=== PATIENT | female | born 1995 | race Caucasian/White ===

== ENCOUNTER 2017-12-12 12:33 | Emergency (ER) | payer OTHER ==
--- NOTE | 2017-12-12 14:55 | ER ---
Nurse's Notes [facility] Name: Tammie Rhodes Age: 22 yrs Sex: Female : 1995 Arrival Date: 12/12/2017 Time: 12:36 Bed Treatment Private MD: Diagnosis: Encounter for test Presentation: 12/12 12:57 Presenting complaint: Patient states: "I have been getting bad motion sickness and my lk1 boobs are tender. I took two tests at home and they were negative. When I was before I always had negative tests. I am taking [place] and Klonopin and my doctor wanted me to come take a test here because I may need my meds changed.". Transition of care: patient was not received from another setting of care. Onset of symptoms was November 30, 2017. Care prior to arrival: None. 12:57 Method Of Arrival: Ambulatory lk1 12:57 Acuity: EBONI 4 lk1 Triage Assessment: 13:00 General: Appears in no apparent distress. Behavior is calm, cooperative, appropriate lk1 for age. Pain: Complains of pain in head Pain currently is 4 out of 10 on a pain scale. 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 - Social history:: Smoking status: Patient/guardian denies using tobacco. Screenin:52 Abuse screen: Denies threats or abuse. Denies injuries from another. Nutritional aj1 screening: No deficits noted. Tuberculosis screening: No symptoms or risk factors identified. 15:00 Fall Risk None identified. aj1 Assessment: 13:52 General: Appears in no apparent distress. comfortable, Behavior is calm, cooperative, aj1 appropriate for age. Pain: Complains of pain in right breast and left breast Quality of pain is described as tenderness. Neuro: Level of Consciousness is awake, alert, obeys commands, Oriented to person, place, time, situation, Moves all extremities. Full function Gait is steady, Speech is normal, Facial symmetry appears normal, Reports "motion sickness". Cardiovascular: Patient's skin is warm and dry. Respiratory: Airway is patent Respiratory effort is even, unlabored, Respiratory pattern is regular, symmetrical. GI: No signs and/or symptoms were reported involving the gastrointestinal system. : No signs and/or symptoms were reported regarding the genitourinary system. EENT: No signs and/or symptoms were reported regarding the EENT system. Derm: No signs and/or symptoms reported regarding the dermatologic system. Skin is pink, warm \\T\\ dry. normal. Musculoskeletal: No signs and/or symptoms reported regarding the musculoskeletal system. Circulation, motion, and sensation intact. 14:59 Reassessment: Patient appears in no apparent distress at this time. No changes from aj1 previously documented assessment. Patient and/or family updated on plan of care and expected duration. Pain level reassessed. Patient is alert, oriented x 3, equal unlabored respirations, skin warm/dry/pink. Vital Signs: 13:01 BP 114 / 79; Pulse 71; Resp 14; Temp 98.2(TE); Pulse Ox 99% on R/A; Weight 86.18 kg lk1 (R); Height 5 ft. 4 in. (162.56 cm) (R); Pain 4/10; 13:01 Body Mass Index 32.61 (86.18 kg, 162.56 cm) lk1 ED Course: 12:36 Patient arrived in ED. mr 13:00 Triage completed. lk1 13:02 Arm band placed on right wrist. lk1 13:06 Alo Ivey PA is PHCP. cp 13:07 Jd Arias MD is Attending Physician. cp 13:49 Jayleen Gates, RN is Primary Nurse. aj1 13:52 Patient has correct armband on for positive identification. aj1 13:52 No provider procedures requiring assistance completed. aj1 15:00 Patient did not have IV access during this emergency room visit. aj1 Administered Medications: No medications were administered Outcome: 14:55 Discharge ordered by . cp 15:00 Discharged to home ambulatory. aj1 15:00 Condition: good 15:00 Discharge instructions given to patient, Instructed on discharge instructions, follow up and referral plans. Demonstrated understanding of instructions, follow-up care. 15:00 Patient left the ED. aj1 Signatures: Jayleen Gates, RN RN [email or web address] Scarlet Hay mr Alo Ivey PA PA cp Kluge, Leah, RN RN lk1
--- NOTE | 2017-12-12 14:55 | EDPHYS ---
Physician Documentation [facility] Name: Tammie Rhodes Age: 22 yrs Sex: Female : 1995 Arrival Date: 12/12/2017 Time: 12:36 Bed Treatment Private MD: ED Physician Jd Arias HPI: 12/12 13:15 This 22 yrs old Female presents to ER via Ambulatory with complaints of cp test. 13:15 Onset: The symptoms/episode began/occurred 12 day(s) ago. cp 13:15 Associated signs and symptoms: Pertinent positives: tender breasts, Pertinent cp negatives: abdominal pain, vomiting, missed menstrual cycle. 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 - Social history:: Smoking status: Patient/guardian denies using tobacco. ROS: 13:20 Constitutional: Negative for body aches, chills, fever, poor PO intake. cp 13:20 Eyes: Negative for injury, pain, redness, and discharge. cp 13:20 ENT: Negative for drainage from ear(s), ear pain, sore throat, difficulty swallowing, difficulty handling secretions. 13:20 Cardiovascular: Negative for chest pain, edema, palpitations. 13:20 Respiratory: Negative for cough, shortness of breath, wheezing. 13:20 Abdomen/GI: Negative for abdominal pain, nausea and vomiting, constipation. 13:20 : Negative for urinary symptoms, vaginal bleeding, missed period. 13:20 Neuro: Negative for dizziness, headache, weakness. 13:20 All other systems are negative. Exam: 13:25 Constitutional: The patient appears in no acute distress, alert, awake, comfortable, cp non-toxic, well developed, well nourished. 13:25 Head/Face: Normocephalic, atraumatic. cp 13:25 Eyes: Periorbital structures: appear normal, Conjunctiva: normal, no exudate, no injection, Lids and lashes: appear normal, bilaterally. 13:25 ENT: External ear(s): are unremarkable, Nose: is normal, Mouth: Lips: moist, Oral mucosa: moist, Posterior pharynx: is normal, airway is patent, no erythema, no exudate. 13:25 Chest/axilla: Inspection: normal. 13:25 Cardiovascular: Rate: normal, Rhythm: regular. 13:25 Respiratory: the patient does not display signs of respiratory distress, Respirations: normal, no use of accessory muscles, no retractions, no splinting, no tachypnea, Breath sounds: are clear throughout, no decreased breath sounds, no stridor, no wheezing. 13:25 Abdomen/GI: Exam negative for discomfort, distension, guarding, Inspection: abdomen appears normal. 13:25 Skin: cellulitis, is not appreciated, no rash present. 13:25 Neuro: Orientation: to person, place \T\ time. Mentation: is normal. Vital Signs: 13:01 BP 114 / 79; Pulse 71; Resp 14; Temp 98.2(TE); Pulse Ox 99% on R/A; Weight 86.18 kg lk1 (R); Height 5 ft. 4 in. (162.56 cm) (R); Pain 4/10; 13:01 Body Mass Index 32.61 (86.18 kg, 162.56 cm) lk1 MDM: 13:10 Patient medically screened. cp 14:54 Data reviewed: vital signs, nurses notes, lab test result(s), and as a result, I will cp discharge patient. Counseling: I had a detailed discussion with the patient and/or guardian regarding: the historical points, exam findings, and any diagnostic results supporting the discharge/admit diagnosis, lab results, the need for outpatient follow up, a family practitioner, to return to the emergency department if symptoms worsen or persist or if there are any questions or concerns that arise at home. 12/12 13:15 Order name: Test, Serum; Complete Time: 14:51 cp 12/12 14:41 Order name: Urine Dipstick--Ancillary (enter results) bd 12/12 13:15 Order name: Urine Dipstick-Ancillary (obtain specimen); Complete Time: 14:52 cp 12/12 13:15 Order name: Urine Test (obtain specimen); Complete Time: 14:52 cp 12/12 14:41 Order name: Urine --Ancillary (enter results) bd Administered Medications: No medications were administered Disposition: 16:18 Co-signature as Attending Physician, Jd Arias MD. rn Disposition: 12/12/17 14:55 Discharged to Home. Impression: Encounter for test. - Condition is Stable. - Medication Reconciliation Form, Thank You Letter, Antibiotic Education, Prescription Opioid Use form. - Follow up: Private Physician; When: 1 - 2 days; Reason: Recheck today's complaints. - Problem is new. - Symptoms are unchanged. Signatures: Dispatcher [employer] EDJayleen Cervantes RN RN aj1 Jd Arias MD MD rn Page, Corey, PA PA cp Kluge, Leah, RN RN lk1
[2017-12-12 15:06] VITALS: BP 114/79; TEMP 98.2; O2SAT 99
[2017-12-12 18:19] LABS: Urine Blood TRACE (NEG); Urine Glucose NEGATIVE (NEG); Urine Protein NEGATIVE (NEG); Urine pH 6.5 (5.0-7.0)
== END 2017-12-12 15:00 | disposition home or self-care (01) ==
LOC: ER 12:33
DX: Z88.8 Allergy status to other drugs, medicaments and biological substances; Z32.02 Encounter for pregnancy test, result negative; Z88.6 Allergy status to analgesic agent; F31.9 Bipolar disorder, unspecified
CPT/HCPCS: 36415; 81003; 81025; 84703; 99281

== ENCOUNTER 2018-01-22 18:58 | Emergency (ER) | payer OTHER ==
[2018-01-22] MEDS ORDERED: ACETAMINOPHEN 500 MG TAB ONE (19:17)
[2018-01-22] MEDS ORDERED: NA CHLORIDE 0.9% 1,000 ML ONE (20:54)
--- NOTE | 2018-01-22 21:17 | RAD REPORT ---
EXAM DESCRIPTION: RAD - Chest Single View - 01/22/2018 8:42 pm CLINICAL HISTORY: Cough and congestion COMPARISON: March 2007 T TECHNIQUE: AP portable chest image was obtained 7 hours . FINDINGS: Lungs are clear. Heart and vasculature are normal. No measurable pleural effusion and no p neumothorax. No gross bony abnormality seen. No acute aortic findings suspected. IMPRESSION: No acute cardiopulmonary process. No significant change from comparison.
[2018-01-22 21:42] LABS: Urine Blood 2+ (NEG); Urine Glucose NEGATIVE (NEG); Urine Protein 1+ (NEG); Urine Specific Gravity 1.015 (1.005-1.030)
[2018-01-22] MEDS ORDERED: ONDANSETRON 4 MG/2 ML VIAL ONE (22:01)
--- NOTE | 2018-01-22 22:26 | EDPHYS ---
Physician Documentation [facility] Name: Tammie Rhodes Age: 22 yrs Sex: Female : 1995 Arrival Date: 01/22/2018 Time: 19:00 Bed 26 Private MD: ED Physician Naren West HPI: 01/22 20:43 This 22 yrs old Female presents to ER via Ambulatory with complaints of Flu jr8 Symptoms. 20:43 Patient stated that she has had 3 days of n/v/d, cough, chest and back pain, fevers, jr8 chills. Son diagnosed with influenza last week. Cannot keep fluids down. Severity of symptoms: At their worst the symptoms were moderate in the emergency department the symptoms are unchanged. The patient has not experienced similar symptoms in the past. The patient has not recently seen a physician. 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 - Social history:: Smoking status: Patient/guardian denies using tobacco. ROS: 20:43 Eyes: Negative for injury, pain, redness, and discharge, ENT: Negative for injury, jr8 pain, and discharge, Neck: Negative for injury, pain, and swelling, Cardiovascular: Negative for chest pain, palpitations, and edema, Back: Negative for injury and pain, MS/Extremity: Negative for injury and deformity, Skin: Negative for injury, rash, and discoloration, Neuro: Negative for headache, weakness, numbness, tingling, and seizure. 20:43 Constitutional: Positive for body aches, chills, fever. 20:43 Respiratory: Positive for cough, shortness of breath. 20:43 Abdomen/GI: Positive for nausea, vomiting, and diarrhea, Negative for abdominal pain, abdominal distension, anorexia, dysphagia, hematemesis, black/tarry stool, rectal pain, rectal bleeding, bowel incontinence, flatulence. Exam: 20:43 Eyes: Pupils equal round and reactive to light, extra-ocular motions intact. Lids and jr8 lashes normal. Conjunctiva and sclera are non-icteric and not injected. Cornea within normal limits. Periorbital areas with no swelling, redness, or edema. ENT: Nares patent. No nasal discharge, no septal abnormalities noted. Tympanic membranes are normal and external auditory canals are clear. Oropharynx with no redness, swelling, or masses, exudates, or evidence of obstruction, uvula midline. Mucous membranes moist. Neck: Trachea midline, no thyromegaly or masses palpated, and no cervical lymphadenopathy. Supple, full range of motion without nuchal rigidity, or vertebral point tenderness. No Meningismus. Cardiovascular: Regular rate and rhythm with a normal S1 and S2. No gallops, murmurs, or rubs. Normal PMI, no JVD. No pulse deficits. Respiratory: Lungs have equal breath sounds bilaterally, clear to auscultation and percussion. No rales, rhonchi or wheezes noted. No increased work of breathing, no retractions or nasal flaring. Abdomen/GI: Soft, non-tender, with normal bowel sounds. No distension or tympany. No guarding or rebound. No evidence of tenderness throughout. Back: No spinal tenderness. No costovertebral tenderness. Full range of motion. Skin: Warm, dry with normal turgor. Normal color with no rashes, no lesions, and no evidence of cellulitis. MS/ Extremity: Pulses equal, no cyanosis. Neurovascular intact. Full, normal range of motion. Neuro: Awake and alert, GCS 15, oriented to person, place, time, and situation. Cranial nerves II-XII grossly intact. Motor strength 5/5 in all extremities. Sensory grossly intact. Cerebellar exam normal. Normal gait. Vital Signs: 19:15 BP 106 / 74; Pulse 121; Resp 19; Temp 102.0(TE); Pulse Ox 100% on R/A; Weight 83.91 kg; la1 Height 5 ft. 4 in. (162.56 cm); 19:45 Temp 99.3(O); tl3 21:00 BP 106 / 71; Pulse 91; Resp 18; Pulse Ox 99% on R/A; dh3 21:40 BP 112 / 70; Pulse 74; Resp 18; Pulse Ox 99% ; tl3 22:22 BP 108 / 66; Pulse 78; Resp 16; Pulse Ox 100% on R/A; tl3 19:15 Body Mass Index 31.75 (83.91 kg, 162.56 cm) la1 MDM: 20:13 Patient medically screened. jr8 22:25 Data reviewed: vital signs, nurses notes, lab test result(s), radiologic studies, plain jr8 films, and as a result, I will discharge patient. Data interpreted: Pulse oximetry: on room air is 100 %. Interpretation: normal. Counseling: I had a detailed discussion with the patient and/or guardian regarding: the historical points, exam findings, and any diagnostic results supporting the discharge/admit diagnosis, lab results, radiology results, the need for outpatient follow up, a family practitioner, to return to the emergency department if symptoms worsen or persist or if there are any questions or concerns that arise at home. Response to treatment: the patient's symptoms have markedly improved after treatment, patient is well hydrated. 01/22 19:27 Order name: Influenza Screen (A ; Complete Time: 20:13 EDSD 01/22 19:27 Order name: Group A Streptococcus Rapid Sc; Complete Time: 20:13 EDSD 01/22 20:04 Order name: Throat Culture EDSD 01/22 21:05 Order name: Urine Dipstick--Ancillary (enter results); Complete Time: 22:07 rg2 01/22 20:31 Order name: IV; Complete Time: 21:41 8 01/22 20:31 Order name: XRAY Chest (1 view); Complete Time: 21:21 jr8 01/22 21:05 Order name: Urine --Ancillary (enter results); Complete Time: 22:07 rg2 Administered Medications: 19:19 Drug: Tylenol 1000 mg Route: PO; la1 21:23 Follow up: Response: No adverse reaction; Temperature is decreased tl3 21:42 Follow up: Response: No adverse reaction; Temperature is decreased tl3 20:45 Drug: NS 0.9% 1000 ml Route: IV; Rate: 1000 ml; Site: right antecubital; tl3 21:58 Follow up: IV Status: Completed infusion; IV Intake: 1000ml tl3 22:03 Drug: Zofran 4 mg Route: IVP; Infused Over: 2 mins; Site: right antecubital; tl3 22:24 Follow up: Response: No adverse reaction; Nausea is decreased tl3 Disposition: 01/23 19:51 Co-signature as Attending Physician, Naren West MD. Disposition: 01/22/18 22:26 Discharged to Home. Impression: Viral infection, unspecified, Dehydration. - Condition is Stable. - Discharge Instructions: Dehydration, Adult, Viral Infections. - Prescriptions for promethazine 25 mg Oral Tablet - take 1 tablet by ORAL route every 6 hours As needed; 20 tablet. - Medication Reconciliation Form, Thank You Letter, Antibiotic Education, Prescription Opioid Use form. - Follow up: Private Physician; When: 2 - 3 days; Reason: Recheck today's complaints, Continuance of care, Re-evaluation by your physician. - Problem is new. - Symptoms have improved. Signatures: Dispatcher [employer] EDSD Mark Nunez PA PA jr8 David Washington, RN RN la1 Naren West MD MD Dot Barney, ONUR RN tl3 Corrections: (The following items were deleted from the chart) 01/22 20:04 19:28 Group A Streptococcus Rapid Sc+BA.LAB.BRZ ordered. EDSD EDSD 20:04 19:28 Influenza Screen (A \T\ B)+BA.LAB.BRZ ordered. EDSD EDSD 22:30 22:26 01/22/2018 22:26 Discharged to Home. Impression: Viral infection, unspecified; tl3 Dehydration. Condition is Stable. Forms are Medication Reconciliation Form, Thank You Letter, Antibiotic Education, Prescription Opioid Use. Follow up: Private Physician; When: 2 - 3 days; Reason: Recheck today's complaints, Continuance of care, Re-evaluation by your physician. Problem is new. Symptoms have improved. jr8
--- NOTE | 2018-01-22 22:26 | ER ---
Nurse's Notes [facility] Name: Tammie Rhodes Age: 22 yrs Sex: Female : 1995 Arrival Date: 01/22/2018 Time: 19:00 Bed 26 Private MD: Diagnosis: Viral infection, unspecified;Dehydration Presentation: 01/22 19:13 Presenting complaint: Patient states: My son had flu A on Monday and now I am having la1 fever, dizziness and chest pain when I breathe. Transition of care: patient was not received from another setting of care. Onset of symptoms was January 22, 2018. Initial Sepsis Screen: Does the patient meet any 2 criteria? Temp <36.0*C (96.8*F)) or > 38.3*C (100.4*F). HR > 90 bpm. Yes Does the patient have a suspected source of infection? No. Patient's initial sepsis screen is negative. Care prior to arrival: None. 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 - Social history:: Smoking status: Patient/guardian denies using tobacco. Screenin:22 Abuse screen: Denies threats or abuse. Nutritional screening: No deficits noted. tl3 Tuberculosis screening: No symptoms or risk factors identified. Fall Risk None identified. Assessment: 19:45 Reassessment: pt reports son has been dx with flu, pt started running fever today, tl3 t-max 102.0. General: Appears uncomfortable, well groomed, well developed, well nourished, Behavior is calm, cooperative, appropriate for age. Pain: Denies pain. Neuro: Level of Consciousness is awake, alert, obeys commands, Oriented to person, place, time, situation, Appropriate for age. Cardiovascular: No deficits noted. Heart tones S1 S2 present. Cardiovascular: Patient's skin is warm and dry. Respiratory: Airway is patent Trachea midline Respiratory effort is even, unlabored, Respiratory pattern is regular, symmetrical. GI: No signs and/or symptoms were reported involving the gastrointestinal system. : No signs and/or symptoms were reported regarding the genitourinary system. EENT: No signs and/or symptoms were reported regarding the EENT system. Derm: No signs and/or symptoms reported regarding the dermatologic system. Musculoskeletal: No signs and/or symptoms reported regarding the musculoskeletal system. 21:40 Reassessment: Patient appears in no apparent distress at this time. No changes from tl3 previously documented assessment. Patient and/or family updated on plan of care and expected duration. Pain level reassessed. Patient is alert, oriented x 3, equal unlabored respirations, skin warm/dry/pink. 22:22 Reassessment: Patient appears in no apparent distress at this time. No changes from tl3 previously documented assessment. Patient and/or family updated on plan of care and expected duration. Pain level reassessed. Patient is alert, oriented x 3, equal unlabored respirations, skin warm/dry/pink. nausea much better. Vital Signs: 19:15 BP 106 / 74; Pulse 121; Resp 19; Temp 102.0(TE); Pulse Ox 100% on R/A; Weight 83.91 kg; la1 Height 5 ft. 4 in. (162.56 cm); 19:45 Temp 99.3(O); tl3 21:00 BP 106 / 71; Pulse 91; Resp 18; Pulse Ox 99% on R/A; dh3 21:40 BP 112 / 70; Pulse 74; Resp 18; Pulse Ox 99% ; tl3 22:22 BP 108 / 66; Pulse 78; Resp 16; Pulse Ox 100% on R/A; tl3 19:15 Body Mass Index 31.75 (83.91 kg, 162.56 cm) la1 ED Course: 19:00 Patient arrived in ED. rg4 19:14 Triage completed. la1 19:14 Arm band placed on left wrist. la1 20:10 Mark Nunez PA is PHCP. jr8 20:10 Naren West MD is Attending Physician. jr8 20:40 X-ray completed. Portable x-ray completed in exam room. Patient tolerated procedure kc2 well. 20:40 XRAY Chest (1 view) In Process Unspecified. EDMS 20:45 No provider procedures requiring assistance completed. Inserted saline lock: 20 gauge tl3 in right antecubital area, using aseptic technique. 21:19 Dot Barney, RN is Primary Nurse. tl3 22:22 Patient has correct armband on for positive identification. Bed in low position. Call tl3 light in reach. Side rails up X 1. 22:28 IV discontinued, intact, bleeding controlled, No redness/swelling at site. Pressure tl3 dressing applied. Administered Medications: 19:19 Drug: Tylenol 1000 mg Route: PO; la1 21:23 Follow up: Response: No adverse reaction; Temperature is decreased tl3 21:42 Follow up: Response: No adverse reaction; Temperature is decreased tl3 20:45 Drug: NS 0.9% 1000 ml Route: IV; Rate: 1000 ml; Site: right antecubital; tl3 21:58 Follow up: IV Status: Completed infusion; IV Intake: 1000ml tl3 22:03 Drug: Zofran 4 mg Route: IVP; Infused Over: 2 mins; Site: right antecubital; tl3 22:24 Follow up: Response: No adverse reaction; Nausea is decreased tl3 Intake: 21:58 IV: 1000ml; Total: 1000ml. tl3 Outcome: 22:26 Discharge ordered by . tiffany 22:28 Discharged to home ambulatory. tl3 22:28 Condition: stable 22:28 Discharge instructions given to patient, Instructed on discharge instructions, follow up and referral plans. medication usage, Demonstrated understanding of instructions, follow-up care, medications, Prescriptions given X 1. 22:30 Patient left the ED. tl3 Signatures: Dispatcher [employer] EDMS Mark Nunez PA PA jr8 David Washington RN RN [email or web address] Aleksandra Jones Rubi [place] 3 Dot Barney, RN RN tl3
[2018-01-22 23:32] VITALS: TEMP 99.3
[2018-01-22 23:37] VITALS: BP 108/66; O2SAT 100
== END 2018-01-22 22:30 | disposition home or self-care (01) ==
LOC: ER 18:58
DX: E86.0 Dehydration (principal); B34.9 Viral infection, unspecified; Z88.6 Allergy status to analgesic agent; Z88.8 Allergy status to other drugs, medicaments and biological substances
CPT/HCPCS: 71045; 81003; 81025; 87070; 87081; 87804; 96361; 96374; 99284; J2405; J7030

== ENCOUNTER 2019-01-29 10:09 | Emergency (ER) | payer OTHER ==
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
--- OUTSIDE RECORDS SUMMARY | 2019-01-29 10:13 | XMS REPORT | Continuity of Care Document ---
:1994 Author Organization [facility] Care Team Providers Name Role Phone FERNANDO Griffin Sharrone Unavailable Unavailable Insurance Providers Payer name Policy type / Coverage Policy ID Covered republican ID Policy Muniz type [facility] STAR MEDICAID OSPCP PRIM HUMANA [facility] Encounters Encounter Performer Location Date Lab Report Luz Griffin PA-C [facility] Medical [place] OB-Vest Tailor Dec 29, 2014 Allergies, Adverse Reactions, Alerts Type Substance Reaction [...] Start Date Status SEROQUEL XR 150 MG [id number]-HGL 1 TABLET BY MOUTH DAILY February 06, [...] E&M - 9279-1 RESP RATE 10 /min Results Date Description Test Name Value Reference Interpretation Status Dec 29, beta HCG, serum, BETA-HCG POSITIVE null NEGATIVE High 2014 qualitative QL
--- OUTSIDE RECORDS SUMMARY | 2019-01-29 10:14 | XMS REPORT | Summary of Care ---
:1994 Author Organization [facility] Address [address] [place] [address]- Encounter HQ Encntr_alias(FIN) [id number] Date(s): 06/25/18 - 06/25/18 [facility] [address] [place], [place] [id number]- [phone] Attending Physician: VISIT, NURSE [facility] Vital Signs No data available for this section Problem List Condition Effective Dates Status Health Status Informant Acute appendicitis(Confirmed) 2005 Resolved ADHD (attention deficit Active hyperactivity disorder)(Confirmed) Low back strain1 02/06/13 Active Melanocytic nevus2 02/24/15 Active Migraine3 02/06/13 Active Obesity(Confirmed) Active Seizure disorder4 02/06/13 Active 1Data migrated from [employer] on 04/27/15.2Data migrated from [employer] on 03/25/15.3Data migrated from [employer] on 04/27/15.4Data migrated from [employer] on 04/27/15. Allergies, Adverse Reactions, Alerts Substance Reaction Severity Status diphenhydrAMINE1 Active aspirin Moderate Active traZODone2 Active 1Data migrated from [employer] on 01/15/15. Originally documented as BENADRYL.2Data migrated from [employer] on 01/15/15. Originally documented as TRAZADONE. Medications No data available for this section Results No data available for this section Immunizations Given and Recorded Vaccine Date Status Refusal Reason influenza virus vaccine, inactivated 06/29/18 Given hepatitis B adult vaccine 05/25/18 Given hepatitis B adult vaccine 11/29/17 Given hepatitis B adult vaccine 11/01/17 Given diphtheria/pertussis, acel/tetanus adult 10/19/17 Given Procedures Procedure Date Related Diagnosis Body Site Status section 2013 Completed section1 2012 Completed Appendectomy 2006 Completed Complex reconstruction operations on wrist Completed and hand(excluding arthroplasty) Tonsillectomy Completed 1x 2 Social History Social History Type Response Substance Abuse Use: None. Alcohol Never Smoking Status Never smoker; Ready to change: No; Concerns about tobacco use in household: No; Exposure to Tobacco Smoke None; Cigarette Smoking Last 365 Days No; Reg Smoking Cessation Counseling No entered on: 06/15/18 Assessment and Plan No data available for this section
--- OUTSIDE RECORDS SUMMARY | 2019-01-29 10:14 | XMS REPORT | Summary of Care ---
:1994 Author Organization [facility] Address [address] [place] [address]- Encounter HQ Encntr_alias(FIN) [id number] Date(s): 06/25/18 - 06/25/18 [facility] [address] [place], [place] [address]- [phone] Attending Physician: VISIT, NURSE [facility] Vital Signs No data available for [...]
--- OUTSIDE RECORDS SUMMARY | 2019-01-29 10:14 | XMS REPORT | Summary of Care ---
:1994 Author Organization [facility] Address [address] [place] [address]- Encounter HQ Swatir_victor m(FIN) [id number] Date(s): 06/29/18 - 06/29/18 [facility] [address] [place] [address] [phone] Discharge Disposition: Home or Self Care Attending Physician: Ishmael Goss PA-C Vital Signs Most recent to oldest [Reference Range]: 1 Temperature Oral [96.4-99.1 DegF] 97.6 DegF (06/29/18 3:03 PM) Blood Pressure [90-140/60-90 mmHg] 112/79 mmHg (06/29/18 3:03 PM) Peripheral Pulse Rate [60-100 bpm] 69 bpm (06/29/18 3:03 PM) Weight 91.591 kg (06/29/18 3:03 PM) Problem List Condition Effective Dates Status Health [...] section 2013 Completed section1 2012 Completed Appendectomy 2005 Completed Complex reconstruction operations on wrist Completed [...]
--- OUTSIDE RECORDS SUMMARY | 2019-01-29 10:14 | XMS REPORT | Summary of Care ---
:1994 Author Organization [facility] Address [address] [place] [address]- Encounter HQ Encntr_alimaryana(FIN) [id number] Date(s): 06/25/18 - 06/25/18 [facility] [address] [place] [address]- [phone] Attending Physician: VISIT, NURSE [facility] Vital Signs No data available for this [...]
--- OUTSIDE RECORDS SUMMARY | 2019-01-29 10:14 | XMS REPORT | Summary of Care ---
:1994 Author Organization [facility] Address [address] [place] [address]- Encounter HQ Swatir_victor m(FIN) [id number] Date(s): 05/25/18 - 05/25/18 [facility] [address] [place] [address]- [phone] Discharge Disposition: Home or Self Care Attending Physician: VISIT, NURSE [facility] Vital Signs Most recent to oldest [Reference Range]: 1 Temperature Oral [96.4-99.1 DegF] 98.5 DegF (05/25/18 3:27 PM) Blood Pressure [90-140/60-90 mmHg] 116/71 mmHg (05/25/18 3:27 PM) Peripheral Pulse Rate [60-100 bpm] 101 bpm *HI* (05/25/18 3:27 PM) Weight 90.909 kg (05/25/18 3:27 PM) Problem List Condition Effective Dates Status [...]
--- OUTSIDE RECORDS SUMMARY | 2019-01-29 10:14 | XMS REPORT | Summary of Care ---
:1994 Author Organization [facility] Address [address] [place] [address]- Encounter HQ Encntr_alimaryana(FIN) [id number] Date(s): 06/29/18 - 06/29/18 [facility] [address] [place] [address] [phone] Attending Physician: Ishmael Goss PA-C Vital Signs No data available for this [...] adult vaccine 11/01/17 Given diphtheria/pertussis, acel/tetanus adult 2/1/18 Given Procedures Procedure Date Related Diagnosis Body [...]
--- OUTSIDE RECORDS SUMMARY | 2019-01-29 10:14 | XMS REPORT | Summary of Care ---
:1994 Author Organization [facility] Address [address] [place] [address]- Encounter HQ Encntr_alimaryana(FIN) [id number] Date(s): 06/25/18 - 06/25/18 [facility] [address] [place] [address]- [phone] Attending Physician: VISIT, NURSE [facility] Vital Signs No data available for this [...]
--- OUTSIDE RECORDS SUMMARY | 2019-01-29 10:14 | XMS REPORT | Summary of Care ---
:1994 Author Organization [facility] Address [address] [place] [address]- Encounter HQ Encntr_alimaryana(FIN) [id number] Date(s): 11/01/17 - 11/01/17 [facility] [address] [place] [address] [phone] Discharge Disposition: Home or Self Care Attending Physician: Ishmael Goss PA-C Vital Signs Most recent to oldest [Reference Range]: 1 Height 162.56 cm (11/01/17 9:48 AM) Temperature Oral [96.4-99.1 DegF] 98.3 DegF (11/01/17 9:48 AM) Blood Pressure [90-140/60-90 mmHg] 110/71 mmHg (11/01/17 9:48 AM) Peripheral Pulse Rate [60-100 bpm] 75 bpm (11/01/17 9:48 AM) Weight 85.909 kg (11/01/17 9:48 AM) Body Mass Index 32.51 m2 (11/01/17 9:48 AM) Problem List Condition Effective Dates Status Health Status Informant Acute appendicitis(Confirmed) 2006 Resolved Low back strain1 02/06/13 Active Melanocytic nevus2 [...] 01/15/15. Originally documented as BENADRYL.2Data migrated from [employer] on 01/15/15. Originally documented as TRAZADONE. Medications No Known Medications Results No data available for this section Immunizations Given and Recorded Vaccine Date Status Refusal Reason hepatitis B adult vaccine 11/29/17 Given hepatitis [...] Reg Smoking Cessation Counseling No entered on: 01/24/18 Assessment and Plan No data available for this section
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
--- OUTSIDE RECORDS SUMMARY | 2019-01-29 10:15 | XMS REPORT | Summary of Care ---
:1994 Author Organization [facility] Address [address] [place] [address]- Encounter HQ Loganntr_victor m(FIN) [id number] Date(s): 01/24/18 - 01/24/18 [facility] [address] [place] [address] [phone] Discharge Disposition: Home or Self Care Attending Physician: Ishmael Goss PA-C Vital Signs Most recent to oldest [Reference Range]: 1 Height 162.56 cm (01/24/18 2:15 PM) Temperature Oral [96.4-99.1 DegF] 98.4 DegF (01/24/18 2:15 PM) Blood Pressure [90-140/60-90 mmHg] 100/66 mmHg (01/24/18 2:15 PM) Peripheral Pulse Rate [60-100 bpm] 106 bpm *HI* (01/24/18 2:15 PM) Weight 86.818 kg (01/24/18 2:15 PM) Body Mass Index 32.85 m2 (01/24/18 2:15 PM) Problem List Condition Effective Dates Status [...] 01/15/15. Originally documented as BENADRYL.2Data migrated from [employer] on 01/15/15. Originally documented as TRAZADONE. Medications cefTRIAXone 1 gm, Route: IM, Drug form: PDR/INJ, ONCE, Dosing Weight 86.818, kg, Start date : 01/24/18 14:24:00 CDT, Stop date: 01/24/18 14:24:00 CDT Start Date: 01/24/18 Stop Date: 01/24/18 Status: Completedcephalexin 500 mg oral capsule 500 mg=1 cap, PO, TID, X 10 day, # 30 cap, 0 Refill(s), Pharmacy: [id number] Start Date: 01/24/18 Stop Date: 02/03/18 Status: Ordered Results No data available for this section [...]
--- OUTSIDE RECORDS SUMMARY | 2019-01-29 10:15 | XMS REPORT | Summary of Care ---
:1994 Author Organization [facility] Address [address] [place] [address]- Encounter HQ Loganntr_victor m(FIN) [id number] Date(s): 11/29/17 - 11/29/17 [facility] [address] [place] [address] [phone] Discharge Disposition: Home or Self Care Attending Physician: VISIT, NURSE [facility] Vital Signs Most recent to oldest [Reference Range]: 1 Temperature Oral [96.4-99.1 DegF] 98.2 DegF (11/29/17 10:16 AM) Blood Pressure [90-140/60-90 mmHg] 118/73 mmHg (11/29/17 10:16 AM) Peripheral Pulse Rate [60-100 bpm] 78 bpm (11/29/17 10:16 AM) Weight 86.818 kg (11/29/17 10:16 AM) Problem List Condition Effective Dates Status [...] Reg Smoking Cessation Counseling No entered on: 02/28/18 Assessment and Plan No data available for this section
--- OUTSIDE RECORDS SUMMARY | 2019-01-29 10:15 | XMS REPORT | Summary of Care ---
:1994 Author Organization [facility] Address [address] [place] [address]- Encounter HQ Swatir_victor m(FIN) [id number] Date(s): 10/18/17 - 10/18/17 [facility] [address] [place] [address] [phone] Discharge Disposition: Home or Self Care Attending Physician: Ishmael Goss PA-C Vital Signs Most recent to oldest [Reference Range]: 1 Height 162.56 cm (10/18/17 1:18 PM) Temperature Oral [96.4-99.1 DegF] 97.8 DegF (10/18/17 1:18 PM) Blood Pressure [90-140/60-90 mmHg] 104/71 mmHg (10/18/17 1:18 PM) Peripheral Pulse Rate [60-100 bpm] 69 bpm (10/18/17 1:18 PM) Weight 85.909 kg (10/18/17 1:18 PM) Body Mass Index 32.51 m2 (10/18/17 1:18 PM) Problem List Condition Effective Dates Status [...] 01/15/15. Originally documented as BENADRYL.2Data migrated from [employer] on 01/15/15. Originally documented as TRAZADONE. Medications [...] Reg Smoking Cessation Counseling No entered on: 11/01/17 Assessment and Plan No data available for this section
--- OUTSIDE RECORDS SUMMARY | 2019-01-29 10:15 | XMS REPORT | Summary of Care ---
:1994 Author Organization [facility] Address [address] [place] [address]- Encounter HQ Ghassan_victor m(FIN) [id number] Date(s): 02/28/18 - 02/28/18 [facility] [address] [place] [address] [phone] Discharge Disposition: Home or Self Care Attending Physician: Marylu Hayden DO Vital Signs Most recent to oldest [Reference Range]: 1 Height 162.56 cm (02/28/18 2:41 PM) Temperature Oral [96.4-99.1 DegF] 98.1 DegF (02/28/18 2:41 PM) Blood Pressure [90-140/60-90 mmHg] 126/76 mmHg (02/28/18 2:41 PM) Peripheral Pulse Rate [60-100 bpm] 80 bpm (02/28/18 2:41 PM) Weight 87.727 kg (02/28/18 2:41 PM) Body Mass Index 33.2 m2 (02/28/18 2:41 PM) Problem List Condition Effective Dates Status Health Status Informant Acute appendicitis(Confirmed) 2006 Resolved ADHD (attention deficit Active hyperactivity disorder)(Confirmed) [...] Moderate Active traZODone2 Active 1Data migrated from [employer] on 01/15/15. Originally documented as BENADRYL.2Data migrated from [employer] on 01/15/15. Originally documented as TRAZADONE. Medications Mirena 52 mg intrauteral device 52 mg=1 ea, Intrauteral, ONCE, # 1 ea, 0 Refill(s) Start Date: 02/28/18 Status: OrderedVyvanse 20 mg oral capsule 20 mg=1 cap, PO, QAM, # 30 tab, 0 Refill(s) Start Date: 02/28/18 Status: Ordered Results No data available for [...]
--- OUTSIDE RECORDS SUMMARY | 2019-01-29 10:15 | XMS REPORT | Summary of Care ---
:1994 Author Organization [facility] Address [address] [place] [address]- Encounter HQ Loganntr_victor m(FIN) [id number] Date(s): 06/15/18 - 06/15/18 [facility] [address] [place] [place] [address]- [phone] Discharge Disposition: Home or Self Care Attending Physician: Ishmael Goss PA-C Vital Signs Most recent to oldest [Reference Range]: 1 Height 162.56 cm (06/15/18 3:08 PM) Temperature Oral [96.4-99.1 DegF] 98.3 DegF (06/15/18 3:08 PM) Blood Pressure [90-140/60-90 mmHg] 109/75 mmHg (06/15/18 3:08 PM) Peripheral Pulse Rate [60-100 bpm] 64 bpm (06/15/18 3:08 PM) Weight 91.818 kg (06/15/18 3:08 PM) Body Mass Index 34.75 m2 (06/15/18 3:08 PM) Problem List Condition Effective Dates Status [...] Moderate Active traZODone2 Active 1Data migrated from [email or web address] on 01/15/15. Originally documented as BENADRYL.2Data migrated from [employer] on 01/15/15. Originally documented as TRAZADONE. Medications Medrol Dosepak 4 mg oral tablet See Instructions, PO, Take by mouth as directed on label., # 1 Pack, 1 Refill(s) , Pharmacy: [facility] Start Date: 06/15/18 Stop Date: 06/27/18 Status: Ordered Results No data available for [...]
--- OUTSIDE RECORDS SUMMARY | 2019-01-29 10:15 | XMS REPORT | Summary of Care ---
:1994 Author Organization [facility] Address [address] [place] [address]- Encounter HQ Encntr_alias(FIN) [id number] Date(s): 01/29/18 - 01/29/18 [facility] [address] [place] [address] [phone] Attending Physician: VISIT, NURSE [facility] Vital Signs No data available for this section Problem List Condition Effective Dates Status Health Status Informant Acute appendicitis(Confirmed) 2005 Resolved Low back strain1 02/06/13 Active Melanocytic [...]
--- OUTSIDE RECORDS SUMMARY | 2019-01-29 10:15 | XMS REPORT | Summary of Care ---
:1994 Author Organization [facility] Address [address] [place] [address]- Encounter HQ Loganntr_victor m(FIN) [id number] Date(s): 01/24/18 - 01/24/18 [facility] [address] [place] [address] [phone] Discharge Disposition: Home or Self Care Attending [...] 01/15/15. Originally documented as BENADRYL.2Data migrated from [employer] on 01/15/15. Originally documented as TRAZADONE. Medications cefTRIAXone 1 gm, Route: IM, Drug form: PDR/INJ, ONCE, Dosing Weight 86.818, kg, Start date : 01/24/18 14:24:00 CDT, Stop date: 01/24/18 14:24:00 CDT Start Date: 01/24/18 Stop Date: 01/24/18 Status: Completedcephalexin 500 mg oral capsule 500 mg=1 cap, PO, TID, X 10 day, # 30 cap, 0 Refill(s), Pharmacy: [id number] Start Date: 01/24/18 Stop Date: [...]
--- OUTSIDE RECORDS SUMMARY | 2019-01-29 10:16 | XMS REPORT ---
:1994 Author Organization [employer] Care Team Providers Name Role Phone Julian Richards Provider Role Unavailable Allergies No Known Allergies Problems Problem Type Condition Code Onset Dates Condition Status Problem Bipolar 1 disorder, depressed F31.9 Active Problem Migraine with status migrainosus, G43.901 Active not intractable, unspecified migraine type Problem Seasonal allergies J30.2 Active Problem Allergic rhinitis, unspecified J30.9 Active seasonality, unspecified trigger Medications No Known Medications Results No Known Results Summary Purpose [employer] Submission
--- OUTSIDE RECORDS SUMMARY | 2019-01-29 10:16 | XMS REPORT ---
:1994 Author Organization [facility] Address [address] [place] [address] Dr. Prakash [address] [place] [address] Care Team Providers Name Role Phone Unavailable Unavailable Unavailable Problems This patient has no known problems. Allergies, Adverse Reactions, Alerts This patient has no known allergies or adverse reactions. Medications This patient has no known medications.
--- OUTSIDE RECORDS SUMMARY | 2019-01-29 10:16 | XMS REPORT | Summary of Care ---
:1994 Author Organization [facility] Address [address] [place] [address]- Encounter HQ Encntr_victor m(FIN) [id number] Date(s): 11/01/18 - 11/01/18 [facility] [address] [place] [address] [phone] Discharge Disposition: Home or Self Care Attending [...]
--- OUTSIDE RECORDS SUMMARY | 2019-01-29 10:16 | XMS REPORT ---
:1994 Author Organization [employer] Care Team Providers Name Role Phone SusieJulian Provider Role Unavailable Allergies No Known Allergies Problems Problem Type Condition Code Onset Dates Condition Status Problem Bipolar 1 disorder, depressed F31.9 Active Problem Migraine with status migrainosus, G43.901 Active not intractable, unspecified migraine type Problem Seasonal allergies J30.2 Active Assessment Tuberculosis screening Z11.1 Active Problem Allergic rhinitis, unspecified J30.9 Active seasonality, unspecified trigger Medications Medication Code Code Instructions Start End Status Dosage System Date Date Topiramate [facility] 37352934442 25 MG Oral Once Active 1 tablet a day Fluticasone [facility] 77687424132 50 MCG/ACT December Active 1 spray in Propionate Nasally Once a 2018 each day nostril RyVent [facility] 32820544950 6 MG Orally December Active 1 tablet Three times a 2018 13, on an day 2018 empty stomach as needed Sumatriptan [facility] 96365841521 4 MG/0.5ML Active (Prior Succinate Subcutaneous Auth: Rx Ref#:[id number]) Results No Known Results Summary Purpose [employer] Submission
--- OUTSIDE RECORDS SUMMARY | 2019-01-29 10:16 | XMS REPORT | CCD ---
:1995 Author Organization [facility] Care Team Providers Name Role Phone Rohith Salmeron Consulting Provider Allergies, Adverse Reactions, Alerts Substance Reaction Status aspirin Rash Active Throat pain Benadryl Rash Active Tylenol Rash Active Problem List Condition Effective Dates Status Anemia Active MASS1 Active 2 11/25/2014 Active 1back [id number] states - 14 weeks and 3 days. Pt states is high risk - due to 06-03-14. states has chronic anemia does not take iron becuase she states it makes her sick. Pt has never had blood transfusion Medications Medication Instructions Start Date End Date Status ceFAZolin 1 gm, IV Piggyback, Once, 04/01/2015 04/01/2015 Canceled infuse over 30 minutes, first dose 04/01/15 11:00:00 CDT, stop date 04/01/15 11:00:00 CDT Lidocaine 2% 0.2 mL IV 0.2 mL, Injection, 04/01/2015 04/01/2015 Discontinued Start [[facility]] Subcutaneous, Once PRN for other (see comment), first dose 04/01/15 10:19:00 CDT LR 1,000 mL 1,000 mL, IV, 30 mL/hr, 04/01/2015 04/01/2015 Discontinued start date 04/01/15 10:19:00 CDT Misc Medication 600 mL, Soln-IV, IV, 04/01/2015 04/01/2015 Completed Once, first dose 04/01/15 13:19:00 CDT, stop date 04/01/15 13:19:00 CDT fentaNYL 100 mcg=2 mL, Injection, 04/01/2015 04/01/2015 Completed IV, Once, first dose 04/01/15 12:34:00 CDT, stop date 04/01/15 12:34:00 CDT ceFAZolin + Sodium 1 gm, Powder-Inj, IV, 04/01/2015 04/01/2015 Completed Chloride 0.9% 100 mL Once, first dose 04/01/15 12:40:00 CDT, stop date 04/01/15 12:40:00 CDT lidocaine 3 mL, Injection, IV, 04/01/2015 04/01/2015 Completed Once, first dose 04/01/15 12:34:00 CDT, stop date 04/01/15 12:34:00 CDT propofol 300 mg=30 mL, Emulsion, 04/01/2015 04/01/2015 Completed IV, Once, first dose 04/01/15 12:57:00 CDT, stop date 04/01/15 12:57:00 CDT ondansetron 8 mg=1 tabs, Tab-Dis, 04/01/2015 04/01/2015 Discontinued Oral, Once PRN for nausea/vomiting, first dose 04/01/15 13:24:00 CDT ondansetron 4 mg=2 mL, Injection, IV 04/01/2015 04/01/2015 Discontinued Push, q15min PRN for nausea/vomiting, order duration: 2 doses, first dose 04/01/15 13:24:00 CDT, stop date Limited # of times Dilaudid 0.2 mg=0.1 mL, Injection, 04/01/2015 04/01/2015 Discontinued IV Push, q10min PRN for pain severe (7-10), first dose 04/01/15 13:24:00 CDT promethazine 12.5 mg=0.5 mL, 04/01/2015 04/01/2015 Discontinued Injection, IM, Once PRN for severe nausea, first dose 04/01/15 13:24:00 CDT LR 1,000 mL 1,000 mL, IV, 75 mL/hr, 04/01/2015 04/01/2015 Discontinued start date 04/01/15 13:24:00 CDT Saline Lock Flush 10 mL, Soln, IV Push, As 04/01/2015 04/01/2015 Discontinued Indicated PRN for flush, first dose 04/01/15 13:24:00 CDT vitamins vitamins, 0 03/09/2015 Ordered Refill(s), supplement Vital Signs Most recent to oldest 1 2 3 [Reference Range]: Temperature Oral [35.8-37.3 36.5 DegC DegC] (04/01/2015 10:27:00) Temperature Tympanic 36.7 DegC [36.6-38.1 DegC] (04/01/2015 13:10:00) Temperature Tympanic 98.06 Fahrenheit (04/01/2015 13:10:00) Peripheral Pulse Rate 70 bpm 58 bpm 70 bpm [55-105 bpm] (04/01/2015 13:55:00) (04/01/2015 13:10:00) (04/01/2015 10:27: 00) Heart Rate Monitored 58 bpm 59 bpm [60-100 bpm] *LOW* *LOW* (04/01/2015 13:30:00) (04/01/2015 13:20:00) Respiratory Rate [12-20] 14 16 16 (04/01/2015 13:55:00) (04/01/2015 13:30:00) (04/01/2015 13:20:00) SpO2 [90-100 %] 98 % 100 % 100 % (04/01/2015 13:55:00) (04/01/2015 13:30:00) (04/01/2015 13:20:00) Blood Pressure <content ID='[id number]'>103</content>/<content ID=' [id number]'>56</content> mmHg <content ID='[id number]'>92</content>/< content ID='[id number]'>50</content> mmHg <content ID='[id number]'>95</ content>/<content ID='[id number]'>45</content> mmHg [110-120/65-85 mmHg] *LOW* *LOW* *LOW* (04/01/2015 13:30:00) (04/01/2015 13:20:00) (04/01/2015 13:10:00) Mean Arterial Pressure, 71.7 mmHg 64 mmHg 61.7 mmHg Cuff (04/01/2015 13:30:00) (04/01/2015 13:20:00) (04/01/2015 13:10:00) Most recent to oldest [Reference 1 2 3 Range]: Height 162.56 cm 162.56 cm (04/01/2015 10:27:00) (03/09/2015 10:41:00) Height/Length Dosing 162.56 cm 162.56 cm (04/01/2015 10:27:00) (03/09/2015 10:41:00) Height Inches 64 in 64 in (04/01/2015 10:27:00) (03/09/2015 10:41:00) Weight 71.21 kg 71.21 kg (04/01/2015 10:27:00) (03/09/2015 10:41:00) Weight Dosing 71.21 kg 71.21 kg (04/01/2015 10:27:00) (03/09/2015 10:41:00) Weight Pounds 157 lb 157 lb (04/01/2015 10:27:00) (03/09/2015 10:41:00) Body Mass Index 27 kg/m2 26.95 kg/m2 (04/01/2015 10:27:00) (03/09/2015 10:41:00) Procedures Procedures Date Related Diagnosis Appendectomy section 06/03/2014 00:00:00 EXCISION LIPOMA BACK 5CM OR MORE 22558 (Other)1 04/01/2015 12:50:00 eye surgery left wrist surgery 2003 Tonsillectomy 1auto-populated from documented surgical case
--- OUTSIDE RECORDS SUMMARY | 2019-01-29 10:16 | XMS REPORT | Summary of Care ---
:1995 Author Organization [facility] [place] Address [address] [place] [address]- Encounter HQ Encntr_alias(FIN) [id number] Date(s): 04/12/18 - 04/12/18 [facility] [place] [address] [place] [phone] Attending Physician: Herve Nieto MD Vital Signs No data available for this [...]
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
[2019-01-29] MEDS ORDERED: FLUORESCEIN SODIUM 1 MG/WRAP ONE (11:16)
[2019-01-29] MEDS ORDERED: TETRACAINE HCL 0.5% 4ML OPTH ONE (11:16)
[2019-01-29] MEDS ORDERED: TOBRAMYCIN SULF 0.3% OPTH OINT ONE (11:25)
--- NOTE | 2019-01-29 11:32 | ER ---
Nurse's Notes [facility] Name: Tammie Rhodes Age: 23 yrs Sex: Female : 1995 Arrival Date: 01/29/2019 Time: 10:12 Bed 6 Private MD: Diagnosis: Ocular pain, right eye;Ocular pain, left eye;Conjunctivitis Presentation: 01/29 10:17 Presenting complaint: Patient states: "I got eyelash extensions yesterday and I'm aj1 having a reaction. I don't know if they got glue in my eye or if I'm allergic" Reports redness, irritation, and burning to both eyes. Reports blurred vision. Transition of care: patient was not received from another setting of care. Onset of symptoms was January 28, 2019. Risk Assessment: Do you want to hurt yourself or someone else? Patient reports no desire to harm self or others. Initial Sepsis Screen: Does the patient meet any 2 criteria? No. Patient's initial sepsis screen is negative. Does the patient have a suspected source of infection? No. Patient's initial sepsis screen is negative. Care prior to arrival: None. 10:17 Method Of Arrival: Ambulatory aj1 10:17 Acuity: EBONI 3 aj1 Triage Assessment: 10:20 General: Appears in no apparent distress. uncomfortable, Behavior is calm, cooperative, aj1 appropriate for age. Pain: Complains of pain in right eye and left eye Pain currently is 8 out of 10 on a pain scale. EENT: Reports blurred vision. Neuro: Level of Consciousness is awake, alert, obeys commands. Cardiovascular: Patient's skin is warm and dry. Respiratory: Airway is patent Respiratory effort is even, unlabored, Respiratory pattern is regular, symmetrical. [employer]: 10:20 LMP N/A - control method aj1 Historical: - Allergies: 10:19 Aspirin; aj1 10:19 Benadryl; aj1 - Home Meds: 10:19 Topamax Oral [Active]; Sumatriptan Sub-Q [Active]; aj1 - PMHx: 10:19 Anemia; Anxiety; Asthma; Bipolar disorder; Migraines; aj1 - Immunization history:: Flu vaccine is up to date. - Social history:: Smoking status: Patient/guardian denies using tobacco. - Ebola Screening: : Patient denies travel to an Ebola-affected area in the 21 days before illness onset. - Family history:: not pertinent. Screenin:04 Abuse screen: Denies threats or abuse. Denies injuries from another. Nutritional ss screening: No deficits noted. Tuberculosis screening: Never had TB. Fall Risk None identified. Assessment: 11:00 General: Appears in no apparent distress. uncomfortable, Behavior is calm, cooperative, ph appropriate for age, Denies fever. Pain: Complains of pain in right eye and left eye. Neuro: Level of Consciousness is awake, alert, obeys commands, Oriented to person, place, time, situation. Cardiovascular: Capillary refill < 3 seconds in bilateral fingers Patient's skin is warm and dry. Respiratory: Airway is patent Respiratory effort is even, unlabored. EENT: Eyes are tearing on right eye and left eye Sclera/Cornea are reddened in lennie lower region of scelera Reports blurred vision in right eye and left eye. Derm: Skin is intact, is healthy with good turgor. 12:04 Reassessment: Patient and/or family updated on plan of care and expected duration. Pain ss level reassessed. Patient is alert, oriented x 3, equal unlabored respirations, skin warm/dry/pink. Neuro: Level of Consciousness is awake, alert, obeys commands. Respiratory: Respiratory effort is even, unlabored. Vital Signs: 10:20 BP 112 / 84; Pulse 82; Resp 18; Temp 98.2(TE); Pulse Ox 100% on R/A; Weight 92.99 kg aj1 (R); Height 5 ft. 4 in. (162.56 cm) (R); Pain 8/10; 12:00 BP 117 / 78; Pulse 71; Resp 19; Temp 97.9; Pulse Ox 100% on R/A; Pain 5/10; ph 10:20 Body Mass Index 35.19 (92.99 kg, 162.56 cm) aj Visual Acuity: 10:24 Left Eye Visual acuity 20/30, ; Right Eye Visual acuity 20/100, ; Without Lenses; aj1 ED Course: 10:12 Patient arrived in ED. mr 10:18 Triage completed. aj1 10:20 Arm band placed on Patient placed in an exam room. aj1 10:26 Alo Martinez MD is Attending Physician. princess 10:32 No [place], RN is Primary Nurse. ph 11:31 David Brian MD is Referral Physician. princess 12:03 No provider procedures requiring assistance completed. Patient did not have IV access ss during this emergency room visit. 12:04 Patient has correct armband on for positive identification. Bed in low position. Call ss light in reach. Administered Medications: 11:20 Drug: Tetracaine Drops 0.5 % 1 drops Route: Ophthalmic; Site: both eyes; ph 12:00 Follow up: Response: No adverse reaction; Pain is decreased ph 11:30 Drug: Tobramycin Ointment (0.3 %) 1 inches Route: Ophthalmic; Site: both eyes; ph 12:45 Follow up: Response: No adverse reaction; Pain is decreased ph Outcome: 11:31 Discharge ordered by MD. princess 12:03 Discharged to home ambulatory. ss 12:03 Condition: good 12:03 Discharge instructions given to patient, family, Instructed on discharge instructions, follow up and referral plans. medication usage, Demonstrated understanding of instructions, follow-up care, medications, Prescriptions given X 2. 12:10 Patient left the ED. 12:48 Patient left the ED. ph Signatures: Jayleen Gates, ONUR RN aj1 Alo Martinez MD MD cha Rivera, Mary mr Smirch, Shelby, RN RN No [place], ONUR RN ph
--- NOTE | 2019-01-29 11:32 | EDPHYS ---
Physician Documentation [facility] Name: Tammie Rhodes Age: 23 yrs Sex: Female : 1995 Arrival Date: 01/29/2019 Time: 10:12 Bed 6 Private MD: ED Physician Alo Martinez HPI: 01/29 11:26 This 23 yrs old Female presents to ER via Ambulatory with complaints of princess Redness of Eye. 11:26 The patient is experiencing burning, pain, redness, The patient sustained an abrasion. princess Onset: The symptoms/episode began/occurred yesterday. Duration: the symptoms are continuous. Aggravated by blinking, closing eye, pressure. Associated signs and symptoms: Pertinent positives: None. Pertinent negatives: None. Patient does not utilize any form of vision correction. Severity of symptoms: At their worst the symptoms were moderate in the emergency department the symptoms are unchanged. The patient has not experienced similar symptoms in the past. JACKER: 10:20 LMP N/A - control method aj1 Historical: - Allergies: 10:19 Aspirin; aj1 10:19 Benadryl; aj1 - Home Meds: 10:19 Topamax Oral [Active]; Sumatriptan Sub-Q [Active]; aj1 - PMHx: 10:19 Anemia; Anxiety; Asthma; Bipolar disorder; Migraines; aj1 - Immunization history:: Flu vaccine is up to date. - Social history:: Smoking status: Patient/guardian denies using tobacco. - Ebola Screening: : Patient denies travel to an Ebola-affected area in the 21 days before illness onset. - Family history:: not pertinent. ROS: 11:26 Constitutional: Negative for fever, chills, and weight loss, ENT: Negative for injury, princess pain, and discharge, Neck: Negative for injury, pain, and swelling, Cardiovascular: Negative for chest pain, palpitations, and edema, Respiratory: Negative for shortness of breath, cough, wheezing, and pleuritic chest pain, Abdomen/GI: Negative for abdominal pain, nausea, vomiting, diarrhea, and constipation, Back: Negative for injury and pain, : Negative for injury, bleeding, discharge, and swelling, MS/Extremity: Negative for injury and deformity, Skin: Negative for injury, rash, and discoloration, Neuro: Negative for headache, weakness, numbness, tingling, and seizure, Psych: Negative for depression, anxiety, suicide ideation, homicidal ideation, and hallucinations, Allergy/Immunology: Negative for hives, rash, and allergies, Endocrine: Negative for neck swelling, polydipsia, polyuria, polyphagia, and marked weight changes, Hematologic/Lymphatic: Negative for swollen nodes, abnormal bleeding, and unusual bruising. 11:26 Eyes: Positive for foreign body sensation, pain, redness. Exam: 11:26 Constitutional: This is a well developed, well nourished patient who is awake, alert, princess and in no acute distress. Head/Face: Normocephalic, atraumatic. ENT: Nares patent. No nasal discharge, no septal abnormalities noted. Tympanic membranes are normal and external auditory canals are clear. Oropharynx with no redness, swelling, or masses, exudates, or evidence of obstruction, uvula midline. Mucous membranes moist. Neck: Trachea midline, no thyromegaly or masses palpated, and no cervical lymphadenopathy. Supple, full range of motion without nuchal rigidity, or vertebral point tenderness. No Meningismus. Chest/axilla: Normal chest wall appearance and motion. Nontender with no deformity. No lesions are appreciated. Cardiovascular: Regular rate and rhythm with a normal S1 and S2. No gallops, murmurs, or rubs. Normal PMI, no JVD. No pulse deficits. Respiratory: Lungs have equal breath sounds bilaterally, clear to auscultation and percussion. No rales, rhonchi or wheezes noted. No increased work of breathing, no retractions or nasal flaring. Abdomen/GI: Soft, non-tender, with normal bowel sounds. No distension or tympany. No guarding or rebound. No evidence of tenderness throughout. Back: No spinal tenderness. No costovertebral tenderness. Full range of motion. Female : Normal external genitalia. Skin: Warm, dry with normal turgor. Normal color with no rashes, no lesions, and no evidence of cellulitis. MS/ Extremity: Pulses equal, no cyanosis. Neurovascular intact. Full, normal range of motion. Neuro: Awake and alert, GCS 15, oriented to person, place, time, and situation. Cranial nerves II-XII grossly intact. Motor strength 5/5 in all extremities. Sensory grossly intact. Cerebellar exam normal. Normal gait. Psych: Awake, alert, with orientation to person, place and time. Behavior, mood, and affect are within normal limits. 11:26 Eyes: Periorbital structures: appear normal, no acute changes, Pupils: no acute changes, equal, round, and reactive to light and accomodation, Extraocular movements: intact throughout, Conjunctiva: injected, Corneas: are normal, no acute changes, Sclera: abrasion, bilaterally, Anterior chamber: normal, Lids and lashes: appear normal, edema, bilaterally, Nystagmus: is not appreciated. Vital Signs: 10:20 BP 112 / 84; Pulse 82; Resp 18; Temp 98.2(TE); Pulse Ox 100% on R/A; Weight 92.99 kg [facility] (R); Height 5 ft. 4 in. (162.56 cm) (R); Pain 8/10; 12:00 BP 117 / 78; Pulse 71; Resp 19; Temp 97.9; Pulse Ox 100% on R/A; Pain 5/10; ph 10:20 Body Mass Index 35.19 (92.99 kg, 162.56 cm) [facility] Visual Acuity: 10:24 Left Eye Visual acuity 20/30, ; Right Eye Visual acuity 20/100, ; Without Lenses; [facility] MDM: 10:26 Patient medically screened. [facility] 11:30 Data reviewed: vital signs, nurses notes. [facility] 01/29 10:24 Order name: Visual Acuity; Complete Time: 10:24 [facility] 01/29 12:44 Order name: Eye Tray; Complete Time: 12:45 ph 01/29 12:44 Order name: Fluoresene Opth strip; Complete Time: 12:45 ph Administered Medications: 11:20 Drug: Tetracaine Drops 0.5 % 1 drops Route: Ophthalmic; Site: both eyes; ph 12:00 Follow up: Response: No adverse reaction; Pain is decreased ph 11:30 Drug: Tobramycin Ointment (0.3 %) 1 inches Route: Ophthalmic; Site: both eyes; ph 12:45 Follow up: Response: No adverse reaction; Pain is decreased ph Disposition: 01/29/19 11:31 Discharged to Home. Impression: Ocular pain, right eye, Ocular pain, left eye, Conjunctivitis. - Condition is Stable. - Discharge Instructions: Chemical Conjunctivitis, [id number], Chemical Conjunctivitis, Adult. - Prescriptions for Tobrex 0.3 % Ophthalmic ointment - apply 1 inch ribbon by OPHTHALMIC route 3 times per day; 3.5 gram. Tylenol- Codeine #3 300-30 mg Oral Tablet - take 2 tablet by ORAL route every 6 hours As needed; 30 tablet. - Medication Reconciliation Form, Thank You Letter, Antibiotic Education, Prescription Opioid Use form. - Follow up: Private Physician; When: 2 - 3 days; Reason: Recheck today's complaints, Continuance of care, Re-evaluation by your physician. Follow up: David Brian MD; When: 1 - 2 days; Reason: Recheck today's complaints, Re-evaluation by your physician. - Problem is new. - Symptoms have improved. Signatures: Jayleen Gates RN RN aj1 Alo Martinez MD MD cha Smirch, Shelby, RN RN ss No [place] RN RN ph Corrections: (The following items were deleted from the chart) 11:31 11:31 01/29/2019 11:31 Discharged to Home. Impression: Ocular pain, right eye; Ocular princess pain, left eye; Conjunctivitis. Condition is Stable. Forms are Medication Reconciliation Form, Thank You Letter, Antibiotic Education, Prescription Opioid Use. Follow up: Private Physician; When: 2 - 3 days; Reason: Recheck today's complaints, Continuance of care, Re-evaluation by your physician. Problem is new. Symptoms have improved. [facility] 12:10 11:31 01/29/2019 11:31 Discharged to Home. Impression: Ocular pain, right eye; Ocular ss pain, left eye; Conjunctivitis. Condition is Stable. Forms are Medication Reconciliation Form, Thank You Letter, Antibiotic Education, Prescription Opioid Use. Follow up: Private Physician; When: 2 - 3 days; Reason: Recheck today's complaints, Continuance of care, Re-evaluation by your physician. Follow up: David Brian; When: 1 - 2 days; Reason: Recheck today's complaints, Re-evaluation by your physician. Problem is new. Symptoms have improved. [facility] 12:48 12:10 01/29/2019 11:31 Discharged to Home. Impression: Ocular pain, right eye; Ocular ph pain, left eye; Conjunctivitis. Condition is Stable. Discharge Instructions: Chemical Conjunctivitis, [id number], Chemical Conjunctivitis, Adult. Prescriptions for Tobrex 0.3 % Ophthalmic ointment - apply 1 inch ribbon by OPHTHALMIC route 3 times per day; 3.5 gram, Tylenol-Codeine #3 300-30 mg Oral Tablet - take 2 tablet by ORAL route every 6 hours As needed; 30 tablet. and Forms are Medication Reconciliation Form, Thank You Letter, Antibiotic Education, Prescription Opioid Use. Follow up: Private Physician; When: 2 - 3 days; Reason: Recheck today's complaints, Continuance of care, Re-evaluation by your physician. Follow up: David Brian; When: 1 - 2 days; Reason: Recheck today's complaints, Re-evaluation by your physician. Problem is new. Symptoms have improved. ss
[2019-01-29 18:30] VITALS: O2SAT 100
[2019-01-29 19:09] VITALS: BP 117/78; TEMP 97.9
== END 2019-01-29 12:48 | disposition home or self-care (01) ==
LOC: ER 10:09
DX: H10.9 Unspecified conjunctivitis (principal); D64.9 Anemia, unspecified; J45.909 Unspecified asthma, uncomplicated; F41.9 Anxiety disorder, unspecified; F31.9 Bipolar disorder, unspecified; Z88.6 Allergy status to analgesic agent; Z88.8 Allergy status to other drugs, medicaments and biological substances
CPT/HCPCS: 99283

== ENCOUNTER 2020-07-31 16:54 | Emergency (ER) | payer OTHER, SELFPAY ==
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
--- NOTE | 2020-07-31 18:42 | EDPHYS ---
Physician Documentation [facility] Name: Tammie Rhodes Age: 24 yrs Sex: Female : 1995 Arrival Date: 07/31/2020 Time: 16:56 Bed 19 Private MD: ED Physician Alo Martinez HPI: 07/31 18:32 This 24 yrs old Female presents to ER via Ambulatory with complaints of princess Headache, Nausea/Vomiting. 18:32 The patient complains of pain to the top of head, forehead, left frontal area, left princess side of the back of head, left occipital area, left base of the skull, right frontal area, right side of the back of head, right occipital area and right base of the skull. The patient describes the headache as constant. Onset: The symptoms/episode began/occurred 2 day(s) ago. Associated signs and symptoms: The patient has no apparent associated signs or symptoms. Severity of symptoms: At its worst the pain was mild, in the emergency department the pain is unchanged. Headache History: Denies prior headaches. The symptoms are alleviated by quiet, remaining still, the symptoms are aggravated by lights, movement, noise. The patient has experienced similar episodes in the past, several times. 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 - Social history:: Smoking status: Patient denies any tobacco usage or history of. - Family history:: not pertinent. ROS: 18:32 Constitutional: Negative for fever, chills, and weight loss, Eyes: Negative for injury, princess pain, redness, and discharge, ENT: Negative for injury, pain, and discharge, Neck: Negative for injury, pain, and swelling, Cardiovascular: Negative for chest pain, palpitations, and edema, Respiratory: Negative for shortness of breath, cough, wheezing, and pleuritic chest pain, Abdomen/GI: Negative for abdominal pain, nausea, vomiting, diarrhea, and constipation, Back: Negative for injury and pain, : Negative for injury, bleeding, discharge, and swelling, MS/Extremity: Negative for injury and deformity, Skin: Negative for injury, rash, and discoloration, Psych: Negative for depression, anxiety, suicide ideation, homicidal ideation, and hallucinations, Allergy/Immunology: Negative for hives, rash, and allergies, Endocrine: Negative for neck swelling, polydipsia, polyuria, polyphagia, and marked weight changes, Hematologic/Lymphatic: Negative for swollen nodes, abnormal bleeding, and unusual bruising. 18:32 Neuro: Positive for headache. Exam: 18:32 Constitutional: This is a well developed, well nourished patient who is awake, alert, princess and in no acute distress. Head/Face: Normocephalic, atraumatic. Eyes: Pupils equal round and reactive to light, extra-ocular motions intact. Lids and lashes normal. Conjunctiva and sclera are non-icteric and not injected. Cornea within normal limits. Periorbital areas with no swelling, redness, or edema. ENT: Nares patent. No nasal discharge, no septal abnormalities noted. Tympanic membranes are normal and external auditory canals are clear. Oropharynx with no redness, swelling, or masses, exudates, or evidence of obstruction, uvula midline. Mucous membranes moist. Neck: Trachea midline, no thyromegaly or masses palpated, and no cervical lymphadenopathy. Supple, full range of motion without nuchal rigidity, or vertebral point tenderness. No Meningismus. Chest/axilla: Normal chest wall appearance and motion. Nontender with no deformity. No lesions are appreciated. Cardiovascular: Regular rate and rhythm with a normal S1 and S2. No gallops, murmurs, or rubs. Normal PMI, no JVD. No pulse deficits. Respiratory: Lungs have equal breath sounds bilaterally, clear to auscultation and percussion. No rales, rhonchi or wheezes noted. No increased work of breathing, no retractions or nasal flaring. Abdomen/GI: Soft, non-tender, with normal bowel sounds. No distension or tympany. No guarding or rebound. No evidence of tenderness throughout. Back: No spinal tenderness. No costovertebral tenderness. Full range of motion. Skin: Warm, dry with normal turgor. Normal color with no rashes, no lesions, and no evidence of cellulitis. MS/ Extremity: Pulses equal, no cyanosis. Neurovascular intact. Full, normal range of motion. Neuro: Awake and alert, GCS 15, oriented to person, place, time, and situation. Cranial nerves II-XII grossly intact. Motor strength 5/5 in all extremities. Sensory grossly intact. Cerebellar exam normal. Normal gait. Psych: Awake, alert, with orientation to person, place and time. Behavior, mood, and affect are within normal limits. 18:32 Neck: ROM/movement: is normal, no acute changes, Meningeal signs: are not present, Kernig's sign is negative, Brudzinski's sign is negative. Vital Signs: 17:04 BP 110 / 81; Pulse 81; Resp 17 S; Temp 97.0(TE); Pulse Ox 100% on R/A; Weight 88.45 kg jd3 (R); Height 5 ft. 4 in. (162.56 cm) (R); Pain 7/10; 19:32 BP 117 / 72; Pulse 86; Resp 15; Temp 97.5; Pulse Ox 100% on R/A; rv 17:04 Body Mass Index 33.47 (88.45 kg, 162.56 cm) jd3 [place] Coma Score: 18:35 Eye Response: spontaneous(4). Verbal Response: oriented(5). Motor Response: obeys princess commands(6). Total: 15. MDM: 18:15 Patient medically screened. princess 18:35 Differential diagnosis: cluster headache, migraine, temporal arteritis, tension princess headache, trigeminal neuralgia. Data reviewed: vital signs, nurses notes. 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 Test interpretation: by ED physician or midlevel provider:. Counseling: I had a detailed discussion with the patient and/or guardian regarding: the historical points, exam findings, and any diagnostic results supporting the discharge/admit diagnosis, lab results, radiology results, the need for outpatient follow up, for definitive care, a neurologist. 07/31 18:31 Order name: COVID-19 princess Administered Medications: 19:17 Not Given (not available): Imitrex 25 mg PO once rv 19:29 Not Given (Patient Refused): Zofran (Ondansetron) 4 mg PO once rv Disposition: 07/31/20 18:42 Discharged to Home. Impression: Headache, Nausea and vomiting. - Condition is Stable. - Discharge Instructions: General Headache Without Cause, Migraine Headache, General Headache Without Cause, [id number]. - Prescriptions for Imitrex 50 mg Oral Tablet - take 1 tablet by ORAL route one time - x 1 dose with fluids as early as possible after the onset of a migraine attack; if headache returns, the dose may be repeated after 2 hours, not to exceed a total daily dose of 4 tablets;. Zofran 4 mg Oral Tablet - take 1 tablet by ORAL route every 12 hours As needed; 20 tablet. - Medication Reconciliation Form, Thank You Letter, Antibiotic Education, Prescription Opioid Use, School release form form. - Follow up: Private Physician; When: 2 - 3 days; Reason: Recheck today's complaints, Continuance of care, Re-evaluation by your physician. Follow up: Hank Lock MD; When: 2 - 3 days; Reason: Recheck today's complaints, Continuance of care, Re-evaluation by your physician. - Problem is new. - Symptoms have improved. Signatures: Dispatcher [employer] EDMS Alo Martinez MD MD cha Davies, Jonathon, RN RN Uvaldo Guevara RN RN rv Corrections: (The following items were deleted from the chart) 19:32 18:42 07/31/2020 18:42 Discharged to Home. Impression: Headache; Nausea and vomiting. rv Condition is Stable. Forms are Medication Reconciliation Form, Thank You Letter, Antibiotic Education, Prescription Opioid Use. Follow up: Private Physician; When: 2 - 3 days; Reason: Recheck today's complaints, Continuance of care, Re-evaluation by your physician. Follow up: Hank Lock; When: 2 - 3 days; Reason: Recheck today's complaints, Continuance of care, Re-evaluation by your physician. Problem is new. Symptoms have improved. princess
--- NOTE | 2020-07-31 18:42 | ER ---
Nurse's Notes [facility] Name: Tammie Rhodes Age: 24 yrs Sex: Female : 1995 Arrival Date: 07/31/2020 Time: 16:56 Bed 19 Private MD: Diagnosis: Headache;Nausea and vomiting Presentation: 07/31 17:00 Chief complaint: Patient states: "I have been having a headache all week and Tylenol jd3 has stopped working. I do have a history of migraines, but I have ran out of medications. 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 Coronavirus screen: cough unrelated to allergies, fever, headache, nausea, Client presents with at least one sign or symptom that may indicate coronavirus-19. Standard/surgical mask placed on the client. Provider contacted for isolation considerations. Ebola Screen: Patient negative for fever greater than or equal to 101.5 degrees Fahrenheit, and additional compatible Ebola Virus Disease symptoms. Initial Sepsis Screen: Does the patient meet any 2 criteria? No. Patient's initial sepsis screen is negative. Does the patient have a suspected source of infection? No. Patient's initial sepsis screen is negative. Risk Assessment: Do you want to hurt yourself or someone else? Patient reports no desire to harm self or others. Onset of symptoms was July 26, 2020. 17:00 Method Of Arrival: Ambulatory jd3 17:00 Acuity: EBONI 3 jd3 Triage Assessment: 19:15 Pain: Pain currently is 6 out of 10 on a pain scale. Pain began gradually, Also rv complains of nausea. 19:30 Headache History: The patient has had previous headaches and this one is similar to rv previous episodes. General: Appears comfortable. General: Behavior is calm, cooperative. 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 - Social history:: Smoking status: Patient denies any tobacco usage or history of. - Family history:: not pertinent. Screenin:05 Abuse screen: Denies threats or abuse. Denies injuries from another. Nutritional jl7 screening: No deficits noted. Tuberculosis screening: No symptoms or risk factors identified. Fall Risk None identified. Assessment: 19:15 General: Appears comfortable, Behavior is calm, cooperative. rv 19:15 Pain: Complains of pain in head. Neuro: Level of Consciousness is awake, alert, obeys rv commands, Oriented to person, place, time, situation, Reports headache. Cardiovascular: Patient's skin is warm and dry. Respiratory: Airway is patent Respiratory effort is even, unlabored, Breath sounds are clear bilaterally. Derm: Skin is intact. Vital Signs: 17:04 BP 110 / 81; Pulse 81; Resp 17 S; Temp 97.0(TE); Pulse Ox 100% on R/A; Weight 88.45 kg jd3 (R); Height 5 ft. 4 in. (162.56 cm) (R); Pain 7/10; 19:32 BP 117 / 72; Pulse 86; Resp 15; Temp 97.5; Pulse Ox 100% on R/A; rv 17:04 Body Mass Index 33.47 (88.45 kg, 162.56 cm) jd3 [place] Coma Score: 18:35 Eye Response: spontaneous(4). Verbal Response: oriented(5). Motor Response: obeys [facility] commands(6). Total: 15. ED Course: 16:56 Patient arrived in ED. as 17:03 Triage completed. jd3 17:06 Arm band placed on. jd3 18:09 Mary Jane Sotomayor, ONUR is Primary Nurse. jl7 18:14 Alo Martinez MD is Attending Physician. princess 18:37 Hank Lock MD is Referral Physician. princess 19:05 Patient has correct armband on for positive identification. Bed in low position. Call jl7 light in reach. Side rails up X 1. 19:05 No provider procedures requiring assistance completed. Patient did not have IV access jl7 during this emergency room visit. Administered Medications: 19:17 Not Given (not available): Imitrex 25 mg PO once rv 19:29 Not Given (Patient Refused): Zofran (Ondansetron) 4 mg PO once rv Outcome: 18:42 Discharge ordered by . princess 19:31 Discharged to home ambulatory. rv 19:31 Condition: good 19:31 Discharge instructions given to patient, Instructed on discharge instructions, follow up and referral plans. medication usage, Demonstrated understanding of instructions, follow-up care, medications, Prescriptions given X 2. 19:32 Patient left the ED. rv Addendum: 08/03/2020 08:04 Addendum: COVID-19 Result: Negative result given to RN to notify pt. Attempted to s s contact pt regarding negative COVID-19 swab results. Unable to leave voice mail due to the number provided was either not a working number, the voice mail has not been set up, or the voice mailbox is full.. 08:29 Addendum: COVID-19 Result: Negative result given to RN to notify pt. Notified pt of s s negative COVID 19 swab results. Pt advised that even with a negative test result they should remain in isolation until symptom free for 3 days without medication. Pt also advised to return to the ED for worsening symptoms. Signatures: Alo Martinez MD MD cha Martinez, Amelia as Smirch, Shelby, RN RN ss Mary Jane Sotomayor RN RN jl7 Roman Fernandez RN RN jd3 Uvaldo Ramachandran, ONUR RN rv Corrections: (The following items were deleted from the chart) 07/31 17:07 17:04 Pulse 81bpm; Resp 17bpm; Spontaneous; Pulse Ox 100% RA; Temp 97.0F Temporal; jd3 88.45 kg Reported; Height 5 ft. 4 in. Reported; BMI: 33.4; Pain 7/10; jd3
[2020-07-31 22:58] VITALS: O2SAT 100
[2020-07-31 23:00] VITALS: BP 117/72; TEMP 97.5
== END 2020-07-31 19:32 | disposition home or self-care (01) ==
LOC: ER 16:54
DX: R51.9 Headache, unspecified (principal); R11.2 Nausea with vomiting, unspecified; Z88.8 Allergy status to other drugs, medicaments and biological substances; Z20.828 Contact with and (suspected) exposure to other viral communicable diseases
CPT/HCPCS: 99282; U0002

== ENCOUNTER 2020-11-13 07:25 | Emergency (ER) | payer SELFPAY ==
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
[2020-11-13] MEDS ORDERED: HYDROCODONE/APAP 7.5/325 MG TAB ONE (08:44)
--- NOTE | 2020-11-13 09:18 | ER ---
Nurse's Notes [facility] Name: Tammie Rhodes Age: 25 yrs Sex: Female : 1995 Arrival Date: 11/13/2020 Time: 07:28 Bed 23 Private MD: Diagnosis: Crushing injury of right little finger;Abrasion of right little finger Presentation: 11/13 07:36 Chief complaint: Patient states: slammed R fifth finger in car door this morning. ss Coronavirus screen: Client denies travel out of the [place] in the last 14 days. Ebola Screen: Patient denies exposure to infectious person. Patient denies travel to an Ebola-affected area in the 21 days before illness onset. Initial Sepsis Screen: Does the patient meet any 2 criteria? No. Patient's initial sepsis screen is negative. Does the patient have a suspected source of infection? No. Patient's initial sepsis screen is negative. Risk Assessment: Do you want to hurt yourself or someone else? Patient reports no desire to harm self or others. Onset of symptoms was November 13, 2020. 07:36 Method Of Arrival: Ambulatory 07:36 Acuity: EBONI 4 ss Triage Assessment: 09:00 Injury Description: Crush injury sustained to dorsal aspect of proximal phalanx of ec1 right little finger. Historical: - Allergies: 07:37 Aspirin; ss 07:37 Benadryl; ss - PMHx: 07:37 Anemia; Anxiety; Asthma; Bipolar disorder; Migraines; ss - PSHx: 07:37 Appendectomy; Tonsillectomy; left wrsit; ; ss - Immunization history:: Adult Immunizations up to date. - Social history:: Smoking status: Patient denies any tobacco usage or history of. Screenin:36 Abuse screen: Denies threats or abuse. Denies injuries from another. Nutritional ss screening: No deficits noted. Tuberculosis screening: Never had TB. Fall Risk None identified. Assessment: 07:36 General: Appears in no apparent distress. Denies fever, feeling ill. Pain: Complains of ss pain in dorsal aspect of middle phalanx of right little finger and dorsal aspect of proximal phalanx of right little finger Pain currently is 6 out of 10 on a pain scale. Quality of pain is described as tender, throbbing, Pain began 1 hour ago. Is continuous. Neuro: Level of Consciousness is awake, alert, obeys commands, Oriented to person, place, time, situation. Cardiovascular: Capillary refill < 3 seconds is brisk in bilateral fingers Patient's skin is warm and dry. Respiratory: Airway is patent Respiratory effort is even, unlabored, Respiratory pattern is regular, symmetrical. EENT: Oral mucosa is moist. Derm: Skin is pink, warm \T\ dry. normal. Musculoskeletal: Range of motion: intact in all extremities, Swelling present in dorsal aspect of middle phalanx of right little finger and dorsal aspect of proximal phalanx of right little finger. 08:54 Reassessment: Patient appears in no apparent distress at this time. Patient and/or ec1 family updated on plan of care and expected duration. Pain level reassessed. Vital Signs: 07:36 BP 109 / 79; Pulse 69; Resp 14; Temp 98.4(TE); Pulse Ox 99% on R/A; Weight 86.18 kg; ss Height 5 ft. 4 in. (162.56 cm); Pain 6/10; 08:54 BP 98 / 72; Pulse 58; Resp 16 S; Pulse Ox 100% ; Pain 4/10; ec1 07:36 Body Mass Index 32.61 (86.18 kg, 162.56 cm) ss ED Course: 07:28 Patient arrived in ED. ds1 07:36 Patient has correct armband on for positive identification. ss 07:37 Triage completed. ss 07:37 Arm band placed on right wrist. ss 07:53 Joel Melgar MD is Attending Physician. kdr 08:19 Zulma Negro, ONUR is Primary Nurse. ss 09:06 Primary Nurse role handed off by Zulma Negro, ONUR ec1 09:06 Karen Sharif, ONUR is Primary Nurse. ec1 09:11 Hand Right 3 View XRAY In Process Unspecified. EDMS 09:17 Johnathan Almeida MD is Referral Physician. kdr 09:36 No provider procedures requiring assistance completed. Patient did not have IV access ec1 during this emergency room visit. Administered Medications: 08:28 Drug: Sweet Briar (7.5 mg-325 mg) 1 tabs Route: PO; ss 09:35 Follow up: Response: Pain is decreased ec1 Outcome: 09:18 Discharge ordered by . kdr 09:36 Discharged to home ambulatory, with friend. ec1 09:36 Condition: good 09:36 Discharge instructions given to patient, Instructed on discharge instructions, follow up and referral plans. Demonstrated understanding of instructions, follow-up care, medications, Prescriptions given X 1. 09:37 Patient left the ED. ec1 Signatures: Dispatcher [employer] Joel Carrasco MD MD [facility] Ju Garg ds1 Zulma Negro RN RN Karen Sharif RN RN ec1
--- NOTE | 2020-11-13 09:18 | EDPHYS ---
Physician Documentation [facility] Name: Tammie Rhodes Age: 25 yrs Sex: Female : 1995 Arrival Date: 11/13/2020 Time: 07:28 Bed 23 Private MD: ED Physician Joel Melgar HPI: 11/13 17:04 This 25 yrs old Female presents to ER via Ambulatory with complaints of kdr Finger Injury. 17:05 The patient or guardian reports a contusion, decreased range of motion, deformity, kdr injury, a laceration, pain, swelling, tenderness. 17:06 The complaints affect the dorsal aspect of middle phalanx of left little finger, DIP of kdr right little finger and PIP of right little finger. Context: The problem was sustained at home, on a street or driveway, resulted from a crush injury, by a car door. Onset: The symptoms/episode began/occurred suddenly, just prior to arrival. Modifying factors: The symptoms are alleviated by holding still, the symptoms are aggravated by movement. Associated signs and symptoms: The patient has no apparent associated signs or symptoms. Severity of symptoms: At their worst the symptoms were mild, in the emergency department the symptoms are unchanged. The patient has not experienced similar symptoms in the past. The patient has not recently seen a physician. Historical: - Allergies: 07:37 Aspirin; ss 07:37 Benadryl; ss - PMHx: 07:37 Anemia; Anxiety; Asthma; Bipolar disorder; Migraines; ss - PSHx: 07:37 Appendectomy; Tonsillectomy; left wrsit; ; ss - Immunization history:: Adult Immunizations up to date. - Social history:: Smoking status: Patient denies any tobacco usage or history of. ROS: 17:06 Constitutional: Negative for fever, chills, and weight loss, Eyes: Negative for injury, kdr pain, redness, and discharge, ENT: Negative for injury, pain, and discharge, Neck: Negative for injury, pain, and swelling, Cardiovascular: Negative for chest pain, palpitations, and edema, Respiratory: Negative for shortness of breath, cough, wheezing, and pleuritic chest pain, Abdomen/GI: Negative for abdominal pain, nausea, vomiting, diarrhea, and constipation, Back: Negative for injury and pain, : Negative for injury, bleeding, discharge, and swelling, Skin: Negative for injury, rash, and discoloration, Neuro: Negative for headache, weakness, numbness, tingling, and seizure activity. 17:06 MS/extremity: Positive for injury or acute deformity, abrasion, decreased range of motion, erythema, laceration, pain, swelling, tenderness, of the dorsal aspect of middle phalanx of right little finger, dorsal aspect of proximal phalanx of right little finger, palmar aspect of middle phalanx of right little finger and Palmar aspect of proximal phalanx of right little finger. Exam: 17:06 Constitutional: This is a well developed, well nourished patient who is awake, alert, kdr and in no acute distress. 17:06 Musculoskeletal/extremity: Extremities: grossly normal except: noted in the dorsal aspect of middle phalanx of right little finger, dorsal aspect of proximal phalanx of right little finger, palmar aspect of middle phalanx of right little finger and Palmar aspect of proximal phalanx of right little finger: contusion, decreased ROM, deformity, laceration, pain, swelling, tenderness. Vital Signs: 07:36 BP 109 / 79; Pulse 69; Resp 14; Temp 98.4(TE); Pulse Ox 99% on R/A; Weight 86.18 kg; ss Height 5 ft. 4 in. (162.56 cm); Pain 6/10; 08:54 BP 98 / 72; Pulse 58; Resp 16 S; Pulse Ox 100% ; Pain 4/10; ec1 07:36 Body Mass Index 32.61 (86.18 kg, 162.56 cm) Procedures: 17:06 Splinting: Splint applied to dorsal aspect of middle phalanx of right little finger and kdr dorsal aspect of proximal phalanx of right little finger using finger splint, applied by nurse. Patient tolerated well. MDM: 09:18 Patient medically screened. kdr 17:06 Data reviewed: vital signs, nurses notes, radiologic studies. Counseling: I had a kdr detailed discussion with the patient and/or guardian regarding: the historical points, exam findings, and any diagnostic results supporting the discharge/admit diagnosis, radiology results, the need for outpatient follow up. 11/13 07:56 Order name: Hand Right 3 View XRAY; Complete Time: 17:05 kdr 11/13 07:56 Order name: Splint - Finger; Complete Time: 09:36 kdr 11/13 07:56 Order name: Misc. Order: Clean and dress wound on finger; Complete Time: :36 kdr Administered Medications: 08:28 Drug: Kimberly (7.5 mg-325 mg) 1 tabs Route: PO; ss 09:35 Follow up: Response: Pain is decreased ec1 Disposition: 11/13/20 09:18 Discharged to Home. Impression: Crushing injury of right little finger, Abrasion of right little finger. - Condition is Stable. - Discharge Instructions: Finger Sprain, [id number], Crush Injury of the Hand, [id number]-[id number]. - Prescriptions for Tramadol 50 mg Oral Tablet - take 1 tablet by ORAL route every 8 hours as needed; 12 tablet. - Medication Reconciliation Form, Thank You Letter, Prescription Opioid Use, Work release form form. - Follow up: Private Physician; When: 2 - 3 days; Reason: If symptoms return, Further diagnostic work-up, Recheck today's complaints, Continuance of care, Re-evaluation by your physician. Follow up: Johnathan Almeida MD; When: 2 - 3 days; Reason: If symptoms return, Further diagnostic work-up, Recheck today's complaints, Continuance of care, Re-evaluation by your physician. - Problem is new. - Symptoms have improved. Signatures: Dispatcher [employer] EDMS Joel Melgar MD MD [facility] Zulma Negro RN RN Karen Sharif RN RN ec1 Corrections: (The following items were deleted from the chart) 09:37 09:18 11/13/2020 09:18 Discharged to Home. Impression: Crushing injury of right little ec1 finger; Abrasion of right little finger. Condition is Stable. Forms are Medication Reconciliation Form, Thank You Letter, Antibiotic Education, Prescription Opioid Use. Follow up: Private Physician; When: 2 - 3 days; Reason: If symptoms return, Further diagnostic work-up, Recheck today's complaints, Continuance of care, Re-evaluation by your physician. Follow up: Johnathan Almeida; When: 2 - 3 days; Reason: If symptoms return, Further diagnostic work-up, Recheck today's complaints, Continuance of care, Re-evaluation by your physician. Problem is new. Symptoms have improved. kdr
--- NOTE | 2020-11-13 09:27 | RAD REPORT ---
EXAM DESCRIPTION: RAD - Hand Right 3 View - 11/13/2020 9:11 am CLINICAL HISTORY: PAIN, blunt force trauma fifth digit COMPARISON: No comparisons FINDINGS: No fracture confirmed on this study. There is no dislocation or periosteal reaction noted. No foreign body or significant soft tissue abnormality. IMPRESSION: No fracture confirmed. No foreign body in the soft tissues.
[2020-11-13 10:09] VITALS: TEMP 98.4
[2020-11-13 10:11] VITALS: BP 98/72; O2SAT 100
== END 2020-11-13 09:37 | disposition home or self-care (01) ==
LOC: ER 07:25
DX: S60.416A Abrasion of right little finger, initial encounter (principal); W23.0XXA Caught, crushed, jammed, or pinched between moving objects, initial encounter; Y93.9 Activity, unspecified; Y92.008 Other place in unspecified non-institutional (private) residence as the place of occurrence of the external cause; Z88.6 Allergy status to analgesic agent; Z88.8 Allergy status to other drugs, medicaments and biological substances
CPT/HCPCS: 99283

== ENCOUNTER 2021-01-09 15:38 | Emergency (ER) | payer OTHER, SELFPAY ==
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
--- NOTE | 2021-01-09 18:05 | ER ---
Nurse's Notes [facility] Name: Tammie Rhodes Age: 25 yrs Sex: Female : 1995 Arrival Date: 01/09/2021 Time: 15:40 Bed 26 Private MD: Diagnosis: Presentation: 01/09 16:03 Chief complaint: Patient states: LLQ abd/pelvic pain for <24 hours. + nausea. No ll1 dysuria or fever. States she is currently trying to get , no positive tests yet. Coronavirus screen: Client denies travel out of the [place] in the last 14 days. At this time, the client does not indicate any symptoms associated with coronavirus-19. Ebola Screen: Patient denies travel to an Ebola-affected area in the 21 days before illness onset. Initial Sepsis Screen: Does the patient meet any 2 criteria? No. Patient's initial sepsis screen is negative. Does the patient have a suspected source of infection? Yes: Acute abdominal pain. Risk Assessment: Do you want to hurt yourself or someone else? Patient reports no desire to harm self or others. Onset of symptoms was January 08, 2021. 16:03 Method Of Arrival: Ambulatory ll1 16:03 Acuity: EBONI 3 ll1 Historical: - Allergies: 16:06 Benadryl; ll1 16:06 Aspirin; ll1 - PMHx: 16:06 Anemia; Anxiety; Asthma; Bipolar disorder; Migraines; ll1 - PSHx: 16:06 Appendectomy; Tonsillectomy; left wrsit; ; ll1 - Immunization history:: Flu vaccine is not up to date. - Social history:: Smoking status: Reported history of juuling and/or vaping. Patient denies any tobacco usage or history of. Vital Signs: 16:03 BP 104 / 61; Pulse 66; Resp 17; Temp 97.3; Pulse Ox 99% ; Weight 81.65 kg; Height 5 ft. ll1 4 in. (162.56 cm); Pain 8/10; 16:03 Body Mass Index 30.90 (81.65 kg, 162.56 cm) ll1 ED Course: 15:40 Patient arrived in ED. ds1 16:04 Triage completed. ll1 16:06 Arm band placed on. ll1 18:03 Aol Ivey PA is PHCP. cp 18:03 Alo Martinez MD is Attending Physician. cp 18:04 Patient's name was called from ER lobby. No response. Unable to locate patient. Will bb disposition as left without being seen by a provider. Administered Medications: No medications were administered Outcome: 18:05 Patient left the ED. bb 18:11 Patient left the ED. bb Signatures: Ju Garg ds1 Nancy Taveras RN RN bb Alo Ivey PA PA cp Lewis, Lynsay RN RN ll1
[2021-01-09 18:25] VITALS: BP 104/61; TEMP 97.3; O2SAT 99
== END 2021-01-09 18:11 | disposition left against medical advice (07) ==
LOC: ER 15:38
DX: Z53.21 Procedure and treatment not carried out due to patient leaving prior to being seen by health care provider (principal)
CPT/HCPCS: 99281

== ENCOUNTER 2021-02-21 11:41 | Emergency (ER) | payer SELFPAY ==
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
[2021-02-21] MEDS ORDERED: HYDROCODONE/APAP 5/325 MG TAB ONE (12:54)
--- NOTE | 2021-02-21 14:22 | EDPHYS ---
Physician Documentation [facility] Name: Tammie Rhodes Age: 25 yrs Sex: Female : 1995 Arrival Date: 02/21/2021 Time: 11:44 Bed 24 Private MD: Alo Chu HPI: 02/21 12:35 This 25 yrs old Female presents to ER via Ambulatory with complaints of Post pm1 Surgical Pain, Vaginal Discharge. 12:35 The patient presents with pelvic pain, vaginal discharge. Onset: The symptoms/episode pm1 began/occurred today. Modifying factors: The symptoms are alleviated by nothing, the symptoms are aggravated by sexual intercourse. Associated signs and symptoms: Pertinent negatives: dysuria, fever, vomiting. Severity of symptoms: in the emergency department the symptoms are unchanged. The patient is sexually active, reportedly has a single partner, does not use protection during intercourse. The patient's method of control includes nothing. The patient has been recently seen by a physician: an finish saw operator specialist, patient had coloscopy 2 days ago and had started to have vaginal discharge and pelvic pain after intercourse. 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 - Social history:: Smoking status: Reported history of juuling and/or vaping. ROS: 12:35 Positive for pelvic pain, vaginal discharge, Negative for urinary symptoms. pm1 12:35 Constitutional: Negative for fever, chills, and weight loss, Cardiovascular: Negative for chest pain, palpitations, and edema, Respiratory: Negative for shortness of breath, cough, wheezing, and pleuritic chest pain, Abdomen/GI: Negative for abdominal pain, nausea, vomiting, diarrhea, and constipation, Back: Negative for injury and pain, MS/Extremity: Negative for injury and deformity, Skin: Negative for injury, rash, and discoloration. 12:35 All other systems are negative. Exam: 12:35 Constitutional: This is a well developed, well nourished patient who is awake, alert, pm1 and in no acute distress. Head/Face: Normocephalic, atraumatic. 12:35 Back: No spinal tenderness. No costovertebral tenderness. Full range of motion. Skin: Warm, dry with normal turgor. Normal color with no rashes, no lesions, and no evidence of cellulitis. MS/ Extremity: Pulses equal, no cyanosis. Neurovascular intact. Full, normal range of motion. 12:35 Cardiovascular: Rate: normal, Rhythm: regular, Pulses: no pulse deficits are appreciated. 12:35 Respiratory: the patient does not display signs of respiratory distress, Respirations: normal, Breath sounds: are clear throughout. 12:35 Abdomen/GI: Inspection: abdomen appears normal, Palpation: abdomen is soft and non-tender, in all quadrants. 12:35 : Pelvic Exam: External exam: is normal, Speculum exam: scant bleeding, no cervicitis, no tissue in cervix is seen, no tissue in vagina is seen, Kirill MOHR. 12:35 Neuro: Orientation: is normal, Mentation: is normal, Motor: is normal, moves all fours. Vital Signs: 12:12 BP 104 / 73; Pulse 64; Resp 18 S; Temp 97.4(TE); Pulse Ox 98% on R/A; Weight 83.46 kg aa5 (R); Height 5 ft. 4 in. (162.56 cm) (R); Pain 6/10; 14:22 BP 109 / 74; Pulse 68; Resp 16; Pulse Ox 100% on R/A; zb 12:12 Body Mass Index 31.58 (83.46 kg, 162.56 cm) aa5 MDM: 12:17 Patient medically screened. [facility] 14:15 Data reviewed: vital signs. Data interpreted: Pulse oximetry: on room air is 98 %. pm1 Interpretation: normal. Counseling: I had a detailed discussion with the patient and/or guardian regarding: the historical points, exam findings, and any diagnostic results supporting the discharge/admit diagnosis, the need for outpatient follow up, for definitive care, an OB/Gyne specialist, to return to the emergency department if symptoms worsen or persist or if there are any questions or concerns that arise at home. 14:25 ED course: PMPaware reviewed; No history of prescriptions. pm1 02/21 12:27 Order name: Pelvic Exam Setup; Complete Time: 12:35 pm1 Administered Medications: 12:35 Drug: [place] (HYDROcodone-acetaminophen) 5 mg-325 mg 1 tabs {Note: RASS 0.} Route: PO; zb 14:22 Follow up: Response: No adverse reaction; Pain is decreased; RASS: Alert and Calm (0) zb Disposition: 02/21/21 14:21 Discharged to Home. Impression: Other specified abnormal uterine and vaginal bleeding. - Condition is Stable. - Discharge Instructions: Colposcopy, Pelvic Rest, Abnormal Uterine Bleeding, [id number], Colposcopy, Care After. - Prescriptions for Tylenol- Codeine #3 300-30 mg Oral Tablet - take 2 tablets by ORAL route every 6 hours As needed; 12 tablet. - Medication Reconciliation Form, Thank You Letter, Antibiotic Education, Prescription Opioid Use form. - Follow up: Emergency Department; When: As needed; Reason: Worsening of condition. Follow up: Private Physician; When: 2 - 3 days; Reason: Recheck today's complaints, Continuance of care, Re-evaluation by your physician. - Problem is new. - Symptoms have improved. Addendum: 02/23/2021 07:56 Co-signature as Attending Physician, Alo Martinez MD I agree with the assessment and c rose plan of care. Signatures: Alo Martinez MD MD cha Calderon, Audri, RN RN aa5 Malik Martinez, [employer] CAPTAIN pm1 Alyce Borjas RN RN zb Corrections: (The following items were deleted from the chart) 02/21 14:32 14:21 02/21/2021 14:21 Discharged to Home. Impression: Other specified abnormal uterine zb and vaginal bleeding. Condition is Stable. Forms are Medication Reconciliation Form, Thank You Letter, Antibiotic Education, Prescription Opioid Use. Follow up: Emergency Department; When: As needed; Reason: Worsening of condition. Follow up: Private Physician; When: 2 - 3 days; Reason: Recheck today's complaints, Continuance of care, Re-evaluation by your physician. Problem is new. Symptoms have improved. pm1
--- NOTE | 2021-02-21 14:22 | ER ---
Nurse's Notes [facility] Name: Tammie Rhodes Age: 25 yrs Sex: Female : 1995 Arrival Date: 02/21/2021 Time: 11:44 Bed 24 Private MD: Diagnosis: Other specified abnormal uterine and vaginal bleeding Presentation: 02/21 12:12 Chief complaint: Patient states: cervical biopsy completed on Monday at [facility] in [place]. Pt c/o foul smelling brown discharge and c/o pelvic pain. Coronavirus screen: At this time, the client does not indicate any symptoms associated with coronavirus-19. Ebola Screen: Patient negative for fever greater than or equal to 101.5 degrees Fahrenheit, and additional compatible Ebola Virus Disease symptoms. Initial Sepsis Screen: Does the patient meet any 2 criteria? No. Patient's initial sepsis screen is negative. Does the patient have a suspected source of infection? No. Patient's initial sepsis screen is negative. Risk Assessment: Do you want to hurt yourself or someone else? Patient reports no desire to harm self or others. Onset of symptoms was February 21, 2021. 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 - Social history:: Smoking status: Reported history of juuling and/or vaping. Screenin:38 Abuse screen: Denies threats or abuse. Denies injuries from another. Nutritional zb screening: No deficits noted. Tuberculosis screening: No symptoms or risk factors identified. Fall Risk None identified. Assessment: 12:35 General: Appears in no apparent distress. comfortable, Behavior is calm, cooperative, zb appropriate for age. Pain: Complains of pain in suprapubic area Pain currently is 6 out of 10 on a pain scale. Quality of pain is described as crampy, Pain began 2-3 days ago. Neuro: Level of Consciousness is awake, alert, obeys commands, Oriented to person, place, time, situation. Cardiovascular: Patient's skin is warm and dry. Respiratory: Airway is patent Respiratory effort is even, unlabored, Respiratory pattern is regular, symmetrical. GI: Abdomen is round. Derm: Skin is intact, is healthy with good turgor, Skin is dry, Skin is normal. Musculoskeletal: Circulation, motion, and sensation intact. Range of motion: intact in all extremities. 12:35 : suprapubic TTP Reports discharge, from vagina that is bloody, malodorous, pain in zb suprapubic area Patient is sexually active. 13:30 Reassessment: Patient appears in no apparent distress at this time. Patient and/or zb family updated on plan of care and expected duration. Pain level reassessed. Patient is alert, oriented x 3, equal unlabored respirations, skin warm/dry/pink. minimal bleeding. 14:21 Reassessment: Patient appears in no apparent distress at this time. Patient and/or zb family updated on plan of care and expected duration. Pain level reassessed. Patient is alert, oriented x 3, equal unlabored respirations, skin warm/dry/pink. ecp at bedside discussing care with patient and SO. Vital Signs: 12:12 BP 104 / 73; Pulse 64; Resp 18 S; Temp 97.4(TE); Pulse Ox 98% on R/A; Weight 83.46 kg aa5 (R); Height 5 ft. 4 in. (162.56 cm) (R); Pain 6/10; 14:22 BP 109 / 74; Pulse 68; Resp 16; Pulse Ox 100% on R/A; zb 12:12 Body Mass Index 31.58 (83.46 kg, 162.56 cm) aa5 ED Course: 11:44 Patient arrived in ED. rg4 12:11 Arm band placed on. aa5 12:13 Triage completed. aa5 12:15 Malik Martinez NP is PHCP. pm1 12:15 Alo Martinez MD is Attending Physician. pm1 12:17 Alyce Borjas RN is Primary Nurse. zb 12:38 Patient has correct armband on for positive identification. Placed in gown. Bed in low zb position. Call light in reach. Adult w/ patient. Pulse ox on. NIBP on. Door closed. Noise minimized. 12:38 Assist provider with pelvic exam: Set up pelvic tray. Performed by Malik melendez Patient tolerated well. 14:21 Patient did not have IV access during this emergency room visit. zb Administered Medications: 12:35 Drug: [place] (HYDROcodone-acetaminophen) 5 mg-325 mg 1 tabs {Note: RASS 0.} Route: PO; zb 14:22 Follow up: Response: No adverse reaction; Pain is decreased; RASS: Alert and Calm (0) zb Outcome: 14:21 Discharge ordered by MD. pm1 14:21 Discharged to home ambulatory. zb 14: Condition: stable 14:21 Discharge instructions given to patient, Instructed on discharge instructions, follow up and referral plans. medication usage, Demonstrated understanding of instructions, follow-up care, medications, Prescriptions given X 1. 14:32 Patient left the ED. al Signatures: Laurita Carmona RN RN aa5 Malik Martinez NP [employer] pm1 [employer] rg4 Alyce Borjas RN RN al Corrections: (The following items were deleted from the chart) 12:55 12:38 Assist provider with pelvic exam: Set up pelvic tray. Performed by Malik melendez
[2021-02-21 14:37] VITALS: TEMP 97.4
[2021-02-21 14:38] VITALS: BP 109/74; O2SAT 100
== END 2021-02-21 14:32 | disposition home or self-care (01) ==
LOC: ER 11:41
DX: N93.9 Abnormal uterine and vaginal bleeding, unspecified (principal); Z98.890 Other specified postprocedural states; Z88.6 Allergy status to analgesic agent; Z88.8 Allergy status to other drugs, medicaments and biological substances
CPT/HCPCS: 99284

== ENCOUNTER 2021-03-09 11:10 | Emergency (ER) | payer SELFPAY ==
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
[2021-03-09 11:28] LABS: Urine Blood Negative (Negative); Urine Glucose Negative (Negative); Urine Protein Negative (Negative); Urine pH 6.5 (5.0-7.0)
--- NOTE | 2021-03-09 14:28 | ER ---
Nurse's Notes [facility] Name: Tammie Rhodes Age: 25 yrs Sex: Female : 1995 Arrival Date: 03/09/2021 Time: 11:13 Bed 20 Private MD: Diagnosis: Acute upper respiratory infection, unspecified Presentation: 03/09 11:19 Chief complaint: Patient states: Cough/congestion, SOB, sore throat for 2 days. No ll1 known fever. Coronavirus screen: Client denies travel out of the [place] in the last 14 days. congestion, cough unrelated to allergies, difficulty breathing, fatigue, headache, nausea, sore throat, Client presents with at least one sign or symptom that may indicate coronavirus-19. Standard/surgical mask placed on the client. Ebola Screen: Patient denies travel to an Ebola-affected area in the 21 days before illness onset. Initial Sepsis Screen: Does the patient meet any 2 criteria? No. Patient's initial sepsis screen is negative. Does the patient have a suspected source of infection? Yes: Productive cough/pneumonia. Risk Assessment: Do you want to hurt yourself or someone else? Patient reports no desire to harm self or others. Onset of symptoms was March 08, 2021. 11:19 Method Of Arrival: Ambulatory ll1 11:19 Acuity: EBONI 3 ll1 Triage Assessment: 11:32 Respiratory: the patient has mild shortness of breath. 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 - Social history:: Smoking status: Patient denies any tobacco usage or history of. Screenin:30 Abuse screen: Denies threats or abuse. Denies injuries from another. Nutritional kg screening: No deficits noted. Tuberculosis screening: No symptoms or risk factors identified. Fall Risk None identified. No fall in past 12 months (0 pts). No secondary diagnosis (0 pts). No IV (0 pts). Ambulatory Aid- None/Bed Rest/Nurse Assist (0 pts). Gait- Normal/Bed Rest/Wheelchair (0 pts) Mental Status- Oriented to own ability (0 pts). Total Wilson Fall Scale indicates No Risk (0-24 pts). Assessment: 11:28 General: Appears in no apparent distress. Behavior is calm, cooperative, appropriate kg for age, quiet. Pain: Complains of pain in neck Pain radiates to face Pain currently is 6 out of 10 on a pain scale. at worst was 8 out of 10 on a pain scale. level that patient reports is acceptable is 6 out of 10 on a pain scale. Quality of pain is described as burning, aching, Pain began 2-3 days ago. Is continuous. Neuro: No deficits noted. Level of Consciousness is awake, alert, obeys commands, Oriented to person, place, time, situation, Appropriate for age. Cardiovascular: No deficits noted. Heart tones S1 S2 Capillary refill < 3 seconds Rhythm is regular. Respiratory: Reports cough that is productive, Airway is patent Trachea midline Respiratory effort is even, unlabored, relaxed, Respiratory pattern is Breath sounds are clear bilaterally. GI: No deficits noted. : No deficits noted. EENT: Reports difficulty swallowing pain in chin when swallowing Pain is 6 out of 10 on a pain scale. since yesterday. Derm: No signs and/or symptoms reported regarding the dermatologic system. Musculoskeletal: No deficits noted. Vital Signs: 11:19 Weight 85.28 kg; Height 5 ft. 4 in. (162.56 cm); Pain 6/10; ll1 11:23 BP 114 / 87; Pulse 68; Resp 20; Temp 97.1(TE); Pulse Ox 97% on R/A; Pain 6/10; kg 12:00 BP 112 / 84; Pulse 77; Resp 18; Pulse Ox 99% on R/A; kg 13:00 BP 108 / 68; Pulse 58; Resp 20; Pulse Ox 99% on R/A; kg 14:33 BP 117 / 72; Pulse 76; Resp 18; Pulse Ox 97% on R/A; kg 11:19 Body Mass Index 32.27 (85.28 kg, 162.56 cm) ll1 ED Course: 11:13 Patient arrived in ED. wm 11:17 Arm band placed on Patient placed in an exam room, on a stretcher. ll1 11:18 Mark Nunez PA is PHCP. jr8 11:18 Joel Melgar MD is Attending Physician. jr8 11:20 Triage completed. ll1 11:23 Renetta Haq, RN is Primary Nurse. kg 11:31 Patient has correct armband on for positive identification. kg 11:31 No provider procedures requiring assistance completed. kg 12:23 CORONAVIRUS Sent. kg 12:23 Test, Serum Sent. kg 12:23 COVID-19 : Document "Date of Symptom Onset" if Symptomatic. Sent. kg 12:23 Strep Sent. kg 12:23 Urine --Ancillary (enter results) Sent. kg 14:41 Patient did not have IV access during this emergency room visit. kg Administered Medications: No medications were administered Outcome: 14:28 Discharge ordered by . jr8 14:40 Discharged to home ambulatory. kg 14:40 Condition: good 14:40 Discharge instructions given to patient, Instructed on discharge instructions, follow up and referral plans. the need for admit, Demonstrated understanding of instructions, follow-up care, medications, Prescriptions given X 3. 14:41 Patient left the ED. kg Signatures: Mark Nunez PA PA jr8 Maine Becker, RN RN ll1 Renetta Haq, RN RN kg Mulu Vasquez
--- NOTE | 2021-03-09 14:28 | EDPHYS ---
Physician Documentation [facility] Name: Tammie Rhodes Age: 25 yrs Sex: Female : 1995 Arrival Date: 03/09/2021 Time: 11:13 Bed 20 Private MD: ED Physician Joel Melgar HPI: 03/09 15:09 This 25 yrs old Female presents to ER via Ambulatory with complaints of jr8 cough, congestion, sore throat, taste and smell difference . 15:09 Onset: The symptoms/episode began/occurred gradually. Duration: The symptoms are jr8 continuous. The patient's shortness of breath has no apparent modifying factors. Associated signs and symptoms: Pertinent positives: breast tenderness. Severity of symptoms: At their worst the symptoms were mild in the emergency department the symptoms are unchanged. The patient has not experienced similar symptoms in the past. The patient has not recently seen a physician. 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 - Social history:: Smoking status: Patient denies any tobacco usage or history of. ROS: 15:09 Eyes: Negative for injury, pain, redness, and discharge, Neck: Negative for injury, jr8 pain, and swelling, Cardiovascular: Negative for chest pain, palpitations, and edema, Back: Negative for injury and pain, MS/Extremity: Negative for injury and deformity, Skin: Negative for injury, rash, and discoloration, Neuro: Negative for headache, weakness, numbness, tingling, and seizure. 15:09 Constitutional: Positive for body aches, chills. 15:09 ENT: Positive for rhinorrhea, sinus congestion, sore throat. 15:09 Respiratory: Positive for cough, shortness of breath. 15:09 Abdomen/GI: Positive for nausea, Negative for abdominal pain, vomiting, diarrhea. Exam: 15:09 Constitutional: This is a well developed, well nourished patient who is awake, alert, jr8 and in no acute distress. Eyes: Pupils equal round and reactive to light, extra-ocular motions intact. Lids and lashes normal. Conjunctiva and sclera are non-icteric and not injected. Cornea within normal limits. Periorbital areas with no swelling, redness, or edema. ENT: Nares patent. No nasal discharge, no septal abnormalities noted. Tympanic membranes are normal and external auditory canals are clear. Oropharynx with no redness, swelling, or masses, exudates, or evidence of obstruction, uvula midline. Mucous membranes moist. Neck: Trachea midline, no thyromegaly or masses palpated, and no cervical lymphadenopathy. Supple, full range of motion without nuchal rigidity, or vertebral point tenderness. No Meningismus. Cardiovascular: Regular rate and rhythm with a normal S1 and S2. No gallops, murmurs, or rubs. Normal PMI, no JVD. No pulse deficits. Respiratory: Lungs have equal breath sounds bilaterally, clear to auscultation and percussion. No rales, rhonchi or wheezes noted. No increased work of breathing, no retractions or nasal flaring. Abdomen/GI: Soft, non-tender, with normal bowel sounds. No distension or tympany. No guarding or rebound. No evidence of tenderness throughout. Back: No spinal tenderness. No costovertebral tenderness. Full range of motion. Skin: Warm, dry with normal turgor. Normal color with no rashes, no lesions, and no evidence of cellulitis. MS/ Extremity: Pulses equal, no cyanosis. Neurovascular intact. Full, normal range of motion. Neuro: Awake and alert, GCS 15, oriented to person, place, time, and situation. Cranial nerves II-XII grossly intact. Motor strength 5/5 in all extremities. Sensory grossly intact. Cerebellar exam normal. Normal gait. Vital Signs: 11:19 Weight 85.28 kg; Height 5 ft. 4 in. (162.56 cm); Pain 6/10; ll1 11:23 BP 114 / 87; Pulse 68; Resp 20; Temp 97.1(TE); Pulse Ox 97% on R/A; Pain 6/10; kg 12:00 BP 112 / 84; Pulse 77; Resp 18; Pulse Ox 99% on R/A; kg 13:00 BP 108 / 68; Pulse 58; Resp 20; Pulse Ox 99% on R/A; kg 14:33 BP 117 / 72; Pulse 76; Resp 18; Pulse Ox 97% on R/A; kg 11:19 Body Mass Index 32.27 (85.28 kg, 162.56 cm) ll1 MDM: 11:18 Patient medically screened. [facility] 14:27 Data reviewed: vital signs, nurses notes, lab test result(s), and as a result, I will 8 discharge patient. Data interpreted: Pulse oximetry: on room air is 99 %. Interpretation: normal. Counseling: I had a detailed discussion with the patient and/or guardian regarding: the historical points, exam findings, and any diagnostic results supporting the discharge/admit diagnosis, lab results, the need for outpatient follow up, a family practitioner, to return to the emergency department if symptoms worsen or persist or if there are any questions or concerns that arise at home. 03/09 11:29 Order name: Urine Dipstick-Ancillary; Complete Time: 11:43 EDMI 03/09 11:39 Order name: Urine --Ancillary (enter results) [facility] 03/09 11:44 Order name: Strep [facility] 03/09 11:44 Order name: COVID-19 : Document "Date of Symptom Onset" if Symptomatic. [facility] 03/09 11:44 Order name: Test, Serum [facility] 03/09 12:02 Order name: Urine --Ancillary; Complete Time: 12:08 EDMI 03/09 12:10 Order name: CORONAVIRUS [facility] 03/09 12:36 Order name: Group A Streptococcus Rapid Sc; Complete Time: 13:04 [facility] 03/09 14:23 Order name: SARS-COV-2 RT PCR; Complete Time: 15:10 EDMS Administered Medications: No medications were administered Disposition: 15:25 Co-signature as Attending Physician, Joel Melgar MD I agree with the assessment and kdr plan of care. Disposition: 03/09/21 14:28 Discharged to Home. Impression: Acute upper respiratory infection, unspecified. - Condition is Stable. - Discharge Instructions: Upper Respiratory Infection, Adult. - Prescriptions for promethazine- DM 6.25-15 mg/5 mL Oral syrup - take 5 milliliter by ORAL route every 6 hours As needed as needed; 100 milliliter. Prednisone 20 mg Oral Tablet - take 1 tablet by ORAL route once daily for 5 days; 5 tablet. Tessalon Perles 100 mg Oral Capsule - take 1 capsule by ORAL route every 8 hours As needed; 15 capsule. - Medication Reconciliation Form, Thank You Letter, Antibiotic Education, Prescription Opioid Use form. - Follow up: Private Physician; When: 5 - 6 days; Reason: Recheck today's complaints, Continuance of care, Re-evaluation by your physician. - Problem is new. - Symptoms have improved. Signatures: Dispatcher [employer] EDMI Joel Melgar MD MD kdr Roszak, Josh, PA PA jr8 Maine Becker, RN RN ll1 Renetta Haq RN RN kg Corrections: (The following items were deleted from the chart) 14:41 14:28 03/09/2021 14:28 Discharged to Home. Impression: Acute upper respiratory kg infection, unspecified. Condition is Stable. Forms are Medication Reconciliation Form, Thank You Letter, Antibiotic Education, Prescription Opioid Use. Follow up: Private Physician; When: 5 - 6 days; Reason: Recheck today's complaints, Continuance of care, Re-evaluation by your physician. Problem is new. Symptoms have improved. jr8
[2021-03-09 15:10] VITALS: TEMP 97.1
[2021-03-09 15:15] VITALS: BP 117/72; O2SAT 97
== END 2021-03-09 14:41 | disposition home or self-care (01) ==
LOC: ER 11:10
DX: J06.9 Acute upper respiratory infection, unspecified (principal); Z20.822 Contact with and (suspected) exposure to COVID-19; Z88.6 Allergy status to analgesic agent; Z88.8 Allergy status to other drugs, medicaments and biological substances
CPT/HCPCS: 81003; 81025; 87070; 87081; 99283; U0003

== ENCOUNTER 2021-03-22 17:40 | Emergency (ER) | payer SELFPAY ==
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
--- NOTE | 2021-03-22 19:59 | RAD REPORT ---
EXAM DESCRIPTION: US - Transvaginal OB - 03/22/2021 7:07 pm CLINICAL HISTORY: r/o ectopic;Abd pain Pelvic pain COMPARISON: None FINDINGS: A single gestational sac is seen within the uterus. The shape of the sac is within normal limits for gestational age. No yolk sac or embryo yet detected. The maternal adnexa and right ovary are within normal limits. Normal Doppler blood flow was demonstra yadira to the right ovary. The left ovary was obscured by bowel gas. IMPRESSION: Small gestational sac is seen within endometrial canal. It is difficult to visualize but would be compatible with an early IUP. No embryonic components seen. Recommend serial HCG measuremen ts and close interval follow-up pelvic sonography in 7-10 days.
--- NOTE | 2021-03-22 21:33 | EDPHYS ---
Physician Documentation [facility] Name: Tammie Rohdes Age: 25 yrs Sex: Female : 1995 Arrival Date: 03/22/2021 Time: 17:42 Bed 12 Private MD: ED Physician Shivam Gary HPI: 03/22 21:29 This 25 yrs old Female presents to ER via Ambulatory with complaints of ma2 Abdominal Cramping resolved. 21:29 The estimated gestational age is 5 weeks. Associated signs and symptoms: Pertinent ma2 negatives: diarrhea, frequency, seizure, shortness of breath, vaginal bleeding. The patient has not experienced similar symptoms in the past. mild lower abdominal cramping 2 days ago, that millan resolved, no symptoms today . 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 - Social history:: Smoking status: Reported history of juuling and/or vaping. Patient/guardian denies using alcohol, street drugs, The patient lives with family. - Family history:: not pertinent. ROS: 21:29 Constitutional: Negative for fever, chills, and weight loss, Cardiovascular: Negative ma2 for chest pain, palpitations, and edema. 21:29 All other systems are negative. Exam: 21:29 Constitutional: This is a well developed, well nourished patient who is awake, alert, ma2 and in no acute distress. Chest/axilla: Normal chest wall appearance and motion. Nontender with no deformity. No lesions are appreciated. Cardiovascular: Regular rate and rhythm with a normal S1 and S2. No gallops, murmurs, or rubs. Normal PMI, no JVD. No pulse deficits. Respiratory: Lungs have equal breath sounds bilaterally, clear to auscultation and percussion. No rales, rhonchi or wheezes noted. No increased work of breathing, no retractions or nasal flaring. Abdomen/GI: Soft, non-tender, with normal bowel sounds. No distension or tympany. No guarding or rebound. No evidence of tenderness throughout. Back: No spinal tenderness. No costovertebral tenderness. Full range of motion. MS/ Extremity: Pulses equal, no cyanosis. Neurovascular intact. Full, normal range of motion. Neuro: Awake and alert, GCS 15, oriented to person, place, time, and situation. Cranial nerves II-XII grossly intact. Motor strength 5/5 in all extremities. Sensory grossly intact. Cerebellar exam normal. Normal gait. Vital Signs: 18:25 BP 104 / 69; Pulse 63; Resp 17; Temp 98.9; Pulse Ox 99% on R/A; Weight 85.73 kg; Height jl7 5 ft. 4 in. (162.56 cm); Pain 8/10; 18:25 Body Mass Index 32.44 (85.73 kg, 162.56 cm) jl7 MDM: 21:26 Patient medically screened. ma2 21:29 Differential diagnosis: STD, abd pain uti vs other condition, ectopic is still a ma2 possibility, patient has been in waiting area for 3 hrs she want to folow up with home sales service professional tomorrow i explained that this is early and ectopic is not ruled out and she will need us in 2-3 days and she will return to er for any recurrence of pain or any new symptoms. 03/22 18:31 Order name: US Transvaginal Ob; Complete Time: 21:26 kb Administered Medications: No medications were administered Disposition Summary: 03/22/21 21:33 Discharge Ordered Location: Home ma2 Condition: Stable ma2 Diagnosis - Abdominal pain, unspecified ma2 Followup: ma2 - With: Jass Steven MD - When: Tomorrow - Reason: Continuance of care Discharge Instructions: - Discharge Summary Sheet ma2 - Abdominal Pain During ma2 Forms: - Medication Reconciliation Form ma2 - Thank You Letter ma2 - Antibiotic Education ma2 - Prescription Opioid Use ma2 Signatures: Dispatcher [employer] Mary Jane Rivera RN RN jl7 Shivam Gary MD MD ma2
--- NOTE | 2021-03-22 21:33 | ER ---
Nurse's Notes [facility] Name: Tammie Rhodes Age: 25 yrs Sex: Female : 1995 Arrival Date: 03/22/2021 Time: 17:42 Bed 12 Private MD: Diagnosis: Abdominal pain, unspecified Presentation: 03/22 18:25 Chief complaint: Patient states: RLQ pain/cramping since 1300 today, anxiety feeling at 7 1700, 5 weeks , hx of ectopic . Coronavirus screen: Client denies travel out of the [place] in the last 14 days. At this time, the client does not indicate any symptoms associated with coronavirus-19. Ebola Screen: No symptoms or risks identified at this time. Initial Sepsis Screen: Does the patient meet any 2 criteria? No. Patient's initial sepsis screen is negative. Does the patient have a suspected source of infection? No. Patient's initial sepsis screen is negative. Risk Assessment: Do you want to hurt yourself or someone else? Patient reports no desire to harm self or others. Onset of symptoms was March 22, 2021 at 13:00. 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 - Social history:: Smoking status: Reported history of juuling and/or vaping. Patient/guardian denies using alcohol, street drugs, The patient lives with family. - Family history:: not pertinent. Screenin:27 Abuse screen: Denies threats or abuse. Denies injuries from another. Nutritional iw screening: No deficits noted. Tuberculosis screening: No symptoms or risk factors identified. 21:30 Fall Risk None identified. iw Assessment: 21:26 General: Appears in no apparent distress. Behavior is calm, cooperative. Neuro: No iw deficits noted. Level of Consciousness is awake, alert, obeys commands, Oriented to person, place, time, situation, Moves all extremities. Full function. Respiratory: Respiratory effort is even, unlabored, Respiratory pattern is regular. 21:30 Pain:. GI: Bowel sounds present X 4 quads. Abd is soft and non tender X 4 quads. iw Vital Signs: 18:25 BP 104 / 69; Pulse 63; Resp 17; Temp 98.9; Pulse Ox 99% on R/A; Weight 85.73 kg; Height jl7 5 ft. 4 in. (162.56 cm); Pain 8/10; 18:25 Body Mass Index 32.44 (85.73 kg, 162.56 cm) jl7 ED Course: 17:42 Patient arrived in ED. rg4 18:27 Triage completed. jl7 18:27 Arm band placed on right wrist. jl7 19:07 US Transvaginal Ob In Process Unspecified. EDMS 21:26 Shivam Gary MD is Attending Physician. ma2 21:26 Fariba Modi, RN is Primary Nurse. iw 21:30 Patient has correct armband on for positive identification. iw 21:32 Jass Steven MD is Referral Physician. ma2 21:38 No provider procedures requiring assistance completed. Patient did not have IV access iw during this emergency room visit. Administered Medications: No medications were administered Outcome: 21:33 Discharge ordered by . ma2 21:38 Discharged to home ambulatory, with family. iw 21:38 Condition: good 21:38 Discharge instructions given to patient, Instructed on discharge instructions, follow up and referral plans. Demonstrated understanding of instructions, follow-up care. 21:39 Patient left the ED. iw Signatures: Dispatcher [employer] EDMS Fariba Modi, RN Magnolia Hartmann rg4 Mary Jane Sotomayor RN RN jl7 Shivam Gary MD MD mi2
[2021-03-22 21:55] VITALS: BP 104/69; TEMP 98.9; O2SAT 99
== END 2021-03-22 21:39 | disposition home or self-care (01) ==
LOC: ER 17:40
DX: O26.891 Other specified pregnancy related conditions, first trimester (principal); Z3A.01 Less than 8 weeks gestation of pregnancy
CPT/HCPCS: 76817; 99283

== ENCOUNTER 2021-04-03 23:30 | Emergency (ER) | payer SELFPAY ==
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
[2021-04-04 01:49] LABS: Urine Blood Negative (Negative); Urine Glucose Negative (Negative); Urine Protein Negative (Negative); Urine Specific Gravity 1.015 (1.005-1.030)
[2021-04-04 02:31] LABS: Absolute Lymphocytes (CBC) 2.6 K/uL (0.7-4.9); Basophils % 0.3 % (0-1.3); Hematocrit 33.6 % (36.0-45.0); Lymphocytes % 35.9 % (15.3-44.8); MPV 8.4 fL (7.6-11.3)
[2021-04-04 02:43] LABS: Urine Bacteria 20-50 /HPF (<20); Urine RBC <5 /HPF (NONE SEEN)
[2021-04-04 03:17] LABS: BUN Blood Urea Nitrogen 13 mg/dL (7-18); Bicarbonate 25 mmol/L (21-32); Glucose Level 103 mg/dL (74-106); HCG, Quantitative 50345 mIU/mL (1-3); Potassium 3.9 mmol/L (3.5-5.1); Sodium Level 138 mmol/L (136-145)
[2021-04-04] MEDS ORDERED: ONDANSETRON 4 MG/2 ML VIAL ONE (03:24)
[2021-04-04] MEDS ORDERED: NA CHLORIDE 0.9% 1,000 ML ONE (03:24)
--- NOTE | 2021-04-04 03:56 | ER ---
Nurse's Notes [facility] Name: Tammie Rhodes Age: 25 yrs Sex: Female : 1995 Arrival Date: 04/03/2021 Time: 23:33 Bed 5 Private MD: Diagnosis: Threatened ;UTI/ Urinary tract infection, site not specified Presentation: 04/04 00:13 Chief complaint: Patient states: she is 7 weeks and has been having abdominal bb cramping for a week then tonight she started spotting lightly when she wipes. Coronavirus screen: At this time, the client does not indicate any symptoms associated with coronavirus-19. Ebola Screen: No symptoms or risks identified at this time. Initial Sepsis Screen: Does the patient meet any 2 criteria? No. Patient's initial sepsis screen is negative. Does the patient have a suspected source of infection? No. Patient's initial sepsis screen is negative. Risk Assessment: Do you want to hurt yourself or someone else? Patient reports no desire to harm self or others. Onset of symptoms was April 04, 2021. 00:13 Method Of Arrival: Ambulatory bb 00:13 Acuity: EBONI 3 bb Triage Assessment: 00:14 General: Appears in no apparent distress. uncomfortable, Behavior is calm, cooperative. bb Pain: Complains of pain in abdomen Pain currently is 6 out of 10 on a pain scale. Neuro: Level of Consciousness is awake, alert, obeys commands, Oriented to person, place, time, situation. Cardiovascular: Capillary refill < 3 seconds Patient's skin is warm and dry. Respiratory: Respiratory effort is even, unlabored. GI: Abdomen is non-distended. : Reports vaginal bleeding that is spotty. Derm: Skin is pink, warm \T\ dry. Musculoskeletal: Circulation, motion, and sensation intact. 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 - Social history:: Smoking status: Patient reports the use of cigarette tobacco products, denies chronic smoking, but will smoke occasionally. Screenin:38 Abuse screen: Denies threats or abuse. Nutritional screening: No deficits noted. em Tuberculosis screening: No symptoms or risk factors identified. Fall Risk None identified. Assessment: 01:40 Reassessment: No changes from previously documented assessment. see triage assessment. bb 03:07 Reassessment: wheeled to US via wheelchair. em 04:04 Reassessment: Patient appears in no apparent distress at this time. Patient and/or em family updated on plan of care and expected duration. Pain level reassessed. Patient is alert, oriented x 3, equal unlabored respirations, skin warm/dry/pink. Vital Signs: 00:13 BP 105 / 74; Pulse 78; Resp 16 S; Temp 98.4(O); Pulse Ox 100% on R/A; Weight 87.09 kg bb (R); Height 5 ft. 4 in. (162.56 cm) (R); Pain 6/10; 02:03 BP 96 / 60; Pulse 79; Resp 16; Pulse Ox 98% on R/A; em 04:03 BP 100 / 63; Pulse 62; Resp 14; Pulse Ox 98% on R/A; em 00:13 Body Mass Index 32.96 (87.09 kg, 162.56 cm) ED Course: 04/03 23:33 Patient arrived in ED. cf2 04/04 00:14 Triage completed. bb 00:14 Arm band placed on Patient placed in waiting room, Patient notified of wait time. bb Family accompanied patient. 01:37 Milton Vu, RN is Primary Nurse. em 01:38 Patient has correct armband on for positive identification. Placed in gown. Bed in low em position. Call light in reach. Adult w/ patient. 01:43 Darrin Rebolledo MD is Attending Physician. 7 01:48 Urine collected: clean catch specimen, clear. bb 01:57 Initial lab(s) drawn, by me, sent to lab. Inserted saline lock: 20 gauge in right em antecubital area, using aseptic technique. Blood collected. 03:50 US Transvaginal Ob In Process Unspecified. EDMS 03:55 Alberta Dyer MD is Referral Physician. [facility] 04:03 No provider procedures requiring assistance completed. IV discontinued, intact, em bleeding controlled, No redness/swelling at site. Pressure dressing applied. Administered Medications: 03:05 Drug: NS 0.9% 1000 ml Route: IV; Rate: 1000 ml; Site: right antecubital; em 04:04 Follow up: IV Status: Order to discontinue infusion; IV Intake: 100ml em 03:05 Drug: Zofran (Ondansetron) 4 mg Route: IVP; Site: right antecubital; em 04:04 Follow up: Response: No adverse reaction; Marked relief of symptoms em Point of Care Testing: Urine : 01:49 hCG Reading: Positive; bb Intake: 04:04 IV: 100ml; Total: 100ml. em Outcome: 03:55 Discharge ordered by . [facility] 04:03 Discharged to home ambulatory, with family. em 04:03 Condition: stable 04:03 Discharge instructions given to patient, family, Instructed on discharge instructions, follow up and referral plans. medication usage, Demonstrated understanding of instructions, follow-up care, medications, Prescriptions given X 2. 04:05 Patient left the ED. em Signatures: Dispatcher [employer] Milton Alston RN RN em Ballard, Brenda, RN RN bb Frazier, Celesta 2 Darrin Rebolledo MD MD 7
--- NOTE | 2021-04-04 03:57 | EDPHYS ---
Physician Documentation [facility] Name: Tammie Rhodes Age: 25 yrs Sex: Female : 1995 Arrival Date: 04/03/2021 Time: 23:33 Bed 5 Private MD: ED Physician Darrin Rebolledo HPI: 04/04 02:05 This 25 yrs old Female presents to ER via Ambulatory with complaints of mh7 Vaginal Bleeding, + Preg <12wks, Abdominal Cramping. 02:05 The patient presents to the emergency department with abdominal pain, of the suprapubic mh7 area, that started 3 day(s) ago, described as crampy, intermittent, waxing/waning, vaginal bleeding, described as spotting. The estimated gestational age is 7 weeks. course: care: none, Leakage of Fluid: none appreciated, Ultrasound: the patient has not had an ultrasound, Risk/complications: no obvious risks or complications are appreciated. Previous pregnancies: in previous pregnancies patient has had. Associated signs and symptoms: Pertinent positives: abdominal pain, nausea, vaginal bleeding, Pertinent negatives: chest pain, diarrhea, dysuria, fever, frequency, ruptured membranes, seizure, shortness of breath, vaginal discharge, vomiting. 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 - Social history:: Smoking status: Patient reports the use of cigarette tobacco products, denies chronic smoking, but will smoke occasionally. ROS: 02:05 Constitutional: Negative for fever, chills, and weight loss, Eyes: Negative for injury, mh7 pain, redness, and discharge, ENT: Negative for injury, pain, and discharge, Neck: Negative for injury, pain, and swelling, Cardiovascular: Negative for chest pain, palpitations, and edema, Respiratory: Negative for shortness of breath, cough, wheezing, and pleuritic chest pain, Back: Negative for injury and pain, MS/Extremity: Negative for injury and deformity, Skin: Negative for injury, rash, and discoloration, Neuro: Negative for headache, weakness, numbness, tingling, and seizure, Psych: Negative for depression, anxiety, suicide ideation, homicidal ideation, and hallucinations, Allergy/Immunology: Negative for hives, rash, and allergies, Endocrine: Negative for neck swelling, polydipsia, polyuria, polyphagia, and marked weight changes, Hematologic/Lymphatic: Negative for swollen nodes, abnormal bleeding, and unusual bruising. Exam: 02:05 Constitutional: This is a well developed, well nourished patient who is awake, alert, mh7 and in no acute distress. Head/Face: Normocephalic, atraumatic. Eyes: Pupils equal round and reactive to light, extra-ocular motions intact. Lids and lashes normal. Conjunctiva and sclera are non-icteric and not injected. Cornea within normal limits. Periorbital areas with no swelling, redness, or edema. Neck: Trachea midline, no thyromegaly or masses palpated, and no cervical lymphadenopathy. Supple, full range of motion without nuchal rigidity, or vertebral point tenderness. No Meningismus. Chest/axilla: Normal chest wall appearance and motion. Nontender with no deformity. No lesions are appreciated. Cardiovascular: Regular rate and rhythm with a normal S1 and S2. No gallops, murmurs, or rubs. Normal PMI, no JVD. No pulse deficits. Respiratory: Lungs have equal breath sounds bilaterally, clear to auscultation and percussion. No rales, rhonchi or wheezes noted. No increased work of breathing, no retractions or nasal flaring. Abdomen/GI: Soft, non-tender, with normal bowel sounds. No distension or tympany. No guarding or rebound. No evidence of tenderness throughout. Back: No spinal tenderness. No costovertebral tenderness. Full range of motion. Skin: Warm, dry with normal turgor. Normal color with no rashes, no lesions, and no evidence of cellulitis. MS/ Extremity: Pulses equal, no cyanosis. Neurovascular intact. Full, normal range of motion. Neuro: Awake and alert, GCS 15, oriented to person, place, time, and situation. Cranial nerves II-XII grossly intact. Motor strength 5/5 in all extremities. Sensory grossly intact. Cerebellar exam normal. Normal gait. Psych: Awake, alert, with orientation to person, place and time. Behavior, mood, and affect are within normal limits. Vital Signs: 00:13 BP 105 / 74; Pulse 78; Resp 16 S; Temp 98.4(O); Pulse Ox 100% on R/A; Weight 87.09 kg bb (R); Height 5 ft. 4 in. (162.56 cm) (R); Pain 6/10; 02:03 BP 96 / 60; Pulse 79; Resp 16; Pulse Ox 98% on R/A; em 04:03 BP 100 / 63; Pulse 62; Resp 14; Pulse Ox 98% on R/A; em 00:13 Body Mass Index 32.96 (87.09 kg, 162.56 cm) MDM: 03:52 Differential diagnosis: threatened Ab, inevitable Ab, complete Ab, ectopic . [facility] Data reviewed: vital signs, nurses notes, lab test result(s), Beta HCG: CBC, electrolytes, urinalysis, radiologic studies, ultrasound. Counseling: I had a detailed discussion with the patient and/or guardian regarding: the historical points, exam findings, and any diagnostic results supporting the discharge/admit diagnosis, lab results, radiology results, the need for outpatient follow up, an OB/Gyne specialist, to return to the emergency department if symptoms worsen or persist or if there are any questions or concerns that arise at home. Response to treatment: the patient's symptoms have resolved after treatment, the patient's blood pressure is in an acceptable range, mental status has returned to baseline, the patient no longer shows bradycardia, the patient is not short of breath, the patient is not tachycardic, the patient's pain is gone, the patient's temperature has normalized. 03:55 Patient medically screened. [facility] 04/04 01:49 Order name: Urine Dipstick-Ancillary [facility] 04/04 01:49 Order name: Abo/rh Typing; Complete Time: 03:48 [facility] 04/04 01:49 Order name: Basic Metabolic Panel; Complete Time: 03:31 [facility] 04/04 01:49 Order name: CBC with Diff; Complete Time: 02:44 [facility] 04/04 01:49 Order name: Quantitative Hcg; Complete Time: 03:31 [facility] 04/04 01:50 Order name: Urine Microscopic Only; Complete Time: 02:47 04/04 02:45 Order name: Urine Culture [facility] 04/04 02:52 Order name: US Transvaginal Ob [facility] 04/04 01:48 Order name: NPO; Complete Time: 01:48 04/04 01:48 Order name: Urine Dipstick-Ancillary (obtain specimen); Complete Time: 01:48 04/04 01:49 Order name: IV Saline Lock; Complete Time: 02:05 [facility] 04/04 01:49 Order name: Labs collected and sent; Complete Time: 02:05 [facility] 04/04 01:49 Order name: NPO; Complete Time: 02:05 [facility] 04/04 01:49 Order name: Urine Dipstick-Ancillary (obtain specimen); Complete Time: 02:05 [facility] 04/04 01:49 Order name: Urine Test (obtain specimen); Complete Time: 02:05 [facility] Administered Medications: 03:05 Drug: NS 0.9% 1000 ml Route: IV; Rate: 1000 ml; Site: right antecubital; em 04:04 Follow up: IV Status: Order to discontinue infusion; IV Intake: 100ml em 03:05 Drug: Zofran (Ondansetron) 4 mg Route: IVP; Site: right antecubital; em 04:04 Follow up: Response: No adverse reaction; Marked relief of symptoms em Point of Care Testing: Urine : 01:49 hCG Reading: Positive; bb Disposition Summary: 04/04/21 03:55 Discharge Ordered Location: Home [facility] Problem: new [facility] Symptoms: have improved [facility] Condition: Stable [facility] Diagnosis - Threatened 7 - UTI/ Urinary tract infection, site not specified [facility] Followup: [facility] - With: Private Physician - When: 1 - 2 days - Reason: Worsening of condition, Recheck today's complaints, Continuance of care, Re-evaluation by your physician Followup: [facility] - With: Alberta Dyer MD - When: 1 - 2 days - Reason: Worsening of condition, Recheck today's complaints Discharge Instructions: - Discharge Summary Sheet [facility] - Urinary Tract Infection, Adult, [id number] [facility] - Threatened Miscarriage, [id number] [facility] Forms: - Medication Reconciliation Form [facility] - Thank You Letter [facility] - Antibiotic Education [facility] - Prescription Opioid Use [facility] Prescriptions: - Macrobid 100 mg Oral Capsule - take 1 capsule by ORAL route every 12 hours for 7 days; 14 capsule; Refills: 0, [facility] Product Selection Permitted - ondansetron 4 mg Oral tablet,disintegrating - place 1 tablet by TRANSLINGUAL route every 8 hours As needed; 10 tablet; [facility] Refills: 0, Product Selection Permitted Signatures: Dispatcher [employer] Milton Alston RN Nancy Multani RN RN Darrin Tuttle MD MD [facility] Corrections: (The following items were deleted from the chart) 02:04 01:49 ABO/RH TYPING+BB.LAB.BRZ ordered. EDMS EDMS 02:05 01:48 IV Saline Lock ordered. bb em 02:05 01:48 Labs collected and sent ordered. bb em 02:05 01:49 BASIC METABOLIC PANEL+C.LAB.BRZ ordered. EDMS EDMS 02:05 01:49 CBC+H.LAB.BRZ ordered. EDMS EDMS
[2021-04-04 04:20] VITALS: TEMP 98.4
[2021-04-04 04:22] VITALS: O2SAT 98
[2021-04-04 04:25] VITALS: BP 100/63
--- NOTE | 2021-04-04 07:55 | RAD REPORT ---
EXAM DESCRIPTION: US - Transvaginal OB - 04/04/2021 3:50 am CLINICAL HISTORY: Vaginal bleeding;Abd cramping, Pelvic pain COMPARISON: Transvaginal OB dated 03/22/2021 FINDINGS: A single gestational sac is seen within the uterus. The shape of the sac is within normal limits for gestational age. Within the sac is a single pole with crown-rump length of 9 mm, cor relating to estimated gestational age of 7 weeks 0 days. Estimated date of delivery is 11/21/2021. Heart rate is 154 BPM. The placenta is not yet developed due to early gestational age. The maternal adnexa and right ovary are within normal limits. Normal Doppler blood flow was demonstra yadira to the right ovary. The left ovary was obscured by bowel gas. IMPRESSION: Single live early intrauterine gestation with estimated gestational age of 7 weeks 0 day s, ANA LAURA 11/21/2021.
== END 2021-04-04 04:05 | disposition home or self-care (01) ==
LOC: ER 23:30
DX: O20.0 Threatened abortion (principal); O23.41 Unspecified infection of urinary tract in pregnancy, first trimester; O99.331 Smoking (tobacco) complicating pregnancy, first trimester; F17.210 Nicotine dependence, cigarettes, uncomplicated; Z3A.01 Less than 8 weeks gestation of pregnancy; Z88.6 Allergy status to analgesic agent; Z88.8 Allergy status to other drugs, medicaments and biological substances
CPT/HCPCS: 36415; 76817; 80048; 81003; 81015; 84702; 85025; 86900; 86901; 87086; 87088; 96361; 96374; 99284; J2405; J7030

== ENCOUNTER 2022-06-06 08:10 | Emergency (ER) | payer OTHER ==
--- OUTSIDE RECORDS SUMMARY | 2022-06-06 08:17 | XMS REPORT | Continuity of Care Document ---
:[address] [facility] t Address [address] [place] [address] Care Team Providers Name Role Phone PCP, PATIENT DOES NOT HAVE A Primary Care Physician UnavailAURELIA Dial Attending Clinician Unavailable Tiffanie MOHR, Deepti Vasquez Attending Clinician Unavailable Fide Mayer PA-C Attending Clinician Maria Del Rosario Eric Attending Clinician MARIA DEL ROSARIO HARVEY Attending Clinician Unavailable Jayesh Anaya DO Attending Clinician Jess Devlin Attending Clinician Doctor Unassigned, [place] Attending Clinician Unavailable CARMEN GARRETT Attending Clinician Unavailable Marguerite Santamaria Attending Clinician Marguerite SOUSA Attending Clinician Unavailable Aurelia Schmidt Attending Clinician Ishmael Goss Attending Clinician VISIT, NURSE HARLEY Attending Clinician Unavailable Herve Nieto Attending Clinician Marylu Hayden Attending Clinician AURELIA SCHMIDT Admitting Clinician Unavailable Marguerite SOUSA Admitting Clinician Unavailable Payers Payer Name Policy Type Policy Number Effective Date Expiration Date [facility] [id number] 2018 00:00:00 Problems Condition Condition Condition Status Onset Resolution Last Treating Co mments Source Name Details Category Date Date Treatment Clinician Date Disease Active 2014-09 [facility] contractio contractio 10 it y of ns ns 00:00: [place] 00 Medical Branch Melanocyti Melanocyt Problem Active 2020-02-21 Memoria c nevus ic nevus 02-24 21:27:44 l (disorder) (disorder) 00:00: He rmann Active 00 02/24/2015 Problem 02/21/2020 Data migrated from [facility] on 03/25/15. Medical Group Patient Patient Problem 2015-04-03 Me beverleya currently currently 3- 04:00:17 l 00:00: Joseph russ (finding) (finding) 00 11/25/2014 Problem 04/03/2015 2pt states - 14 weeks and 3 days. Pt states is high risk - due to 06-03-14. states has chronic anemia does not take iron becuase she states it makes her sick. Pt has never had blood transfusio n [facility] Low back Low back Problem Active 2020-02-21 Memoria strain strain 02-06 21:27:44 l (disorder) (disorder) 00:00: He rmann Active 00 02/06/2013 Problem 02/21/2020 Data migrated from [facility] on 04/27/15. Medical Group Migraine Migraine Problem Active 2020-02-21 Memoria (disorder) (disorder) 02-06 21:27:44 l Active 00:00: Hoang 02/06/2013 00 Problem 02/21/2020 Data migrated from [facility] on 04/27/15. Medical Group Seizure Seizure Problem Active 2020-02-21 Me lowerya disorder disorder 02-06 21:27:44 l (disorder) (disorder) 00:00: He rmann Active 00 02/06/2013 Problem 02/21/2020 Data migrated from [facility] on 04/27/15. Medical Group Bipolar 1 Bipolar 1 Problem Active Com mon disorder, disorder, Spir it depressed depressed - [facility] Anemia Anemia Problem 2015-04-03 Jose Carlos maury (disorder) (disorder) 04:00:17 l Problem [place] 04/03/2015 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 Allergic Allergic Problem Active Commo n rhinitis, rhinitis, Spir it unspecifie unspecifie - [facility] d d [facility] seasonalit seasonalit Jessica kes y, y, Medical unspecifie unspecifie Ce nter d trigger d trigger Tuberculos Tuberculos Diagnosis Active Common is is Spirit screening screening - I [facility] Acute Acute Problem Resolve 2006-0 2020-02-21 2020-02-21 Memoria appendicit appendicit d - 21:27:44 21:27:44 l is is 00:00: Hoang (disorder) (disorder) 00 Resolved 09/18/2005 Problem 02/21/2020 Medical Group Allergies, Adverse Reactions, Alerts Allergy Allergy Status Severity Reaction(s) Onset Inactive Treating Comm ents Source Name Type Date Date Clinician ASPIRIN DRUG Active Low Rash 2014-09 [facility] INGREDI 1-10 ity of 00:00: [place] 00 Medical Branch BENADRYL DRUG Active Rash 2014-09 Univers ALLERGY 1-10 ity of DECONGES 00:00: [place] TANT 00 Medical Branch Aspirin Propensi Active Rash 2014-09 Univers ty to 1-10 ity of adverse 00:00: [place] reaction 00 Medical s Branch Benadryl Propensi Active Rash 2014-09 Univer s Allergy ty to 1-10 ity of Deconges adverse 00:00: [place] tant reaction 00 Medical s Branch diphenhy diphenhy Active Memori a drAMINE< drAMINE< l sup>1</s sup>1</s Joseph n up> up> aspirin aspirin Active Moderate Memori a l [place] traZODon traZODon Active Memori a e<sup>2< e<sup>2< l /sup> /sup> [place] Benadryl Benadryl Active 855988777 Mem oria l [place] Tylenol Tylenol Active [id number] Memor ia l [place] Benadryl Adverse Active rash Common Reaction [facility] Aspirin Adverse Active swelling Common Reaction [facility] Social History Social Habit Start Date Stop Date Quantity Comments Source Exposure to Not sure [facility] SARS-CoV-2 (event) Medica l Branch Social History 2017-04-11 2017-04-11 [facility] kerry 19:22:36 19:22:36 Sex Assigned At [birth year] [facility] 00:00:00 00:00:00 Medical Branch Smoking Status Start Date Stop Date Source Unknown if ever smoked [facility] Medications Ordered Filled Start Stop Current Ordering Indication Dosage Frequency Signature Comments Components Source Medication Medication Date Date Medication? Clinician (SIG) Name Name fluticasone Yes [id number] 2{spray Use 2 Univers propionate 1-02 } Sprays in ity of 50 00:00: each [place] mcg/actuati 00 nostril Medic al on nasal daily. Branch spray cetirizine Yes [id number] 10mg Take 1 U nivers 10 mg 1-02 tablet by ity of tablet 00:00: mouth [place] 00 daily. Medical Branch fluticasone Yes [id number] 2{spray Use 2 Univers propionate 1-02 } Sprays in ity of 50 00:00: each [place] mcg/actuati 00 nostril Medic al on nasal daily. Branch spray cetirizine Yes [id number] 10mg Take 1 U nivers 10 mg 1-02 tablet by ity of tablet 00:00: mouth [place] 00 daily. Medical Branch ketorolac 2021-0 2021- No 30mg 30 mg, Unive rs (TORADOL) 01-10 Slow IV ity of injection 00:30: 23:30 Push, [place] 30 mg 00 :00 ONCE, 1 Medical dose, Sat Branch 01/09/21 at 1930, MISTY
Fa culty member approving Restricted medication : JESS WALTER cefTRIAXone 2020- No 1000mg 1,000 mg, Univers (ROCEPHIN) 01-10 IV ity of 1,000 mg in 00:15: 23:53 Piggyback, [place] NaCl 0.9% 00 :00 ONCE, 1 Medical (NS) 50 mL dose, Sat [facility] ch MINI-BAG 01/09/21 at 1915, 50 mL
Reas on for Anti-Infec tive: Documented Infection< br>Documen yadira Infection Site: Urine
D uration of Therapy: 7 days NaCl 0.9% 2020- No 1000mL at 999 Uni vers (NS) bolus 01-0924 mL/hr, ity of infusion 22:15: 23:23 1,000 mL, Gregg as 1,000 mL 00 :00 IV Medical Infusion, Branch ONCE, 1 dose, 01/09/21 at 1715, MISTY ibuprofen Yes [id number] 600mg Take 1 U nivers 600 mg 4-24 tablet by ity of tablet 00:00: mouth [place] 00 every 6 Medical (six) Branch hours as needed for Pain (scale 4-6). ibuprofen Yes [id number] 600mg Take 1 U nivers 600 mg 4-24 tablet by ity of tablet 00:00: mouth [place] 00 every 6 Medical (six) Branch hours as needed for Pain (scale 4-6). ibuprofen Yes [id number] 600mg Take 1 U nivers 600 mg 4-24 tablet by ity of tablet 00:00: mouth [place] 00 every 6 Medical (six) Branch hours as needed for Pain (scale 4-6). ibuprofen Yes [id number] 600mg Take 1 U nivers 600 mg 4-24 tablet by ity of tablet 00:00: mouth [place] 00 every 6 Medical (six) Branch hours as needed for Pain (scale 4-6). cefdinir 2020- No [id number] 300mg Take 1 U nivers 300 mg 01-09- capsule by ity of capsule 00:00: 04:59 mouth 2 [place] 00 :00 (two) Medical times Branch daily for 7 days. benzonatate 2020- Yes [id number] 100mg Take 1 Univers 100 mg 2-04 capsule by ity of capsule 00:00: mouth 3 [place] 00 (three) Medical times Branch daily as needed for Cough. chlorphenir 2020-0 Yes [id number] 4mg Take 1 Univers amine 4 mg 2-04 tablet by ity of tablet 00:00: mouth [place] 00 every 6 Medical (six) Branch hours as needed for Allergies or Runny nose. multivitami 2020- Yes [id number] 1{capsu Take 1 Univers n capsule 2-04 le} capsule by ity of 00:00: mouth [place] 00 daily. Medical Branch calcium-mag Yes [id number] Take as Univers nesium-zinc 2-04 directed ity of 333-133-8.3 00:00: for daily [place] mg Tab 00 dose. Medical Branch benzonatate Yes [id number] 100mg Take 1 Univers 100 mg 2-04 capsule by ity of capsule 00:00: mouth 3 [place] 00 (three) Medical times Branch daily as needed for Cough. chlorphenir 0 Yes [id number] 4mg Take 1 Univers amine 4 mg 2-04 tablet by ity of tablet 00:00: mouth [place] 00 every 6 Medical (six) Branch hours as needed for Allergies or Runny nose. multivitami 2020- Yes [id number] 1{capsu Take 1 Univers n capsule 2-04 le} capsule by ity of 00:00: mouth [place] 00 daily. Medical Branch calcium-mag 2020- Yes [id number] Take as Univers nesium-zinc 2-04 directed ity of 333-133-8.3 00:00: for daily [place] mg Tab 00 dose. Medical Branch benzonatate Yes [id number] 100mg Take 1 Univers 100 mg 2-04 capsule by ity of capsule 00:00: mouth 3 [place] 00 (three) Medical times Branch daily as needed for Cough. chlorphenir 2020-0 Yes [id number] 4mg Take 1 Univers amine 4 mg 2-04 tablet by ity of tablet 00:00: mouth [place] 00 every 6 Medical (six) Branch hours as needed for Allergies or Runny nose. multivitami Yes [id number] 1{capsu Take 1 Univers n capsule 2-04 le} capsule by ity of 00:00: mouth [place] 00 daily. Medical Branch calcium-mag Yes [id number] Take as Univers nesium-zinc 2-04 directed ity of 333-133-8.3 00:00: for daily [place] mg Tab 00 dose. Medical Branch benzonatate Yes [id number] 100mg Take 1 Univers 100 mg 2-04 capsule by ity of capsule 00:00: mouth 3 [place] 00 (three) Medical times Branch daily as needed for Cough. chlorphenir Yes [id number] 4mg Take 1 Univers amine 4 mg 2-04 tablet by ity of tablet 00:00: mouth [place] 00 every 6 Medical (six) Branch hours as needed for Allergies or Runny nose. multivitami Yes [id number] 1{capsu Take 1 Univers n capsule 2-04 le} capsule by ity of 00:00: mouth [place] 00 daily. Medical Branch calcium-mag Yes [id number] Take as Univers nesium-zinc 2-04 directed ity of 333-133-8.3 00:00: for daily [place] mg Tab 00 dose. Medical Branch benzonatate Yes [id number] 100mg Take 1 Univers 100 mg 2-04 capsule by ity of capsule 00:00: mouth 3 [place] 00 (three) Medical times Branch daily as needed for Cough. chlorphenir Yes [id number] 4mg Take 1 Univers amine 4 mg 2-04 tablet by ity of tablet 00:00: mouth [place] 00 every 6 Medical (six) Branch hours as needed for Allergies or Runny nose. multivitami Yes [id number] 1{capsu Take 1 Univers n capsule 2-04 le} capsule by ity of 00:00: mouth [place] 00 daily. Medical Branch calcium-mag Yes [id number] Take as Univers nesium-zinc 2-04 directed ity of 333-133-8.3 00:00: for daily [place] mg Tab 00 dose. Medical Branch benzonatate Yes [id number] 100mg Take 1 Univers 100 mg 2-04 capsule by ity of capsule 00:00: mouth 3 [place] 00 (three) Medical times Branch daily as needed for Cough. chlorphenir Yes [id number] 4mg Take 1 Univers amine 4 mg 2-04 tablet by ity of tablet 00:00: mouth [place] 00 every 6 Medical (six) Branch hours as needed for Allergies or Runny nose. multivitami Yes [id number] 1{capsu Take 1 Univers n capsule 2-04 le} capsule by ity of 00:00: mouth [place] 00 daily. Medical Branch calcium-mag Yes [id number] Take as Univers nesium-zinc 2-04 directed ity of 333-133-8.3 00:00: for daily [place] mg Tab 00 dose. Medical Branch benzonatate Yes [id number] 100mg Take 1 Univers 100 mg 2-04 capsule by ity of capsule 00:00: mouth 3 [place] 00 (three) Medical times [place] daily as needed for Cough. chlorphenir Yes [id number] 4mg Take 1 Univers amine 4 mg 2-04 tablet by ity of tablet 00:00: mouth [place] 00 every 6 Medical (six) Branch hours as needed for Allergies or Runny nose. multivitami Yes [id number] 1{capsu Take 1 Univers n capsule 2-04 le} capsule by ity of 00:00: mouth [place] 00 daily. Medical Branch calcium-mag Yes [id number] Take as Univers nesium-zinc 2-04 directed ity of 333-133-8.3 00:00: for daily [place] mg Tab 00 dose. Medical Branch iohexol 0 2020- No 110mL 110 mL, Unive rs (OMNIPAQUE 03-04 Intravenou it y of 350 22:15: 22:00 s, ONCE, 1 [place] BULK-150 00 :00 dose, Wed Medica l mL) 03/04/20 at Branch injection 1715, 110 mL Routine morpHINE 2019- No 4mg 4 mg, Slow Un kassandra injection 4 03-04 IV Push, ity of mg 21:15: 20:41 ONCE, 1 [place] 00 :00 dose, Wed Medical 03/04/20 at Branch 1615, STAT ondansetron 2020- No 4mg 4 mg, Slow Univers (ZOFRAN 03-04 IV Push, ity of (PF)) 21:15: 20:41 ONCE, 1 [place] injection 4 00 :00 dose, Wed Med ical mg 03/04/20 at Branch 1615, MISTY { Yes See Memoria (Methylpred 5-20 Instructio l nisolone 4 15:28: ns, PO, Herm lynsey MG Oral 00 Take by Tablet mouth as [Medrol]) } directed Pack on label., [Medrol X 6 day, # Dosepak] 21 tab, 0 Refill(s), Pharmacy: [facility] #[id number] naproxen 2019-0 Yes 500 mg = 1 Mem oria 500 mg oral 5-20 tab, PO, l tablet 15:28: BID, with Joseph n 00 food, X 14 day, # 28 tab, 0 Refill(s), Pharmacy: [facility] #[id number] { Yes See Memoria (Methylpred 5-20 Instructio l nisolone 4 15:28: ns, PO, Herm lynsey MG Oral 00 Take by Tablet mouth as [Medrol]) } directed Pack on label., [Medrol X 6 day, # Dosepak] 21 tab, 0 Refill(s), Pharmacy: [facility] #[id number] naproxen 2019-0 Yes 500 mg = 1 Mem oria 500 mg oral 5-20 tab, PO, l tablet 15:28: BID, with Joseph n 00 food, X 14 day, # 28 tab, 0 Refill(s), Pharmacy: [facility] #[id number] Fluticasone Fluticasone Yes Julian 1 spray in Common Propionate Propionate 01-14 Susie each Sp erasto 00:00: nostril - [facility] RyVent RyVent 2019- No Julian 1 tablet Co mmon 01-14 Susie on an Spirit 00:00: 00:00 empty - [facility] 00 :00 stomach as [facility] SUMAtriptan 2018- Yes 6mg inject 6 Un kassandra 6 mg/0.5 mL 1-31 mg under ity of injection 17:04: the skin [place] 18 once now. Medical Branch CLONAZEPAM Yes Take by [facility] [place] [facility] ers ORAL 1-31 mouth. ity of 17:04: [place] [address] Medical Branch SUMAtriptan Yes 6mg inject 6 Un kassandra 6 mg/0.5 mL 1-31 mg under ity of injection 17:04: the skin [place] 18 once now. Medical Branch CLONAZEPAM Yes Take by [facility] [place] [facility] ers ORAL 1-31 mouth. ity of 17:04: [place] [address] Medical Branch SUMAtriptan Yes 6mg inject 6 Un kassandra 6 mg/0.5 mL 1-31 mg under ity of injection 17:04: the skin [place] 18 once now. Medical Branch CLONAZEPAM Yes Take by [facility] [place] [facility] ers ORAL 1-31 mouth. ity of 17:04: [place] [address] Medical Branch SUMAtriptan Yes 6mg inject 6 Un kassandra 6 mg/0.5 mL 1-31 mg under ity of injection 17:04: the skin [place] 18 once now. Medical Branch CLONAZEPAM Yes Take by [facility] [place] [facility] ers ORAL 1-31 mouth. ity of 17:04: [place] [address] Medical Branch SUMAtriptan Yes 6mg inject 6 Un kassandra 6 mg/0.5 mL 1-31 mg under ity of injection 17:04: the skin [place] 18 once now. Medical Branch CLONAZEPAM Yes Take by [facility] [place] [facility] ers ORAL 1-31 mouth. ity of 17:04: [place] [address] Medical Branch SUMAtriptan 2018- Yes 6mg inject 6 Un kassandra 6 mg/0.5 mL 1-31 mg under ity of injection 17:04: the skin [place] 18 once now. Medical Branch CLONAZEPAM Yes Take by [facility] [place] [facility] ers ORAL 1-31 mouth. ity of 17:04: [place] [address] Medical Branch SUMAtriptan 2018- Yes 6mg inject 6 Un kassandra 6 mg/0.5 mL 1-31 mg under ity of injection 17:04: the skin [place] 18 once now. Medical Branch CLONAZEPAM Yes Take by [facility] [place] [facility] ers ORAL 1-31 mouth. ity of 17:04: [place] [address] Medical Branch SUMAtriptan 2018- Yes 6mg inject 6 Un kassandra 6 mg/0.5 mL 1-31 mg under ity of injection 17:04: the skin [place] 18 once now. Medical Branch CLONAZEPAM Yes Take by [facility] [place] [facility] ers ORAL 1-31 mouth. ity of 17:04: [address] SUMAtriptan Yes 6mg inject 6 Un kassandra 6 mg/0.5 mL 1-31 mg under ity of injection 11:04: the skin [place] 18 once now. Medical Branch CLONAZEPAM Yes Take by [facility] [place] [facility] ers ORAL 1-31 mouth. ity of 11:04: [address] Branch SUMAtriptan Yes 6mg inject 6 Un kassandra 6 mg/0.5 mL 1-31 mg under ity of injection 11:04: the skin [place] 18 once now. Medical Branch CLONAZEPAM Yes Take by [facility] [place] [facility] ers ORAL 1-31 mouth. ity of 11:04: [address] { Yes See Memoria (Methylpred 9-28 Instructio l nisolone 4 20:18: ns, PO, Herm lynsey MG Oral 00 Take by Tablet mouth as [Medrol]) } directed Pack on label., [Medrol # 1 Pack, Dosepak] 1 Refill(s), Pharmacy: [facility] { Yes See Memoria (Methylpred 9-28 Instructio l nisolone 4 20:18: ns, PO, Herm lynsey MG Oral 00 Take by Tablet mouth as [Medrol]) } directed Pack on label., [Medrol # 1 Pack, Dosepak] 1 Refill(s), Pharmacy: [facility] 482 lisdexamfet Yes 20 mg = 1 M emoria amine 6-13 cap, PO, l dimesylate 19:46: QAM, # 30 He rmann 20 MG Oral 00 tab, 0 Capsule Refill(s) [Vyvanse] Levonorgest Yes 52 mg = 1 M emoria rel 6-13 ea, l [id number] 19:46: Intrautera Her watkins MG/HR Drug 00 l, ONCE, # Implant 1 ea, 0 [Mirena] Refill(s) lisdexamfet Yes 20 mg = 1 M emoria amine 6-13 cap, PO, l dimesylate 19:46: QAM, # 30 He rmann 20 MG Oral 00 tab, 0 Capsule Refill(s) [Vyvanse] Levonorgest 2018 Yes 52 mg = 1 M emoria rel 6-13 ea, l [id number] 19:46: Intrautera Her watkins MG/HR Drug 00 l, ONCE, # Implant 1 ea, 0 [Mirena] Refill(s) cephalexin Yes 500 mg = 1 M emoria 500 mg oral 5-09 cap, PO, l capsule 19:25: TID, X 10 Debbie nn 00 day, # 30 cap, 0 Refill(s), Pharmacy: [facility] 482 cephalexin Yes 500 mg = 1 M emoria 500 mg oral 5-09 cap, PO, l capsule 19:25: TID, X 10 Debbie nn 00 day, # 30 cap, 0 Refill(s), Pharmacy: [facility] 482 Ceftriaxone No 1 gm, Memor ia 01-24 Route: IM, l 19:24: Drug form: [place] 00 PDR/INJ, ONCE, Dosing Weight 86.818, kg, Start date: 01/24/18 14:24:00 CDT, Stop date: 01/24/18 14:24:00 CDT Ceftriaxone No 1 gm, Memor ia 01-24 Route: IM, l 19:24: Drug form: [place] 00 PDR/INJ, ONCE, Dosing Weight 86.818, kg, Start date: 01/24/18 14:24:00 CDT, Stop date: 01/24/18 14:24:00 CDT ondansetron No Joesph K 8 mg = 1 Memoria 7-15 Rasheed tabs, l 18:24: Tab-Dis, [place] 00 Oral, Once PRN for nausea/vom iting, first dose 04/01/15 13:24:00 CDT ondansetron No Joesph K 8 mg = 1 Memoria 7-15 Rasheed tabs, l 18:24: Tab-Dis, [place] 00 Oral, Once PRN for nausea/vom iting, first dose 04/01/15 13:24:00 CDT Dilaudid No Joesph K 0.2 mg = Mem oria 7-15 Rasheed 0.1 mL, l 18:24: Injection, [place] 00 IV Push, q10min PRN for pain severe (7-10), first dose 04/01/15 13:24:00 CDT promethazin No Joesph K 12.5 mg = Memoria e 7-15 Rasheed 0.5 mL, l 18:24: Injection, [place] 00 IM, Once PRN for severe nausea, first dose 04/01/15 13:24:00 CDT LR 1,000 mL No Joesph K 1,000 mL, Memoria 7-15 Rasheed IV, 75 l 18:24: mL/hr, [place] 00 start date 04/01/15 13:24:00 CDT Saline Lock No Joesph K 10 mL, Me moria Flush 7-15 Rasheed Soln, IV l 18:24: Push, As [place] 00 Indicated PRN for flush, first dose 04/01/15 13:24:00 CDT Dilaudid No Joesph K 0.2 mg = Mem oria 7-15 Rasheed 0.1 mL, l 18:24: Injection, Hoang 00 IV Push, q10min PRN for pain severe (7-10), first dose 04/01/15 13:24:00 CDT promethazin No Joesph K 12.5 mg = Memoria e 7-15 Rasheed 0.5 mL, l 18:24: Injection, [place] 00 IM, Once PRN for severe nausea, first dose 04/01/15 13:24:00 CDT LR 1,000 mL No Joesph K 1,000 mL, Memoria 7-15 Rasheed IV, 75 l 18:24: mL/hr, [place] 00 start date 04/01/15 13:24:00 CDT Saline Lock No Joesph K 10 mL, Me moria Flush 7-15 Rasheed Soln, IV l 18:24: Push, As [place] 00 Indicated PRN for flush, first dose 04/01/15 13:24:00 CDT Misc No Joey 600 mL, Memoria Medication 7-15 Yeh Soln-IV, l 18:19: IV, Once, Hoang 00 first dose 04/01/15 13:19:00 CDT, stop date 04/01/15 13:19:00 CDT Misc No Joey 600 mL, Memoria Medication -15 Yeh Soln-IV, l 18:19: IV, Once, Ho[place] 00 first dose 04/01/15 13:19:00 CDT, stop date 04/01/15 13:19:00 CDT propofol No Joey 300 mg = Me moria 7-15 Yeh 30 mL, l 17:57: Emulsion, [place] 00 IV, Once, first dose 04/01/15 12:57:00 CDT, stop date 04/01/15 12:57:00 CDT propofol No Joey 300 mg = Me moria 7-15 Yeh 30 mL, l 17:57: Emulsion, [place] 00 IV, Once, first dose 04/01/15 12:57:00 CDT, stop date 04/01/15 12:57:00 CDT ceFAZolin + No Joey 1 gm, Me moria Sodium -15 Yeh Powder-Inj l Chloride 17:40: , IV, Hoang 0.9% 100 mL 00 Once, first dose 04/01/15 12:40:00 CDT, stop date 04/01/15 12:40:00 CDT ceFAZolin + No Joey 1 gm, Me moria Sodium 7-15 Yeh Powder-Inj l Chloride 17:40: , IV, [place] 0.9% 100 mL 00 Once, first dose 04/01/15 12:40:00 CDT, stop date 04/01/15 12:40:00 CDT fentaNYL No Joey 100 mcg = M emoria -15 Yeh 2 mL, l 17:34: Injection, [place] 00 IV, Once, first dose 04/01/15 12:34:00 CDT, stop date 04/01/15 12:34:00 CDT lidocaine No Joey 3 mL, Jose Carlos maury -15 Yeh Injection, l 17:34: IV, Once, [place] 00 first dose 04/01/15 12:34:00 CDT, stop date 04/01/15 12:34:00 CDT fentaNYL No Joey 100 mcg = M emoria 7-15 Yeh 2 mL, l 17:34: Injection, [place] 00 IV, Once, first dose 04/01/15 12:34:00 CDT, stop date 04/01/15 12:34:00 CDT lidocaine No Joey 3 mL, Jose Carlos maury 7-15 Yeh Injection, l 17:34: IV, Once, first dose 04/01/15 12:34:00 CDT, stop date 04/01/15 12:34:00 CDT ceFAZolin No Rohith 1 gm, IV Me moria 7-15 Hillery Piggyback, l 16:00: Once, infuse over 30 minutes, first dose 04/01/15 11:00:00 CDT, stop date 04/01/15 11:00:00 CDT ceFAZolin No Rohith 1 gm, IV Me moria 7-15 Hill[place] Piggyback, l 16:00: Once, infuse over 30 minutes, first dose 04/01/15 11:00:00 CDT, stop date 04/01/15 11:00:00 CDT Lidocaine No Joesph K 0.2 mL, Mem oria 2% 0.2 mL -15 Rasheed Injection, l IV Start 15:19: Subcutaneo Her watkins [[facility]] 00 us, Once PRN for other (see comment), first dose 04/01/15 10:19:00 CDT LR 1,000 mL No Joesph K 1,000 mL, Memoria 7-15 Rasheed IV, 30 l 15:19: mL/hr, [place] 00 start date 04/01/15 10:19:00 CDT Lidocaine No Joesph K 0.2 mL, Mem oria 2% 0.2 mL 7-15 Rasheed Injection, l IV Start 15:19: Subcutaneo Her watkins [[place]] 00 us, Once PRN for other (see comment), first dose 04/01/15 10:19:00 CDT LR 1,000 mL No Joesph K 1,000 mL, Memoria 7-15 Rasheed IV, 30 l 15:19: mL/hr, [place] 00 start date 04/01/15 10:19:00 CDT Yes Memor ia vitamins 6-22 vitamins, l 15:44: 0 [place] 00 Refill(s), supplement Yes Memor ia vitamins 6-22 vitamins, l 15:44: 0 [place] 00 Refill(s), supplement Topiramate Topiramate Yes Julian 1 tablet Common Susie [facility] Sumatriptan Sumatriptan Yes Julian (Prior Common Succinate Succinate Susie Auth: Rx [facility] Ref#:[id number] - [facility] [id number]) [facility] Immunizations Ordered Immunization Filled Immunization Date Status Commen ts Source Name Name TB PPD TB PPD 2019-01-14 Completed [facility] - 00:00:00 [facility] influenza virus 2018-06-29 Completed [facility] vaccine, inactivated 19:59:00 Herm lynsey influenza virus 2018-06-29 Completed [facility] vaccine, inactivated 19:59:00 Herm lynsey hepatitis B adult 2018-05-25 Completed Memoria l vaccine 20:29:00 [place] hepatitis B adult 2018-05-25 Completed Memoria l vaccine 20:29:00 [place] hepatitis B adult 2017-11-29 Completed Memoria l vaccine 15:19:00 [place] hepatitis B adult 2017-11-29 Completed Memoria l vaccine 15:19:00 Hoang hepatitis B adult 2017-11-01 Completed [facility] vaccine 16:26:00 [place] hepatitis B adult 2017-11-01 Completed [facility] vaccine 16:26:00 [place]ang diphtheria/pertussis 2017-10-19 Completed Jose Carlos rial , acel/tetanus adult 21:30:00 Herm lynsey diphtheria/pertussis 2017-10-19 Completed Jose Carlos rial , acel/tetanus adult 21:30:00 Herm lynsey Vital Signs Vital Name Observation Time Observation Value Comments Source Systolic blood 2021-09-19 103 mm[Hg] University of pressure 18:36:00 [facility] Diastolic blood 2021-09-19 71 mm[Hg] University o f pressure 18:36:00 [facility] Heart rate 2021-09-19 116 /min University of 18:36:00 [facility] Body temperature 2021-09-19 37.22 Jennifer University 18:36:00 [facility] Respiratory rate 2021-09-19 20 /min University of 18:36:00 [facility] Body height 2021-09-19 162.6 cm University of 18:36:00 [facility] Body weight 2021-09-19 97.07 kg University of 18:36:00 [facility] BMI 2021-09-19 36.73 kg/m2 University of 18:36:00 [facility] Oxygen saturation 2021-09-19 99 /min University of in Arterial blood 18:36:00 [place] [facility] by Pulse oximetry Branch Systolic blood 2021-04-19 111 mm[Hg] University of pressure 16:33:00 [facility] Diastolic blood 2021-04-19 65 mm[Hg] University o f pressure 16:33:00 [facility] Heart rate 2021-04-19 61 /min University of 16:33:00 [facility] Respiratory rate 2021-04-19 18 /min University of 16:33:00 [facility] Oxygen saturation 2021-04-19 100 /min University of in Arterial blood 16:33:00 [facility] real by Pulse oximetry Branch Body temperature 2021-04-19 36.89 Jennifer University of 13:31:00 [facility] Body weight 2021-04-19 81.647 kg University of 13:31:00 [facility] BMI 2021-04-19 30.90 kg/m2 University of 13:31:00 [facility] Systolic blood 2021-01-10 107 mm[Hg] University of pressure 01:18:00 [facility] Diastolic blood 2021-01-10 65 mm[Hg] University o f pressure 01:18:00 [facility] Heart rate 2021-01-10 61 /min University of :18:00 [facility] Respiratory rate 2021-01-10 14 /min University of 01:18:00 [facility] Oxygen saturation 2021-01-10 100 /min University of in Arterial blood 01:18:00 [place] [facility] by Pulse oximetry [facility] Body temperature 2021-01-09 37.33 Jennifer University of 22:04:00 [facility] Body weight 2021-01-09 81.647 kg University of 22:04:00 [facility] BMI 2021-01-09 30.90 kg/m2 University of 22:04:00 [facility] Systolic blood 2021-01-10 107 mm[Hg] University of pressure 01:18:00 [facility] Diastolic blood 2021-01-10 65 mm[Hg] University o f pressure 01:18:00 [facility] Heart rate 2021-01-10 61 /min University of 01:18:00 [facility] Respiratory rate 2021-01-10 14 /min University of 01:18:00 [facility] Oxygen saturation 2021-01-10 100 /min University of in Arterial blood 01:18:00 [facility] by Pulse oximetry [place] Body temperature 2021-01-09 37.33 Jennifer University of 22:04: [facility] Body weight 2021-01-09 81.647 kg University of 22:04:00 [facility] BMI 2021-01-09 30.90 kg/m2 University of 22:04: [facility] BMI 2020-10-22 34.16 kg/m2 University of 14:16:00 [facility] Oxygen saturation 2020-10-22 97 /min University of in Arterial blood 14:16:00 [facility] by Pulse oximetry [place] Systolic blood 2020-10-22 147 mm[Hg] University of pressure 14:16:00 [facility] Diastolic blood 2020-10-22 92 mm[Hg] University o f pressure 14:16:00 [facility] Heart rate 2020-10-22 85 /min University of 14:16:00 [facility] Body temperature 2020-10-22 36.89 Jennifer University of 14:16:00 [facility] Respiratory rate 2020-10-22 18 /min University of 14:16:00 [facility] Body weight 2020-10-22 90.266 kg Simultaneous University of 14:16:00 filing. User may [place] [facility] not have seen Branch previous data. BMI 2020-10-22 34.16 kg/m2 University of 14:16:00 [facility] Oxygen saturation 2020-10-22 97 /min University of in Arterial blood 14:16:00 [facility] real by Pulse oximetry [facility] Systolic blood 2020-10-22 147 mm[Hg] University of pressure 14:16:00 [facility] Diastolic blood 2020-10-22 92 mm[Hg] University o f pressure 14:16:00 [facility] Heart rate 2020-10-22 85 /min University of 14:16:00 [facility] Body temperature 2020-10-22 36.89 Jennifer University of 14:16:00 [facility] Respiratory rate 2020-10-22 18 /min University of 14:16:00 [facility] Body weight 2020-10-22 90.266 kg Simultaneous University of 14:16:00 filing. User may [place] [facility] not have seen Branch previous data. Systolic blood 2020-03-04 114 mm[Hg] University of pressure 23:10:48 [facility] Diastolic blood 2020-03-04 75 mm[Hg] University o f pressure 23:10:48 [facility] Heart rate 2020-03-04 56 /min University of 23:10:48 [facility] Respiratory rate 2020-03-04 15 /min University of 23:10:48 [facility] Oxygen saturation 2020-03-04 97 /min University of in Arterial blood 23:10:48 [facility] by Pulse oximetry [facility] Body temperature 2020-03-04 36 Jennifer University of 19:45:00 [facility] Body height 2020-03-04 162.6 cm University of 19:45:00 [facility] Body weight 2020-03-04 90.266 kg University of 19:45:00 [facility] BMI 2020-03-04 34.16 kg/m2 University of 19:45:00 [facility] Systolic blood 2020-03-04 114 mm[Hg] University of pressure 23:10:48 [facility] Diastolic blood 2020-03-04 75 mm[Hg] University o f pressure 23:10:48 [facility] Heart rate 2020-03-04 56 /min University of 23:10:48 [facility] Respiratory rate 2020-03-04 15 /min University of 23:10:48 [facility] Oxygen saturation 2020-03-04 97 /min University of in Arterial blood 23:10:48 [facility] by Pulse oximetry [facility] Body temperature 2020-03-04 36 Jennifer University of 19:45:00 [facility] Body height 2020-03-04 162.6 cm University of 19:45:00 [facility] Body weight 2020-03-04 90.266 kg University of 19:45:00 [facility] BMI 2020-03-04 34.16 kg/m2 University of 19:45:00 [facility] Systolic (mm Hg) 2020-02-05 [facility] rmann 14:40:00 Diastolic (mm Hg) 2020-02-05 [facility] 14:40:00 Heart Rate 2020-02-05 [facility] 14:40:00 Weight 2018-06-29 [facility] 20:03:00 Systolic (mm Hg) 2018-06-29 [facility] 20:03:00 Diastolic (mm Hg) 2018-06-29 [facility] 20:03:00 Temperature Oral 2018-06-29 97.6 F [facility] (F) 20:03:00 Heart Rate 2018-06-29 [facility] 20:03:00 BMI Calculated 2018-06-15 [facility] lynsey 20:08:00 Height 2018-06-15 162.56 cm [facility] 20:08:00 Weight 2018-06-15 [facility] 20:08:00 Systolic (mm Hg) 2018-06-15 [facility] 20:08:00 Diastolic (mm Hg) 2018-06-15 [facility] 20:08:00 Temperature Oral 2018-06-15 98.3 F [facility] (F) 20:08:00 Heart Rate 2018-06-15 [facility] 20:08:00 Weight 2018-05-25 [facility] 20:27:00 Temperature Oral 2018-05-25 98.5 F [facility] (F) 20:27:00 Heart Rate 2018-05-25 [facility] 20:27:00 Systolic (mm Hg) 2018-05-25 [facility] 20:27:00 Diastolic (mm Hg) 2018-05-25 [facility] 20:27:00 BMI Calculated 2018-02-28 [facility] 19:41:00 Weight 2018-02-28 [facility] 19:41:00 Temperature Oral 2018-02-28 98.1 F [facility] (F) 19:41:00 Heart Rate 2018-02-28 [facility] 19:41:00 Height 2018-02-28 162.56 cm [facility] 19:41:00 Systolic (mm Hg) 2018-02-28 [facility] 19:41:00 Diastolic (mm Hg) 2018-02-28 [facility] 19:41:00 Weight 2018-01-24 [facility] 19:15:00 Temperature Oral 2018-01-24 98.4 F [facility] (F) 19:15:00 Heart Rate 2018-01-24 [facility] 19:15:00 Systolic (mm Hg) 2018-01-24 [facility] 19:15:00 Diastolic (mm Hg) 2018-01-24 [facility] 19:15:00 Height 2018-01-24 162.56 cm [facility] 19:15:00 BMI Calculated 2018-01-24 [facility] 19:15:00 Weight 2017-11-29 [facility] 15:16:00 Temperature Oral 2017-11-29 98.2 F [facility] (F) 15:16:00 Heart Rate 2017-11-29 [facility] 15:16:00 Systolic (mm Hg) 2017-11-29 [facility] 15:16:00 Diastolic (mm Hg) 2017-11-29 [facility] 15:16:00 Heart Rate 2017-11-01 [facility] 15:48:00 Temperature Oral 2017-11-01 98.3 F [facility] (F) 15:48:00 Systolic (mm Hg) 2017-11-01 [facility] 15:48:00 Diastolic (mm Hg) 2017-11-01 [facility] 15:48:00 Weight 2017-11-01 [facility] 15:48:00 BMI Calculated 2017-11-01 [facility] 15:48:00 Height 2017-11-01 162.56 cm [facility] 15:48:00 Height 2017-10-18 162.56 cm [facility] 19:18:00 Weight 2017-10-18 [facility] 19:18:00 BMI Calculated 2017-10-18 [facility] 19:18:00 Heart Rate 2017-10-18 [facility] 19:18:00 Temperature Oral 2017-10-18 97.8 F [facility] (F) 19:18:00 Systolic (mm Hg) 2017-10-18 [facility] 19:18:00 Diastolic (mm Hg) 2017-10-18 [facility] 19:18:00 Respitory Rate 2015-04-01 [facility]sey 18:55:00 Systolic (mm Hg) 2015-04-01 [facility] 18:30:00 Respitory Rate 2015-04-01 [facility]sey 18:30:00 Heart Rate 2015-04-01 [facility] 18:30:00 Heart Rate 2015-04-01 [facility] 18:20:00 Systolic (mm Hg) 2015-04-01 Brandt Barton rmann 18:20:00 Respitory Rate 2015-04-01 Brandt Gutierrez lynsey 18:20:00 Systolic (mm Hg) 2015-04-01 Brandt Barton rmann 18:10:00 Temperature Oral 2015-04-01 36.7 Jennifer Brandt Barton rmann (F) 18:10:00 Weight 2015-04-01 Brandt Ruiz n 15:27:00 Temperature Oral 2015-04-01 36.5 Jennifer Brandt Barton rmann (F) 15:27:00 Height 2015-04-01 162.56 cm Brandt Ruiz n 15:27:00 Weight 2015-03-09 Brandt Gutierrezan n 15:41:00 Height 2015-03-09 162.56 cm Brandt Ruiz n 15:41:00 Procedures Procedure Date / Time Performing Clinician Source Performed HB ABO GROUPING 2021-04-19 15:58:00 Singer [facility] URINALYSIS 2021-04-19 14:40:00 Anaya, [facility] COMP. METABOLIC PANEL 2021-04-19 14:33:00 Jayesh Anaya [facility] ([id number]) [facility] TOTAL BETA HCG ASSAY 2021-04-19 14:33:00 Jayesh Anaya [facility] US FIRST 2021-04-19 14:20:42 Jayesh Anaya [facility] TRIMESTER LESS THAN 14 [facility] WEEKS WITH TRANSVAGINAL CBC WITH DIFF 2021-04-19 13:47:00 Singer [facility] CONSENT/REFUSAL FOR 2021-04-19 13:24:26 Doctor Unassigned, [facility] DIAGNOSIS AND TREATMENT [place] [facility] Branch US OVARY TORSION 2021-01-10 00:44:27 Jess Walter [facility] URINALYSIS 2021-01-09 22:19:00 Jess Walter [facility] TEST, SERUM 2021-01-09 22:17:00 Jess Walter [facility] POCT TEST 2021-01-09 22:16:00 Jess Walter [facility] LIPASE 2021-01-09 22:15:00 Jess Walter [facility] COMP. METABOLIC PANEL 2021-01-09 22:15:00 [id number] TOTAL BETA HCG ASSAY 2021-01-09 22:15:00 Jess Walter [facility] CBC WITH DIFF 2021-01-09 22:15:00 Jess Walter [facility] CONSENT/REFUSAL FOR 2021-01-09 21:58:20 Doctor Unazulema, [facility]NOSIS [facility] RAP[facility] STREP SCREEN FOR 2020-10-22 14:47:00 Jayesh Anaya [facility] A [facility] NOTICE OF PRIVACY 2020-10-22 14:07:25 Doctor Unazulema, [facility] PRACTICES [facility] CONSENT/REFUSAL FOR 2020-10-22 14:07:14 Doctor Unazulema, [facility] DIAGNOSIS AND TREATMENT [place] [facility] CT ABDOMEN PELVIS W 2020-03-04 22:09:00 Marguerite Sousa [facility] CONTRAST [facility] US GALL BLADDER 2020-03-04 20:31:43 Marguerite Sousa [facility] POCT TEST 2020-03-04 20:13:00 Marguerite Sousa [facility] LIPASE 2020-03-04 20:12:00 Marguerite Sousa [facility] MAGNESIUM 2020-03-04 20:12:00 Marguerite Sousa [facility] COMP. METABOLIC PANEL 2020-03-04 20:12:00 Marguerite Sousa [facility] ([id number]) [facility] CBC WITH DIFFERENTIAL 2020-03-04 20:12:00 Marguerite Sousa [facility] URINALYSIS 2020-03-04 20:12:00 Marguerite Sousa [facility] COVID-19 (ID NOW RAPID 2020-03-04 20:12:00 [facility] CONSENT/REFUSAL FOR 2020-03-04 19:28:19 Doctor Unassigned, [facility] DIAGNOSIS AND TREATMENT [place] [facility] EXCISION LIPOMA BACK 5CM 2015-04-01 17:50:00 Rohith Salmeron Mem OR DWAYNE [id number] (Other)<sup>1</sup> section 2013-09-18 00:00:00 [facility] 2012-09-18 00:00:00 [facility] section<sup>1</sup> Appendectomy 2005-09-18 00:00:00 [facility] left wrist surgery 2002-09-18 00:00:00 [facility] Complex reconstruction [facility] operations on wrist and hand(excluding arthroplasty) Tonsillectomy [facility] eye surgery [facility] Encounters Start End Encounter Admission Attending Care Care Encounter Source Date/Time Date/Time Type Type Clinicians Facility Department ID 2021-07-19 Emergency [facility] [id number] Univers 12:20:44 ity [facility] 2021-07-18 Emergency [facility] [id number] Univers 15:04:34 ity [facility] 2021-07-17 Emergency [facility] [id number] Univers 21:44:31 [facility] 2020-02-10 Inpatient Chrystal [facility] RAD [id number] [facility] 07:00:00 [facility] 2021-10-12 2021-10-12 Outpatient [facility]H COH PIJFIFK ZHY COH 00:00:00 00:00:00 -[id number] 2021-09-20 2021-09-20 Letter VICKIE Moreno 1.2.840.114 [id number] Univers 00:00:00 00:00:00 (Out) Deepti RUFFIN [id number] it [facility] [id number] [place] as [id number] [address] 2021-09-19 2021-09-19 Outpatient R [facility] [id number] Univers 13:20:00 13:20:00 [id number] ity [facility] 2021-09-19 2021-09-19 Urgent Fide Mayer [facility] 1.2.840.11 [id number] Univers 13:20:00 13:20:00 [facility] [id number] ity of [facility] [id number] Gregg as BRITTANIE?BLEA [phone] Wi mireille [address] MEDICAL OFFICE BUILDING 2021-09-19 2021-09-19 [facility]patient [facility] [id number] Univers 13:20:00 13:01:06 MARIA DEL ROSARIO ity of [facility] 2021-04-19 2021-04-19 Emergency [facility] [id number] Univers 08:32:00 11:35:00 Jayesh Marisabel [id number] i ty of [id number] [id number] [address] 2021-01-09 2021-01-09 Emergency [facility] 1.2.840.114 [id number] 17:06:00 20:20:00 Jess Petit [id number] [place] [id number] [place] [id number] [facility] 2021-01-09 2021-01-09 Emergency [facility] 1.2.840.114 [id number] Univers 17:06:00 20:20:00 Jess Petit [id number] ity of [place] [id number] [facility] [place] [phone] [address] 2021-01-09 2021-01-09 Orders Doctor JOHNSTON 1.2.840.114 [id number] 00:00:00 00:00:00 Only Unassigned, AUGUSTIN [id number] [place] [facility] [id number] [id number] 2021-01-09 2021-01-09 Orders Doctor JOHNSTON 1.2.840.114 [id number] Univers 00:00:00 00:00:00 Only Unassigned, AUGUSTIN [id number] ity of [place] [facility] [id number] [place] [phone] [address] 2020-10-22 2020-10-22 Emergency Anaya, [facility] [id number] 08:26:00 10:18:00 Jayesh Petit [id number] [place] [id number] [place] [phone] 08 2020-10-22 2020-10-22 Emergency Anaya, [facility] [id number] [facility] 08:26:00 10:18:00 Jayesh Marisabel [id number] i ty of [id number] [id number] [place] 086304 [place] 2020-10-22 2020-10-22 Orders Doctor VICKIE 1.2.840.114 [id number] 00:00:00 00:00:00 Only Unassigned, AUGUSTIN [id number] [place] [facility] [id number] [id number] [id number] 2020-10-22 2020-10-22 VICKIE Thomas 1.2.840.114 [id number] 00:00:00 00:00:00 (Out) Deepti RUFFIN [id number] HOSPITAL 4.2.7.2.686 [id number] [id number] 2020-10-22 2020-10-22 VICKIE Thomas 1.2.840.114 [id number] Univers 00:00:00 00:00:00 (Out) Deepti RUFFIN [id number] it y of HOSPITAL [id number] [place] [phone] [facility] 019 Branch 2020-10-22 2020-10-22 Orders Doctor VICKIE 1.2.840.114 [id number] Univers 00:00:00 00:00:00 Only Unassigned, AUGUSTIN [id number] ity of [place] [facility] [id number] [place] [phone] [place] [address] Branch 2020-08-01 2020-08-01 Outpatient R TAMI [facility] [id number] Univers 10:00:00 10:00:00 OMAYEMI ity of [facility] 2020-03-04 2020-03-04 Emergency Marguerite Sousa [facility] 1.2.840.114 [id number] 14:38:35 18:18:00 Brigitte Marisabel [id number] [place] [id number] [place] [id number] 2020-03-04 2020-03-04 Emergency X Marguerite SOUSA [facility] ERT [id number] Univers 14:38:35 18:18:00 ity of [facility] 2020-03-04 2020-03-04 Emergency Marguerite Sousa [facility] 1.2.840.114 [id number] Univers 14:38:35 18:18:00 Brigitte Petit [id number] i ty of [place] [id number] [phone] [facility] 084 [place] 2020-03-04 2020-03-04 Orders Doctor VICKIE 1.2.840.114 [id number] 00:00:00 00:00:00 Only Unassigned, AUGUSTIN [id number] [place] [facility] [id number] [id number] [id number] 2020-03-04 2020-03-04 Orders Doctor VICKIE 1.2.840.114 [id number] Univers 00:00:00 00:00:00 Only Unassigned, AUGUSTIN [id number] ity of [place] [facility] [id number] [place] [id number] [facility] 009 Branch 2020-02-19 2020-02-19 Ambulatory nullFlavo [facility] Family 4 [id number] Memoria 15:30:00 15:30:00 Pre-Reg r Medicine 23 l [place] 2020-02-19 2020-02-19 Ambulatory nullFlavo [facility] Family 4 [id number] Memoria 15:30:00 15:30:00 Pre-Reg r Medicine 23 l [place] 2020-02-19 2020-02-19 Outpatient ZOYA KENNY [id number] Memoria 10:30:00 10:30:00 23 clarence [place] 2020-02-19 2020-02-19 Outpatient MADYSON Schmidt [facility] [id number] 10:30:00 10:30:00 Aurelia 23 Peter 2020-02-05 2020-02-06 Outpatient nullFlavo [facility] Family 4 [id number] Memoria 14:30:00 04:59:59 r Medicine 22 clarence [place] 2020-02-05 2020-02-06 Outpatient nullFlavo [facility] Family 4 [id number] Memoria 14:30:00 04:59:59 r Medicine 22 clarence [place] 2020-02-05 2020-02-05 Outpatient Schmidt, [facility] [id number] 09:30:00 23:59:59 Aurelia 22 Peter 2020-02-05 2020-02-05 Outpatient REDDALEXIS ZOYA [id number] Memoria 09:30:00 09:30:00 22 clarence Hoang 2019-01-16 2019-01-16 Outpatient [facility] [id number] Common 16:00:00 16:00:00 [facility] 2019-01-15 2019-01-15 Outpatient [facility] [id number] Common 13:36:00 13:36:00 [facility] 2019-01-14 2019-01-14 Outpatient [facility] [id number] Common 13:30:00 13:30:00 [facility] 2018-11-01 2018-11-02 Outpatient nullFlavo [facility] Family 4 [id number] Memoria 14:45:00 05:59:59 r Medicine 21 clarence [place] 2018-11-01 2018-11-02 Outpatient nullFlavo [facility] Family 4 [id number] Memoria 14:45:00 05:59:59 r Medicine 21 clarence [place] 2018-11-01 2018-11-01 Outpatient Goss, [facility] [id number] 08:45:00 23:59:59 Ishmael 21 2018-11-01 2018-11-01 Outpatient ZOYA ALEXIS [id number] Memoria 08:45:00 08:45:00 21 clarence Hoang 2018-06-29 2018-06-30 Outpatient nullFlavo [facility] Family 4 [id number] Memoria 19:00:00 04:59:59 r Medicine 20 clarence [place] 2018-06-29 2018-06-30 Outpatient nullFlavo [facility] Family 4 [id number] Memoria 19:00:00 04:59:59 r Medicine 20 clarence [place] 2018-06-29 2018-06-29 Outpatient Goss, [facility] MG [id number] 14:00:00 23:59:59 Ishmael 20 2018-06-29 2018-06-29 Ambulatory nullFlavo [facility] Family 4 [id number] Memoria 19:00:00 19:00:00 Pre-Reg r Medicine 18 clarence [place] 2018-06-29 2018-06-29 Ambulatory nullFlavo [facility] Family 4 [id number] Memoria 19:00:00 19:00:00 Pre-Reg r Medicine 18 clarence [place] 2018-06-29 2018-06-29 Outpatient MHIE MHIE [id number] Memoria 14:00:00 14:00:00 18 clarence [place] 2018-06-29 2018-06-29 Outpatient MHIE MHIE [id number] Memoria 14:00:00 14:00:00 20 clarence [place] 2018-06-29 2018-06-29 Outpatient Goss, [facility] MG [id number] 14:00:00 14:00:00 Ishmael 18 2018-06-25 2018-06-25 Ambulatory nullFlavo [facility] Family 4 [id number] Memoria 14:30:00 14:30:00 Pre-Reg r Medicine 17 clarence [place] 2018-06-25 2018-06-25 Ambulatory nullFlavo [facility] Family 4 [id number] Memoria 14:30:00 14:30:00 Pre-Reg r Medicine 17 clarence [place] 2018-06-25 2018-06-25 Outpatient MHIE MHIE [id number] Memoria 09:30:00 09:30:00 17 clarence [place] 2018-06-25 2018-06-25 Outpatient VISIT, MG MG [id number] 09:30:00 09:30:[address] 17 2018-06-25 2018-06-25 Outpatient VISIT, MG MG [id number] 09:30:00 09:30:[address] 17 2018-06-25 2018-06-25 Outpatient VISIT, MG MG [id number] 09:30:00 09:30:00 NURSE STWH 17 2018-06-25 2018-06-25 Outpatient VISIT, MG MG [id number] 09:30:00 09:30:00 NURSE STWH 17 2018-06-15 2018-06-16 Outpatient nullFlavo [facility] Family 4 [id number] Memoria 20:15:00 04:59:59 r Medicine 19 clarence Arnold Hoang 2018-06-15 2018-06-16 Outpatient nullFlavo [facility] Family 4 [id number] Memoria 20:15:00 04:59:59 r Medicine 19 clarence Arnold Hoang 2018-06-15 2018-06-15 [id number] 15:15:00 23:59:59 Ishmael 19 2018-06-15 2018-06-15 Outpatient MHIE IE [id number] Memoria 15:15:00 15:15:00 19 clarence Hoang 2018-05-25 2018-05-26 Outpatient nullFlavo [facility] Family 4 [id number] Memoria 20:00:00 04:59:59 r Medicine 16 clarence Arnold Hoang 2018-05-25 2018-05-26 Outpatient nullFlavo [facility] Family 4 [id number] Memoria 20:00:00 04:59:59 r Medicine 16 clarence Arnold Hoang 2018-05-25 2018-05-25 Outpatient VISIT, MG MG [id number] 15:00:00 23:59:[address] 16 2018-05-25 2018-05-25 Outpatient MHIE MHIE [id number] Memoria 15:00:00 15:00:00 16 clarence Hoang 2018-04-12 2018-04-12 Ambulatory nullFlavo [facility] 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 4 [id number] Memoria 19:30:00 19:30:00 Pre-Reg r [place] 09 clarence Hoang 2018-04-12 2018-04-12 Ambulatory nullFlavo [facility] 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 4 [id number] Memoria 19:30:00 19:30:00 Pre-Reg r [place] 09 clarence Hoang 2018-04-12 2018-04-12 Outpatient MHIE MHIE [id number] Memoria 14:30:00 14:30:00 09 clarence [place] 2018-04-12 2018-04-12 Outpatient Emilia MG MG [id number] 14:30:00 14:30:00 , 09 Danielcierra Gee 2018-02-28 2018-03-01 Outpatient nullFlavo [facility] Family 4 [id number] Memoria 19:30:00 04:59:59 r Medicine 15 clarence [place] 2018-02-28 2018-03-01 Outpatient nullFlavo [facility] Family 4 [id number] Memoria 19:30:00 04:59:59 r Medicine 15 clarence [place] 2018-02-28 2018-02-28 Outpatient Jack[place], MG [place] [id number] 14:30:00 23:59:59 Marylu Engmarjoriemadhavi 2018-02-28 2018-02-28 Outpatient MHIE MHIE [id number] Memoria 14:30:00 14:30:00 15 clarence [place] 2018-01-29 2018-01-29 Ambulatory nullFlavo MG Family 4 [id number] Memoria 14:45:00 14:45:00 Pre-Reg r Medicine 13 clarence [place] 2018-01-29 2018-01-29 Ambulatory nullFlavo MG Family 4 [id number] Memoria 14:45:00 14:45:00 Pre-Reg r Medicine 13 clarence [place] 2018-01-29 2018-01-29 Outpatient MHIE IE [id number] Memoria 09:45:00 09:45:00 13 clarence [place] 2018-01-29 2018-01-29 Outpatient VISIT, MG MG [id number] 09:45:00 09:45:[address] 13 2018-01-24 2018-01-25 Outpatient nullFlavo [facility] Family 4 [id number] Memoria 19:15:00 04:59:59 r Medicine 14 clarence Bolotn 2018-01-24 2018-01-25 Outpatient nullFlavo MG Family 4 [id number] Memoria 19:15:00 04:59:59 r Medicine 14 clarence [place] 2018-01-24 2018-01-24 Outpatient Goss, MG MG [id number] 14:15:00 23:59:59 [facility] 14 2018-01-24 2018-01-24 Outpatient Goss, MG MG [id number] 14:15:00 23:59:59 [facility] 14 2018-01-24 2018-01-24 Outpatient MHIE MHIE [id number] Memoria 14:15:00 14:15:00 14 clarence [place] 2017-11-29 2017-11-30 Outpatient nullFlavo MG Family 4 [id number] Memoria 14:45:00 04:59:59 r Medicine 12 clarence [place] 2017-11-29 2017-11-30 Outpatient nullFlavo MG Family 4 [id number] Memoria 14:45:00 04:59:59 r Medicine 12 clarence [place] 2017-11-29 2017-11-29 Outpatient VISIT, MG MG [id number] 09:45:00 23:59:59 NURSE [facility] 12 2017-11-29 2017-11-29 Outpatient MHIE IE [id number] Memoria 09:45:00 09:45:00 12 clarence [place] 2017-11-01 2017-11-02 Outpatient nullFlavo MG Family 4 [id number] Memoria 15:45:00 05:59:59 r Medicine 11 clarence [place] 2017-11-01 2017-11-02 Outpatient nullFlavo MG Family 4 [id number] Memoria 15:45:00 05:59:59 r Medicine 11 clarence [place] 2017-11-01 2017-11-01 Outpatient Goss, MG MG [id number] 09:45:00 23:59:59 [facility] 11 2017-11-01 2017-11-01 Outpatient MHIE IE [id number] Memoria 09:45:00 09:45:00 11 clarence [place] 2017-10-18 2017-10-19 Outpatient nullFlavo MG Family 4 [id number] Memoria 16:30:00 05:59:59 r Medicine 10 clarence [place] 2017-10-18 2017-10-19 Outpatient nullFlavo MG Family 4 [id number] Memoria 16:30:00 05:59:59 r Medicine 10 clarence Gutierrezann 2017-10-18 2017-10-18 Outpatient [place], MG [id number] 10:30:00 23:59:59 Ishmael 10 2017-10-18 2017-10-18 Outpatient MHIE MHIE [id number] Memoria 10:30:00 10:30:00 10 clarence [place] 2017-04-11 2017-04-11 Outpatient MHIE MHIE [id number] Memoria 14:30:00 14:30:00 08 clarence [place] 2017-04-11 2017-04-11 Outpatient MHIE MHIE [id number] Memoria 14:30:00 14:30:00 08 clarence [place] 2016-10-28 2016-10-28 Outpatient MHIE MHIE [id number] Memoria 13:00:00 13:00:00 07 clarence [place] 2016-10-28 2016-10-28 Outpatient MHIE MHIE [id number] Memoria 13:00:00 13:00:00 07 clarence [place] 2016-09-14 2016-09-14 Outpatient MHIE MHIE [id number] Memoria 09:00:00 09:00:00 03 clarence [place] 2016-09-14 2016-09-14 Outpatient MHIE MHIE [id number] Memoria 09:00:00 09:00:00 06 clarence [place] 2016-09-14 2016-09-14 Outpatient MHIE MHIE [id number] Memoria 09:00:00 09:00:00 03 clarence [place] 2016-09-14 2016-09-14 Outpatient MHIE MHIE [id number] Memoria 09:00:00 09:00:00 06 clarence [place] 2016-04-18 2016-04-18 Outpatient MHIE MHIE [id number] Memoria 14:30:00 14:30:00 01 clarence [place] 2016-04-18 2016-04-18 Outpatient MHIE MHIE [id number] Memoria 14:30:00 14:30:00 02 clarence [place] 2016-04-18 2016-04-18 Outpatient MHIE MHIE [id number] Memoria 14:30:00 14:30:00 01 clarence [place] 2016-04-18 2016-04-18 Outpatient MHIE MHIE [id number] Memoria 14:30:00 14:30:00 02 clarence [place] 2016-04-18 2016-04-18 Outpatient MHIE MHIE [id number] Memoria 13:30:00 13:30:00 00 clarence [place] 2016-04-18 2016-04-18 Outpatient MHIE [facility] [id number] Memoria 13:30:00 13:30:00 00 clarence Bolton 2015-04-01 2015-04-01 Outpatient [facility] [id number]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 Reference Range Interpretation Comments WBC (test code = See_Comment [Automated message] 6690-2) The system [employer] generated this result transmitted ref erence range: 4.30 - 1 1.10 10*3/?L. The re ference range was not u sed to interpret this result as normal/abnor mal. RBC (test code = See_Comment [Automated message] 809-8) The system [employer] generated this result transmitted ref erence range: 3.93 - 5 .25 10*6/?L. The re ference range was not u sed to interpret this result as normal/abnor mal. HGB (test code = 12.5 g/dL 11.6-15 718-7) HCT (test code = 36.6 % 35.7-45.2 4544-3) MCV (test code = 92.2 fL 80.6-95.5 787-2) MCH (test code = 31.5 pg 25.9-32.8 785-6) MCHC (test code = 34.2 g/dL 31.6-35.1 786-4) RDW-SD (test code 41.5 fL 39-49.9 = 13705-6) RDW-CV (test code 12.3 % 12-15.5 = 788-0) PLT (test code = See_Comment [Automated message] 777-3) The system whic h generated this result transmitted ref erence range: 166 - 35 8 10*3/?L. The re ference range was not u sed to interpret this result as normal/abnor mal. MPV (test code = 10.1 fL 9.5-12.9 54486-5) NRBC/100 WBC (test See_Comment [Automat ed message] code = 8892129758) The syste m which generated this result transmitted ref erence range: 0.0 - 10 .0 /100 WBCs. The refer ence range was not u sed to interpret this result as normal/abnor mal. NRBC x10^3 (test <0.01 See_Comment [Automated message] code = 7570971561) The syste m which generated this result transmitted ref erence range: 10*3/?L. The reference range was not used to interpr et this result as normal/abnormal . GRAN MAT (NEUT) % 50.7 % (test code = 770-8) IMM GRAN % (test 0.20 % code = 4709752583) LYMPH % (test code 37.3 % = 736-9) MONO % (test code 8.5 % = 5905-5) EOS % (test code = 3.0 % 713-8) BASO % (test code 0.3 % = 706-2) GRAN MAT 3.09 10*3/uL 1.88-7.09 x10^3(ANC) (test code = 1294701204) IMM GRAN x10^3 <0.03 0-0.06 (test code = 1047827550) LYMPH x10^3 (test 2.27 10*3/uL 1.32-3.29 code = 731-0) MONO x10^3 (test 0.52 10*3/uL 0.33-0.92 code = 742-7) EOS x10^3 (test 0.18 10*3/uL 0.03-0.39 code = 711-2) BASO x10^3 (test <0.03 0.01-0.07 code = 704-7) [facility] [id number] 20:13:00 Test Item Value Reference Range Interpretation Comments POCT PREG (test code = 1605) Negative On board controls acceptable with Present C Line (test code = 3574) POCT PREG LOT # (test code = 3575) [id number] POCT PREG TEST DATE (test 06/17/2021 code = 3576) Lab Interpretation (test code = Normal 09028-3) [facility]"
[2022-06-06 08:56] LABS: Absolute Lymphocytes (CBC) 2.2 K/uL (0.7-4.9); Hematocrit 38.3 % (36.0-45.0); Lymphocytes % 37.4 % (15.3-44.8); MCV 90.8 fL (80-100); MPV 7.5 fL (7.6-11.3); RBC Red Blood Cell Count 4.21 M/uL (3.86-4.86)
[2022-06-06 09:01] LABS: Urine Bacteria >50 /HPF (<20)
[2022-06-06] MEDS ORDERED: MORPHINE 4 MG/ML SYR ONE (09:05)
[2022-06-06] MEDS ORDERED: NA CHLORIDE 0.9% 1,000 ML ONE (09:05)
[2022-06-06] MEDS ORDERED: ONDANSETRON 4 MG/2 ML VIAL ONE (09:05)
[2022-06-06 09:09] LABS: Urine Blood 3+ (Negative); Urine Glucose Negative (Negative); Urine Protein 2+ (Negative); Urine Specific Gravity 1.025 (1.005-1.030)
[2022-06-06 09:20] LABS: Albumin 3.8 g/dL (3.4-5.0); Bilirubin Total 0.2 mg/dL (0.2-1.0); Potassium 3.9 mmol/L (3.5-5.1); Protein, Total 7.9 g/dL (6.4-8.2)
[2022-06-06] MEDS ORDERED: CEFTRIAXONE 1000 MG/VIAL ONE (09:58)
--- NOTE | 2022-06-06 11:10 | RAD REPORT ---
EXAM DESCRIPTION: US - Transvaginal Study Probe - 06/06/2022 9:47 am CLINICAL HISTORY: VAGINAL BLEEDING Pelvic pain. COMPARISON: No comparisons FINDINGS: The uterus is normal in size, shape and echotexture. The uterus measures 7.7 x 5.3 x 4.0 c m. There is a IUD present in the endometrial fundus. In addition there is a heavily shadowing region see n posterior myometrial wall which may be a large area of calcification. It is incomplete as the asses sed due to the significant amount of shadowing. Right ovary measures 1.9 x 1.9 cm with normal blood flow. Left ovary was not well seen due to bowel g as. No significant pelvic ascites. IMPRESSION: IUD is present in the fundal endometrium. Prominent shadowing lesion posterior wall of the myometrium is may represent a calcification or calci fied fibroid. It is incompletely assessed. Consider followup nonemergent MRI female pelvis protocol f or further evaluation. Nonvisualized left ovary due to bowel gas shadowing.
--- NOTE | 2022-06-06 11:16 | EDPHYS ---
Physician Documentation [facility] Name: Tammie Rhodes Age: 26 yrs Sex: Female : 1995 Arrival Date: 06/06/2022 Time: 08:11 Bed 17 Private MD: ED Physician Velma Murdock HPI: 06/06 08:25 This 26 yrs old Female presents to ER via Ambulatory with complaints of Abdominal Pain, jh7 Vaginal Bleeding. 08:25 The patient presents with abdominal pain in the left lower quadrant, Suprapubic. Onset: jh7 The symptoms/episode began/occurred 2 week(s) ago, and became worse last night. Associated signs and symptoms: Pertinent positives: vaginal bleeding, Pertinent negatives: nausea, vomiting, and diarrhea, chest pain. Patient reports lower abdominal pain with cramping for the past 2 weeks that became worse last night. Reports that she has also had vaginal bleeding for 2 weeks, but that last night the bleeding increased and now she is passing large clots. Reports that she had her Mirena put in 2 weeks ago and that now she cannot feel the strings. Her ATHLETIC TRAINER is Dr. Ross at [facility].. Historical: - Allergies: 08:23 Aspirin; jh6 08:23 Benadryl; jh6 - PMHx: 08:23 Anemia; Anxiety; Asthma; Bipolar disorder; Migraines; jh6 - PSHx: 08:23 Appendectomy; breast surgery; section; eye surgery; Tonsillectomy; jh6 - Immunization history:: Adult Immunizations up to date. - Social history:: Smoking status: Patient denies any tobacco usage or history of. ROS: 08:25 Constitutional: Negative for fever, chills, and weight loss, Eyes: Negative for injury, jh7 pain, redness, and discharge, ENT: Negative for injury, pain, and discharge, Cardiovascular: Negative for chest pain, palpitations, and edema, Respiratory: Negative for shortness of breath, cough, wheezing, and pleuritic chest pain, Back: Negative for injury and pain, MS/Extremity: Negative for injury and deformity, Skin: Negative for injury, rash, and discoloration, Neuro: Negative for headache, weakness, numbness, tingling, and seizure. 08:25 Abdomen/GI: Positive for abdominal pain, Negative for nausea, vomiting, and diarrhea. 08:25 : Positive for vaginal bleeding, Negative for urinary symptoms. 08:25 All other systems are negative. Exam: 08:25 Constitutional: This is a well developed, well nourished patient who is awake, alert, jh7 and in no acute distress. Head/Face: Normocephalic, atraumatic. Eyes: Pupils equal round and reactive to light, extra-ocular motions intact. Lids and lashes normal. Conjunctiva and sclera are non-icteric and not injected. Cornea within normal limits. Periorbital areas with no swelling, redness, or edema. Cardiovascular: Regular rate and rhythm with a normal S1 and S2. No gallops, murmurs, or rubs. Normal PMI, no JVD. No pulse deficits. Respiratory: Lungs have equal breath sounds bilaterally, clear to auscultation and percussion. No rales, rhonchi or wheezes noted. No increased work of breathing, no retractions or nasal flaring. Back: No spinal tenderness. No costovertebral tenderness. Full range of motion. Skin: Warm, dry with normal turgor. Normal color with no rashes, no lesions, and no evidence of cellulitis. MS/ Extremity: Pulses equal, no cyanosis. Neurovascular intact. Full, normal range of motion. Neuro: Awake and alert, GCS 15, oriented to person, place, time, and situation. Motor strength 5/5 in all extremities. Sensory grossly intact. Normal gait. 08:25 Abdomen/GI: Inspection: abdomen appears normal, Bowel sounds: normal, Palpation: moderate abdominal tenderness, in the suprapubic area. 08:25 : CVA tenderness, is absent. Vital Signs: 08:26 BP 108 / 72; Pulse 79; Resp 18; Temp 97.5; Pulse Ox 100% on R/A; Weight 86.18 kg; ph Height 5 ft. 2 in. (157.48 cm); 10:00 BP 100 / 65; Pulse 70; Resp 16; Pulse Ox 98% ; Pain 3/10; jh6 11:40 BP 123 / 76; Pulse 74; Resp 16; Temp 97.6(O); Pulse Ox 100% ; Pain 3/10; jh6 08:26 Body Mass Index 34.75 (86.18 kg, 157.48 cm) ph MDM: 08:22 Patient medically screened. [facility] 11:28 Differential diagnosis: Dysmenorrhea, Ectopic , Menorrhagia, non-specific abd [facility] pain, Ovarian Torsion, urinary tract infection. Data reviewed: vital signs, nurses notes, lab test result(s), radiologic studies, ultrasound. Data interpreted: Pulse oximetry: is 100 %. Interpretation: normal. Counseling: I had a detailed discussion with the patient and/or guardian regarding: the historical points, exam findings, and any diagnostic results supporting the discharge/admit diagnosis, the need for outpatient follow up, an OB/Gyne specialist, to return to the emergency department if symptoms worsen or persist or if there are any questions or concerns that arise at home. ED course: The patient remained hemodynamically stable throughout her ER visit. Discussed lab and imaging results with the patient. Informed the patient that her IUD was in place but that she would need to follow-up with her ATHLETIC TRAINER. She reports that her vaginal bleeding has significantly slowed and that the medication helped her pain. Informed her that she had a UTI and that she would be prescribed antibiotics. Encouraged an increase in p.o. fluid intake and to take medication as directed. If the patient's symptoms return, or any new concerning symptoms develop, she should return to the ER for further eval.. 06/06 08:29 Order name: CBC with Diff; Complete Time: 09:34 [facility] 06/06 08:29 Order name: CMP; Complete Time: :34 [facility] 06/06 08:29 Order name: Lipase; Complete Time: :34 [facility] 06/06 08:29 Order name: Urine Microscopic Only; Complete Time: 09:34 [facility] 06/06 08:29 Order name: Type And Screen; Complete Time: 09:54 [facility] 06/06 09:06 Order name: Urine Culture [facility] 06/06 09:09 Order name: Urine Dipstick-Ancillary; Complete Time: 09:34 [facility] 06/06 09:15 Order name: Urine --Ancillary (enter results) 06/06 09:28 Order name: Transvaginal Study Probe; Complete Time: 11:30 [facility] 06/06 08:29 Order name: IV Saline Lock; Complete Time: 10:00 [facility] 06/06 08:29 Order name: Labs collected and sent; Complete Time: 10:00 [facility] 06/06 08:29 Order name: Urine Dipstick-Ancillary (obtain specimen); Complete Time: 10:00 [facility] 06/06 08:29 Order name: Urine Test (obtain specimen); Complete Time: 10:00 [facility] Administered Medications: 09:09 Drug: NS 0.9% 1000 ml Route: IV; Rate: 1 bolus; Site: right antecubital; 6 09:09 Drug: Zofran (Ondansetron) 4 mg Route: IVP; Site: right antecubital; 6 10:00 Follow up: Response: No change in condition 6 09:09 Drug: morphine 4 mg Route: IVP; Infused Over: 4 mins; Site: right antecubital; 6 10:00 Follow up: Response: Pain is decreased 6 11:40 Follow up: Response: Pain is decreased [facility] 09:53 Drug: Rocephin (cefTRIAXone) 1 grams Route: IV; Rate: 1 calculated rate; Site: right [facility] antecubital; 10:00 Follow up: Response: No adverse reaction [facility] 11:27 Drug: Ketorolac 15 mg Route: IVP; Site: right antecubital; [facility] 11:40 Follow up: Response: Pain is decreased [facility] Disposition: 17:12 STAFF ATTESTATION STATEMENT: I was immediately available onsite in the emergency sd2 department for consultation in the care of this patient. I did not see or examine this patient. Velma Murdock MD. Disposition Summary: 06/06/22 11:16 Discharge Ordered Location: Home [facility] Problem: new [facility] Symptoms: have improved [facility] Condition: Stable [facility] Diagnosis - UTI/ Urinary tract infection, site not specified [facility] - Other specified abnormal uterine and vaginal bleeding [facility] Followup: [facility] - With: Private Physician - When: 2 - 3 days - Reason: Recheck today's complaints Discharge Instructions: - Discharge Summary Sheet [facility] - Menorrhagia [facility] - Urinary Tract Infection, Adult [facility] - Antibiotic Medicine, Adult, [id number] [facility] Forms: - Medication Reconciliation Form [facility] - Thank You Letter [facility] - Antibiotic Education [facility] Prescriptions: - Pyridium 200 mg Oral Tablet - take 1 tablet by ORAL route every 8 hours for 3 days; 9 tablet; Refills: 0, [facility] Product Selection Permitted - Macrobid 100 mg Oral Capsule - take 1 capsule by ORAL route every 12 hours for 7 days; 14 capsule; Refills: 0, jh7 Product Selection Permitted Signatures: Dispatcher [employer] Leticia Solis, RN RN jh6 Leticia Philip, HOGSHEAD PRESS OPERATOR HOGSHEAD PRESS OPERATOR jh7 Velma Murdock MD MD sd2 Corrections: (The following items were deleted from the chart) 09:28 08:30 Abdomen Limited+US.RAD.BRZ ordered. [facility] 11:33 11:28 ED course: Informed the patient that her IUD was in place but that she would need [facility] to follow-up with her ATHLETIC TRAINER. She reports that her vaginal bleeding has significantly slowed and that the medication helped her pain. Informed her that she had a UTI and that she would be prescribed antibiotics. Encouraged an increase in p.o. fluid intake and to take medication as directed. If the patient's symptoms return, or any new concerning symptoms develop, she should return to the ER for further eval.. [facility] 11:41 08:25 Abdomen/GI: Inspection: abdomen appears normal, Bowel sounds: normal, Palpation: 7 moderate abdominal tenderness, in the suprapubic area and left lower quadrant, 7
--- NOTE | 2022-06-06 11:16 | ER ---
Nurse's Notes [facility] Name: Tammie Rhodes Age: 26 yrs Sex: Female : 1995 Arrival Date: 06/06/2022 Time: 08:11 Bed 17 Private MD: Diagnosis: UTI/ Urinary tract infection, site not specified;Other specified abnormal uterine and vaginal bleeding Presentation: 06/06 08:26 Chief complaint: Patient states: Abdominal cramping "like contractions" states, " I had ph an IUD put in after I had my last baby and I can't feel the strings." Also reports abnormal vaginal bleeding. Coronavirus screen: Vaccine status: Patient reports being unvaccinated. Ebola Screen: No symptoms or risks identified at this time. Initial Sepsis Screen: Does the patient meet any 2 criteria? No. Patient's initial sepsis screen is negative. Does the patient have a suspected source of infection? No. Patient's initial sepsis screen is negative. Risk Assessment: Do you want to hurt yourself or someone else? Patient reports no desire to harm self or others. Onset of symptoms was June 06, 2022. 08:26 Method Of Arrival: Ambulatory ph 08:26 Acuity: EBONI 3 ph Triage Assessment: 08:32 General: Appears in no apparent distress. Behavior is calm, cooperative. Neuro: Level ph of Consciousness is awake, alert, obeys commands, Oriented to person, place, time, situation. GI: Abdomen is non-distended. Derm: Skin is intact, Skin is pink, warm \\T\\ dry. Historical: - Allergies: 08:23 Aspirin; [facility] 08:23 Benadryl; [facility] - PMHx: 08:23 Anemia; Anxiety; Asthma; Bipolar disorder; Migraines; [facility] - PSHx: 08:23 Appendectomy; breast surgery; section; eye surgery; Tonsillectomy; [facility] - Immunization history:: Adult Immunizations up to date. - Social history:: Smoking status: Patient denies any tobacco usage or history of. Screenin:23 Abuse screen: Denies threats or abuse. Nutritional screening: No deficits noted. [facility] Tuberculosis screening: No symptoms or risk factors identified. Fall Risk None identified. Assessment: 08:25 General: Appears in no apparent distress. Pain: Complains of pain in suprapubic area jh6 Pain currently is 3 out of 10 on a pain scale. Quality of pain is described as crampy, Pain began suddenly, Is intermittent. GI: Bowel sounds present X 4 quads. Abd is soft X 4 quads Abdomen is tender to palpation in suprapubic area. : Reports vaginal bleeding that is moderate flow, spotty, Parent/caregiver report the patient having vaginal bleeding that is pt reports that she can no longer feel her stings from her IUD. states that her periods had become more regular but for this month she has been bleeding all mo and has had increased lower abd pain. 09:30 Reassessment: Patient and/or family updated on plan of care and expected duration. Pain jh6 level reassessed. Patient is alert, oriented x 3, equal unlabored respirations, skin warm/dry/pink. Patient states feeling better. 10:30 Reassessment: Patient and/or family updated on plan of care and expected duration. Pain jh6 level reassessed. Patient is alert, oriented x 3, equal unlabored respirations, skin warm/dry/pink. 10:30 General: pt states that pain is a little worse after u/s but tolerable. . Pain: Pain jh6 currently is 5 out of 10 on a pain scale. Quality of pain is described as crampy. 11:30 Reassessment: No changes from previously documented assessment. Patient and/or family jh6 updated on plan of care and expected duration. Pain level reassessed. Patient is alert, oriented x 3, equal unlabored respirations, skin warm/dry/pink. Vital Signs: 08:26 BP 108 / 72; Pulse 79; Resp 18; Temp 97.5; Pulse Ox 100% on R/A; Weight 86.18 kg; ph Height 5 ft. 2 in. (157.48 cm); 10:00 BP 100 / 65; Pulse 70; Resp 16; Pulse Ox 98% ; Pain 3/10; jh6 11:40 BP 123 / 76; Pulse 74; Resp 16; Temp 97.6(O); Pulse Ox 100% ; Pain 3/10; jh6 08:26 Body Mass Index 34.75 (86.18 kg, 157.48 cm) ph ED Course: 08:11 Patient arrived in ED. mr 08:13 Leticia Philip FNP is [facility]. jh7 08:17 Carl Helm, ONUR is Primary Nurse. 4 08:23 Urine collected: clean catch specimen, clear. jh6 08:23 Patient has correct armband on for positive identification. Placed in gown. Bed in low [facility] position. Call light in reach. Side rails up X 1. Adult w/ patient. 08:31 Triage completed. ph 08:31 Arm band placed on right wrist. ph 08:50 Inserted saline lock: 20 gauge in right antecubital area, using aseptic technique. 6 Blood collected. 09:30 Velma Murdock MD is Attending Physician. jh7 09:35 Patient moved back from ultrasound. jh6 09:49 Transvaginal Study Probe In Process Unspecified. EDMS 11:35 IV discontinued, intact, bleeding controlled, No redness/swelling at site. Pressure 6 dressing applied. 11:45 No provider procedures requiring assistance completed. jh6 Administered Medications: 09:09 Drug: NS 0.9% 1000 ml Route: IV; Rate: 1 bolus; Site: right antecubital; 6 09:09 Drug: Zofran (Ondansetron) 4 mg Route: IVP; Site: right antecubital; 6 10:00 Follow up: Response: No change in condition 6 09:09 Drug: morphine 4 mg Route: IVP; Infused Over: 4 mins; Site: right antecubital; 6 10:00 Follow up: Response: Pain is decreased 6 11:40 Follow up: Response: Pain is decreased 6 09:53 Drug: Rocephin (cefTRIAXone) 1 grams Route: IV; Rate: 1 calculated rate; Site: right 6 antecubital; 10:00 Follow up: Response: No adverse reaction 6 11:27 Drug: Ketorolac 15 mg Route: IVP; Site: right antecubital; 6 11:40 Follow up: Response: Pain is decreased [facility] Medication: 08:32 VIS not applicable for this client. Outcome: 11:16 Discharge ordered by . 7 11:45 Discharged to home ambulatory. 6 11:45 Condition: good 11:45 Discharge instructions given to patient, family, Instructed on discharge instructions, follow up and referral plans. Demonstrated understanding of instructions, follow-up care, Prescriptions given X 2. 11:45 Patient left the ED. 6 Addendum: 06/09/2022 11:16 Addendum: Culture Results: Positive urine culture. No further action required. Bacteria s s sensitive to prescribed antibiotic. Signatures: Dispatcher [employer] Alicia Person MarkyZulma, RN RN ss No Arnold, RN RN Leticia Collado, RN RN jh6 Leticia Philip, SENIOR ELECTRICAL PROJECT MANAGER SENIOR ELECTRICAL PROJECT MANAGER jh7 Carl Helm, RN RN ja4
[2022-06-06] MEDS ORDERED: KETOROLAC 30 MG/ML INJ ONE (11:32)
[2022-06-06 14:10] LABS: Urine Specific Gravity/Preg 1.025 (1.005-1.030)
[2022-06-07 15:56] VITALS: BP 123/76; TEMP 97.6; O2SAT 100
== END 2022-06-06 11:45 | disposition home or self-care (01) ==
LOC: ER 08:10
DX: N39.0 Urinary tract infection, site not specified (principal); N93.8 Other specified abnormal uterine and vaginal bleeding; Z88.6 Allergy status to analgesic agent; Z88.8 Allergy status to other drugs, medicaments and biological substances
CPT/HCPCS: 87088; 85025; 87086; 36415; 86900; 86850; 81025; 86901; 87077; 87186; 83690; 80053; 76830; 96375; 96374; 99284; J7030; J2405; 81003; 81015

== ENCOUNTER 2022-06-20 15:41 | Emergency (ER) | payer OTHER ==
--- OUTSIDE RECORDS SUMMARY | 2022-06-20 15:47 | XMS REPORT | Continuity of Care Document ---
:1995 Author Organization [facility] t Address [address] [place] [address] Care Team Providers Name Role Phone PCP, PATIENT DOES NOT HAVE A Primary Care Physician Unavaila AURELIA Vasquez Attending Clinician Unavailable Tiffanie MOHR, Deepti Vasquez Attending Clinician Unavailable Fide Mayer PA-C Attending Clinician Maria Del Rosario Eric Attending Clinician MARIA DEL ROSARIO HARVEY Attending Clinician Unavailable Jayesh Anaya DO Attending Clinician Jess Devlin Attending Clinician Doctor Unassigned, [place] Attending Clinician Unavailable CARMEN GARRETT Attending Clinician Unavailable Marguerite Santamaria Attending Clinician Marguerite SOUSA Attending Clinician Unavailable Aurelia Schmidt Attending Clinician Ishmael Goss Attending Clinician VISIT, NURSE HARLEY Attending Clinician Unavailable Herve Nieto Attending Clinician Marylu Hayden Attending Clinician AURELIA SCHMIDT Admitting Clinician Unavailable Marguerite SOUSA Admitting Clinician Unavailable Payers Payer Name Policy Type Policy Number Effective Date Expiration Date [facility] [id number] 2018 00:00:00 Problems Condition Condition Condition Status Onset Resolution Last Treating Co mments Source Name Details Category Date Date Treatment Clinician Date Disease Active 2014-09 [facility] contractio contractio -10 it y of ns ns 00:00: [place] 00 Medical Branch Melanocyti Melanocyt Problem Active 2020-02-21 Memoria c nevus ic nevus 02-24 21:27:44 l (disorder) (disorder) 00:00: He rmann Active 00 02/24/2015 Problem 02/21/2020 Data migrated from [employer] on 03/25/15. Medical Group Patient Patient Problem 2015-04-03 Me seo currently currently 3-10 04:00:17 l 00:00: Joseph russ (finding) (finding) 00 11/25/2014 Problem 04/03/2015 <sup>2</terrell p>pt states - 14 weeks and 3 days. Pt states is high risk - due to 06-03-14. states has chronic anemia does not take iron becuase she states it makes her sick. Pt has never had blood transfusio n [facility] Low back Low back Problem Active 2020-02-21 Memoria strain strain - 21:27:44 l (disorder) (disorder) 00:00: He rmann Active 00 02/06/2013 Problem 02/21/2020 Data migrated from [employer] on 04/27/15. Medical Group Migraine Migraine Problem Active 2020-02-21 Memoria (disorder) (disorder) 02-06 21:27:44 l Active 00:00: [place] 02/06/2013 00 Problem 02/21/2020 Data migrated from [employer] on 04/27/15. Medical Group Seizure Seizure Problem Active 2020-02-21 M emoria disorder disorder - 21:27:44 l (disorder) (disorder) 00:00: He rmann Active 00 02/06/2013 Problem 02/21/2020 Data migrated from [employer] on 04/27/15. 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:44 l hyperactiv hyperactiv He rmann ity ity disorder disorder (disorder) (disorder) Active Problem 02/21/2020 Medical Group Obesity Obesity Problem Active 2020-02-21 Me moria (disorder) (disorder) 21:27:44 l Active [place] Problem 02/21/2020 Medical Group Bipolar 1 Bipolar 1 Problem Active Com mon disorder, disorder, Spir it depressed depressed - [facility] Migraine Migraine Problem Active Commo n with with Spirit status status - [facility] migrainosu migrainosu St [facility], not s, not [facility]ical e, e, Center unspecifie unspecifie d migraine d migraine type type Seasonal Seasonal Problem Active Commo n allergies allergies Spir it - [facility] Allergic Allergic Problem Active Commo n rhinitis, rhinitis, Spir it unspecifie unspecifie - [facility] d d St seasonalit seasonalit Jessica kes y, y, Medical unspecifie unspecifie Ce nter d trigger d trigger Tuberculos Tuberculos Diagnosis Active Common is is Spirit screening screening - [facility] Acute Acute Problem Resolve 2006-0 2020-02-21 2020-02-21 Memoria appendicit appendicit d 09-18 21:27:44 21:27:44 l is is 00:00: [place] (disorder) (disorder) 00 Resolved 09/18/2005 Problem 02/21/2020 Medical Group Allergies, Adverse Reactions, Alerts Allergy Allergy Status Severity Reaction(s) Onset Inactive Treating Comm ents Source Name Type Date Date Clinician ASPIRIN DRUG Active Low Rash 2014-09 Univers INGREDI 1-10 ity of 00:00: [place] 00 Medical Branch BENADRYL DRUG Active Rash 2014-09 Univers ALLERGY 1-10 ity of DECONGES 00:00: [facility] Medical Branch Aspirin Propensi Active Rash 2014-09 Univers ty to 1-10 ity of adverse 00:00: [place] reaction 00 Medical Branch Benadryl Propensi Active Rash 2014- Univer s Allergy ty to 1-10 ity of Deconges adverse 00:00: [place] tant reaction 00 Medical Branch Benadryl Adverse Active rash Common Reaction [facility] Aspirin Adverse Active swelling Common Reaction [facility] diphenhy diphenhy Active Memori a drAMINE< drAMINE< l sup>1</s sup>1</s Joseph n up> up> aspirin aspirin Active Moderate Memori a l [place] traZODon traZODon Active Memori a e<sup>2< e<sup>2< l /sup> /sup> [place] Benadryl Benadryl Active 263442078 Mem oria l [place] Tylenol Tylenol Active [id number] Memor ia l [place] Social History Social Habit Start Date Stop Date Quantity Comments Source Exposure to Not sure [facility] SARS-CoV-2 (event) Medica l Gutierrez Social History 2017-04-11 2017-04-11 [facility] kerry 19:22:36 19:22:36 Sex Ass[birth year] At [birth year] [facility] 00:00:00 00:00:00 Medical [place] Smoking Status Start Date Stop Date Source Unknown if ever smoked [facility] Medications Ordered Filled Start Stop Current Ordering Indication Dosage Frequency Signature Comments Components Source Medication Medication Date Date Medication? Clinician (SIG) Name Name fluticasone Yes [id number] 2{spray Use 2 Univers propionate 1-02 } Sprays in ity of 50 00:00: each [place] mcg/actuati 00 nostril Medic al on nasal daily. Branch spray cetirizine Yes [id number] 10mg Take 1 U nivers 10 mg 1-02 tablet by ity of tablet 00:00: mouth daily. Medical Branch fluticasone Yes [id number] 2{spray Use 2 Univers propionate 1-02 } Sprays in ity of 50 00:00: each [place] mcg/actuati 00 nostril Medic al on nasal daily. Branch spray cetirizine Yes [id number] 10mg Take 1 U nivers 10 mg 1-02 tablet by ity of tablet 00:00: mouth 00 daily. Medical Branch ketorolac 2020- No 30mg 30 mg, Unive rs (TORADOL) 01-10 Slow IV ity of injection 00:30: 23:30 Push, [place] 30 mg 00 :00 ONCE, 1 Medical dose, Sat Branch 01/09/21 at 1930, MISTY
Fa culty member approving Restricted medication : MONETEFREMNAGIJESS VIEIRA cefTRIAXone 2020- No 1000mg 1,000 mg, Univers (ROCEPHIN) 01-10 IV ity of 1,000 mg in 00:15: 23:53 Piggyback, [place] NaCl 0.9% 00 :00 ONCE, 1 Medical (NS) 50 mL dose, Sat [facility] MINI-BAG 01/09/21 at 1915, 50 mL
Reas on for Anti-Infec tive: Documented Infection< br>Documen yadira Infection Site: Urine
D uration of Therapy: 7 days NaCl 0.9% 2020- No 1000mL at 999 Uni vers (NS) bolus 01-0924 mL/hr, ity of infusion 22:15: 23:23 1,000 mL, Gregg as 1,000 mL 00 :00 IV Medical Infusion, Branch ONCE, 1 dose, 01/09/21 at 1715, MISTY ibuprofen Yes [id number] 600mg Take 1 U nivers 600 mg 4-24 tablet by ity of tablet 00:00: mouth [place] 00 every 6 Medical (six) Branch hours as needed for Pain (scale 4-6). ibuprofen Yes [id number] 600mg Take 1 U nivers 600 mg 4-24 tablet by ity of tablet 00:00: mouth [place] 00 every 6 Medical (six) Branch hours as needed for Pain (scale 4-6). ibuprofen 0 Yes [id number] 600mg Take 1 U nivers 600 mg 4-24 tablet by ity of tablet 00:00: mouth [place] 00 every 6 Medical (six) Branch hours as needed for Pain (scale 4-6). ibuprofen 0 Yes [id number] 600mg Take 1 U nivers 600 mg 4-24 tablet by ity of tablet 00:00: mouth [place] 00 every 6 Medical (six) Branch hours as needed for Pain (scale 4-6). cefdinir 2020- No [id number] 300mg Take 1 U nivers 300 mg 01-09- capsule by ity of capsule 00:00: 04:59 mouth 2 [place] 00 :00 (two) Medical times Branch daily for 7 days. benzonatate 2020-0 Yes [id number] 100mg Take 1 Univers 100 mg 2-04 capsule by ity of capsule 00:00: mouth 3 [place] 00 (three) Medical times Branch daily as needed for Cough. chlorphenir 0 Yes [id number] 4mg Take 1 Univers amine 4 mg 2-04 tablet by ity of tablet 00:00: mouth [place] 00 every 6 Medical (six) Branch hours as needed for Allergies or Runny nose. multivitami 2020-0 Yes [id number] 1{capsu Take 1 Univers n capsule 2-04 le} capsule by ity of 00:00: mouth [place] 00 daily. Medical Branch calcium-mag 0 Yes [id number] Take as Univers nesium-zinc 2-04 directed ity of 333-133-8.3 00:00: for daily [place] mg Tab 00 dose. Medical Branch benzonatate 0 Yes [id number] 100mg Take 1 Univers 100 mg 2-04 capsule by ity of capsule 00:00: mouth 3 [place] 00 (three) Medical times Branch daily as needed for Cough. chlorphenir 0 Yes [id number] 4mg Take 1 Univers amine 4 mg 2-04 tablet by ity of tablet 00:00: mouth [place] 00 every 6 Medical (six) Branch hours as needed for Allergies or Runny nose. multivitami 2020-0 Yes [id number] 1{capsu Take 1 Univers n capsule 2-04 le} capsule by ity of 00:00: mouth [place] 00 daily. Medical Branch calcium-mag 0 Yes [id number] Take as Univers nesium-zinc 2-04 directed ity of 333-133-8.3 00:00: for daily [place] mg Tab 00 dose. Medical Branch benzonatate 0 Yes [id number] 100mg Take 1 Univers 100 mg 2-04 capsule by ity of capsule 00:00: mouth 3 [place] 00 (three) Medical times Branch daily as needed for Cough. chlorphenir Yes [id number] 4mg Take 1 Univers amine 4 mg 2-04 tablet by ity of tablet 00:00: mouth [place] 00 every 6 Medical (six) Branch hours as needed for Allergies or Runny nose. multivitami Yes [id number] 1{capsu Take 1 Univers n capsule 2-04 le} capsule by ity of 00:00: mouth [place] 00 daily. Medical Branch calcium-mag Yes [id number] Take as Univers nesium-zinc 2-04 directed ity of 333-133-8.3 00:00: for daily [place] mg Tab 00 dose. Medical Branch benzonatate Yes [id number] 100mg Take 1 Univers 100 mg 2-04 capsule by ity of capsule 00:00: mouth 3 [place] 00 (three) Medical times Branch daily as needed for Cough. chlorphenir Yes [id number] 4mg Take 1 Univers amine 4 mg 2-04 tablet by ity of tablet 00:00: mouth [place] 00 every 6 Medical (six) Branch hours as needed for Allergies or Runny nose. multivitami Yes [id number] 1{capsu Take 1 Univers n capsule 2-04 le} capsule by ity of 00:00: mouth [place] 00 daily. Medical Branch calcium-mag Yes [id number] Take as Univers nesium-zinc 2-04 directed ity of 333-133-8.3 00:00: for daily [place] mg Tab 00 dose. Medical Branch benzonatate Yes [id number] 100mg Take 1 Univers 100 mg 2-04 capsule by ity of capsule 00:00: mouth 3 [place] 00 (three) Medical times Branch daily as needed for Cough. chlorphenir Yes [id number] 4mg Take 1 Univers amine 4 mg 2-04 tablet by ity of tablet 00:00: mouth [place] 00 every 6 Medical (six) Branch hours as needed for Allergies or Runny nose. multivitami Yes [id number] 1{capsu Take 1 Univers n capsule 2-04 le} capsule by ity of 00:00: mouth [place] 00 daily. Medical Branch calcium-mag Yes [id number] Take as Univers nesium-zinc 2-04 directed ity of 333-133-8.3 00:00: for daily [place] mg Tab 00 dose. Medical Branch benzonatate Yes [id number] 100mg Take 1 Univers 100 mg 2-04 capsule by ity of capsule 00:00: mouth 3 [place] 00 (three) Medical times Branch daily as needed for Cough. chlorphenir Yes [id number] 4mg Take 1 Univers amine 4 mg 2-04 tablet by ity of tablet 00:00: mouth [place] 00 every 6 Medical (six) Branch hours as needed for Allergies or Runny nose. multivitami Yes [id number] 1{capsu Take 1 Univers n capsule 2-04 le} capsule by ity of 00:00: mouth [place] 00 daily. Medical Branch calcium-mag Yes [id number] Take as Univers nesium-zinc 2-04 directed ity of 333-133-8.3 00:00: for daily [place] mg Tab 00 dose. Medical Branch benzonatate Yes [id number] 100mg Take 1 Univers 100 mg 2-04 capsule by ity of capsule 00:00: mouth 3 [place] 00 (three) Medical times Branch daily as needed for Cough. chlorphenir Yes [id number] 4mg Take 1 Univers amine 4 mg 2-04 tablet by ity of tablet 00:00: mouth [place] 00 every 6 Medical (six) Branch hours as needed for Allergies or Runny nose. multivitami Yes [id number] 1{capsu Take 1 Univers n capsule 2-04 le} capsule by ity of 00:00: mouth [place] 00 daily. Medical Branch calcium-mag Yes [id number] Take as Univers nesium-zinc 2-04 directed ity of 333-133-8.3 00:00: for daily [place] mg Tab 00 dose. Medical Branch iohexol 2020- No 110mL 110 mL, Unive rs (OMNIPAQUE 03-04 Intravenou it y of 350 22:15: 22:00 s, ONCE, 1 [place] BULK-150 00 :00 dose, Wed Medica l mL) 03/04/20 at Branch injection 1715, 110 mL Routine morpHINE 2019- No 4mg 4 mg, Slow Un kassandra injection 4 03-04 IV Push, ity of mg 21:15: 20:41 ONCE, 1 [place] 00 :00 dose, Wed Medical 03/04/20 at Branch 1615, STAT ondansetron 2020- No 4mg 4 mg, Slow Univers (ZOFRAN 03-04 IV Push, ity of (PF)) 21:15: 20:41 ONCE, 1 [place] injection 4 00 :00 dose, Mon Med ical mg 03/04/20 at Branch 1615, MISTY { Yes See Memoria (Methylpred 5-20 Instructio l nisolone 4 15:28: ns, PO, Herm lynsey MG Oral 00 Take by Tablet mouth as [Medrol]) } directed Pack on label., [Medrol X 6 day, # Dosepak] 21 tab, 0 Refill(s), Pharmacy: [facility] #[id number] naproxen 2019-0 Yes 500 mg = 1 Mem oria 500 mg oral 5-20 tab, PO, l tablet 15:28: BID, with Joseph n 00 food, X 14 day, # 28 tab, 0 Refill(s), Pharmacy: [facility] #[id number] { Yes See Memoria (Methylpred 5-20 Instructio l nisolone 4 15:28: ns, PO, Herm lynsey MG Oral 00 Take by Tablet mouth as [Medrol]) } directed Pack on label., [Medrol X 6 day, # Dosepak] 21 tab, 0 Refill(s), Pharmacy: [facility] #[id number] naproxen 2019-0 Yes 500 mg = 1 Mem oria 500 mg oral 5-20 tab, PO, l tablet 15:28: BID, with Joseph n 00 food, X 14 day, # 28 tab, 0 Refill(s), Pharmacy: [facility] #[id number] Fluticasone Fluticasone Yes Julian 1 spray in Common Propionate Propionate 01-14 Susie each Sp erasto 00:00: nostril - [facility] 00 [facility] RyVent RyVent 2019- No Julian 1 tablet Co mmon 01-14 Susie on an Spirit 00:00: 00:00 empty - [facility] 00 :00 stomach as [facility] SUMAtriptan 2018- Yes 6mg inject 6 Un kassandra 6 mg/0.5 mL 1-31 mg under ity of injection 17:04: the skin [place] 18 once now. Medical Branch CLONAZEPAM 2018- Yes Take by [facility] ORAL 1-31 mouth. ity of 17:04: [place] [address] Medical Branch SUMAtriptan 2018- Yes 6mg inject 6 Un kassandra 6 mg/0.5 mL 1-31 mg under ity of injection 17:04: the skin [place] 18 once now. Medical Branch CLONAZEPAM 2018- Yes Take by [facility] ORAL 1-31 mouth. ity of 17:04: [place] [address] Medical Branch SUMAtriptan 2018- Yes 6mg inject 6 Un kassandra 6 mg/0.5 mL 1-31 mg under ity of injection 17:04: the skin [place] 18 once now. Medical Branch CLONAZEPAM Yes Take by [facility] ORAL 1-31 mouth. ity of 17:04: [place] [address] Medical Branch SUMAtriptan 2018- Yes 6mg inject 6 Un kassandra 6 mg/0.5 mL 1-31 mg under ity of injection 17:04: the skin [place] 18 once now. Medical Branch CLONAZEPAM Yes Take by [facility] ORAL 1-31 mouth. ity of 17:04: [place] [address] Medical Branch SUMAtriptan 2018- Yes 6mg inject 6 Un kassandra 6 mg/0.5 mL 1-31 mg under ity of injection 17:04: the skin [place] 18 once now. Medical Branch CLONAZEPAM Yes Take by [facility] ORAL 1-31 mouth. ity of 17:04: [place] [address] Medical Branch SUMAtriptan 2018- Yes 6mg inject 6 Un kassandra 6 mg/0.5 mL 1-31 mg under ity of injection 17:04: the skin [place] 18 once now. Medical Branch CLONAZEPAM 2018- Yes Take by [facility] ORAL 1-31 mouth. ity of 17:04: [place] [address] Medical Branch SUMAtriptan 2018- Yes 6mg inject 6 Un kassandra 6 mg/0.5 mL 1-31 mg under ity of injection 17:04: the skin [place] 18 once now. Medical Branch CLONAZEPAM 2018- Yes Take by [facility] ORAL 1-31 mouth. ity of 17:04: [address] SUMAtriptan Yes 6mg inject 6 Un kassandra 6 mg/0.5 mL 1-31 mg under ity of injection 17:04: the skin [place] 18 once now. Medical Branch CLONAZEPAM Yes Take by [facility] ers ORAL 1-31 mouth. ity of 17:04: [address] SUMAtriptan Yes 6mg inject 6 Un kassandra 6 mg/0.5 mL 1-31 mg under ity of injection 11:04: the skin [place] 18 once now. Medical Branch CLONAZEPAM Yes Take by [facility] ers ORAL 1-31 mouth. ity of 11:04: [address] SUMAtriptan Yes 6mg inject 6 Un kassandra 6 mg/0.5 mL 1-31 mg under ity of injection 11:04: the skin [place] 18 once now. [facility] Branch CLONAZEPAM Yes Take by [facility] ers ORAL 1-31 mouth. ity of 11:04: [address] { Yes See Memoria (Methylpred 9-28 Instructio l nisolone 4 20:18: ns, PO, Herm lynsey MG Oral 00 Take by Tablet mouth as [Medrol]) } directed Pack on label., [Medrol # 1 Pack, Dosepak] 1 Refill(s), Pharmacy: [facility] { Yes See Memoria (Methylpred 9-28 Instructio l nisolone 4 20:18: ns, PO, Herm lynsey MG Oral 00 Take by Tablet mouth as [Medrol]) } directed Pack on label., [Medrol # 1 Pack, Dosepak] 1 Refill(s), Pharmacy: [facility] 482 lisdexamfet Yes 20 mg = 1 M emoria amine 6-13 cap, PO, l dimesylate 19:46: QAM, # 30 He rmann 20 MG Oral 00 tab, 0 Capsule Refill(s) [Vyvanse] Levonorgest Yes 52 mg = 1 M emoria rel 6-13 ea, l [id number] 19:46: Intrautera Her watkins MG/HR Drug 00 l, ONCE, # Implant 1 ea, 0 [Mirena] Refill(s) lisdexamfet Yes 20 mg = 1 M emoria amine 6-13 cap, PO, l dimesylate 19:46: QAM, # 30 He rmann 20 MG Oral 00 tab, 0 Capsule Refill(s) [Vyvanse] Levonorgest Yes 52 mg = 1 M emoria rel 6-13 ea, l [id number] 19:46: Intrautera Her watkins MG/HR Drug 00 l, ONCE, # Implant 1 ea, 0 [Mirena] Refill(s) cephalexin Yes 500 mg = 1 M emoria 500 mg oral 5-09 cap, PO, l capsule 19:25: TID, X 10 Debbie nn 00 day, # 30 cap, 0 Refill(s), Pharmacy: [facility] cephalexin Yes 500 mg = 1 M emoria 500 mg oral 5-09 cap, PO, l capsule 19:25: TID, X 10 Debbie nn day, # 30 cap, 0 Refill(s), Pharmacy: [facility] Ceftriaxone No 1 gm, Memor ia 01-24 Route: IM, l 19:24: Drug form: Hoang PDR/INJ, ONCE, Dosing Weight 86.818, kg, Start date: 01/24/18 14:24:00 CDT, Stop date: 01/24/18 14:24:00 CDT Ceftriaxone No 1 gm, Memor ia 01-24 Route: IM, l 19:24: Drug form: [place] 00 PDR/INJ, ONCE, Dosing Weight 86.818, kg, Start date: 01/24/18 14:24:00 CDT, Stop date: 01/24/18 14:24:00 CDT ondansetron No Joesph K 8 mg = 1 Memoria 7-15 Rasheed tabs, l 18:24: Tab-Dis, [place] 00 Oral, Once PRN for nausea/vom iting, [...] severe nausea, first dose 04/01/15 13:24:00 CDT ondansetron No Joesph K 8 mg = 1 Memoria 7-15 Rasheed tabs, l 18:24: Tab-Dis, Oral, Once PRN for nausea/vom iting, first dose 04/01/15 13:24:00 CDT LR 1,000 mL No Joesph K 1,000 mL, Memoria 7-15 Rasheed IV, 75 l 18:24: mL/hr, start date 04/01/15 13:24:00 CDT Dilaudid No Joesph K 0.2 mg = Mem oria 7-15 Rasheed 0.1 mL, l 18:24: Injection, IV Push, q10min PRN for pain severe (7-10), first dose 04/01/15 13:24:00 CDT promethazin No Joesph K 12.5 mg = Memoria e 7-15 Rasheed 0.5 mL, l 18:24: Injection, IM, Once PRN for severe nausea, first dose 04/01/15 13:24:00 CDT LR 1,000 mL No Joesph K 1,000 mL, Memoria 7-15 Rasheed IV, 75 l 18:24: mL/hr, start date 04/01/15 13:24:00 CDT Saline Lock No Joesph K 10 mL, Me moria Flush 7-15 Rasheed Soln, IV l 18:24: Push, As Indicated PRN for flush, first dose 04/01/15 13:24:00 CDT Saline Lock No Joesph K 10 mL, Me moria Flush 7-15 Rasheed Soln, IV l 18:24: Push, As [place] 00 Indicated PRN for flush, first dose 04/01/15 13:24:00 CDT Misc 2015-0 No Joey 600 mL, Memoria Medication -15 [...] Yeh Powder-Inj l Chloride 17:40: , IV, [place] 0.9% 100 mL 00 Once, first dose 04/01/15 12:40:00 CDT, stop date 04/01/15 12:40:00 CDT ceFAZolin + No Joey 1 gm, Me moria Sodium 7-15 Yeh Powder-Inj l Chloride 17:40: , IV, [place] 0.9% 100 mL 00 Once, first dose 04/01/15 12:40:00 CDT, stop date 04/01/15 12:40:00 CDT fentaNYL No Joey 100 mcg = M emoria -15 Yeh 2 mL, l 17:34: Injection, [place] 00 IV, Once, first dose 04/01/15 12:34:00 CDT, stop date 04/01/15 12:34:00 CDT lidocaine No Joey 3 mL, Jose Carlos maury -15 Yeh Injection, l 17:34: IV, Once, [place] 00 first dose 04/01/15 12:34:00 CDT, stop date 04/01/15 12:34:00 CDT fentaNYL 2014- No Joey 100 mcg = M emoria 7-15 Yeh 2 mL, l 17:34: Injection, [place] 00 IV, Once, first dose 04/01/15 12:34:00 CDT, stop date 04/01/15 12:34:00 CDT lidocaine No Joey 3 mL, Jose Carlos maury 7-15 Yeh Injection, l 17:34: IV, Once, [place] 00 first dose 04/01/15 12:34:00 CDT, stop date 04/01/15 12:34:00 CDT ceFAZolin No Rohith 1 gm, IV Me moria 7-15 Hillery Piggyback, l 16:00: Once, [place] 00 infuse over 30 minutes, first dose 04/01/15 11:00:00 CDT, stop date 04/01/15 11:00:00 CDT ceFAZolin No Rohith 1 gm, IV Me moria 7-15 Hillery Piggyback, l 16:00: Once, [place]ang 00 infuse over 30 minutes, first dose 04/01/15 [...] 7-15 Rasheed IV, 30 l 15:19: mL/hr, [place] 00 start date 04/01/15 10:19:00 CDT Lidocaine No Joesph K 0.2 mL, Mem oria 2% 0.2 mL 7-15 Rasheed Injection, l IV Start 15:19: Subcutaneo Her watkins [[place]] 00 us, Once PRN for other (see comment), first dose 04/01/15 10:19:00 CDT LR 1,000 mL No Joesph K 1,000 mL, Memoria 7-15 Rasheed IV, 30 l 15:19: mL/hr, [place] 00 start date 04/01/15 10:19:00 CDT Yes Memor ia vitamins 6-22 vitamins, l 15:44: 0 [place] 00 Refill(s), supplement Yes Memor ia vitamins 6-22 vitamins, l 15:44: 0 [place] 00 Refill(s), supplement Topiramate Topiramate Yes Julian 1 tablet Common Susie [facility] - [facility] Sumatriptan Sumatriptan Yes Julian (Prior Common Succinate Succinate Susie Auth: Rx Spirit Ref#:[id number] - [facility] [id number]) [facility] Immunizations Ordered Immunization Filled Immunization Date Status Commen ts Source Name Name TB PPD TB PPD 2019-01-14 Completed [facility] - 00:00:00 [facility] influenza virus 2018-06-29 Completed Memorial vaccine, inactivated 19:59:00 Herm lynsey influenza virus 2018-06-29 Completed Memorial vaccine, inactivated 19:59:00 Herm lynsey hepatitis B adult 2018-05-25 Completed Memoria l vaccine 20:29:00 [place] hepatitis B adult 2018-05-25 Completed Memoria l vaccine 20:29:00 Hoang hepatitis B adult 2017-11-29 Completed Memoria l vaccine 15:19:00 [place]ang hepatitis B adult 2017-11-29 Completed Memoria l vaccine 15:19:00 [place] hepatitis B adult 2017-11-01 Completed Memoria l vaccine 16:26:00 Hoang hepatitis B adult 2017-11-01 Completed Memoria l vaccine 16:26:00 [place] diphtheria/pertussis 2017-10-19 Completed Jose Carlos rial , acel/tetanus adult 21:30:00 Herm lynsey diphtheria/pertussis 2017-10-19 Completed Jose Carlos rial , acel/tetanus adult 21:30:00 [facility] lynsey Vital Signs Vital Name Observation Time Observation Value Comments Source Systolic blood 2021-09-19 103 mm[Hg] University of pressure 18:36:00 [facility] Diastolic blood 2021-09-19 71 mm[Hg] [place] o f pressure 18:36:00 [facility] Heart rate 2021-09-19 116 /min [facility] 18:36:00 [facility] Body temperature 2021-09-19 37.22 Jennifer University of 18:36:00 [facility] Respiratory rate 2021-09-19 20 /min University of 18:36:00 [facility] Body height 2021-09-19 162.6 cm University of 18:36:00 [facility] Body weight 2021-09-19 97.07 kg University [facility] 18:36:00 [facility] [facility] BMI 2021-09-19 36.73 kg/m2 University of 18:36:00 [facility] Oxygen saturation 2021-09-19 99 /min University of in Arterial blood 18:36:00 [facility] real by Pulse oximetry Branch Systolic blood 2021-04-19 111 mm[Hg] University of pressure 16:33:00 [facility] Diastolic blood 2021-04-19 65 mm[Hg] University o f pressure 16:33:00 [facility] Heart rate 2021-04-19 61 /min University of 16:33:00 [facility] Respiratory rate 2021-04-19 18 /min University of 16:33:00 [facility] Oxygen saturation 2021-04-19 100 /min University of in Arterial blood 16:33:00 [facility] real by Pulse oximetry Branch Body temperature 2021-04-19 36.89 Jennifer University of 13:31:00 [facility] Body weight 2021-04-19 81.647 kg University of 13:31:00 [facility] BMI 2021-04-19 30.90 kg/m2 University of 13:31:00 [facility] Systolic blood 2021-01-10 107 mm[Hg] University of pressure 01:18:00 [facility] Diastolic blood 2021-01-10 65 mm[Hg] University o f pressure 01:18:00 [facility] Heart rate 2021-01-10 61 /min University of 01:18:00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 generated this result transmitted ref erence range: 0 - 5 HP F. The reference range was not used to interpr et this result as normal/abnormal . BACTERIA (test code = Negative Negative 9061697875) SQ EPITH (test code = HPF 0933620452) [facility] WITH [id number] 13:56:33 Test Item Value Reference Range Interpretation [...] RDW-SD (test code = 39.9 fL 39.0-49.9 27597-9) RDW-CV (test code = 11.9 % 12.0-15.5 L 788-0) PLT (test code = See_Comment [Automated 777-3) message] The sy stem which generated this result transmitted reference range : 166 - 358 10*3/ ?L. The reference r yelena was not used to interpret this result as normal/abnormal . MPV (test code = 9.7 fL 9.5-12.9 27581-5) NRBC/100 WBC (test See_Comment [Automat ed code = 2912284837) message] The system which generated this result transmitted reference range : 0.0 - 10.0 /100 WBCs. The refer ence range was not u sed to interpret th is result as normal/abnormal . NRBC x10^3 (test code <0.01 See_Comment [Auto mated = 2962665573) message] The s ystem which generated this result transmitted reference range : 10*3/?L. The reference range was not used to interpret this result as normal/abnormal . GRAN MAT (NEUT) % 52.0 % (test code = 770-8) IMM GRAN % (test code 0.40 % = 2976769670) LYMPH % (test code = 33.9 % 736-9) MONO % (test code = 10.1 % 5905-5) EOS % (test code = 3.2 % 713-8) BASO % (test code = 0.4 % 706-2) GRAN MAT x10^3(ANC) 2.96 10*3/uL 1.88-7.09 (test code = 5288375907) IMM GRAN x10^3 (test <0.03 0.00-0.06 code = 8515721956) LYMPH x10^3 (test code 1.92 10*3/uL 1.32-3.29 = 731-0) MONO x10^3 (test code 0.57 10*3/uL 0.33-0.92 = 742-7) EOS x10^3 (test code = 0.18 10*3/uL 0.03-0.39 711-2) BASO x10^3 (test code <0.03 0.01-0.07 = 704-7) Lab Interpretation Abnormal (test code = 58164-4) [facility] (QUANTITATIVE)2021-01-09 23:23:47 Test Item Value Reference Range Interpretation Comments BETA HCG (test <2.39 See_Comment [Automated m essage] code = The system [facility] 5700673706) generated this result transmit yadira reference range : Non- fe male and male patien ts: <5 mIU/mL. The reference range was not used to interpret this result as normal/abnormal . BOWEN (test code Gestational Age ? ? = BOWEN) ?Range (mIU/mL) 1-10 ?Weeks ?45-80969051-57 Weeks ?21642-33613811-09 Weeks ?5054-93850104-10 Weeks ?0800-329108 Biotin has been reported to cause a negative bias, interpret results relative to patient's use of biotin. [facility] [id number] 23:10:04 Test Item Value Reference Range Interpretation Comments PREG SERUM (test code Negative = 2432457244) BOWEN (test code = BOWEN) Less than 10 IU/L. ?If low titer or ectopic is suspected, resubmit specimen in 48-72 hours. [facility]. METABOLIC PANEL ([id number])2021-01-09 23:00:17 Test Item Value Reference Range Interpretation Comments NA (test code = 139 mmol/L 135-145 7105160028) K (test code = 3.7 mmol/L 3.5-5.0 0384273282) CL (test code = 104 mmol/L 98-108 7507772009) CO2 TOTAL (test code 26 mmol/L 23-31 = 2210617842) AGAP (test code = 2-16 0085661571) BUN (test code = 12 mg/dL 7-23 3828749391) GLUCOSE (test code = 70 mg/dL 70-110 5339490905) CREATININE (test code 0.77 mg/dL 0.50-1.04 = 3111166359) TOTAL BILI (test code 0.3 mg/dL 0.1-1.1 = 3846760862) CALCIUM (test code = 9.4 mg/dL 8.6-10.6 1944803414) T PROTEIN (test code 7.1 g/dL 6.3-8.2 = 8017980444) ALBUMIN (test code = 4.3 g/dL 3.5-5.0 0486101033) ALK PHOS (test code = 64 U/L 34-122 2224089756) ALTv (test code = 19 U/L 5-35 1742-6) AST(SGOT) (test code 23 U/L 13-40 = 0431236096) eGFR (test code = mL/min/1.73m2 3953901957) BOWEN (test code = BOWEN) Association of [...] or urine or abnormalities in imaging tests). [facility] [id number] 22:59:37 Test Item Value Reference Range Interpretation Comments LIPASE (test code = 3787822605) 80 U/L 0-220 Lab Interpretation (test code = Normal 96108-2) [facility]ysis20[facility] 22:42:53 Test Item Value Reference Range Interpretation Comments APPEARANCE (test code = Cloudy Clear A 9743014707) COLOR (test code = Yellow Yellow 1957321357) PH (test code = 4.8-8.0 9877854236) SP GRAVITY (test code = 1.003-1.030 2752455188) GLU U QUAL (test code = Negative Negative 6819605796) BLOOD (test code = Small Negative A 1223035653) KETONES (test code = Negative Negative 7983806488) PROTEIN (test code = Negative Negative 2887-8) UROBILIN (test code = 0.2 mg/dL See_Comment [Auto mated message] 5883250022) The system [employer] generated this result transmit yadira reference range : 0-1.0 mg/dL. Th e reference range was not used to interpret this result as normal/abnormal . BILIRUBIN (test code = Negative Negative 7344859319) NITRITE (test code = Negative Negative 2240912007) LEUK AMITA (test code = Moderate Negative A 3624422325) RBC/HPF (test code = See_Comment H [Autom ated message] 8199084988) The system [employer] generated this result transmit yadira reference range : 0 - 3 HPF. The refe rence range was not u sed to interpret th is result as normal/abnormal . WBC/HPF (test code = >182 See_Comment H [Autom ated message] 0430089808) The system [employer] generated this result transmit yadira reference range : 0 - 5 HPF. The refe rence range was not u sed to interpret th is result as normal/abnormal . BACTERIA (test code = Many Negative A 2127762093) AMORPHOUS (test code = Many Rare HPF A 9185257038) Lab Interpretation (test Abnormal code = 12189-8) [facility] with [id number] 22:31:15 Test Item Value Reference Range Interpretation [...] RDW-SD (test code = 42.5 fL 39.0-49.9 89316-3) RDW-CV (test code = 12.3 % 12.0-15.5 788-0) PLT (test code = See_Comment [Automated 777-3) message] The sy stem which generated this result transmitted reference range : 166 - 358 10*3/ ?L. The reference r yelena was not used to interpret this result as normal/abnormal . MPV (test code = 9.6 fL 9.5-12.9 82354-2) NRBC/100 WBC (test See_Comment [Automat ed code = 9574163367) message] The system which generated this result transmitted reference range : 0.0 - 10.0 /100 WBCs. The refer ence range was not u sed to interpret th is result as normal/abnormal . NRBC x10^3 (test code <0.01 See_Comment [Auto mated = 2152165102) message] The s ystem which generated this result transmitted reference range : 10*3/?L. The reference range was not used to interpret this result as normal/abnormal . GRAN MAT (NEUT) % 53.5 % (test code = 770-8) IMM GRAN % (test code 0.40 % = 4000103306) LYMPH % (test code = 30.0 % 736-9) MONO % (test code = 12.4 % 5905-5) EOS % (test code = 3.3 % 713-8) BASO % (test code = 0.4 % 706-2) GRAN MAT x10^3(ANC) 4.22 10*3/uL 1.88-7.09 (test code = 2234729694) IMM GRAN x10^3 (test 0.03 10*3/uL 0.00-0.06 code = 7311726517) LYMPH x10^3 (test code 2.37 10*3/uL 1.32-3.29 = 731-0) MONO x10^3 (test code 0.98 10*3/uL 0.33-0.92 H = 742-7) EOS x10^3 (test code = 0.26 10*3/uL 0.03-0.39 711-2) BASO x10^3 (test code 0.03 10*3/uL 0.01-0.07 = 704-7) Lab Interpretation Abnormal (test code = 31121-7) [facility] [id number] 22:16:00 Test Item Value Reference Range Interpretation Comments POCT PREG (test code = 1605) negative On board controls acceptable with C present Line (test code = 3574) Lab Interpretation (test code = Normal 83405-7) [facility] FOR GROUP [id number] 15:12:00 Test Item Value Reference Range Interpretation Comments Streptococcus pyogenes (group A) Negative Negative antigen (test code = 56054-9) Lab Interpretation (test code = Normal 94652-5) [facility] CenterCT ABDOMEN PELVIS W [id number] 23:14:36 1. ?No intra-abdominal abnormality, specifically no evidence of bowelobstruction. 2. ?No hyperattenuating gallstones. No pericholecystic inflammatorychanges. Preliminary Report Dictated by Resident: Dayne Garrett MD., have reviewed this study and agree [...] No pericholecystic inflammatorychanges.Preliminary Report Dictated by Resident: Aftab Prado, Dayne Torres MD., have reviewed this study and agree with the abovereport.[facility]OVID[facility] (ID NOW RAPID TESTING)2020-03-04 21:24:00 Test Item Value Reference Range Interpretation Comments SARS-CoV-2 Rapid ID NOW Not Detected Not Detected (test code = 44740-6) BOWEN (test code = BOWEN) ID NOW COVID-19 Assay is an isothermal nucleic acid amplification test intended for the qualitative detection of nucleic acid from SARS-CoV-2 viral RNA in nasopharyngeal (DIAL POLISHER) specimens. It is used under Emergency Use [...] indicated. Lab Interpretation Normal (test code = 82427-4) [facility]. METABOLIC PANEL ([id number])2020-03-04 21:17:00 Test Item Value Reference Range Interpretation Comments NA (test code = 142 mmol/L 135-145 3275787089) K (test code = 3.7 mmol/L 3.5-5 9407102332) CL (test code = 105 mmol/L 98-108 8526438095) CO2 TOTAL (test code = 26 mmol/L 23-31 7428800584) AGAP (test code = 2-16 8521839944) BUN (test code = 12 mg/dL 7-23 1926560432) GLUCOSE (test code = 91 mg/dL 70-110 6599435785) CREATININE (test code 0.72 mg/dL 0.5-1.04 = 1805144190) TOTAL BILI (test code 0.3 mg/dL 0.1-1.1 = 6175206767) CALCIUM (test code = 9.6 mg/dL 8.6-10.6 2083827061) T PROTEIN (test code = 7.8 g/dL 6.3-8.2 5630403011) ALBUMIN (test code = 4.5 g/dL 3.5-5 6479042537) ALK PHOS (test code = 64 U/L 34-122 4129056855) ALTv (test code = 15 U/L 5-35 1742-6) AST(SGOT) (test code = 24 U/L 13-40 1948660124) eGFR Calculation mL/min/1.73m2 (Non-) (test code = 7232464847) eGFR Calculation mL/min/1.73m2 () (test code = 5363285011) BOWEN (test code = BOWEN) Association of [...] or urine or abnormalities in imaging tests). [facility] 21:17:00 Test Item Value Reference Range Interpretation Comments LIPASE (test code = 3425555393) 88 U/L 0-220 Lab Interpretation (test code = Normal 79679-7) [facility]UM2020-06-17 21:17:00 Test Item Value Reference Range Interpretation Comments MAGNESIUM (test code = 6953885991) 2.0 mg/dL 1.7-2.4 Lab Interpretation (test code = Normal 98835-2) [facility]2020-06-17 21:14:00 Test Item Value Reference Range Interpretation Comments APPEARANCE (test code = Clear Clear 0699842694) COLOR (test code = Yellow Yellow 9928980178) PH (test code = 4.8-8.0 4802574528) SP GRAVITY (test code = 1.003-1.030 4826088427) GLU U QUAL (test code = Normal Normal 6145649865) BLOOD (test code = Negative Negative 6130349650) KETONES (test code = Negative Negative 0741622604) PROTEIN (test code = Negative Negative 2887-8) UROBILIN (test code = Normal Normal 3807149661) BILIRUBIN (test code = Negative Negative 0667238255) NITRITE (test code = Negative Negative 8680543282) LEUK AMITA (test code = 75/uL Negative A 8146230215) RBC/HPF (test code = <1 See_Comment [Autom ated message] 5201187709) The system [employer] generated this result transmitted ref erence range: 0 - 3 HP F. The reference range was not used to int erpret this result as normal/abnormal . WBC/HPF (test code = See_Comment [Autom ated message] 0083445488) The system [employer] generated this result transmitted ref erence range: 0 - 5 HP F. The reference range was not used to int erpret this result as normal/abnormal . BACTERIA (test code = Few Negative A 1534908794) MUCOUS (test code = Slight Negative LPF A 7946083789) SQ EPITH (test code = HPF 1922538709) Lab Interpretation (test Abnormal code = 64586-9) [facility] WITH [id number] 21:02:00 Test Item Value Reference Range Interpretation Comments WBC (test code = See_Comment [Automated message] 6690-2) The system [employer] generated this result transmitted ref erence range: 4.30 - 1 1.10 10*3/?L. The re ference range was not u sed to interpret this result as normal/abnor mal. RBC (test code = See_Comment [Automated message] 789-8) The system [employer] generated this result transmitted ref erence range: [...] RDW-SD (test code 41.5 fL 39-49.9 = 62139-2) RDW-CV (test code 12.3 % 12-15.5 = 788-0) PLT (test code = See_Comment [Automated message] 777-3) The system whic h generated this result transmitted ref erence range: 166 - 35 8 10*3/?L. The re ference range was not u sed to interpret this result as normal/abnor mal. MPV (test code = 10.1 fL 9.5-12.9 06481-5) NRBC/100 WBC (test See_Comment [Automat ed message] code = 9478554624) The syste m which generated this result transmitted ref erence range: 0.0 - 10 .0 /100 WBCs. The refer ence range was not u sed to interpret this result as normal/abnor mal. NRBC x10^3 (test <0.01 See_Comment [Automated message] code = 4023692195) The syste m which generated this result transmitted ref erence range: 10*3/?L. The reference range was not used to interpr et this result as normal/abnormal . GRAN MAT (NEUT) % 50.7 % (test code = 770-8) IMM GRAN % (test 0.20 % code = 0612308511) LYMPH % (test code 37.3 % = 736-9) MONO % (test code 8.5 % = 5905-5) EOS % (test code = 3.0 % 713-8) BASO % (test code 0.3 % = 706-2) GRAN MAT 3.09 10*3/uL 1.88-7.09 x10^3(ANC) (test code = 8362243722) IMM GRAN x10^3 <0.03 0-0.06 (test code = 5503055692) LYMPH x10^3 (test 2.27 10*3/uL 1.32-3.29 code = 731-0) MONO x10^3 (test 0.52 10*3/uL 0.33-0.92 code = 742-7) EOS x10^3 (test 0.18 10*3/uL 0.03-0.39 code = 711-2) BASO x10^3 (test <0.03 0.01-0.07 code = 704-7) [facility] [id number] 20:13:00 Test Item Value Reference Range Interpretation Comments POCT PREG (test code = 1605) Negative On board controls acceptable with Present C Line (test code = 3574) POCT PREG LOT # (test code = 3575) [id number] POCT PREG TEST DATE (test 06/17/2021 code = 3576) Lab Interpretation (test code = Normal 34782-0) [facility]"
[2022-06-20 17:41] LABS: Absolute Lymphocytes (CBC) 2.5 K/uL (0.7-4.9); Hematocrit 36.7 % (36.0-45.0); Lymphocytes % 34.3 % (15.3-44.8); MCV 91.1 fL (80-100); MPV 7.4 fL (7.6-11.3); RBC Red Blood Cell Count 4.03 M/uL (3.86-4.86)
[2022-06-20] MEDS ORDERED: METOCLOPRAMIDE 10 MG/2mL INJ ONE (17:44)
[2022-06-20] MEDS ORDERED: NA CHLORIDE 0.9% 1,000 ML ONE (17:44)
[2022-06-20] MEDS ORDERED: KETOROLAC 30 MG/ML INJ ONE (17:44)
[2022-06-20 17:55] LABS: C-Reactive Protein 5.24 mg/L (<3.00); Potassium 3.7 mmol/L (3.5-5.1)
--- NOTE | 2022-06-20 18:22 | ER ---
Nurse's Notes [facility] Name: Tammie Rhodes Age: 26 yrs Sex: Female : 1995 Arrival Date: 06/20/2022 Time: 15:44 Bed 7 Private MD: Diagnosis: Headache Presentation: 06/20 15:54 Chief complaint: Patient states: she started having a headache this morning that ap3 includes a painful neck. patient states her pain is a 10 on a scale of 0-10. patient also reports nausea and vomiting, and reports she has never had a headache like this before. Coronavirus screen: At this time, the client does not indicate any symptoms associated with coronavirus-19. Ebola Screen: No symptoms or risks identified at this time. Initial Sepsis Screen: Does the patient meet any 2 criteria? No. Patient's initial sepsis screen is negative. Does the patient have a suspected source of infection? No. Patient's initial sepsis screen is negative. Risk Assessment: Do you want to hurt yourself or someone else? Patient reports no desire to harm self or others. Onset of symptoms was June 20, 2022. 15:54 Method Of Arrival: Ambulatory ap3 15:54 Acuity: EBONI 3 ap3 Triage Assessment: 15:57 Headache History: Denies prior headaches. General: Appears uncomfortable, Behavior is ap3 calm, cooperative. Pain: Complains of pain in head \T\ neck Pain currently is 10 out of 10 on a pain scale. Pain began gradually, this morning Also complains of nausea, photophobia. Neuro: Level of Consciousness is awake, alert, obeys commands, Oriented to person, place, time, situation. Cardiovascular: Patient's skin is warm and dry. Respiratory: Airway is patent Respiratory effort is even, unlabored, Respiratory pattern is regular, symmetrical. 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 - Social history:: Smoking status: Reported history of juuling and/or vaping. Screenin:58 Abuse screen: Denies threats or abuse. Nutritional screening: No deficits noted. ap3 Tuberculosis screening: No symptoms or risk factors identified. Fall Risk None identified. Assessment: 17:30 Reassessment: Patient appears in no apparent distress at this time. Patient is alert, db oriented x 3, equal unlabored respirations, skin warm/dry/pink. Patient states came in today due to headache. States had IUD removed last week and then headache started. In NAD. General: Appears in no apparent distress. comfortable, Behavior is calm, cooperative, quiet. Neuro: No deficits noted. Cardiovascular: No deficits noted. Respiratory: No deficits noted. Airway is patent Respiratory effort is even, unlabored. GI: No deficits noted. : No deficits noted. EENT: No deficits noted. Derm: No deficits noted. Musculoskeletal: No deficits noted. 17:57 Reassessment: Patient appears in no apparent distress at this time. No changes from db previously documented assessment. Patient and/or family updated on plan of care and expected duration. Pain level reassessed. Patient is alert, oriented x 3, equal unlabored respirations, skin warm/dry/pink. Vital Signs: 15:54 BP 117 / 82; Pulse 74; Resp 17; Temp 98.2; Pulse Ox 100% ; Weight 88.45 kg; Height 5 ap3 ft. 4 in. (162.56 cm); Pain 10/10; 17:50 BP 99 / 67; Pulse 68; Resp 16; Pulse Ox 100% ; Pain 9/10; db 18:37 BP 107 / 68; Pulse 69; Resp 18; Temp 97.9; Pulse Ox 99% on R/A; Pain 3/10; ph 15:54 Body Mass Index 33.47 (88.45 kg, 162.56 cm) ap3 ED Course: 15:44 Patient arrived in ED. rg4 15:51 Vijay Yeung MD is Attending Physician. jr11 15:56 Triage completed. ap3 15:58 Arm band placed on right wrist. ap3 17:30 Inserted saline lock: 20 gauge in right antecubital area, using aseptic technique. db Blood collected. 17:35 Aleida Reyna RN is Primary Nurse. db 18:35 No provider procedures requiring assistance completed. IV discontinued, intact, ph bleeding controlled, No redness/swelling at site. Pressure dressing applied. 18:36 Patient has correct armband on for positive identification. Bed in low position. Call ph light in reach. Side rails up X 1. Administered Medications: 17:50 Drug: NS 0.9% 1000 ml Route: IV; Rate: 1 bolus; Site: right antecubital; db 18:36 Follow up: Response: No adverse reaction; IV Status: Completed infusion; IV Intake: ph 1000ml 17:50 Drug: Reglan (metoCLOPramide) 10 mg Route: IVP; Site: right antecubital; db 18:36 Follow up: Response: No adverse reaction; Pain is decreased ph 17:50 Drug: Ketorolac 15 mg Route: IVP; Site: right antecubital; db 18:36 Follow up: Response: No adverse reaction; Pain is decreased ph Medication: 15:58 VIS not applicable for this client. ap3 Intake: 18:36 IV: 1000ml; Total: 1000ml. ph Outcome: 18:21 Discharge ordered by MD. jordan 18:35 Discharged to home ambulatory, with family. ph 18:35 Condition: good 18:35 Discharge instructions given to patient, Instructed on discharge instructions, follow up and referral plans. Demonstrated understanding of instructions, follow-up care. 18:37 Patient left the ED. ph Signatures: No Arnold, RN RN ph Magnolia Stewart rg4 Sandee Ellington RN RN ap3 Vijay Yeung MD MD jr11 Aleida Reyna RN RN db Corrections: (The following items were deleted from the chart) 15:57 15:56 PMHx: Asthma; ap3 ap3 15:57 15:56 PMHx: Bipolar disorder; ap3 ap3
--- NOTE | 2022-06-20 18:22 | EDPHYS ---
Physician Documentation [facility] Name: Tammie Rhodes Age: 26 yrs Sex: Female : 1995 Arrival Date: 06/20/2022 Time: 15:44 Bed 7 Private MD: ED Physician Vijay Yeung HPI: 06/20 16:48 This 26 yrs old Female presents to ER via Ambulatory with complaints of Stiff Neck, jr11 Headache. 16:48 The patient or guardian complains of pain, that is acute. The symptoms are located base jr11 of neck. Onset: The symptoms/episode began/occurred today. Context: The problem was sustained at home, no trauma, also with a posterior headache. Associated signs and symptoms: Pertinent negatives: constipation, fever, bowel incontinence, numbness, vomiting. The pain does not radiate. Modifying factors: The symptoms are alleviated by nothing. the symptoms are aggravated by nothing. Severity of symptoms: At their worst the symptoms were moderate, in the emergency department the symptoms are actually worse. 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 - Social history:: Smoking status: Reported history of juuling and/or vaping. ROS: 16:48 All other systems are negative. jr11 Exam: 16:48 Constitutional: This is a well developed, well nourished patient who is awake, alert, jr11 and in no acute distress. Head/Face: Normocephalic, atraumatic. Eyes: Extra-ocular motions intact. Lids and lashes normal. Conjunctiva and sclera are non-icteric and not injected. Cornea within normal limits. Periorbital areas with no swelling, redness, or edema. ENT: Nares patent. No nasal discharge, no septal abnormalities noted. Oropharynx with no redness, swelling, or masses, exudates, or evidence of obstruction, uvula midline. Mucous membranes moist. Neck: Trachea midline, no thyromegaly or masses palpated, and no cervical lymphadenopathy. Supple, full range of motion without nuchal rigidity, or vertebral point tenderness. No Meningismus. TTP base of neck, superficial musculature Chest/axilla: Normal chest wall appearance and motion. Nontender with no deformity. No lesions are appreciated. Cardiovascular: Regular rate and rhythm with a normal S1 and S2. No gallops, murmurs, or rubs. Normal PMI, no JVD. No pulse deficits. Respiratory: Lungs have equal breath sounds bilaterally, clear to auscultation and percussion. No rales, rhonchi or wheezes noted. No increased work of breathing, no retractions or nasal flaring. Abdomen/GI: Soft, non-tender, with normal bowel sounds. No distension or tympany. No guarding or rebound. No evidence of tenderness throughout. Back: No spinal tenderness. No costovertebral tenderness. Full range of motion. Skin: Warm, dry with normal turgor. Normal color with no rashes, no lesions, and no evidence of cellulitis. MS/ Extremity: Pulses equal, no cyanosis. Neurovascular intact. Full, normal range of motion. Neuro: Awake and alert, GCS 15, oriented to person, place, time, and situation. No gross motor or sensory deficits. No menengial signs Vital Signs: 15:54 BP 117 / 82; Pulse 74; Resp 17; Temp 98.2; Pulse Ox 100% ; Weight 88.45 kg; Height 5 ap3 ft. 4 in. (162.56 cm); Pain 10/10; 17:50 BP 99 / 67; Pulse 68; Resp 16; Pulse Ox 100% ; Pain 9/10; db 18:37 BP 107 / 68; Pulse 69; Resp 18; Temp 97.9; Pulse Ox 99% on R/A; Pain 3/10; ph 15:54 Body Mass Index 33.47 (88.45 kg, 162.56 cm) ap3 MDM: 16:44 Patient medically screened. jr11 18:21 Differential diagnosis: torticollis, headache. Data reviewed: vital signs, nurses jr11 notes. ED course: Pt feeling significantly better, requesting to go home, will return if worsening, no LP at this time through shared decision making. . 10/03 17:01 Order name: CBC with Diff jr11 06/20 17:01 Order name: BMP jr11 06/20 17:01 Order name: CRP jr11 06/20 17:42 Order name: CBC with Automated Diff; Complete Time: 17:49 EDMS 06/20 17:55 Order name: Basic Metabolic Panel; Complete Time: 17:59 EDMS 06/20 17:55 Order name: C-Reactive Protein; Complete Time: 17:59 EDMS 06/20 16:46 Order name: PIV; Complete Time: 17:36 jr11 Administered Medications: 17:50 Drug: NS 0.9% 1000 ml Route: IV; Rate: 1 bolus; Site: right antecubital; db 18:36 Follow up: Response: No adverse reaction; IV Status: Completed infusion; IV Intake: ph 1000ml 17:50 Drug: Reglan (metoCLOPramide) 10 mg Route: IVP; Site: right antecubital; db 18:36 Follow up: Response: No adverse reaction; Pain is decreased ph 17:50 Drug: Ketorolac 15 mg Route: IVP; Site: right antecubital; db 18:36 Follow up: Response: No adverse reaction; Pain is decreased ph Disposition Summary: 06/20/22 18:21 Discharge Ordered Location: Home jr11 Condition: Stable jr11 Diagnosis - Headache jr11 Discharge Instructions: - Discharge Summary Sheet jr11 - General Headache Without Cause jr11 Forms: - Medication Reconciliation Form jr11 - Thank You Letter jr11 - Antibiotic Education jr11 - Prescription Opioid Use jr11 Signatures: Dispatcher [employer] EDMT Sandee Ellington RN RN ap3 Vijay Yeung MD MD jr11 Aleida Reyna RN RN db No Arnold RN ph Corrections: (The following items were deleted from the chart) 15:57 15:56 PMHx: Asthma; ap3 ap3 15:57 15:56 PMHx: Bipolar disorder; ap3 ap3 16:49 16:48 Constitutional: This is a well developed, well nourished patient who is awake, jr11 alert, and in no acute distress. Head/Face: Normocephalic, atraumatic. Eyes: Extra-ocular motions intact. Lids and lashes normal. Conjunctiva and sclera are non-icteric and not injected. Cornea within normal limits. Periorbital areas with no swelling, redness, or edema. ENT: Nares patent. No nasal discharge, no septal abnormalities noted. Oropharynx with no redness, swelling, or masses, exudates, or evidence of obstruction, uvula midline. Mucous membranes moist. Neck: Trachea midline, no thyromegaly or masses palpated, and no cervical lymphadenopathy. Supple, full range of motion without nuchal rigidity, or vertebral point tenderness. No Meningismus. Chest/axilla: Normal chest wall appearance and motion. Nontender with no deformity. No lesions are appreciated. Cardiovascular: Regular rate and rhythm with a normal S1 and S2. No gallops, murmurs, or rubs. Normal PMI, no JVD. No pulse deficits. Respiratory: Lungs have equal breath sounds bilaterally, clear to auscultation and percussion. No rales, rhonchi or wheezes noted. No increased work of breathing, no retractions or nasal flaring. Abdomen/GI: Soft, non-tender, with normal bowel sounds. No distension or tympany. No guarding or rebound. No evidence of tenderness throughout. Back: No spinal tenderness. No costovertebral tenderness. Full range of motion. Skin: Warm, dry with normal turgor. Normal color with no rashes, no lesions, and no evidence of cellulitis. MS/ Extremity: Pulses equal, no cyanosis. Neurovascular intact. Full, normal range of motion. Neuro: Awake and alert, GCS 15, oriented to person, place, time, and situation. No gross motor or sensory deficits. No menengial signs jr11
[2022-06-20 19:00] VITALS: BP 107/68; TEMP 97.9; O2SAT 99
== END 2022-06-20 18:37 | disposition home or self-care (01) ==
LOC: ER 15:41
DX: R51.9 Headache, unspecified (principal); Z88.8 Allergy status to other drugs, medicaments and biological substances; D64.9 Anemia, unspecified; F41.9 Anxiety disorder, unspecified; G43.909 Migraine, unspecified, not intractable, without status migrainosus; F17.290 Nicotine dependence, other tobacco product, uncomplicated
CPT/HCPCS: 96361; 85025; 80048; 36415; 86140; 96375; 96374; 99283; J2765; J7030

== ENCOUNTER 2022-10-25 15:36 | Emergency (ER) | payer OTHER ==
--- OUTSIDE RECORDS SUMMARY | 2022-10-25 15:43 | XMS REPORT | Continuity of Care Document ---
:1995 Author Organization [facility] [place] t Address [address] [place] [address] Care Team Providers Name Role Phone Pcp, Patient Does Not Have A Primary Care Physician [id number] AUREILA SCHMIDT Attending Clinician Unavailable DELMI MENJIVAR Attending Clinician Unavailable Delmi Menjivar DO Attending Clinician Tiffanie RN, Deepti Vasquez Attending Clinician Unavailable Fide Mayer PA-C Attending Clinician Maria Del Rosario Eric Attending Clinician MARIA DEL ROSARIO HARVEY Attending Clinician Unavailable Jayesh Anaya DO Attending Clinician Jess Devlin Attending Clinician Doctor Unassigned, [place] Attending Clinician Unavailable CARMEN GARRETT Attending Clinician Unavailable Marguerite SOUSA Attending Clinician Unavailable Marguerite Santamaria Attending Clinician Aurelia Schmidt Attending Clinician Ishmael Goss Attending Clinician VISIT, NURSE CHERRI Attending Clinician Unavailable Herve Nieto Attending Clinician Marylu Hayden Attending Clinician EVENS CORTES Attending Clinician Unavailable AURELIA SCHMIDT Admitting Clinician Unavailable Marguerite SOUSA Admitting Clinician Unavailable EVENS CORTES Admitting Clinician Unavailable Payers Payer Name Policy Type Policy Number Effective Date Expiration Date Elizabeth GALAVIZ [id number] 2018 00:00:00 [place] [employer] [id number] 2022 00:00:00 Problems Condition Condition Condition Status Onset Resolution Last Treating Co mments Source Name Details Category Date Date Treatment Clinician Date Disease Active 2014-09 [facility] contractio contractio 09-27 it y of ns ns 00:00: [address] Branch Melanocyti Melanocyt Problem Active 2020-02-21 Memoria c nevus ic nevus 02-24 21:27:44 l (disorder) (disorder) 00:00: He rmann Active 00 02/24/2015 Problem 02/21/2020 Data migrated from [facility] on 03/25/15. Medical Group Patient Patient Problem 2015-04-03 M emoria currently currently 3-10 04:00:17 l 00:00: Joseph russ (finding) (finding) 00 11/25/2014 Problem 04/03/2015 <sup>2</terrell p>pt states - 14 weeks and 3 days. Pt states is high risk - due to 06-03-14. states has chronic anemia does not take iron becuase she states it makes her sick. Pt has never had blood transfusio n [facility] Low back Low back Problem Active 2020-02-21 Memoria strain strain 5- 21:27:44 l (disorder) (disorder) 00:00: He rmann Active 00 02/06/2013 Problem 02/21/2020 Data migrated from [facility] on 04/27/15. Medical Group Migraine Migraine Problem Active 2020-02-21 Memoria (disorder) (disorder) 02-06 21:27:44 l Active 00:00: Hoang 02/06/2013 00 Problem 02/21/2020 Data migrated from [facility] on 04/27/15. Medical Group Seizure Seizure Problem Active 2020-02-21 Me moria disorder disorder -22 21:27:44 l (disorder) (disorder) 00:00: He rmann Active 00 02/06/2013 Problem 02/21/2020 Data migrated from [facility] on 04/27/15. 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 21:27:44 l hyperactiv hyperactiv Mick rmlynsey ity ity disorder disorder (disorder) (disorder) Active Problem 02/21/2020 Medical Group Obesity Obesity Problem Active 2020-02-21 Me moria (disorder) (disorder) 21:27:44 l Active Hoang Problem 02/21/2020 Medical Group Bipolar 1 Bipolar 1 Problem Active Com mon disorder, disorder, Spir it depressed depressed - I [facility] Migraine Migraine Problem Active Commo n with with Spirit status status - [facility] not [facility], not [facility] intractabl Me dical e, e, Center unspecifie unspecifie d migraine d migraine type type Seasonal Seasonal Problem Active Commo n allergies allergies Spir it - [facility] Allergic Allergic Problem Active Commo n rhinitis, rhinitis, Spir it unspecifie unspecifie - [facility] d d St seasonalit seasonalit Jessica kes y, y, Medical unspecifie unspecifie Ce nter d trigger d trigger Tuberculos Tuberculos Diagnosis Active Common is is Spirit screening screening - I [facility] Acute Acute Problem Resolve 2005-2020-02-21 2020-02-21 Memoria appendicit appendicit d 1- 21:27:44 21:27:44 l is is 00:00: [place] (disorder) (disorder) 00 Resolved 09/18/2005 Problem 02/21/2020 [...] [place] tant reaction 00 Medical s Branch Benadryl Adverse Active rash Common Reaction [facility] Aspirin Adverse Active swelling Common Reaction [facility] diphenhy diphenhy Active Memori a drAMINE< drAMINE< l sup>1</s sup>1</s Joseph n up> up> aspirin aspirin Active Moderate Memori a l [place] traZODon traZODon Active Memori a e<sup>2< e<sup>2< l /sup> /sup> Hoang Benadryl Benadryl Active [id number] Mem oria l [place] Tylenol Tylenol Active [id number] Memor ia l [place] Social History Social Habit Start Date Stop Date Quantity Comments Source Exposure to 2022-08-26 2022-09-05 Not sure [facility] SARS-CoV-2 (event) 00:00:00 11:38:00 Medica l Branch Social History 2017-04-11 2017-04-11 [facility] kerry 19:22:36 19:22:36 Sex Ass[birth year] At [birth year] [facility] y of [place] 00:00:00 00:00:00 Medical Branch Smoking Status Start Date Stop Date Source Tobacco smoking consumption [facility] Medical unknown Branch Medications Ordered Filled Start Stop Current Ordering Indication Dosage Frequency Signature Comments Components Source Medication Medication Date Date Medication? Clinician (SIG) Name Name predniSONE 2021-09- Yes [id number] 50mg Take 1 Univers 50 mg 2-20 12-25 tablet by ity of tablet 00:00: 05:59 mouth in [place] 00 :00 the Medical morning Branch for 4 days. predniSONE 2021-09 No 50mg 50 mg, Univ ers (DELTASONE) 2-05 09- Oral, ity of tablet 50 18:00: 17:50 ONCE, 1 [place] mg 00 :00 dose, On Medical Mon [place] 09/05/22 at 1200, MISTY fluticasone Yes [id number] 2{spray Use 2 Univers propionate 1-02 } Sprays in ity of 50 00:00: each [place] mcg/actuati 00 nostril Medic al on nasal daily. [place] spray cetirizine Yes [id number] 10mg Take 1 U nivers 10 mg 1-02 tablet by ity of tablet 00:00: mouth [place] [address] [facility] Branch fluticasone Yes [id number] 2{spray Use 2 Univers propionate 1-02 } Sprays in ity of 50 00:00: each [place] mcg/actuati 00 nostril Medic al on nasal daily. [place] spray cetirizine Yes [id number] 10mg Take 1 U nivers 10 mg 1-02 tablet by ity of tablet 00:00: mouth [place] [address] [facility] Branch fluticasone Yes [id number] 2{spray Use 2 Univers propionate 1-02 } Sprays in ity of 50 00:00: each [place] mcg/actuati 00 nostril Medic al on nasal daily. [place] spray cetirizine Yes [id number] 10mg Take 1 U nivers 10 mg 1-02 tablet by ity of tablet 00:00: mouth [place] [address] [facility] Branch ketorolac 2020- No 30mg 30 mg, Unive rs (TORADOL) 01-10- Slow IV ity of injection 00:30: 23:30 Push, [place] 30 mg 00 :00 ONCE, 1 Medical dose, Sat Branch 01/09/21 at 1930, MISTY
[facility] : JESS WALTER cefTRIAXone 2020- No 1000mg 1,000 mg, Univers (ROCEPHIN) 01-10-24 IV ity of 1,000 mg in 00:15: 23:53 Piggyback, [place] NaCl 0.9% 00 :00 ONCE, 1 Medical (NS) 50 mL dose, Sat Bran ch MINI-BAG 01/09/21 at 1915, 50 mL
Reas on for Anti-Infec tive: Documented Infection< br>Documen yadira Infection Site: Urine
D uration of Therapy: 7 days NaCl 0.9% 2020- No 1000mL at 999 Uni vers (NS) bolus 4-24 04-24 mL/hr, ity of infusion 22:15: 23:23 1,000 mL, Gregg as 1,000 mL 00 :00 IV Medical Infusion, Branch ONCE, 1 dose, 01/09/21 at 1715, MISTY ibuprofen Yes [id number] 600mg Take 1 U nivers 600 mg 4-24 tablet by ity of tablet 00:00: mouth [place] 00 every 6 Medical (six) Branch hours as needed for Pain (scale 4-6). ibuprofen Yes [id number] 600mg Take 1 U nivers 600 mg 4-24 tablet by ity of tablet 00:00: mouth [place] 00 every 6 Medical (six) Branch hours as needed for Pain (scale 4-6). ibuprofen 0 Yes [id number] 600mg Take 1 U nivers 600 mg 4-24 tablet by ity of tablet 00:00: mouth [place] 00 every 6 Medical (six) Branch hours as needed for Pain (scale 4-6). ibuprofen Yes [id number] 600mg Take 1 U nivers 600 mg 4-24 tablet by ity of tablet 00:00: mouth [place] 00 every 6 Medical (six) Branch hours as needed for Pain (scale 4-6). ibuprofen 0 Yes [id number] 600mg Take 1 U nivers 600 mg 4-24 tablet by ity of tablet 00:00: mouth [place] 00 every 6 Medical (six) Branch hours as needed for Pain (scale 4-6). cefdinir 2020-0 2020- No [id number] 300mg Take 1 U nivers 300 mg 4-24 05-02 capsule by ity of capsule 00:00: 04:59 mouth 2 [place] 00 :00 (two) Medical times Branch daily for 7 days. benzonatate Yes [id number] 100mg Take 1 Univers 100 mg 2-04 capsule by ity of capsule 00:00: mouth 3 [place] 00 (three) Medical times Branch daily as needed for Cough. chlorphenir Yes [id number] 4mg Take 1 Univers amine 4 mg 2-04 tablet by ity of tablet 00:00: mouth [place] 00 every 6 Medical (six) Branch hours as needed for Allergies or Runny nose. multivitami Yes [id number] 1{capsu Take 1 Univers n capsule 2-04 le} capsule by ity of 00:00: mouth [place] 00 daily. Medical Branch calcium-mag Yes [id number] Take as Univers nesium-zinc 2-04 directed ity of 333-133-8.3 00:00: for daily [place] mg Tab 00 dose. Medical Branch benzonatate Yes [id number] 100mg Take 1 Univers 100 mg 2-04 capsule by ity of capsule 00:00: mouth 3 [place] 00 (three) Medical times Branch daily as needed for Cough. chlorphenir Yes [id number] 4mg Take 1 Univers amine 4 mg 2-04 tablet by ity of tablet 00:00: mouth [place] 00 every 6 Medical (six) Branch hours as needed for Allergies or Runny nose. multivitami Yes [id number] 1{capsu Take 1 Univers n capsule 2-04 le} capsule by ity of 00:00: mouth [place] 00 daily. Medical Branch calcium-mag Yes [id number] Take as Univers nesium-zinc 2-04 directed ity of 333-133-8.3 00:00: for daily [place] mg Tab 00 dose. Medical Branch benzonatate Yes [id number] 100mg Take 1 Univers 100 mg 2-04 capsule by ity of capsule 00:00: mouth 3 [place] 00 (three) Medical times Branch daily as needed for Cough. chlorphenir Yes [id number] 4mg Take 1 Univers amine 4 mg 2-04 tablet by ity of tablet 00:00: mouth [place] 00 every 6 Medical (six) Branch hours as needed for Allergies or Runny nose. multivitami Yes [id number] 1{capsu Take 1 Univers n capsule 2-04 le} capsule by ity of 00:00: mouth [place] 00 daily. Medical Branch calcium-mag Yes [id number] Take as Univers nesium-zinc 2-04 directed ity of 333-133-8.3 00:00: for daily [place] mg Tab 00 dose. Medical Branch benzonatate Yes [id number] 100mg Take 1 Univers 100 mg 2-04 capsule by ity of capsule 00:00: mouth 3 [place] 00 (three) Medical times Branch daily as needed for Cough. chlorphenir Yes [id number] 4mg Take 1 Univers amine 4 mg 2-04 tablet by ity of tablet 00:00: mouth [place] 00 every 6 Medical (six) Branch hours as needed for Allergies or Runny nose. multivitami Yes [id number] 1{capsu Take 1 Univers n capsule 2-04 le} capsule by ity of 00:00: mouth [place] 00 daily. Medical Branch calcium-mag Yes [id number] Take as Univers nesium-zinc 2-04 directed ity of 333-133-8.3 00:00: for daily [place] mg Tab 00 dose. Medical Branch benzonatate Yes [id number] 100mg Take 1 Univers 100 mg 2-04 capsule by ity of capsule 00:00: mouth 3 [place] 00 (three) Medical times Branch daily as needed for Cough. chlorphenir Yes [id number] 4mg Take 1 Univers amine 4 mg 2-04 tablet by ity of tablet 00:00: mouth [place] 00 every 6 Medical (six) Branch hours as needed for Allergies or Runny nose. multivitami Yes [id number] 1{capsu Take 1 Univers n capsule 2-04 le} capsule by ity of 00:00: mouth [place] 00 daily. Medical Branch calcium-mag Yes [id number] Take as Univers nesium-zinc 2-04 directed ity of 333-133-8.3 00:00: for daily [place] mg Tab 00 dose. Medical Branch benzonatate Yes [id number] 100mg Take 1 Univers 100 mg 2-04 capsule by ity of capsule 00:00: mouth 3 [place] 00 (three) Medical times Branch daily as needed for Cough. chlorphenir Yes [id number] 4mg Take 1 Univers amine 4 mg 2-04 tablet by ity of tablet 00:00: mouth [place] 00 every 6 Medical (six) Branch hours as needed for Allergies or Runny nose. multivitami Yes [id number] 1{capsu Take 1 Univers n capsule 2-04 le} capsule by ity of 00:00: mouth [place] 00 daily. Medical Branch calcium-mag Yes [id number] Take as Univers nesium-zinc 2-04 directed ity of 333-133-8.3 00:00: for daily [place] mg Tab 00 dose. Medical Branch benzonatate Yes [id number] 100mg Take 1 Univers 100 mg 2-04 capsule by ity of capsule 00:00: mouth 3 [place] 00 (three) Medical times Branch daily as needed for Cough. chlorphenir Yes [id number] 4mg Take 1 Univers amine 4 mg 2-04 tablet by ity of tablet 00:00: mouth [place] 00 every 6 Medical (six) Branch hours as needed for Allergies or Runny nose. multivitami Yes [id number] 1{capsu Take 1 Univers n capsule 2-04 le} capsule by ity of 00:00: mouth [place] 00 daily. Medical Branch calcium-mag Yes [id number] Take as Univers nesium-zinc 2-04 directed ity of 333-133-8.3 00:00: for daily [place] mg Tab 00 dose. Medical Branch benzonatate Yes [id number] 100mg Take 1 Univers 100 mg 2-04 capsule by ity of capsule 00:00: mouth 3 [place] 00 (three) Medical times Branch daily as needed for Cough. chlorphenir Yes [id number] 4mg Take 1 Univers amine 4 mg 2-04 tablet by ity of tablet 00:00: mouth [place] 00 every 6 Medical (six) Branch hours as needed for Allergies or Runny nose. multivitami Yes [id number] 1{capsu Take 1 Univers n capsule 2-04 le} capsule by ity of 00:00: mouth [place] 00 daily. Medical Branch calcium-mag Yes [id number] Take as Univers nesium-zinc 2-04 directed ity of 333-133-8.3 00:00: for daily [place] mg Tab 00 dose. Medical Branch iohexol 2020-0 2020- No 110mL 110 mL, Unive rs (OMNIPAQUE 603-04 Intravenou it y of 350 22:15: 22:00 s, ONCE, 1 [place] BULK-150 00 :00 dose, Wed Medica l mL) 03/04/20 at [place] injection 1715, 110 mL Routine morpHINE 2019-0 2020- No 4mg 4 mg, Slow Un kassandra injection 4 03-04 IV Push, ity of mg 21:15: 20:41 ONCE, 1 [place] 00 :00 dose, Wed Medical 03/04/20 at Branch 1615, STAT ondansetron 2019-0 2020- No 4mg 4 mg, Slow Univers (ZOFRAN 03-04 IV Push, ity of (PF)) 21:15: 20:41 ONCE, 1 [place] injection 4 00 :00 dose, Wed Med ical mg 03/04/20 at Branch 1615, MISTY {2019- Yes See Memoria (Methylpred 5-20 Instructio l nisolone 4 15:28: ns, PO, Herm lynsey MG Oral 00 Take by Tablet mouth as [Medrol]) } directed Pack on label., [Medrol X 6 day, # Dosepak] 21 tab, 0 Refill(s), Pharmacy: [facility] #[id number] naproxen 2020-0 Yes 500 mg = 1 Mem oria 500 mg oral 5-20 tab, PO, l tablet 15:28: BID, with Joseph n 00 food, X 14 day, # 28 tab, 0 Refill(s), Pharmacy: [facility] #[id number] { Yes See Memoria (Methylpred 5-20 Instructio l nisolone 4 15:28: ns, PO, Herm lynsey MG Oral 00 Take by Tablet mouth as [Medrol]) } directed Pack on label., [Medrol X 6 day, # Dosepak] 21 tab, 0 Refill(s), Pharmacy: [facility] #[id number] {2019-0 Yes See Memoria (Methylpred 5-20 Instructio l nisolone 4 15:28: ns, PO, Herm lynsey MG Oral 00 Take by Tablet mouth as [Medrol]) } directed Pack on label., [Medrol X 6 day, # Dosepak] 21 tab, 0 Refill(s), Pharmacy: [facility] #[id number] naproxen 2020-0 Yes 500 mg = 1 Mem oria 500 mg oral 5-20 tab, PO, l tablet 15:28: BID, with Joseph n 00 food, X 14 day, # 28 tab, 0 Refill(s), Pharmacy: [facility] #[id number] naproxen Yes 500 mg = 1 Mem oria 500 mg oral 5-20 tab, PO, l tablet 15:28: BID, with Joseph n 00 food, X 14 day, # 28 tab, 0 Refill(s), Pharmacy: [facility] #[id number] Fluticasone Fluticasone Yes Julian 1 spray in Common Propionate Propionate 01-14 Susie each Sp erasto 00:00: nostril - [facility] 00 [facility] RyVent RyVent 2019- Julian 1 tablet Co mmon 01-14 06-13 Susie on an Spirit 00:00: 00:00 empty - [facility] 00 :00 stomach as [facility] SUMAtriptan Yes 6mg inject 6 Un kassandra 6 mg/0.5 mL 1-31 mg under ity of injection 17:04: the skin [place] 18 once now. Medical Branch CLONAZEPAM Yes Take by [place] [facility] ORAL 1-31 mouth. ity of 17:04: [place] [address] Medical [place] SUMAtriptan Yes 6mg inject 6 Un kassandra 6 mg/0.5 mL 1-31 mg under ity of injection 17:04: the skin [place] 18 once now. Medical Branch CLONAZEPAM Yes Take by [place] [facility] ORAL 1-31 mouth. ity of 17:04: [place] [address] Medical [place] SUMAtriptan Yes 6mg inject 6 Un kassandra 6 mg/0.5 mL 1-31 mg under ity of injection 17:04: the skin [place] 18 once now. Medical Branch CLONAZEPAM Yes Take by [place] [facility] ORAL 1-31 mouth. ity of 17:04: [place] [address] Medical Branch SUMAtriptan Yes 6mg inject 6 Un kassandra 6 mg/0.5 mL 1-31 mg under ity of injection 17:04: the skin [place] 18 once now. Medical Branch CLONAZEPAM Yes Take by [place] [facility] ORAL 1-31 mouth. ity of 17:04: [place] [address] Medical Branch SUMAtriptan Yes 6mg inject 6 Un kassandra 6 mg/0.5 mL 1-31 mg under ity of injection 17:04: the skin [place] 18 once now. Medical Branch CLONAZEPAM Yes Take by [place] [facility] ORAL 1-31 mouth. ity of 17:04: [place] [address] Medical Branch SUMAtriptan Yes 6mg inject 6 Un kassandra 6 mg/0.5 mL 1-31 mg under ity of injection 17:04: the skin [place] 18 once now. Medical Branch CLONAZEPAM Yes Take by [place] [facility] ORAL 1-31 mouth. ity of 17:04: [place] [address] Medical Branch SUMAtriptan 2018- Yes 6mg inject 6 Un kassandra 6 mg/0.5 mL 1-31 mg under ity of injection 17:04: the skin [place] 18 once now. Medical Branch CLONAZEPAM Yes Take by [place] [facility] ORAL 1-31 mouth. ity of 17:04: [place] [address] Medical Branch SUMAtriptan Yes 6mg inject 6 Un kassandra 6 mg/0.5 mL 1-31 mg under ity of injection 17:04: the skin [place] 18 once now. Medical Branch CLONAZEPAM Yes Take by [place] [facility] ORAL 1-31 mouth. ity of 17:04: [place] [address] Medical Branch SUMAtriptan Yes 6mg inject 6 Un kassandra 6 mg/0.5 mL 1-31 mg under ity of injection 11:04: the skin [place] 18 once now. Medical Branch CLONAZEPAM Yes Take by [place] [facility] ORAL 1-31 mouth. ity of 11:04: [place] [address] Medical Branch SUMAtriptan Yes 6mg inject 6 Un kassandra 6 mg/0.5 mL 1-31 mg under ity of injection 11:04: the skin [place] 18 once now. Medical Branch CLONAZEPAM Yes Take by [place] [facility] ORAL 1-31 mouth. ity of 11:04: [place] [address] Medical Branch SUMAtriptan 2018- Yes 6mg inject 6 Un kassandra 6 mg/0.5 mL 1-31 mg under ity of injection 11:04: the skin [place] 18 once now. Medical Branch CLONAZEPAM Yes Take by [facility] ers ORAL 1-31 mouth. ity of 11:04: [place] 18 Medical Branch { Yes See Memoria (Methylpred 9-28 Instructio l nisolone 4 20:18: ns, PO, Herm lynsey MG Oral 00 Take by Tablet mouth as [Medrol]) } directed Pack on label., [Medrol # 1 Pack, Dosepak] 1 Refill(s), Pharmacy: [facility] { Yes See Memoria (Methylpred 9-28 Instructio l nisolone 4 20:18: ns, PO, Herm lynsey MG Oral 00 Take by Tablet mouth as [Medrol]) } directed Pack on label., [Medrol # 1 Pack, Dosepak] 1 Refill(s), Pharmacy: [facility] { Yes See Memoria (Methylpred 9-28 Instructio l nisolone 4 20:18: ns, PO, Herm lynsey MG Oral 00 Take by Tablet mouth as [Medrol]) } directed Pack on label., [Medrol # 1 Pack, Dosepak] 1 Refill(s), Pharmacy: [facility] lisdexamfet Yes 20 mg = 1 M emoria amine 6-13 cap, PO, l dimesylate 19:46: QAM, # 30 He rmann 20 MG Oral 00 tab, 0 Capsule Refill(s) [Vyvanse] Levonorgest 2017- Yes 52 mg = 1 M emoria rel 6-13 ea, l [id number] 19:46: Intrautera Her watkins MG/HR Drug 00 l, ONCE, # Implant 1 ea, 0 [Mirena] Refill(s) lisdexamfet Yes 20 mg = 1 M emoria amine 6-13 cap, PO, l dimesylate 19:46: QAM, # 30 He rmann 20 MG Oral 00 tab, 0 Capsule Refill(s) [Vyvanse] Levonorgest 2017- Yes 52 mg = 1 M emoria rel 6-13 ea, l [id number] 19:46: Intrautera Her watkins MG/HR Drug 00 l, ONCE, # Implant 1 ea, 0 [Mirena] Refill(s) lisdexamfet Yes 20 mg = 1 M emoria amine 6-13 cap, PO, l dimesylate 19:46: QAM, # 30 He rmann 20 MG Oral 00 tab, 0 Capsule Refill(s) [Vyvanse] Levonorgest Yes 52 mg = 1 M emoria rel 6-13 ea, l [id number] 19:46: Intrautera Her watkins MG/HR Drug 00 l, ONCE, # Implant 1 ea, 0 [Mirena] Refill(s) cephalexin Yes 500 mg = 1 M emoria 500 mg oral 5-09 cap, PO, l capsule 19:25: TID, X 10 Debbie nn 00 day, # 30 cap, 0 Refill(s), Pharmacy: [facility] 482 cephalexin Yes 500 mg = 1 M emoria 500 mg oral 5-09 cap, PO, l capsule 19:25: TID, X 10 Debbie nn 00 day, # 30 cap, 0 Refill(s), Pharmacy: [facility] 482 cephalexin Yes 500 mg = 1 M emoria 500 mg oral 5-09 cap, PO, l capsule 19:25: TID, X 10 Debbie nn 00 day, # 30 cap, 0 Refill(s), Pharmacy: [facility] 482 Ceftriaxone 0 No 1 gm, Memor ia 01-24 Route: IM, l 19:24: Drug form: [place] 00 PDR/INJ, ONCE, Dosing Weight 86.818, kg, Start date: 01/24/18 14:24:00 CDT, Stop date: 01/24/18 14:24:00 CDT Ceftriaxone 2017-0 No 1 gm, Memor ia 01-24 Route: IM, l 19:24: Drug form: [place] 00 PDR/INJ, ONCE, Dosing Weight 86.818, kg, Start date: 01/24/18 14:24:00 CDT, Stop date: 01/24/18 14:24:00 CDT Ceftriaxone 2017-0 No 1 gm, Memor ia 01-24 Route: IM, l 19:24: Drug form: [place] 00 PDR/INJ, ONCE, Dosing Weight 86.818, kg, Start date: 01/24/18 14:24:00 CDT, Stop date: 01/24/18 14:24:00 CDT ondansetron No Joesph K 8 mg = 1 Memoria 7-15 Rasheed tabs, l 18:24: Tab-Dis, Hoang 00 Oral, Once PRN for nausea/vom iting, first dose 04/01/15 13:24:00 CDT Dilaudid No Joesph K 0.2 mg = Mem oria 7-15 Rasheed 0.1 mL, l 18:24: Injection, [place] 00 IV Push, q10min PRN for pain severe (7-10), first dose 04/01/15 13:24:00 CDT promethazin No Joesph K 12.5 mg = Memoria e 7-15 Rasheed 0.5 mL, l 18:24: Injection, [place] 00 IM, Once PRN for severe nausea, [...] for flush, first dose 04/01/15 13:24:00 CDT ondansetron No Joesph K 8 mg = 1 Memoria 7-15 Rasheed tabs, l 18:24: Tab-Dis, [place] 00 Oral, Once PRN for nausea/vom iting, first dose 04/01/15 13:24:00 CDT Dilaudid No Joesph K 0.2 mg = Mem oria 7-15 Rasheed 0.1 mL, l 18:24: Injection, [place] 00 IV Push, q10min PRN for pain severe (7-10), first dose 04/01/15 13:24:00 CDT promethazin No Joesph K 12.5 mg = Memoria e 7-15 Rasheed 0.5 mL, l 18:24: Injection, [place] 00 IM, Once PRN for severe nausea, first dose 04/01/15 13:24:00 CDT LR 1,000 mL No Joesph K 1,000 mL, Memoria 7-15 Rasheed IV, 75 l 18:24: mL/hr, start date 04/01/15 13:24:00 CDT Saline Lock No Joesph K 10 mL, Me moria Flush 7-15 Rasheed Soln, IV l 18:24: Push, As Indicated PRN for flush, first dose 04/01/15 13:24:00 CDT ondansetron No [...] for flush, first dose 04/01/15 13:24:00 CDT [facility] No Joey 600 mL, Memoria Medication 7-15 Yeh Soln-IV, l 18:19: IV, Once, first dose 04/01/15 13:19:00 CDT, stop date 04/01/15 13:19:00 CDT [facility] No Joey 600 mL, Memoria Medication 7-15 Yeh Soln-IV, l 18:19: IV, Once, [place] 00 first dose 04/01/15 13:19:00 CDT, stop date 04/01/15 13:19:00 CDT Misc No Joey 600 mL, Memoria Medication -15 Yeh Soln-IV, l 18:19: IV, Once, [place] 00 first dose 04/01/15 13:19:00 CDT, stop date 04/01/15 13:19:00 CDT propofol No Joey 300 mg = Me moria 7-15 Yeh 30 mL, l 17:57: Emulsion, [place] 00 IV, Once, first dose 04/01/15 12:57:00 CDT, stop date 04/01/15 12:57:00 CDT propofol No Joey 300 mg = Me moria 7-15 Yeh 30 mL, l 17:57: Emulsion, Hoang 00 IV, Once, first dose 04/01/15 12:57:00 CDT, stop date 04/01/15 12:57:00 CDT propofol No Joey 300 mg = Me moria 7-15 Yeh 30 mL, l 17:57: Emulsion, Frederick 00 IV, Once, first dose 04/01/15 12:57:00 [...] CDT, stop date 04/01/15 12:40:00 CDT fentaNYL 2014-0 No Joey 100 mcg = Keyur merchant 7-15 Yeh 2 mL, l 17:34: Injection, Hoang 00 IV, Once, first dose 04/01/15 12:34:00 CDT, stop date 04/01/15 12:34:00 CDT lidocaine 2014-0 No Joey 3 mL, Jose Carlos maury 7-15 Yeh Injection, l 17:34: IV, Once, Frederick 00 first dose 04/01/15 12:34:00 CDT, stop date 04/01/15 12:34:00 CDT fentaNYL 2014- No Joey 100 mcg = Keyur merchant 7- Yeh 2 mL, l 17:34: Injection, Frederick 00 IV, Once, first dose 04/01/15 12:34:00 CDT, stop date 04/01/15 12:34:00 CDT lidocaine 2014- No Joey 3 mL, Jose Carlos maury 15 Yeh Injection, l 17:34: IV, Once, Hoang 00 first dose 04/01/15 12:34:00 CDT, stop date 04/01/15 12:34:00 CDT fentaNYL 2014- No Joey 100 mcg = Keyur merchant 04-01 Yeh 2 mL, l 17:34: Injection, Hoang 00 IV, Once, first dose 04/01/15 12:34:00 CDT, stop date 04/01/15 12:34:00 CDT lidocaine 2014-0 No Joey 3 mL, Jose Carlos maury 15 Yeh Injection, l 17:34: IV, Once, Frederick 00 first dose 04/01/15 12:34:00 CDT, stop date 04/01/15 12:34:00 CDT ceFAZolin 2014-0 No Rohith 1 gm, IV Me moria 7-15 Hillery Piggyback, l 16:00: Once, Frederick 00 infuse over 30 minutes, first dose 04/01/15 11:00:00 CDT, stop date 04/01/15 11:00:00 CDT ceFAZolin 2014-0 No Rohith 1 gm, IV Me moria [...] 15:19: mL/hr, start date 04/01/15 10:19:00 CDT Lidocaine No Joesph K 0.2 mL, Mem oria 2% 0.2 mL 7-15 Rasheed Injection, l IV Start 15:19: Subcutaneo Her watkins [[place]] 00 us, Once PRN for other (see comment), first dose 04/01/15 10:19:00 CDT LR 1,000 mL No Joesph K 1,000 mL, Memoria 7-15 Rasheed IV, 30 l 15:19: mL/hr, start date 04/01/15 10:19:00 CDT Lidocaine No [...] vitamins 6-22 vitamins, l 15:44: 0 Hoang Refill(s), supplement Yes Memor ia vitamins 6-22 vitamins, l 15:44: 0 Hoang Refill(s), supplement Topiramate Topiramate Yes Julian 1 tablet Common [facility] Sumatriptan Sumatriptan Yes Julian (Prior Common Succinate Succinate Susie Auth: Rx [facility] Ref#:[id number] - [facility] [id number]) [facility] Immunizations Ordered Immunization Filled Immunization Date Status Commen ts Source Name Name TB PPD TB PPD 2019-01-14 Completed [facility] - 00:00:00 [facility] influenza virus 2018-06-29 Completed [facility] vaccine, inactivated 19:59:00 [facility] lynsey influenza virus 2018-06-29 Completed [facility] vaccine, inactivated 19:59:00 [facility] lynsey influenza virus 2018-06-29 Completed [facility] vaccine, inactivated 19:59:00 [facility] lynsey hepatitis B adult 2018-05-25 Completed Memoria l vaccine 20:29:00 Hoang hepatitis B adult 2018-05-25 Completed Memoria l vaccine 20:29:00 Hoang hepatitis B adult 2018-05-25 Completed Memoria l vaccine 20:29:00 Hoang hepatitis B adult 2017-11-29 Completed Memoria l vaccine 15:19:00 Hoang hepatitis B adult 2017-11-29 Completed Memoria l vaccine 15:19:00 Frederick hepatitis B adult 2017-11-29 Completed Memoria l vaccine 15:19:00 Hoang hepatitis B adult 2017-11-01 Completed Memoria l vaccine 16:26:00 Frederick hepatitis B adult 2017-11-01 Completed Memoria l vaccine 16:26:00 Hoang hepatitis B adult 2017-11-01 Completed Memoria l vaccine 16:26:00 Frederick diphtheria/pertussis 2017-10-19 Completed Jose Carlos rial , acel/tetanus adult 21:30:00 Herm lynsey diphtheria/pertussis 2017-10-19 Completed Jose Carlos rial , acel/tetanus adult 21:30:00 Herm lynsey diphtheria/pertussis 2017-10-19 Completed Jose Carlos rial , acel/tetanus adult 21:30:00 Herm lynsey Vital Signs Vital Name Observation Time Observation Value Comments Source Systolic blood 2022-09-05 113 mm[Hg] University of pressure 17:19:00 [facility] Diastolic blood 2022-09-05 63 mm[Hg] University o f pressure 17:19:00 [facility] Heart rate 2022-09-05 93 /min University of 17:19:00 [facility] Body temperature 2022-09-05 36.5 Jennifer University of 17:19:00 [facility] Respiratory rate 2022-09-05 20 /min University of 17:19:00 [facility] Body weight 2022-09-05 89.359 kg University of 17:19:00 [facility] BMI 2022-09-05 33.81 kg/m2 University of 17:19:00 [facility] Oxygen saturation 2022-09-05 100 /min University of in Arterial blood 17:19:00 [facility] by Pulse oximetry Branch Systolic blood 2021-09-19 103 mm[Hg] University of pressure 18:36:00 [facility] Diastolic blood 2021-09-19 71 mm[Hg] University o f pressure 18:36:00 [facility] Heart rate 2021-09-19 116 /min University of 18:36:00 [facility] Body temperature 2021-09-19 37.22 Jennifer University of 18:36:00 [facility] Respiratory rate 2021-09-19 20 /min University of 18:36:00 [facility] Body height 2021-09-19 162.6 cm University of 18:36:00 [facility] Body weight 2021-09-19 97.07 kg University of 18:36:00 [facility] BMI 2021-09-19 36.73 kg/m2 University of 18:36:00 [facility] Oxygen saturation 2021-09-19 99 /min University of in Arterial blood 18:36:00 [place] [facility] by Pulse oximetry Branch Systolic blood 2021-04-19 111 mm[Hg] University of pressure 16:33:00 [facility] Branch Diastolic blood 2021-04-19 65 mm[Hg] University o f pressure 16:33:00 [facility] Heart rate 2021-04-19 61 /min University of 16:33:00 [facility] Respiratory rate 2021-04-19 18 /min University of 16:33:00 [facility] Oxygen saturation 2021-04-19 100 /min University of in Arterial blood 16:33:00 [facility] real by Pulse oximetry Branch Body temperature 2021-04-19 36.89 Jennifer University of 13:31:00 [facility] Branch Body weight 2021-04-19 81.647 kg University of 13:31:00 [facility] Branch BMI 2021-04-19 30.90 kg/m2 University of 13:31:00 [facility] Systolic blood 2021-01-10 107 mm[Hg] University of pressure 01:18:00 [facility] Diastolic blood 2021-01-10 65 mm[Hg] University o f pressure 01:18:00 [facility] Heart rate 2021-01-10 61 /min University of :18:00 [facility] Respiratory rate 2021-01-10 14 /min University of :18:00 [facility] Oxygen saturation 2021-01-10 100 /min University of in Arterial blood 01:18:00 [facility] real by Pulse oximetry Branch Body temperature 2021-01-09 37.33 Jennifer University of ::00 [facility] Body weight 2021-01-09 81.647 kg University of 22:04: [facility] BMI 2021-01-09 30.90 kg/m2 University of 22:04:00 [facility] Systolic blood 2021-01-10 107 mm[Hg] University of pressure 01:18:00 [facility] Diastolic blood 2021-01-10 65 mm[Hg] University o f pressure 01:18:00 [facility] Heart rate 2021-01-10 61 /min University of :18:00 [facility] Respiratory rate 2021-01-10 14 /min University of :18:00 [facility] Oxygen saturation 2021-01-10 100 /min University of in Arterial blood 01:18:00 [facility] by Pulse oximetry Branch Body temperature 2021-01-09 37.33 Jennifer University of : [facility] Body weight 2021-01-09 81.647 kg University of :: [facility] BMI 2021-01-09 30.90 kg/m2 University of 22:04:00 [facility] BMI 2020-10-22 34.16 kg/m2 University of 14:16:00 [facility] Oxygen saturation 2020-10-22 97 /min University of in Arterial blood 14:16:00 [facility] by Pulse oximetry Branch Systolic blood 2020-10-22 147 mm[Hg] University of pressure 14:16:00 [facility] Diastolic blood 2020-10-22 92 mm[Hg] University o f pressure 14:16:00 [facility] Branch Heart rate 2020-10-22 85 /min University of 14:16:00 [facility] Body temperature 2020-10-22 36.89 Jennifer University of 14:16:00 [facility] Branch Respiratory rate 2020-10-22 18 /min University of 14:16:00 [facility] Body weight 2020-10-22 90.266 kg Simultaneous University of 14:16:00 filing. User may [place] [facility] not have seen Branch previous data. BMI 2020-10-22 34.16 kg/m2 University of 14:16:00 [facility] Oxygen saturation 2020-10-22 97 /min University of in Arterial blood 14:16:00 [facility] by Pulse oximetry Branch Systolic blood 2020-10-22 147 mm[Hg] University of pressure 14:16:00 [facility] Diastolic blood 2020-10-22 92 mm[Hg] University o f pressure 14:16:00 [facility] Heart rate 2020-10-22 85 /min University of 14:16:00 [facility] Body temperature 2020-10-22 36.89 Jennifer University of 14:16:00 [facility] Respiratory rate 2020-10-22 18 /min University of 14:16:00 [facility] Body weight 2020-10-22 90.266 kg Simultaneous University of 14:16:00 filing. User may [place] [facility] not have seen Branch previous data. Systolic blood 2020-03-04 114 mm[Hg] University of pressure 23:10:48 [facility] Diastolic blood 2020-03-04 75 mm[Hg] University o f pressure 23:10:48 [facility] Heart rate 2020-03-04 56 /min University of 23:10:48 [facility] Branch Respiratory rate 2020-03-04 15 /min University of 23:10:48 [facility] Oxygen saturation 2020-03-04 97 /min University of in Arterial blood 23:10:48 [facility] real by Pulse oximetry Branch Body temperature 2020-03-04 36 Jennifer University of 19:45:00 [facility] Body height 2020-03-04 162.6 cm University 19:45:00 [facility] Body weight 2020-03-04 90.266 kg University 19:45:00 [facility] BMI 2020-03-04 34.16 kg/m2 University 19:45:00 [facility] Systolic blood 2020-03-04 114 mm[Hg] University of pressure 23:10:48 [facility] Diastolic blood 2020-03-04 75 mm[Hg] University o f pressure 23:10:48 [facility] Heart rate 2020-03-04 56 /min University 23:10:48 [facility] Respiratory rate 2020-03-04 15 /min University 23:10:48 [facility] Oxygen saturation 2020-03-04 97 /min [facility] in Arterial blood 23:10:48 [facility] by Pulse oximetry [place] Body temperature 2020-03-04 36 Jennifer University 19:45:00 [facility] Body height 2020-03-04 162.6 cm University 19:45:00 [facility] Body weight 2020-03-04 90.266 kg University 19:45:00 [facility] BMI 2020-03-04 34.16 kg/m2 University 19:45:00 [facility] Systolic (mm Hg) 2020-02-05 [facility] rmann 14:40:00 Diastolic (mm Hg) 2020-02-05 [facility] ermann 14:40:00 Heart Rate 2020-02-05 [facility] Joseph n 14:40:00 [facility]06-29 [facility] Systolic (mm Hg) 2018-06-29 [facility] rmann 20:03:00 Diastolic (mm Hg) 2018-06-29 [facility] ermann 20:03:00 Temperature Oral 2018-06-29 97.6 F [facility] rmann (F) 20:03:00 Heart Rate 2018-06-29 [facility] Joseph n 20:03:00 BMI Calculated 2018-06-15 [facility] 20:08:00 Height 2018-06-15 162.[facility] 2018[facility]06-15 [facility] 20:08:00 Systolic (mm Hg) 2018-06-15 [facility] rmann 20:08:00 Diastolic (mm Hg) 2018-06-15 [facility] ermann 20:08:00 Temperature Oral 2018-06-15 98.3 F [facility] Mick rmann (F) 20:08:00 Heart Rate 2018-06-15 [facility] Joseph n 20:08:00 Weight 2018-05-25 [facility] Joseph n 20:27:00 Temperature Oral 2018-05-25 98.5 F [facility]t [facility] rmann (F) 20:27:00 Heart Rate 2018-05-25 [facility] Joseph n 20:27:00 Systolic (mm Hg) 2018-05-25 [facility] He rmann 20:27:00 Diastolic (mm Hg) 2018-05-25 [facility] ermann 20:27:00 BMI Calculated 2018-02-28 [facility] lynsey 19:41:00 Weight 2018-02-28 [facility] Joseph n 19:41:00 Temperature Oral 2018-02-28 98.1 F Brandt Barton rmann (F) 19:41:00 Heart Rate 2018-02-28 [facility] Joseph n 19:41:00 Height 2018-02-28 162.56 cm [facility] Joseph n 19:41:00 Systolic (mm Hg) 2018-02-28 [facility] rmann 19:41:00 Diastolic (mm Hg) 2018-02-28 [facility] ermann 19:41:00 Height 2018-01-24 162.56 cm [facility] Joseph n 19:15:00 BMI Calculated 2018-01-24 [facility] lynsey 19:15:00 Weight 2018-01-24 [facility] Joseph n 19:15:00 Temperature Oral 2018-01-24 98.4 F Brandt Barton rmann (F) 19:15:00 Heart Rate 2018-01-24 [facility] Joseph n 19:15:00 Systolic (mm Hg) 2018-01-24 [facility] rmann 19:15:00 Diastolic (mm Hg) 2018-01-24 [facility] ermann 19:15:00 Weight 2017-11-29 [facility] Joseph n 15:16:00 Temperature Oral 2017-11-29 98.2 F [facility] Mick rmann (F) 15:16:00 Heart Rate 2017-11-29 [facility] [...] Joseph n 18:20:00 Systolic (mm Hg) 2015-04-01 [facility] rmann 18:20:00 Respitory Rate 2015-04-01 [facility] lynsey 18:20:00 Systolic (mm Hg) 2015-04-01 [facility] rmann 18:10:00 Temperature Oral 2015-04-01 36.7 Jennifer [facility]mann (F) 18:10:00 Weight 2015-04-01 [facility] Joseph n 15:27:00 Temperature Oral 2015-04-01 36.5 Jennifer [facility] rmann (F) 15:27:00 Height 2015-04-01 162.56 cm [facility] Joseph n 15:27:00 Weight 2015-03-09 [facility] Joesph n 15:41:00 Height 2015-03-09 162.56 cm [facility] Joseph n 15:41:00 Procedures Procedure Date / Time Performing Clinician Source Performed NOTICE OF PRIVACY 2022-09-05 17:12:22 Doctor Unassigned, [facility] PRACTICES [place] [facility] CONSENT/REFUSAL FOR 2022-09-05 17:11:19 Doctor Unassigned, [facility] DIAGNOSIS AND TREATMENT [place] [facility] [place] HB ABO GROUPING 2021-04-19 15:58:00 Singer [facility] o [facility] URINALYSIS 2021-04-19 14:40:00 Jayesh Anaya [facility] COMP. METABOLIC PANEL 2021-04-19 14:33:00 [facility] ([id number]) [facility] TOTAL BETA HCG ASSAY 2021-04-19 14:33:00 Jayesh Anaya [facility] US FIRST 2021-04-19 14:20:42 Jayesh Anaya [facility] TRIMESTER LESS THAN 14 Medical B ranch WEEKS WITH TRANSVAGINAL CBC WITH DIFF 2021-04-19 13:47:00 Singer Jayesh [facility] CONSENT/REFUSAL FOR 2021-04-19 13:24:26 Doctor Unazulema, [facility] OV[facility] T[facility]ION 2021-01-10 00:44:27 Jess Walter [facility] URINALYSIS 2021-01-09 22:19:00 Jess [facility] TEST, SERUM 2021-01-09 22:17:00 Jess Walter Un [facility] POCT TEST 2021-01-09 22:16:00 Jess [facility] LIPASE 2021-01-09 22:15:00 Jess [facility] COMP. METABOLIC PANEL 2021-01-09 22:15:00 Jess Walter [facility] ([id number]) [facility] TOTAL BETA HCG ASSAY 2021-01-09 22:15:00 Jess [facility] CBC WITH DIFF 2021-01-09 22:15:00 Jess [facility] CONSENT/REFUSAL FOR 2021-01-09 21:58:20 Doctor [facility] DIAGNOSIS AND TREATMENT [place] [facility] [place] RAPID STREP SCREEN FOR 2020-10-22 14:47:00 Jayesh Anaya [facility] GROUP A Medical Branch NOTICE OF PRIVACY 2020-10-22 14:07:25 Doctor Linda, [facility] PRACTICES [place] [facility] [place] CONSENT/REFUSAL FOR 2020-10-22 14:07:14 Doctor [facility] DIAGNOSIS AND TREATMENT [place] [facility] [place] CT ABDOMEN PELVIS W 2020-03-04 22:09:00 Marguerite Sousa [facility] Branch US GALL BLADDER 2020-03-04 20:31:43 Marguerite Sousa [facility] POCT TEST 2020-03-04 20:13:00 Marguerite Sousa [facility] Medical Branch LIPASE 2020-03-04 20:12:00 Marguerite Sousa [facility] MAGNESIUM 2020-03-04 20:12:00 Jose [facility] COMP. METABOLIC PANEL 2020-03-04 20:12:00 Marguerite Sousa Brigitte [facility] ([id number]) Medical Branch CBC WITH DIFFERENTIAL 2020-03-04 20:12:00 Marguerite Sousa Brigitte [facility] URINALYSIS 2020-03-04 20:12:00 Jose, [facility] COVID-19 (ID NOW RAPID 2020-03-04 20:12:00 Marguerite Sousa Brigitte [facility] TESTING) Medical Branch CONSENT/REFUSAL FOR 2020-03-04 19:28:19 Doctor Linda [facility] DIAGNOSIS AND TREATMENT [place] [facility] [place] EXCISION LIPOMA BACK 5CM 2015-04-01 17:50:00 Rohith Salmeron Mem OR DWAYNE [id number] (Other)<sup>1</sup> section 2013-09-18 00:00:00 [facility] Mick rmann 2012-09-18 00:00:00 [facility] Her watkins section<sup>1</sup> Appendectomy 2005-09-18 00:00:00 [facility] Her watkins left wrist surgery 2002-09-18 00:00:00 [facility] Complex reconstruction [facility] operations on wrist and hand(excluding arthroplasty) Tonsillectomy [facility] eye surgery [facility] Encounters Start End Encounter Admission Attending Care Care Encounter Source Date/Time Date/Time Type Type Clinicians Facility Department ID 2021-07-19 Emergency [facility] [id number] Univers 12:20:44 ity of [facility] 2021-07-18 Emergency [facility] [id number] Univers 15:04:34 ity of [facility] 2021-07-17 Emergency [facility] [id number] Univers 21:44:31 ity [facility] 2020-02-10 Inpatient Chrystal [facility]MIDT [facility] [id number] [facility] 07:00:00 [facility], [facility] 2022-09-05 2022-09-05 Emergency [facility] [id number] Univers 11:20:00 12:16:00 [place] [facility] 2022-09-05 2022-09-05 Emergency [facility] [id number] Univers 11:20:00 12:16:00 Delmi FISHMAN [id number] ity of [place] [id number] [place] [facility] [id number] [facility] 084 [place] 2021-10-12 2021-10-12 Outpatient COH COH PIJFIFK ZHY COH 00:00:00 00:00:00 -[id number] 2021-09-20 2021-09-20 VICKIE Thomas [id number] Univers 00:00:00 00:00:00 (Out) Deepti RUFFIN [id number] it y of [facility] [id number] Gregg as [phone] [facility] 019 Branch 2021-09-19 2021-09-19 Urgent Fide Mayer [facility] [id number] Univers 13:20:00 13:20:00 [facility] [id number] ity of [place] AL[place] [id number] Gregg as BRITTANIE?BLEA [phone] [address] MEDICAL OFFICE BUILDING 2021-09-19 2021-09-19 Outpatient R WES, [facility] [id number] Univers 13:20:00 13:01:06 MARIA DEL ROSARIO ity of [facility] 2021-04-19 2021-04-19 Emergency [facility] [id number] [facility] 08:32:00 11:35:00 Jayesh Fishman [id number] i ty of [place] [id number] [facility] [id number] [address] 2021-01-09 2021-01-09 Emergency [facility] [id number] [facility] 17:06:00 20:20:00 Jess Fishman [id number] ity of [place] [id number] [facility] [id number] [address] 2021-01-09 2021-01-09 Emergency [facility] [id number] 17:06:00 20:20:00 Jess Fishman [id number] [place] [address] [place] [address] [id number] [facility] 2021-01-09 2021-01-09 Orders Doctor JOHNSTON [id number] Univers 00:00:00 00:00:00 Only Unassigned, AUGUSTIN [id number] ity of [place] [facility] [id number] Gregg [id number] [address] 2021-01-09 2021-01-09 Orders Doctor VICKIE [id number] 00:00:00 00:00:00 Only Unassigned, [place]UGUSTIN [id number] [place] [facility] [id number] [id number] 009 2020-10-22 2020-10-22 Emergency [facility] [id number] [facility] 08:26:00 10:18:00 Jayesh Fishman [id number] i ty of [place] [id number] [place] [facility] [id number] [facility] 084 Branch 2020-10-22 2020-10-22 Emergency Singer [facility] [id number] 08:26:00 10:18:00 Jayesh Fishman [id number] [place] [id number] [place] [id number] [id number] 2020-10-22 2020-10-22 VICKIE Thomas [id number] Univers 00:00:00 00:00:00 (Out) Deepti RUFFIN [id number] it y of HOSPITAL [id number] [place] as [id number] [facility] 019 Branch 2020-10-22 2020-10-22 Orders Doctor VICKIE [id number] Univers 00:00:00 00:00:00 Only Unassigned, AUGUSTIN [id number] ity of [place] [facility] [id number] Gregg as [id number] [facility] 009 Branch 2020-10-22 2020-10-22 Orders Doctor VICKIE [id number] 00:00:00 00:00:00 Only Unassigned, [place]UGUSTIN [id number] [place] [facility] [id number] [id number] [id number] 2020-10-22 2020-10-22 VICKIE Thomas [id number] 00:00:00 00:00:00 (Out) Deepti RUFFIN [id number] HOSPITAL [id number] [id number] 2020-08-01 2020-08-01 Outpatient R TAMI [facility] [id number] Univers 10:00:00 10:00:00 CARMEN ity [facility] 2020-03-04 2020-03-04 Emergency Marguerite MCCOY [facility] ERT [id number] Univers 14:38:35 18:18:00 ity [facility] 2020-03-04 2020-03-04 Emergency Marguerite Sousa [facility] 1.2.840.114 [id number] Univers 14:38:35 18:18:00 Brigitte Fishman [id number] i ty of [place] [id number] [place] [id number] [facility] 084 [place] 2020-03-04 2020-03-04 Emergency Marguerite Sousa [facility] [id number] 14:38:35 18:18:00 Brigitte Fishman [id number] [place] [id number] [place] [id number] [facility] 2020-03-04 2020-03-04 Orders Doctor VICKIE 1.2.840.114 [id number] Univers 00:00:00 00:00:00 Only Unassigned, AUGUSTIN [id number] ity of [place] [facility] [id number] Gregg [phone] [address] 2020-03-04 2020-03-04 Orders Doctor VICKIE [id number] 00:00:00 00:00:00 Only Unassigned, [place]USTIN [id number] [place] [facility] [id number] [id number] [id number] 2020-02-19 2020-02-19 Ambulatory nullFlavo [facility] 4 [id number] Memoria 15:30:00 15:30:00 Pre-Reg r Medicine 23 clarence Bolton 2020-02-19 2020-02-19 Ambulatory nullFlavo [facility] Family 4 [id number] Memoria 15:30:00 15:30:00 Pre-Reg r Medicine 23 clarence Bolton 2020-02-19 2020-02-19 Outpatient REDDIE REDDIE [id number] Memoria 10:30:00 10:30:00 Kelvin [place] 2020-02-19 2020-02-19 [id number] 10:30:00 10:30:00 Aurelia Green 2020-02-05 2020-02-06 Outpatient nullFlavo [facility] 4 [id number] Memoria 14:30:00 04:59:59 r Medicine 22 clarence Bolton 2020-02-05 2020-02-06 Outpatient nullFlavo [facility] Family 4 [id number] Memoria 14:30:00 04:59:59 r Medicine 22 clarence Arnold Hoang 2020-02-05 2020-02-05 Outpatient Brayan [facility] [id number] 09:30:00 23:59:59 Aureliauri Green 2020-02-05 2020-02-05 Outpatient ZOYA KENNY [id number] Memoria 09:30:00 09:30:00 22 clarence Hoang 2019-01-16 2019-01-16 Outpatient [facility] [id number] Common 16:00:00 16:00:[address] [facility] [address] [facility] 2019-01-15 2019-01-15 Outpatient [facility] [id number] Common 13:36:00 13:36:[address] [facility] [address] [facility] 2019-01-14 2019-01-14 Outpatient [facility] 25 [id number] Common 13:30:00 13:30:00 [facility] [address] [facility] 2018-11-01 2018-11-02 Outpatient nullFlavo [facility] Family 4 [id number] Memoria 14:45:00 05:59:59 r Medicine 21 clarence Arnold Hoang 2018-11-01 2018-11-02 Outpatient nullFlavo [facility] Family 4 [id number] Memoria 14:45:00 05:59:59 r Medicine 21 clarence WestfallClayton Hoang 2018-11-01 2018-11-01 Outpatient Wolfgang [facility] [id number] 08:45:00 23:59:59 Ishmael 21 2018-11-01 2018-11-01 Outpatient ZOYA URI [id number] Memoria 08:45:00 08:45:00 21 clarence Hoang 2018-06-29 2018-06-30 Outpatient nullFlavo [facility] Family 4 [id number] Memoria 19:00:00 04:59:59 r Medicine 20 clarence WestfallClayton Hoang 2018-06-29 2018-06-30 Outpatient nullFlavo [facility] Family 4 [id number] Memoria 19:00:00 04:59:59 r Medicine 20 clarence North[place] Hoang 2018-06-29 2018-06-29 Outpatient Goss, [facility] [id number] 14:00:00 23:59:59 Ishmael 20 2018-06-29 2018-06-29 Ambulatory nullFlavo [facility] Family 4 [id number] Memoria 19:00:00 19:00:00 Pre-Reg r Medicine 18 clarence Bolton 2018-06-29 2018-06-29 Ambulatory nullFlavo [facility] Family 4 [id number] Memoria 19:00:00 19:00:00 Pre-Reg r Medicine 18 clarence Bolton 2018-06-29 2018-06-29 Outpatient MHIE MHIE [id number] Memoria 14:00:00 14:00:00 18 clarence Bolton 2018-06-29 2018-06-29 Outpatient MHIE MHIE [id number] Memoria 14:00:00 14:00:00 20 clarence Bolton 2018-06-29 2018-06-29 Outpatient Goss, [facility] [id number] 14:00:00 14:00:00 Ishmael 18 2018-06-25 2018-06-25 Ambulatory nullFlavo [facility] Family 4 [id number] Memoria 14:30:00 14:30:00 Pre-Reg r Medicine 17 clarence Bolton 2018-06-25 2018-06-25 Ambulatory nullFlavo [facility] Family 4 [id number] Memoria 14:30:00 14:30:00 Pre-Reg r Medicine 17 clarence Bolton 2018-06-25 2018-06-25 Outpatient MHIE MHIE [id number] Memoria 09:30:00 09:30:00 17 clarence Bolton 2018-06-25 2018-06-25 Outpatient VISIT, MH[facility] MG [id number] 09:30:00 09:30:00 NURSE STWH 17 2018-06-25 2018-06-25 Outpatient VISIT, MH[facility] [id number] 09:30:00 09:30:00 NURSE STWH 17 2018-06-25 2018-06-25 Outpatient VISIT, MH[facility] [id number] 09:30:00 09:30:00 NURSE STWH 17 2018-06-25 2018-06-25 Outpatient VISIT, MHMG MG [id number] 09:30:00 09:30:00 NURSE STWH 17 2018-06-15 2018-06-16 Outpatient nullFlavo [facility] Family 4 [id number] Memoria 20:15:00 04:59:59 r Medicine 19 clarence Bolton 2018-06-15 2018-06-16 Outpatient nullFlavo [facility] Family 4 [id number] Memoria 20:15:00 04:59:59 r Medicine 19 clarence Bolton 2018-06-15 2018-06-15 Outpatient Goss, MG MG [id number] 15:15:00 23:59:59 Ishmael 19 2018-06-15 2018-06-15 Outpatient MHIE MHIE [id number] Memoria 15:15:00 15:15:00 19 clarence Bolton 2018-05-25 2018-05-26 Outpatient nullFlavo [facility] Family 4 [id number] Memoria 20:00:00 04:59:59 r Medicine 16 clarence Bolton 2018-05-25 2018-05-26 Outpatient nullFlavo [facility] Family 4 [id number] Memoria 20:00:00 04:59:59 r Medicine 16 clarence Bolton 2018-05-25 2018-05-25 Outpatient VISIT, MG MG [id number] 15:00:00 23:59:[address] 16 2018-05-25 2018-05-25 Outpatient MHIE IE [id number] Memoria 15:00:00 15:00:00 16 clarence Bolton 2018-04-12 2018-04-12 Ambulatory nullFlavo [facility] FACILITIES [facility]NAGEMENT EXECUTIVE 4 [id number] Memoria 19:30:00 19:30:00 Pre-Reg r [place] 09 clarence Bolton 2018-04-12 2018-04-12 Ambulatory nullFlavo [facility] FACILITIES MANAGEMENT EXECUTIVE 4 [id number] Memoria 19:30:00 19:30:00 Pre-Reg r [place] 09 clarence Bolton 2018-04-12 2018-04-12 Outpatient MHIE IE [id number] Memoria 14:30:00 14:30:00 09 clarence Bolton 2018-04-12 2018-04-12 Outpatient Emilia MG MG [id number] 14:30:00 14:30:00 , Lonnie Gee 2018-02-28 2018-03-01 Outpatient nullFlavo [facility] Family 4 [id number] Memoria 19:30:00 04:59:59 r Medicine 15 clarence Bolton 2018-02-28 2018-03-01 Outpatient nullFlavo [facility] Family 4 [id number] Memoria 19:30:00 04:59:59 r Medicine 15 clarence Bolton 2018-02-28 2018-02-28 Outpatient Jackelyn, MG MG [id number] 14:30:00 23:59:59 Marylu Hermilo Avelar 2018-02-28 2018-02-28 Outpatient MHIE MHIE [id number] Memoria 14:30:00 14:30:00 15 clarence Bolton 2018-01-29 2018-01-29 Ambulatory nullFlavo [facility] Family 4 [id number] Memoria 14:45:00 14:45:00 Pre-Reg r Medicine 13 clarence Bolton 2018-01-29 2018-01-29 Ambulatory nullFlavo [facility] Family 4 [id number] Memoria 14:45:00 14:45:00 Pre-Reg r Medicine 13 clarence Bolton 2018-01-29 2018-01-29 Outpatient MHIE MHIE [id number] Memoria 09:45:00 09:45:00 13 clarence Bolton 2018-01-29 2018-01-29 Outpatient VISIT, MG MG [id number] 09:45:00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
[2022-10-25 17:07] LABS: SARS-COV-2 RT PCR NEGATIVE (NEGATIVE)
--- NOTE | 2022-10-25 17:31 | ER ---
Nurse's Notes [facility] Name: Tammie Rhodes Age: 27 yrs Sex: Female : 1995 Arrival Date: 10/25/2022 Time: 15:38 Bed DIS1 Private MD: Diagnosis: Influenza B;Headache;Fever, unspecified;16 weeks gestation of Presentation: 10/25 16:07 Chief complaint: Patient states: Left ear pain, left sinus pain X 2 days. Coronavirus ld1 screen: At this time, the client does not indicate any symptoms associated with coronavirus-19. Ebola Screen: No symptoms or risks identified at this time. Initial Sepsis Screen: Does the patient meet any 2 criteria? No. Patient's initial sepsis screen is negative. Does the patient have a suspected source of infection? No. Patient's initial sepsis screen is negative. Risk Assessment: Do you want to hurt yourself or someone else? Patient reports no desire to harm self or others. Onset of symptoms was October 25, 2022. 16:07 Method Of Arrival: Ambulatory ld1 16:07 Acuity: EBONI 4 ld1 Triage Assessment: 16:08 General: Appears in no apparent distress. comfortable, Behavior is calm, cooperative, ld1 appropriate for age. Pain: Complains of pain in left ear and nose Pain does not radiate. Pain currently is 8 out of 10 on a pain scale. Quality of pain is described as throbbing, Pain began 2-3 days ago. EENT: Reports nasal congestion pain in nose, left ear and left cheek. Neuro: Level of Consciousness is awake, alert, obeys commands, Oriented to person, place, time, situation. Cardiovascular: Capillary refill < 3 seconds Patient's skin is warm and dry. Respiratory: Airway is patent Respiratory effort is even, unlabored. GI: Abdomen is round non-distended. : No signs and/or symptoms were reported regarding the genitourinary system. Derm: No signs and/or symptoms reported regarding the dermatologic system. Musculoskeletal: No signs and/or symptoms reported regarding the musculoskeletal system. 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 - Social history:: Smoking status: Patient denies any tobacco usage or history of. Patient/guardian denies using alcohol. Screenin:30 [facility] ED Fall Risk Assessment (Adult) History of falling in the last 3 months, ss including since admission No falls in past 3 months (0 pts). Abuse screen: Denies threats or abuse. Denies injuries from another. Nutritional screening: No deficits noted. Tuberculosis screening: Never had TB. Assessment: 17:30 General: Appears in no apparent distress. Behavior is calm, cooperative, Reports ss feeling ill for. Neuro: Level of Consciousness is awake, alert, obeys commands. Cardiovascular: Capillary refill < 3 seconds is brisk in bilateral fingers. Respiratory: Respiratory effort is even, unlabored. Derm: Skin is intact, is healthy with good turgor, Skin is pink, warm \T\ dry. normal. Musculoskeletal: Range of motion: intact in all extremities, Swelling absent. Vital Signs: 16:07 BP 99 / 68; Pulse 91; Resp 18; Temp 98.1(TE); Pulse Ox 100% on R/A; Weight 88.45 kg; ld1 Height 5 ft. 3 in. (160.02 cm); Pain 8/10; 16:07 Body Mass Index 34.54 (88.45 kg, 160.02 cm) ld1 ED Course: 15:38 Patient arrived in ED. as 15:40 Quincy Coffey DO is Attending Physician. ms3 16:08 Triage completed. ld1 16:08 Arm band placed on right wrist. ld1 17:30 Zulma Negro, ONUR is Primary Nurse. ss 17:30 Patient has correct armband on for positive identification. Bed in low position. Call ss light in reach. 17:30 No provider procedures requiring assistance completed. Patient did not have IV access ss during this emergency room visit. Administered Medications: No medications were administered Medication: 17:30 VIS not applicable for this client. ss Outcome: 17:30 Discharge ordered by . ms3 17:30 Discharged to home ambulatory. ss 17:30 Condition: good 17:30 Discharge instructions given to patient, Instructed on discharge instructions, follow up and referral plans. medication usage, Demonstrated understanding of instructions, follow-up care, medications. 17:33 Patient left the ED. Signatures: Mary Ellen Green Shelby, RN RN Quincy Coffey DO DO ms3 Zully Bray RN RN ld1 Corrections: (The following items were deleted from the chart) 16:10 16:07 Pulse 80bpm; Resp 18bpm; Pulse Ox 100% RA; Temp 98.1F Temporal; 88.45 kg; Height ld1 5 ft. 3 in.; BMI: 34.5; Pain 8/10; ld1
--- NOTE | 2022-10-25 17:31 | EDPHYS ---
Physician Documentation [facility] Name: Tammie Rhodes Age: 27 yrs Sex: Female : 1995 Arrival Date: 10/25/2022 Time: 15:38 Bed DIS1 Private MD: ED Physician Quincy Coffey HPI: 10/25 17:32 This 27 yrs old Female presents to ER via Ambulatory with complaints of Sinus ms3 Congestion, Ear Pain. 17:32 27-year-old female with past medical history of anemia, anxiety, migraines presents for ms3 fever, left sinus pressure, left ear pain for 4 days. Patient states her symptoms were worse yesterday. Patient states she has had subjective fevers and chills. Patient endorses that her [id number] daughter has congestion at this time.. 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 - Social history:: Smoking status: Patient denies any tobacco usage or history of. Patient/guardian denies using alcohol. ROS: 17:32 Eyes: Negative for injury, pain, redness, and discharge, Neck: Negative for injury, ms3 pain, and swelling, Cardiovascular: Negative for chest pain, and palpitations. Respiratory: Negative for shortness of breath, cough, wheezing, and pleuritic chest pain, Abdomen/GI: Negative for abdominal pain, nausea, vomiting, diarrhea, and constipation. 17:32 Skin: Negative for injury, rash, and discoloration. 17:32 Constitutional: Positive for chills, fever. 17:32 ENT: Positive for sinus pain. 17:32 All other systems are negative. Exam: 17:32 Constitutional: This is a well developed, well nourished patient who is awake, alert, ms3 and in no acute distress. Head/Face: Normocephalic, atraumatic. 17:32 Abdomen/GI: Soft, non-tender, with normal bowel sounds. No distension or tympany. No guarding or rebound. No evidence of tenderness throughout. Skin: Warm, dry with normal turgor. Normal color with no rashes, no lesions, and no evidence of cellulitis. MS/ Extremity: Pulses equal, no cyanosis. Neurovascular intact. Full, normal range of motion. 17:32 ENT: TM's: are normal, no evidence of bulging, no dullness, no erythema, no fluid levels, no rupture, Left mastoid sinus tenderness. Vital Signs: 16:07 BP 99 / 68; Pulse 91; Resp 18; Temp 98.1(TE); Pulse Ox 100% on R/A; Weight 88.45 kg; ld1 Height 5 ft. 3 in. (160.02 cm); Pain 8/10; 16:07 Body Mass Index 34.54 (88.45 kg, 160.02 cm) ld1 MDM: 16:10 Patient medically screened. ms3 17:32 Differential Diagnosis: Influenza Upper Respiratory Infection Sinusitis Viral Syndrome. ms3 Data reviewed: vital signs, nurses notes, lab test result(s). I considered the following discharge prescriptions or medication management in the emergency department Rx for Tamiflu given. Counseling: I had a detailed discussion with the patient and/or guardian regarding: the historical points, exam findings, and any diagnostic results supporting the discharge/admit diagnosis, lab results, the need for outpatient follow up, to return to the emergency department if symptoms worsen or persist or if there are any questions or concerns that arise at home. ED course: Discussed positive influenza B result with patient. Discussed Tamiflu prescription with patient. Patient understands and agrees with plan. All questions were answered. Return precautions discussed include worsening symptoms, or any other concerns. On reevaluation patient is alert and oriented x4, no apparent distress, nontoxic, ambulatory in emergency department, speaking full sentences.. 10/25 16:17 Order name: COVID-19/FLU A+B/RSV; Complete Time: 17:28 [email or web address] Administered Medications: No medications were administered Disposition Summary: 10/25/22 17:30 Discharge Ordered Location: Home ms3 Condition: Stable ms3 Diagnosis - Influenza B ms3 - Headache ms3 - Fever, unspecified ms3 - 16 weeks gestation of ms3 Followup: ms3 - With: Private Physician - When: 2 - 3 days - Reason: Recheck today's complaints Discharge Instructions: - Discharge Summary Sheet ms3 - Fever, Adult ms3 - Influenza, Adult, [id number] ms3 Forms: - Medication Reconciliation Form ms3 - Thank You Letter ms3 - Antibiotic Education ms3 - Prescription Opioid Use ms3 Prescriptions: - Tamiflu 75 mg Oral Capsule - take 1 tablet by ORAL route every 12 hours for 5 days; 10 tablet; Refills: 0, ms3 Product Selection Permitted Signatures: Dispatcher [employer] Quincy Iglesias, DO ms3 Zully Bray, RN RN ld1
[2022-10-25 17:37] VITALS: BP 99/68; TEMP 98.1; O2SAT 100
== END 2022-10-25 17:33 | disposition home or self-care (01) ==
LOC: ER 15:36
DX: O99.512 Diseases of the respiratory system complicating pregnancy, second trimester (principal); J10.1 Influenza due to other identified influenza virus with other respiratory manifestations; Z20.822 Contact with and (suspected) exposure to COVID-19; Z88.6 Allergy status to analgesic agent; Z88.8 Allergy status to other drugs, medicaments and biological substances
CPT/HCPCS: 0241U

== ENCOUNTER 2022-11-20 14:37 | Emergency (ER) | payer OTHER ==
--- OUTSIDE RECORDS SUMMARY | 2022-11-20 14:43 | XMS REPORT | Continuity of Care Document ---
:1995 Author Organization [facility] t Address [address] [place] [address] Care Team Providers Name Role Phone Pcp, Patient Does Not Have A Primary Care Physician [id number] AURELIA SCHMIDT Attending Clinician Unavailable DELMI MENJIVAR Attending Clinician Unavailable Delmi Menjivar DO Attending Clinician Tiffanie MOHR, Deepti Vasquez Attending Clinician Unavailable Fide Mayer PA-C Attending Clinician Maria Del Rosario Eric Attending Clinician MARIA DEL ROSARIO HARVEY Attending Clinician Unavailable Jayesh Anaya DO Attending Clinician Jess Devlin Attending Clinician Doctor Unassigned, Merkel Attending Clinician Unavailable CARMEN GARRETT Attending Clinician [...] Number Effective Date Expiration Date Elizabeth GALAVIZ [id number] 2018 00:00:00 [place] [facility] [id number] 2022 00:00:00 Problems Condition Condition Condition Status Onset Resolution Last Treating Co mments Source Name Details Category Date Date Treatment Clinician Date Disease Active 2014-09 [facility] contractio contractio 09-27 it y of ns ns 00:00: [address] Branch Melanocyti Melanocyt Problem Active 2020-02-21 Memoria c nevus ic nevus 02-24 21:27:44 l (disorder) (disorder) 00:00: He rmann Active 00 02/24/2015 Problem 02/21/2020 Data migrated from [employer] on 03/25/15. Medical Group Patient Patient Problem [...] had blood transfusio n [facility] Low back Low back Problem Active 2020-02-21 Memoria strain strain 5- 21:27:44 l (disorder) (disorder) 00:00: He rmann Active 00 02/06/2013 Problem 02/21/2020 Data migrated from [employer] on 04/27/15. Medical Group Migraine Migraine Problem Active 2020-02-21 Memoria (disorder) (disorder) 02-06 21:27:44 l Active 00:00: Hoang 02/06/2013 00 Problem 02/21/2020 Data migrated from [employer] on 04/27/15. Medical Group Seizure Seizure Problem Active 2020-02-21 Me moria disorder disorder -22 21:27:44 l (disorder) (disorder) 00:00: He rmann Active 00 02/06/2013 Problem 02/21/2020 Data migrated from [facility] on 04/27/15. 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 21:27:44 l hyperactiv hyperactiv Mick rmlynsey ity ity disorder disorder (disorder) (disorder) Active Problem 02/21/2020 Medical Group Obesity Obesity Problem Active 2020-02-21 Me moria (disorder) (disorder) 21:27:44 l Active Hoang Problem 02/21/2020 Medical Group Bipolar 1 Bipolar 1 Problem Active Com mon disorder, disorder, Spir it depressed depressed - I [facility] Migraine Migraine Problem Active Commo n with with Spirit status status - [facility] migrainos[facility] migrainos[facility], not s, not [facility] intractabl intractabl Me dical e, e, Center unspecifie unspecifie d migraine d migraine type type Seasonal Seasonal Problem Active Commo n allergies allergies Spir it - [facility] Allergic Allergic Problem Active Commo n rhinitis, rhinitis, Spir it unspecifie unspecifie - [facility] d d St seasonalit seasonalit Jessica kes y, y, Medical unspecifie unspecifie Ce nter d trigger d trigger Tuberculos Tuberculos Diagnosis Active Common is is Spirit screening screening - I [facility] Acute Acute Problem Resolve 2005-2020-02-21 2020-02-21 Memoria appendicit appendicit d 1- 21:27:44 21:27:44 l is is 00:00: Hoang [...] Branch Benadryl Adverse Active rash Common Reaction [facility] Aspirin Adverse Active swelling Common Reaction [facility] diphenhy diphenhy Active Memori a drAMINE< drAMINE< l sup>1</s sup>1</s Joseph n up> up> aspirin aspirin Active Moderate Memori a l [place] traZODon traZODon Active Memori a e<sup>2< e<sup>2< l /sup> /sup> Hoang Benadryl Benadryl Active 552113695 Mem oria l Hoang Tylenol Tylenol Active [id number] Memor ia l Hoang Social History Social Habit Start Date Stop Date Quantity Comments Source Exposure to 2022-08-26 2022-09-05 Not sure [facility] SARS-CoV-2 (event) 00:00:00 11:38:00 Medica l Branch Social History 2017-04-11 2017-04-11 [facility] kerry 19:22:36 19:22:36 Sex Ass[birth year] At [birth year] [facility] y of [place] 00:00:00 00:00:00 Medical Branch Smoking Status Start Date Stop Date Source Tobacco smoking consumption [facility] Medical unknown Branch Medications Ordered Filled Start Stop Current Ordering Indication Dosage Frequency Signature Comments Components Source Medication Medication Date Date Medication? Clinician (SIG) Name Name predniSONE 2021-09- Yes [id number] 50mg Take 1 Univers 50 mg 2-20 12-25 tablet by ity of tablet 00:00: 05:59 mouth in [place] 00 :00 the Medical morning Branch for 4 days. predniSONE 2021-09 No 50mg 50 mg, Univ ers (DELTASONE) 2-05 09- Oral, ity of tablet 50 18:00: 17:50 ONCE, 1 [place] mg 00 :00 dose, On Medical Mon [place] 09/05/22 at 1200, MISTY fluticasone Yes [id number] 2{spray Use 2 Univers propionate 1-02 } Sprays in ity of 50 00:00: each [place] mcg/actuati 00 nostril Medic al on nasal daily. [place] spray cetirizine Yes [id number] 10mg Take 1 U nivers 10 mg 1-02 tablet by ity of tablet 00:00: mouth [place] 00 daily. [facility] Branch fluticasone Yes [id number] 2{spray Use 2 Univers propionate 1-02 } Sprays in ity of 50 00:00: each [place] mcg/actuati 00 nostril Medic al on nasal daily. [place] spray cetirizine Yes [id number] 10mg Take 1 U nivers 10 mg 1-02 tablet by ity of tablet 00:00: mouth [place] 00 daily. [facility] Branch fluticasone Yes [id number] 2{spray Use 2 Univers propionate 1-02 } Sprays in ity of 50 00:00: each [place] mcg/actuati 00 nostril Medic al on nasal daily. [place] spray cetirizine Yes [id number] 10mg Take 1 U nivers 10 mg 1-02 tablet by ity of tablet 00:00: mouth [place] 00 daily. [facility] Branch ketorolac 2020- No 30mg 30 mg, Unive rs (TORADOL) 01-10- Slow IV ity of injection 00:30: 23:30 Push, [place] 30 mg 00 :00 ONCE, 1 Medical dose, Sat Branch 01/09/21 at 1930, [facility]ISTY
[facility] Rest[facility] : JESS WALTER [...] dose, 01/09/21 at 1715, MISTY ibuprofen Yes [id number] 600mg Take 1 U nivers 600 mg 4-24 tablet by ity of tablet 00:00: mouth [place] 00 every 6 Medical (six) Branch hours as needed for Pain (scale 4-6). ibuprofen Yes [id number] 600mg Take 1 U nivers 600 mg 4-24 tablet by ity of tablet 00:00: mouth [place] 00 every 6 Medical (six) Branch hours as needed for Pain (scale 4-6). ibuprofen 0 Yes [id number] 600mg Take 1 U nivers 600 mg 4-24 tablet by ity of tablet 00:00: mouth [place] 00 every 6 Medical (six) Branch hours as needed for Pain (scale 4-6). ibuprofen Yes [id number] 600mg Take 1 U nivers 600 mg 4-24 tablet by ity of tablet 00:00: mouth [place] 00 every 6 Medical (six) Branch hours as needed for Pain (scale 4-6). ibuprofen 0 Yes [id number] 600mg Take 1 U nivers 600 mg 4-24 tablet by ity of tablet 00:00: mouth [place] 00 every 6 Medical (six) Branch hours as needed for Pain (scale 4-6). cefdinir 2020-0 2020- No [id number] 300mg Take 1 U nivers 300 mg 4-24 05-02 capsule by ity of capsule 00:00: 04:59 mouth 2 [place] 00 :00 (two) Medical times Branch daily for 7 days. benzonatate Yes [id number] 100mg Take 1 Univers 100 mg 2-04 capsule by ity of capsule 00:00: mouth 3 [place] 00 (three) Medical times Branch daily as needed for Cough. chlorphenir Yes [id number] 4mg Take 1 Univers amine 4 mg 2-04 tablet by ity of tablet 00:00: mouth [place] 00 every 6 Medical (six) Branch hours as needed for Allergies or Runny nose. multivitami Yes [id number] 1{capsu Take 1 Univers n capsule 2-04 le} capsule by ity of 00:00: mouth [place] 00 daily. Medical Branch calcium-mag Yes [id number] Take as Univers nesium-zinc 2-04 directed ity of 333-133-8.3 00:00: for daily [place] mg Tab 00 dose. Medical Branch benzonatate Yes [id number] 100mg Take 1 Univers 100 mg 2-04 capsule by ity of capsule 00:00: mouth 3 [place] 00 (three) Medical times Branch daily as needed for Cough. chlorphenir Yes [id number] 4mg Take 1 Univers amine 4 mg 2-04 tablet by ity of tablet 00:00: mouth [place] 00 every 6 Medical (six) Branch hours as needed for Allergies or Runny nose. multivitami Yes [id number] 1{capsu Take 1 Univers n capsule 2-04 le} capsule by ity of 00:00: mouth [place] 00 daily. Medical Branch calcium-mag Yes [id number] Take as Univers nesium-zinc 2-04 directed ity of 333-133-8.3 00:00: for daily [place] mg Tab 00 dose. Medical Branch benzonatate Yes [id number] 100mg Take 1 Univers 100 mg 2-04 capsule by ity of capsule 00:00: mouth 3 [place] 00 (three) Medical times Branch daily as needed for Cough. chlorphenir Yes [id number] 4mg Take 1 Univers amine 4 mg 2-04 tablet by ity of tablet 00:00: mouth [place] 00 every 6 Medical (six) Branch hours as needed for Allergies or Runny nose. multivitami Yes [id number] 1{capsu Take 1 Univers n capsule 2-04 le} capsule by ity of 00:00: mouth [place] 00 daily. Medical Branch calcium-mag Yes [id number] Take as Univers nesium-zinc 2-04 directed ity of 333-133-8.3 00:00: for daily [place] mg Tab 00 dose. Medical Branch benzonatate Yes [id number] 100mg Take 1 Univers 100 mg 2-04 capsule by ity of capsule 00:00: mouth 3 [place] 00 (three) Medical times Branch daily as needed for Cough. chlorphenir Yes [id number] 4mg Take 1 Univers amine 4 mg 2-04 tablet by ity of tablet 00:00: mouth [place] 00 every 6 Medical (six) Branch hours as needed for Allergies or Runny nose. multivitami Yes [id number] 1{capsu Take 1 Univers n capsule 2-04 le} capsule by ity of 00:00: mouth [place] 00 daily. Medical Branch calcium-mag Yes [id number] Take as Univers nesium-zinc 2-04 directed ity of 333-133-8.3 00:00: for daily [place] mg Tab 00 dose. Medical Branch benzonatate Yes [id number] 100mg Take 1 Univers 100 mg 2-04 capsule by ity of capsule 00:00: mouth 3 [place] 00 (three) Medical times Branch daily as needed for Cough. chlorphenir Yes [id number] 4mg Take 1 Univers amine 4 mg 2-04 tablet by ity of tablet 00:00: mouth [place] 00 every 6 Medical (six) Branch hours as needed for Allergies or Runny nose. multivitami Yes [id number] 1{capsu Take 1 Univers n capsule 2-04 le} capsule by ity of 00:00: mouth [place] 00 daily. Medical Branch calcium-mag Yes [id number] Take as Univers nesium-zinc 2-04 directed ity of 333-133-8.3 00:00: for daily [place] mg Tab 00 dose. Medical Branch benzonatate Yes [id number] 100mg Take 1 Univers 100 mg 2-04 capsule by ity of capsule 00:00: mouth 3 [place] 00 (three) Medical times Branch daily as needed for Cough. chlorphenir Yes [id number] 4mg Take 1 Univers amine 4 mg 2-04 tablet by ity of tablet 00:00: mouth [place] 00 every 6 Medical (six) Branch hours as needed for Allergies or Runny nose. multivitami Yes [id number] 1{capsu Take 1 Univers n capsule 2-04 le} capsule by ity of 00:00: mouth [place] 00 daily. Medical Branch calcium-mag Yes [id number] Take as Univers nesium-zinc 2-04 directed ity of 333-133-8.3 00:00: for daily [place] mg Tab 00 dose. Medical Branch benzonatate Yes [id number] 100mg Take 1 Univers 100 mg 2-04 capsule by ity of capsule 00:00: mouth 3 [place] 00 (three) Medical times Branch daily as needed for Cough. chlorphenir Yes [id number] 4mg Take 1 Univers amine 4 mg 2-04 tablet by ity of tablet 00:00: mouth [place] 00 every 6 Medical (six) Branch hours as needed for Allergies or Runny nose. multivitami Yes [id number] 1{capsu Take 1 Univers n capsule 2-04 le} capsule by ity of 00:00: mouth [place] 00 daily. Medical Branch calcium-mag Yes [id number] Take as Univers nesium-zinc 2-04 directed ity of 333-133-8.3 00:00: for daily [place] mg Tab 00 dose. Medical Branch benzonatate Yes [id number] 100mg Take 1 Univers 100 mg 2-04 capsule by ity of capsule 00:00: mouth 3 [place] 00 (three) Medical times Branch daily as needed for Cough. chlorphenir Yes [id number] 4mg Take 1 Univers amine 4 mg 2-04 tablet by ity of tablet 00:00: mouth [place] 00 every 6 Medical (six) Branch hours as needed for Allergies or Runny nose. multivitami Yes [id number] 1{capsu Take 1 Univers n capsule 2-04 le} capsule by ity of 00:00: mouth [place] 00 daily. Medical Branch calcium-mag Yes [id number] Take as Univers nesium-zinc 2-04 directed ity of 333-133-8.3 00:00: for daily [place] mg Tab 00 dose. Medical Branch iohexol 2020-0 2020- No 110mL 110 mL, Unive rs (OMNIPAQUE 603-04 Intravenou it y of 350 22:15: 22:00 s, ONCE, 1 [place] BULK-150 00 :00 dose, Wed Medica l mL) 03/04/20 at [place] injection 1715, 110 mL Routine morpHINE 2020- No 4mg 4 mg, Slow Un kassandra injection 4 03-04 IV Push, ity of mg 21:15: 20:41 ONCE, 1 [place] 00 :00 dose, Wed Medical 03/04/20 at Branch 1615, STAT ondansetron 2020- No 4mg 4 mg, Slow Univers (ZOFRAN 03-04 IV Push, ity of (PF)) 21:15: 20:41 ONCE, 1 [place] injection 4 00 :00 dose, Wed Med ical mg 03/04/20 at Branch 1615, MISTY { Yes See Memoria (Methylpred 5-20 Instructio l nisolone 4 15:28: ns, PO, Herm lynsey MG Oral 00 Take by Tablet mouth as [Medrol]) } directed Pack on label., [Medrol X 6 day, # Dosepak] 21 tab, 0 Refill(s), Pharmacy: [facility] #[id number] naproxen 2020-0 Yes 500 mg = 1 Mem oria 500 mg oral 5-20 tab, PO, l tablet 15:28: BID, with Joseph n 00 food, X 14 day, # 28 tab, 0 Refill(s), Pharmacy: [facility] #[id number] { Yes See Memoria (Methylpred 5-20 Instructio l nisolone 4 15:28: ns, PO, Herm lynsey MG Oral 00 Take by Tablet mouth as [Medrol]) } directed Pack on label., [Medrol X 6 day, # Dosepak] 21 tab, 0 Refill(s), Pharmacy: [facility] #[id number] naproxen 2020-0 Yes 500 mg = 1 Mem oria 500 mg oral 5-20 tab, PO, l tablet 15:28: BID, with Joseph n 00 food, X 14 day, # 28 tab, 0 Refill(s), Pharmacy: [facility] #[id number] { Yes See Memoria (Methylpred 5-20 Instructio l nisolone 4 15:28: ns, PO, Herm lynsey MG Oral 00 Take by Tablet mouth as [Medrol]) } directed Pack on label., [Medrol X 6 day, # Dosepak] 21 tab, 0 Refill(s), Pharmacy: [facility] #[id number] naproxen 2019-0 Yes 500 mg = 1 Mem oria 500 mg oral 5-20 tab, PO, l tablet 15:28: BID, with Joseph n 00 food, X 14 day, # 28 tab, 0 Refill(s), Pharmacy: [facility] #[id number] {0 Yes See Memoria (Methylpred 5-20 Instructio l nisolone 4 15:28: ns, PO, Herm lynsey MG Oral 00 Take by Tablet mouth as [Medrol]) } directed Pack on label., [Medrol X 6 day, # Dosepak] 21 tab, 0 Refill(s), Pharmacy: [facility] #[id number] naproxen 2019-0 Yes 500 mg = 1 Mem oria 500 mg oral 5-20 tab, PO, l tablet 15:28: BID, with Joseph n 00 food, X 14 day, # 28 tab, 0 Refill(s), Pharmacy: [facility] #[id number] Fluticasone Fluticasone Yes Julian 1 spray in Common Propionate Propionate 01-14 Susie each Sp erasto 00:00: nostril - [facility] 00 [facility] RyVent RyVent 2019- No Julian 1 tablet Co mmon 01-14 06-13 Susie on an Spirit 00:00: 00:00 empty - [facility] 00 :00 stomach as [facility] SUMAtriptan Yes 6mg inject 6 Un kassandra 6 mg/0.5 mL 1-31 mg under ity of injection 17:04: [place] 18 once now. Medical Branch CLONAZEPAM Yes Take by [facility] ers ORAL 1-31 mouth. ity of 17:04: [place] 18 Medical Branch SUMAtriptan Yes 6mg inject 6 Un kassandra 6 mg/0.5 mL 1-31 mg under ity of injection 17:04: the skin [place] 18 once now. Medical Branch CLONAZEPAM 2019-0 Yes Take by Univ ers ORAL 1-31 mouth. ity of 17:04: [place] [address] Medical Branch SUMAtriptan 2018- Yes 6mg inject 6 Un kassandra 6 mg/0.5 mL 1-31 mg under ity of injection 17:04: the skin [place] 18 once now. Medical Branch CLONAZEPAM 2018- Yes Take by [facility] ORAL 1-31 mouth. ity of 17:04: [place] [address] Medical Branch SUMAtriptan 2018- Yes 6mg inject 6 Un kassandra 6 mg/0.5 mL 1-31 mg under ity of injection 17:04: the skin [place] 18 once now. Medical Branch CLONAZEPAM Yes Take by [facility] ORAL 1-31 mouth. ity of 17:04: [place] [address] Medical Branch SUMAtriptan 2018- Yes 6mg inject 6 Un kassandra 6 mg/0.5 mL 1-31 mg under ity of injection 17:04: the skin [place] 18 once now. Medical Branch CLONAZEPAM Yes Take by [facility] ORAL 1-31 mouth. ity of 17:04: [place] [address] Medical Branch SUMAtriptan 2018- Yes 6mg inject 6 Un kassandra 6 mg/0.5 mL 1-31 mg under ity of injection 17:04: the skin [place] 18 once now. Medical Branch CLONAZEPAM 2018- Yes Take by [facility] ORAL 1-31 mouth. ity of 17:04: [place] [address] Medical Branch SUMAtriptan 2018- Yes 6mg inject 6 Un kassandra 6 mg/0.5 mL 1-31 mg under ity of injection 17:04: the skin [place] 18 once now. Medical Branch CLONAZEPAM 2018- Yes Take by [facility] ORAL 1-31 mouth. ity of 17:04: [place] [address] Medical Branch SUMAtriptan 2018- Yes 6mg inject 6 Un kassandra 6 mg/0.5 mL 1-31 mg under ity of injection 17:04: the skin [place] 18 once now. Medical Branch CLONAZEPAM 2018- Yes Take by [facility] ORAL 1-31 mouth. ity of 17:04: [place] [address] Medical Branch SUMAtriptan 2018- Yes 6mg inject 6 Un kassandra 6 mg/0.5 mL 1-31 mg under ity of injection 11:04: the skin [place] 18 once now. Medical Branch CLONAZEPAM Yes Take by [facility] ers ORAL 1-31 mouth. ity of 11:04: [place] [address] Medical Branch SUMAtriptan Yes 6mg inject 6 Un kassandra 6 mg/0.5 mL 1-31 mg under ity of injection 11:04: the skin [place] 18 once now. Medical Branch CLONAZEPAM Yes Take by [facility] ers ORAL 1-31 mouth. ity of 11:04: [place] [address] Medical Branch SUMAtriptan Yes 6mg inject 6 Un kassandra 6 mg/0.5 mL 1-31 mg under ity of injection 11:04: the skin [place] 18 once now. Medical Branch CLONAZEPAM Yes Take by [facility] ers ORAL 1-31 mouth. ity of 11:04: [place] [address] Medical Branch { Yes See Memoria (Methylpred 9-28 Instructio l nisolone 4 20:18: ns, PO, Herm lynsey MG Oral 00 Take by Tablet mouth as [Medrol]) } directed Pack on label., [Medrol # 1 Pack, Dosepak] 1 Refill(s), Pharmacy: [facility] { Yes See Memoria (Methylpred 9-28 Instructio l nisolone 4 20:18: ns, PO, Herm lynsey MG Oral 00 Take by Tablet mouth as [Medrol]) } directed Pack on label., [Medrol # 1 Pack, Dosepak] 1 Refill(s), Pharmacy: [facility] { Yes See Memoria (Methylpred 9-28 Instructio l nisolone 4 20:18: ns, PO, Herm lynsey MG Oral 00 Take by Tablet mouth as [Medrol]) } directed Pack on label., [Medrol # 1 Pack, Dosepak] 1 Refill(s), Pharmacy: [facility] { Yes See Memoria (Methylpred 9-28 Instructio l nisolone 4 20:18: ns, PO, Herm lynsey MG Oral 00 Take by Tablet mouth as [Medrol]) } directed Pack on label., [Medrol # 1 Pack, Dosepak] 1 Refill(s), Pharmacy: [facility] lisdexamfet Yes 20 mg = 1 M emoria amine 6-13 cap, PO, l dimesylate 19:46: QAM, # 30 He rmann 20 MG Oral 00 tab, 0 Capsule Refill(s) [Vyvanse] Levonorgest 2018- Yes 52 mg = 1 M emoria rel 6-13 ea, l 0.164555 19:46: Intrautera Her watkins MG/HR Drug 00 l, ONCE, # Implant 1 ea, 0 [Mirena] Refill(s) lisdexamfet 2017- Yes 20 mg = 1 M emoria amine 6-13 cap, PO, l dimesylate 19:46: QAM, # 30 He rmann 20 MG Oral 00 tab, 0 Capsule Refill(s) [Vyvanse] Levonorgest Yes 52 mg = 1 M emoria rel 6-13 ea, l 0.172132 19:46: Intrautera Her watkins MG/HR Drug 00 l, ONCE, # Implant 1 ea, 0 [Mirena] Refill(s) lisdexamfet Yes 20 mg = 1 M emoria amine 6-13 cap, PO, l dimesylate 19:46: QAM, # 30 He rmann 20 MG Oral 00 tab, 0 Capsule Refill(s) [Vyvanse] Levonorgest 2018- Yes 52 mg = 1 M emoria rel 6-13 ea, l 0.578191 19:46: Intrautera Her watkins MG/HR Drug 00 l, ONCE, # Implant 1 ea, 0 [Mirena] Refill(s) lisdexamfet Yes 20 mg = 1 M emoria amine 6-13 cap, PO, l dimesylate 19:46: QAM, # 30 He rmann 20 MG Oral 00 tab, 0 Capsule Refill(s) [Vyvanse] Levonorgest 2018-0 Yes 52 mg = 1 M emoria rel 6-13 ea, l [id number] 19:46: Intrautera Her watkins MG/HR Drug 00 l, ONCE, # Implant 1 ea, 0 [Mirena] Refill(s) cephalexin Yes 500 mg = 1 M emoria 500 mg oral 5-09 cap, PO, l capsule 19:25: TID, X 10 Debbie nn 00 day, # 30 cap, 0 Refill(s), Pharmacy: [facility] 482 cephalexin 2018-0 Yes 500 mg = 1 M emoria 500 mg oral 5-09 cap, PO, l capsule 19:25: TID, X 10 Debbie nn 00 day, # 30 cap, 0 Refill(s), Pharmacy: [facility] 48 cephalexin 2018-0 Yes 500 mg = 1 M emoria 500 mg oral 5-09 cap, PO, l capsule 19:25: TID, X 10 Debbie nn 00 day, # 30 cap, 0 Refill(s), Pharmacy: [facility] 482 cephalexin 2018-0 Yes 500 mg = 1 M emoria 500 mg oral 5-09 cap, PO, l capsule 19:25: TID, X 10 Debbie nn 00 day, # 30 cap, 0 Refill(s), Pharmacy: [facility] Ceftriaxone 2018-0 No 1 gm, Memor ia 01-24 Route: IM, l 19:24: Drug form: Hoang 00 PDR/INJ, ONCE, Dosing Weight 86.818, kg, Start date: 01/24/18 14:24:00 CDT, Stop date: 01/24/18 14:24:00 CDT Ceftriaxone 2018-0 No 1 gm, Memor ia 01-24 Route: IM, l 19:24: Drug form: [place]ang 00 PDR/INJ, ONCE, Dosing Weight 86.818, kg, Start date: 01/24/18 14:24:00 CDT, Stop date: 01/24/18 14:24:00 CDT Ceftriaxone 2018-0 No 1 gm, Memor ia 01-24 Route: IM, l 19:24: Drug form: [place] 00 PDR/INJ, ONCE, Dosing Weight 86.818, kg, Start date: 01/24/18 14:24:00 CDT, Stop date: 01/24/18 14:24:00 CDT Ceftriaxone 2018-0 No 1 gm, Memor ia 01-24 Route: IM, l 19:24: Drug form: [place] 00 PDR/INJ, ONCE, Dosing Weight 86.818, kg, Start date: 01/24/18 14:24:00 CDT, Stop date: 01/24/18 14:24:00 CDT Saline Lock No Joesph K 10 mL, Me moria Flush 7-15 Rasheed Soln, IV l 18:24: Push, As [place] 00 Indicated PRN for flush, first dose 04/01/15 13:24:00 CDT ondansetron No Joesph K 8 mg = 1 Memoria 7-15 Rasheed tabs, l 18:24: Tab-Dis, [place] Oral, Once PRN for nausea/vom iting, first dose 04/01/15 13:24:00 CDT Dilaudid No Joesph K 0.2 mg = Mem oria 7-15 Rasheed 0.1 mL, l 18:24: Injection, [place] 00 IV Push, q10min PRN for pain severe (7-10), first dose 04/01/15 13:24:00 CDT promethazin No Joesph K 12.5 mg = Memoria e 7-15 Rasheed 0.5 mL, l 18:24: Injection, [place] 00 IM, Once PRN for severe nausea, first dose 04/01/15 13:24:00 CDT LR 1,000 mL No Joesph K 1,000 mL, Memoria 7-15 Rasheed IV, 75 l 18:24: mL/hr, [place] 00 start date 04/01/15 13:24:00 CDT Saline Lock No Joesph K 10 mL, Me moria Flush 7-15 Rasheed Soln, IV l 18:24: Push, As [place] 00 Indicated PRN for flush, first dose 04/01/15 13:24:00 CDT ondansetron No Joesph K 8 mg = 1 Memoria 7-15 [place] tabs, l 18:24: Tab-Dis, [place] 00 Oral, Once PRN for nausea/vom iting, first dose 04/01/15 13:24:00 CDT Dilaudid No Joesph K 0.2 mg = Mem oria 7-15 Rasheed 0.1 mL, l 18:24: Injection, [place] 00 IV Push, q10min PRN for pain severe (7-10), first dose 04/01/15 13:24:00 CDT promethazin No Joesph K 12.5 mg = Memoria e 7-15 Rasheed 0.5 mL, l 18:24: Injection, [place] 00 IM, Once PRN for severe nausea, first dose 04/01/15 13:24:00 CDT LR 1,000 mL No Joesph K 1,000 mL, Memoria 7-15 Rasheed IV, 75 l 18:24: mL/hr, [place] 00 start date 04/01/15 13:24:00 CDT Saline Lock No Joesph K 10 mL, Me moria Flush 7-15 Rasheed Soln, IV l 18:24: Push, As [place] 00 Indicated PRN for flush, first dose [...] Rasheed Soln, IV l 18:24: Push, As [place] 00 Indicated PRN for flush, first dose [...] 7-15 Rasheed 0.5 mL, l 18:24: Injection, [place] 00 IM, Once PRN for severe nausea, first dose 04/01/15 13:24:00 CDT LR 1,000 mL No Joesph K 1,000 mL, Memoria 7-15 Rasheed IV, 75 l 18:24: mL/hr, [place] 00 start date 04/01/15 13:24:00 [place] [facility] [place] 600 mL, Memoria Medication 04-01 Yeh Soln-IV, l 18:19: IV, Once, first dose 04/01/15 13:19:00 CDT, stop date 04/01/15 13:19:00 CDT [facility] [place] 600 mL, Memoria Medication 04-01 Yeh Soln-IV, l 18:19: IV, Once, first dose 04/01/15 13:19:00 CDT, stop date 04/01/15 13:19:00 CDT [facility] [place] 600 mL, Memoria Medication 04-01 Yeh Soln-IV, l 18:19: IV, Once, first dose 04/01/15 13:19:00 CDT, stop date 04/01/15 13:19:00 CDT [facility] [place] 600 mL, Memoria Medication 04-01 Yeh Soln-IV, l 18:19: IV, Once, first dose 04/01/15 13:19:00 CDT, stop date 04/01/15 13:19:00 CDT propofol No Joey 300 mg = Me moria -15 Yeh 30 mL, l 17:57: Emulsion, Hoang 00 IV, Once, first dose 04/01/15 12:57:00 CDT, stop date 04/01/15 12:57:00 CDT propofol 2014-0 No Joey 300 mg = Me moria 7-15 Yeh 30 mL, l 17:57: Emulsion, [place] 00 IV, Once, first dose 04/01/15 12:57:00 CDT, stop date 04/01/15 12:57:00 CDT propofol 2014-0 No Joey 300 mg = Me moria 7-15 Yeh 30 mL, l 17:57: Emulsion, [place] 00 IV, Once, first dose 04/01/15 12:57:00 CDT, stop date 04/01/15 12:57:00 CDT propofol 2014- No Joey 300 mg = Me moria 7-15 Yeh 30 mL, l 17:57: Emulsion, Hoang 00 IV, Once, first dose 04/01/15 12:57:00 CDT, stop date 04/01/15 12:57:00 CDT ceFAZolin + 2014- No Joey 1 gm, Me moria Sodium 7-15 Yeh Powder-Inj l Chloride 17:40: , IV, [place] 0.9% 100 mL 00 Once, first dose 04/01/15 12:40:00 CDT, stop date 04/01/15 12:40:00 CDT ceFAZolin + No Joey 1 gm, Me moria Sodium 7-15 Yeh Powder-Inj l Chloride 17:40: , IV, [place] 0.9% 100 mL 00 Once, first dose 04/01/15 12:40:00 CDT, stop date 04/01/15 12:40:00 CDT ceFAZolin + No Joey 1 gm, Me moria Sodium 7-15 Yeh Powder-Inj l Chloride 17:40: , IV, [place] 0.9% 100 mL 00 Once, first dose 04/01/15 12:40:00 CDT, stop date 04/01/15 12:40:00 CDT ceFAZolin + 0 No Joey 1 gm, Me moria Sodium 7-15 Yeh Powder-Inj l Chloride 17:40: , IV, [place] 0.9% 100 mL 00 Once, first dose 04/01/15 12:40:00 CDT, stop date 04/01/15 12:40:00 CDT fentaNYL 2014-0 No Joey 100 mcg = Keyur goria 7-15 Yeh 2 mL, l 17:34: Injection, Hoang 00 IV, Once, first dose 04/01/15 12:34:00 CDT, stop date 04/01/15 12:34:00 CDT lidocaine 2014-0 No Joey 3 mL, Jose Carlos maury 7-15 Yeh Injection, l 17:34: IV, Once, [place] 00 first dose 04/01/15 12:34:00 CDT, stop date 04/01/15 12:34:00 CDT fentaNYL 2014-0 No Joey 100 mcg = Keyur goria 7-15 Yeh 2 mL, l 17:34: Injection, Hoang 00 IV, Once, first dose 04/01/15 12:34:00 CDT, stop date 04/01/15 12:34:00 CDT lidocaine 2014-0 No Joey 3 mL, Jose Carlos maury 7-15 Yeh Injection, l 17:34: IV, Once, [place] 00 first dose 04/01/15 12:34:00 CDT, stop date 04/01/15 12:34:00 CDT fentaNYL 2014-0 No Joey 100 mcg = Keyur goria 7-15 Yeh 2 mL, l 17:34: Injection, Hoang 00 IV, Once, first dose 04/01/15 12:34:00 CDT, stop date 04/01/15 12:34:00 CDT lidocaine 2014-0 No Joey 3 mL, Jose Carlos maury 7-15 Yeh Injection, l 17:34: IV, Once, Hoang 00 first dose 04/01/15 12:34:00 CDT, stop date 04/01/15 12:34:00 CDT fentaNYL 2014-0 No Joey 100 mcg = Keyur goria 7-15 Yeh 2 mL, l 17:34: Injection, Hoang 00 IV, Once, first dose 04/01/15 12:34:00 CDT, stop date 04/01/15 12:34:00 CDT lidocaine 2014-0 No Joey 3 mL, Jose Carlos maury 7-15 Yeh Injection, l 17:34: IV, Once, [place] 00 first dose 04/01/15 12:34:00 CDT, stop [...] CDT, stop date 04/01/15 11:00:00 CDT ceFAZolin 2014- No Rohith 1 gm, IV Me moria 7-15 Hillery Piggyback, l 16:00: Once, [place] 00 infuse over 30 minutes, first dose 04/01/15 11:00:00 CDT, stop date 04/01/15 11:00:00 CDT ceFAZolin 2014-0 No Rohith 1 gm, IV Me moria 7-15 Hillery Piggyback, l 16:00: Once, [place] 00 infuse over 30 minutes, first dose [...] Hoang 00 start date 04/01/15 10:19:00 CDT Lidocaine 0 No Joesph K 0.2 mL, Mem oria 2% 0.2 mL 7-15 Rasheed Injection, l IV Start 15:19: Subcutaneo Her watkins [[place]] 00 us, Once PRN for other (see comment), first dose 04/01/15 10:19:00 CDT LR 1,000 mL No Joesph K 1,000 mL, Memoria 7-15 Rasheed IV, 30 l 15:19: mL/hr, [place] 00 start date 04/01/15 10:19:00 CDT Lidocaine No Joesph K 0.2 mL, Mem oria 2% 0.2 mL 7-15 Rasheed Injection, l IV Start 15:19: Subcutaneo Her watkins [[place]] 00 us, Once PRN for other (see comment), first dose 04/01/15 10:19:00 CDT LR 1,000 mL No Joesph K 1,000 mL, Memoria 7-15 Rasheed IV, 30 l 15:19: mL/hr, Hoang start date 04/01/15 10:19:00 CDT Lidocaine No [...] ia vitamins 6-22 vitamins, l 15:44: 0 [place] 00 Refill(s), supplement Yes Memor ia vitamins 6-22 vitamins, l 15:44: 0 [place] 00 Refill(s), supplement Yes Memor ia vitamins 6-22 vitamins, l 15:44: 0 Hoang 00 Refill(s), supplement Yes Memor ia vitamins 6-22 vitamins, l 15:44: 0 Hoang 00 Refill(s), supplement Topiramate Topiramate Yes Julian 1 tablet Common [facility] Sumatriptan Sumatriptan Yes Julian (Prior Common Succinate Succinate Susie Auth: Rx [facility] Ref#:[id number] - [facility] [id number]) [facility] Immunizations Ordered Immunization Filled Immunization Date Status Commen ts Source Name Name TB PPD TB PPD 2019-01-14 Completed [facility] - 00:00:00 [facility] influenza virus 2018-06-29 Completed Memorial vaccine, inactivated [...] adult 2018-05-25 Completed Memoria l vaccine 20:29:00 [place] hepatitis B adult 2017-11-29 Completed Memoria l vaccine 15:19:00 [place] hepatitis B adult 2017-11-29 Completed Memoria l vaccine 15:19:00 Hoang hepatitis B adult 2017-11-29 Completed Memoria l vaccine 15:19:00 [place] hepatitis B adult 2017-11-29 Completed Memoria l vaccine 15:19:00 [place] hepatitis B adult 2017-11-01 Completed Memoria l vaccine 16:26:00 [place] hepatitis B adult 2017-11-01 Completed Memoria l vaccine 16:26:00 Hoang hepatitis B adult 2017-11-01 Completed Memoria l vaccine 16:26:00 [place] hepatitis B adult 2017-11-01 Completed Memoria l vaccine 16:26:00 [place] diphtheria/pertussis 2017-10-19 Completed Jose Carlos rial , [...] 2022-09-05 113 mm[Hg] University of pressure 17:19:00 [facility] Diastolic blood 2022-09-05 63 mm[Hg] University o f pressure 17:19:00 [facility] Heart rate 2022-09-05 93 /min University of 17:19:00 [facility] Body temperature 2022-09-05 36.5 Jennifer University of 17:19:00 [facility] Respiratory rate 2022-09-05 20 /min University of 17:19:00 [facility] Body weight 2022-09-05 89.359 kg University of 17:19:00 [facility] BMI 2022-09-05 33.81 kg/m2 University of 17:19:00 [facility] Oxygen saturation 2022-09-05 100 /min University of in Arterial blood 17:19:00 [place] [facility] by Pulse oximetry Branch Systolic blood 2021-09-19 103 mm[Hg] University of pressure 18:36:00 [facility] Diastolic blood 2021-09-19 71 mm[Hg] University o f pressure 18:36:00 [facility] Heart rate 2021-09-19 116 /min University of 18:36:00 [facility] Body temperature 2021-09-19 37.22 Jennifer University of 18:36:00 [facility] Respiratory rate 2021-09-19 20 /min University of 18:36:00 [facility] Body height 2021-09-19 162.6 cm University of 18:36:00 [facility] Body weight 2021-09-19 97.07 kg University of 18:36:00 [facility] BMI 2021-09-19 36.73 kg/m2 University of 18:36:00 [facility] Oxygen saturation 2021-09-19 99 /min University of in Arterial blood 18:36:00 [place] [facility] by Pulse oximetry Branch Systolic blood 2021-04-19 111 mm[Hg] University of pressure 16:33:00 [facility] Diastolic blood 2021-04-19 65 mm[Hg] University o f pressure 16:33:00 [facility] Heart rate 2021-04-19 61 /min University of 16:33:00 [facility] Respiratory rate 2021-04-19 18 /min University of 16:33:00 [facility] Oxygen saturation 2021-04-19 100 /min University of in Arterial blood 16:33:00 [place] [facility] by Pulse oximetry Branch Body temperature 2021-04-19 36.89 Jennifer University of 13:31:00 [facility] Body weight 2021-04-19 81.647 kg University of 13:31:00 [facility] BMI 2021-04-19 30.90 kg/m2 University of 13:31:00 [facility] Systolic blood 2021-01-10 107 mm[Hg] University of pressure 01:18:00 [facility] Diastolic blood 2021-01-10 65 mm[Hg] University o f pressure 01:18:00 [facility] Heart rate 2021-01-10 61 /min University of :18:00 [facility] Respiratory rate 2021-01-10 14 /min University of :18:00 [facility] Oxygen saturation 2021-01-10 100 /min University of in Arterial blood 01:18:00 [facility] real by Pulse oximetry Branch Body temperature 2021-01-09 37.33 Jennifer University of :04:00 [facility] Body weight 2021-01-09 81.647 kg University of 22:: [facility] BMI 2021-01-09 30.90 kg/m2 University of 22::00 [facility] Systolic blood 2021-01-10 107 mm[Hg] University of pressure :18:00 [facility] Diastolic blood 2021-01-10 65 mm[Hg] University o f pressure :18:00 [facility] Heart rate 2021-01-10 61 /min University of :18:00 [facility] Respiratory rate 2021-01-10 14 /min University of :18:00 [facility] Oxygen saturation 2021-01-10 100 /min University of in Arterial blood :18:00 [facility] real by Pulse oximetry Branch Body temperature 2021-01-09 37.33 Jennifer University of ::00 [facility] Body weight 2021-01-09 81.647 kg University of 22:04:00 [facility] BMI 2021-01-09 30.90 kg/m2 University of 22:04:00 [facility] BMI 2020-10-22 34.16 kg/m2 University of 14:16:00 [facility] Oxygen saturation 2020-10-22 97 /min University of in Arterial blood 14:16:00 [place] [facility] by Pulse oximetry Branch Systolic blood 2020-10-22 147 mm[Hg] University of pressure 14:16:00 [facility] Diastolic blood 2020-10-22 92 mm[Hg] University o f pressure 14:16:00 [facility] Heart rate 2020-10-22 85 /min University of 14:16:00 [facility] Body temperature 2020-10-22 36.89 Jennifer University of 14:16:00 [facility] Respiratory rate 2020-10-22 18 /min University of 14:16:00 [facility] Body weight 2020-10-22 90.266 kg Simultaneous University of 14:16:00 filing. User may [place] [facility] not have seen Branch previous data. BMI 2020-10-22 34.16 kg/m2 University of 14:16:00 [facility] Oxygen saturation 2020-10-22 97 /min University of in Arterial blood 14:16:00 [place] [facility] by Pulse oximetry Branch Systolic blood 2020-10-22 147 mm[Hg] University of pressure 14:16:00 [facility] Diastolic blood 2020-10-22 92 mm[Hg] University o f pressure 14:16:00 [facility] Heart rate 2020-10-22 85 /min University of 14:16:00 [facility] Body temperature 2020-10-22 36.89 Jennifer University of 14:16:00 [facility] Respiratory rate 2020-10-22 18 /min University of 14:16:00 [facility] Body weight 2020-10-22 90.266 kg Simultaneous University of 14:16:00 filing. User may [place] [facility] not have seen Branch previous data. Systolic blood 2020-03-04 114 mm[Hg] University of pressure 23:10:48 [facility] Diastolic blood 2020-03-04 75 mm[Hg] University o f pressure 23:10:48 [facility] Heart rate 2020-03-04 56 /min University of 23:10:48 [facility] Respiratory rate 2020-03-04 15 /min University of 23:10:48 [facility] Oxygen saturation 2020-03-04 97 /min University of in Arterial blood 23:10:48 [place] [facility] by Pulse oximetry Branch Body temperature 2020-03-04 36 Jennifer University of 19:45:00 [facility] Body height 2020-03-04 162.6 cm University of 19:45:00 [facility] Body weight 2020-03-04 90.266 kg University of 19:45:00 [facility] BMI 2020-03-04 34.16 kg/m2 University of 19:45:00 [facility] Systolic blood 2020-03-04 114 mm[Hg] University of pressure 23:10:48 [facility] Diastolic blood 2020-03-04 75 mm[Hg] [place] o pressure 23:10:48 [facility] Heart rate 2020-03-04 56 /min University 23:10:48 [facility] Respiratory rate 2020-03-04 15 /min University 23:10:48 [facility] Oxygen saturation 2020-03-04 97 /min [facility] in Arterial blood 23:10:48 [facility] by Pulse oximetry [place] Body temperature 2020-03-04 36 Jennifer University 19:45:00 [facility] Body height 2020-03-04 162.6 cm [facility] 19:45:00 [facility] Body weight 2020-03-04 90.266 kg [facility] 19:45:00 [facility] BMI 2020-03-04 34.16 kg/m2 [facility] 19:45:00 [facility] Systolic (mm Hg) 2020-02-05 [facility] rmann 14:40:00 Diastolic (mm Hg) 2020-02-05 [facility] ermann 14:40:00 Heart Rate 2020-02-05 [facility] Joseph n 14:40:00 Weight 2018-06-29 [facility] Joseph n 20:03:00 Systolic (mm Hg) 2018-06-29 [facility] rmann 20:03:00 Diastolic (mm Hg) 2018-06-29 [facility] ermann 20:03:00 Temperature Oral 2018-06-29 97.6 F [facility] rmann (F) 20:03:00 Heart Rate 2018-06-29 [facility] Joseph n 20:03:00 BMI Calculated 2018-06-15 [facility] Brenda lynsey 20:08:00 Height 2018-06-15 162.56 cm [facility] Joseph n 20:08:00 Weight 2018-06-15 [facility] Joseph n 20:08:00 Systolic (mm Hg) 2018-06-15 [facility] rmann 20:08:00 Diastolic (mm Hg) 2018-06-15 [facility] Renetta ermann 20:08:00 Temperature Oral 2018-06-15 98.3 F [facility] rmann (F) 20:08:00 Heart Rate 2018-06-15 [facility] Joseph n 20:08:00 Weight 2018-05-25 [facility] Joseph n 20:27:00 Temperature Oral 2018-05-25 98.5 F [facility] rmann (F) 20:27:00 Heart Rate 2018-05-25 [facility] Joseph n 20:27:00 Systolic (mm Hg) 2018-05-25 [facility] rmann 20:27:00 Diastolic (mm Hg) 2018-05-25 [facility] ermann 20:27:00 BMI Calculated 2018-02-28 [facility] lynsey 19:41:00 Weight 2018-02-28 [facility] Joseph n 19:41:00 Temperature Oral 2018-02-28 98.1 F [facility] Mick rmann (F) 19:41:00 Heart Rate 2018-02-28 [facility] Joseph n 19:41:00 Height 2018-02-28 162.56 cm [facility] Joseph n 19:41:00 Systolic (mm Hg) 2018-02-28 [facility] rmann 19:41:00 Diastolic (mm Hg) 2018-02-28 [facility] ermann 19:41:00 Height 2018-01-24 162.56 cm [facility] Joseph n 19:15:00 BMI Calculated 2018-01-24 [facility] lynsey 19:15:00 Weight 2018-01-24 [facility] Joseph n 19:15:00 Temperature Oral 2018-01-24 98.4 F [facility] Mick rmann (F) 19:15:00 Heart Rate 2018-01-24 [facility] Joseph n 19:15:00 Systolic (mm Hg) 2018-01-24 [facility] rmann 19:15:00 Diastolic (mm Hg) 2018-01-24 [facility] ermann 19:15:00 Weight 2017-11-29 [facility] Joseph n 15:16:00 Temperature Oral 2017-11-29 98.2 F [facility] Mick rmann (F) 15:16:00 Heart Rate 2017-11-29 [...] Joseph n 15:48:00 Height 2017-10-18 162.56 cm Brandt Joseph n 19:18:00 Weight 2017-10-18 [facility] Joseph [...] (F) 15:27:00 Height 2015-04-01 162.56 cm Brandt Gutierrezan n 15:27:00 Weight 2015-03-09 [facility] Joseph n 15:41:00 Height 2015-03-09 162.56 cm Brandt Joseph n 15:41:00 Procedures Procedure Date / Time Performing Clinician Source Performed NOTICE OF PRIVACY 2022-09-05 17:12:22 Doctor Unassigned, [facility] PRACTICES [facility] CONSENT/REFUSAL FOR 2022-09-05 17:11:19 Doctor Unassigned, [facility] DIAGNOSIS AND TREATMENT [facility] HB ABO GROUPING 2021-04-19 15:58:00 Jayesh Anaya [place] o f [facility] URINALYSIS 2021-04-19 14:40:00 Jayesh Anaya o f [facility] COMP. METABOLIC PANEL 2021-04-19 14:33:00 Jayesh Anaya [facility] ([id number]) [facility] TOTAL BETA HCG ASSAY 2021-04-19 14:33:00 Jayesh Anaya [facility] US FIRST 2021-04-19 14:20:42 [facility] L[facility] THAN 14 [facility] WEEKS WITH TRANSVAGINAL CBC WITH DIFF 2021-04-19 13:47:00 Jayesh Anaya o f [facility] CONSENT/REFUSAL FOR 2021-04-19 13:24:26 Doctor Unassmely, [facility] DIAGNOSIS AND TREATMENT [facility] US OVARY TORSION 2021-01-10 00:44:27 Jess Walter [facility] URINALYSIS 2021-01-09 22:19:00 Jess Walter [facility] TEST, SERUM 2021-01-09 22:17:00 [facility] 2021-01-09 22:16:00 Jess Walter [facility] LIPASE 2021-01-09 22:15:00 Jess Walter [facility] COMP. METABOLIC PANEL 2021-01-09 22:15:00 Jess Walter Un [facility] ([id number]) [facility] TOTAL BETA HCG ASSAY 2021-01-09 22:15:00 Jess Walter [facility] CBC WITH DIFF 2021-01-09 22:15:00 Jess Walter [facility] CONSENT/REFUSAL FOR 2021-01-09 21:58:20 Doctor Unassmely, [facility] DIAGNOSIS AND TREATMENT [facility] RAPID STREP SCREEN FOR 2020-10-22 14:47:00 Jayesh Anaya [facility] A [facility] NOTICE OF PRIVACY 2020-10-22 14:07:25 Doctor Unassigned, [facility] PRACTICES [facility] CONSENT/REFUSAL FOR 2020-10-22 14:07:14 Doctor Unazulema, [facility] DIAGNOSIS AND TREATMENT [facility] [place] [facility] ABDOMEN PELVIS W 2020-03-04 22:09:00 Marguerite Sousa [facility] CONTRAST [facility] Branch US GALL BLADDER 2020-03-04 20:31:43 Marguerite Sousa Brigitte [facility] POCT TEST 2020-03-04 20:13:00 Marguerite Sousa [facility] Medical Branch LIPASE 2020-03-04 20:12:00 Marguerite Sousa Brig[facility] MAGNESIUM 2020-03-04 20:12:00 Marguerite Sousa Brig[facility] COMP. METABOLIC PANEL 2020-03-04 20:12:00 Marguerite Sousa [facility] ([id number]) Medical Branch CBC WITH DIFFERENTIAL 2020-03-04 20:12:00 Marguerite Sousa [facility] URINALYSIS 2020-03-04 20:12:00 Marguerite Sousa Brigitte [facility] COVID-19 (ID NOW RAPID 2020-03-04 20:12:00 Marguerite Sousa [facility] TESTING) Medical Branch CONSENT/REFUSAL FOR 2020-03-04 19:28:19 Doctor Linda, [facility] DIAGNOSIS AND TREATMENT [facility] [place] EXCISION LIPOMA BACK 5CM 2015-04-01 17:50:00 Rohith Salmeron Mem OR DWAYNE [id number] (Other)<sup>1</sup> section 2013-09-18 00:00:00 [facility] Mick rmann 2012-09-18 00:00:00 [facility] Her watkins section<sup>1</sup> Appendectomy 2005-09-18 00:00:00 [facility] Her watkins left wrist surgery 2002-09-18 00:00:00 [facility] Hoang Complex reconstruction [facility] operations on wrist and hand(excluding arthroplasty) Tonsillectomy [facility] eye surgery [facility] Encounters Start End Encounter Admission Attending Care Care Encounter Source Date/Time Date/Time Type Type Clinicians Facility Department ID 2021-07-19 Emergency [facility] [id number] Univers 12:20:44 ity of [facility] 2021-07-18 Emergency [facility] [id number] Univers 15:04:34 ity of [facility] 2021-07-17 Emergency [facility] [id number] Univers 21:44:31 ity [facility] 2020-02-10 Inpatient Chrystal SCHMIDT [facility] RAD [id number] [place] 07:00:00 [facility] 2022-09-05 2022-09-05 Emergency [facility] [id number] Univers 11:20:00 12:16:00 [facility]22-[facility]05 2022-09-05 Emergency [facility] [id number] Univers 11:20:00 12:16:00 Delmi FISHMAN [id number] ity of [place] [id number] [place] [facility] [phone] [facility] 084 [place] 2021-10-12 2021-10-12 Outpatient COH COH PIJFIFK ZHY COH 00:00:00 00:00:00 -[id number] 2021-09-20 2021-09-20 Letter VICKIE Moreno [id number] Univers 00:00:00 00:00:00 (Out) Deepti RUFFIN [id number] it y of [facility] [id number] [place] as [id number] [facility] 019 [place] 2021-09-19 2021-09-19 Urgent Fide Mayer [facility] [id number] Univers 13:20:00 13:20:00 Fabian Harvey [facility] [id number] ity of [place] [id number] [place] as BRITTANIE?BLEA [phone] [address] MEDICAL OFFICE BUILDING 2021-09-19 2021-09-19 Outpatient Madhavi HARVEY [facility] [id number] Univers 13:20:00 13:01:06 MARIA DEL ROSARIO [facility] 2021-04-19 2021-04-19 Emergency Anaya, [facility] [id number] [facility] 08:32:00 11:35:00 Jayesh Marisabel [id number] i ty of [place] [id number] [facility] [id number] [address] 2021-01-09 2021-01-09 Emergency Ibdaisyun, [facility] [id number] [facility] 17:06:00 20:20:00 Yumikodana Keven Marisabel [id number] ity of [place] [id number] [facility] [id number] [address] 2021-01-09 2021-01-09 Emergency Ibsuzytonya, [facility] [id number] 17:06:00 20:20:00 Jess Keven Marisabel [id number] [place] [address] [place] [address] [id number] [facility] 2021-01-09 2021-01-09 Orders Doctor JOHNSTON [id number] Univers 00:00:00 00:00:00 Only Unassigned, AUGUSTIN [id number] ity of [place] [facility] [id number] [place] [id number] [address] 2021-01-09 2021-01-09 Orders Doctor JOHNSTON [id number] 00:00:00 00:00:00 Only Unassigned, [place] [id number] [facility] [id number] [facility] 2020-10-22 2020-10-22 Emergency Anaya, [facility] [id number] [facility] 08:26:00 10:18:00 Jayesh Fishman [id number] i ty of [place] [id number] [facility] [id number] [address] 2020-10-22 2020-10-22 Emergency Anaya, [facility] [id number] 08:26:00 10:18:00 Jayesh Fishman [id number] [place] [id number] [place] [id number] 2020-10-22 2020-10-22 VICKIE Thomas [id number] Univers 00:00:00 00:00:00 (Out) Deepti RUFFIN [id number] it y of HOSPITAL [id number] [place] as [phone] [facility] 019 Branch 2020-10-22 2020-10-22 Orders Doctor VICKIE [id number] Univers 00:00:00 00:00:00 Only Unassigned, [place] [id number] ity of [facility] [id number] [place] as [phone] [facility] 009 Branch 2020-10-22 2020-10-22 Orders Doctor JOHNSTON [id number] 00:00:00 00:00:00 Only Unassigned, [place] [id number] [facility] [id number] 009 2020-10-22 2020-10-22 VICKIE Thomas [id number] 00:00:00 00:00:00 (Out) Deepti RUFFIN [id number] [facility] [id number] 2020-08-01 2020-08-01 Outpatient R TAMI [facility] [id number] Univers 10:00:00 10:00:00 CARMEN ity of [facility] 2020-03-04 2020-03-04 Emergency X Marguerite S[facility]SA [facility] ERT [id number] Univers 14:38:35 18:18:00 ity [facility] 2020-03-04 2020-03-04 Emergency Marguerite [facility] 1.2.840.114 [id number] Univers 14:38:35 18:18:00 Brigitet Fishman 350.1.13.10 i [place] of [place].2.[place] [phone] [facility] 084 [place] 2020-03-04 2020-03-04 Emergency Marguerite Sousa [facility] 1.2.840.114 [id number] 14:38:35 18:18:00 Brigitte Fishamn 350.1.13.10 [place] 4.2.7.2.686 [place] [phone] [facility] 2020-03-04 2020-03-04 Orders Doctor VICKIE 1.2.840.114 [id number] [facility] 00:00:00 00:00:00 Only Unassigned, AUGUSTIN 350.1.13.10 ity of [place] [facility] 4.2.7.2.686 [facility] as [phone] [facility] 009 [place] 2020-03-04 2020-03-04 Orders Doctor VICKIE 1.2.840.114 [id number] 00:00:00 00:00:00 Only Unassigned, [place]UGUSTIN 350.1.13.10 [place] [facility] 4.2.7.2.686 [id number] 009 2020-02-19 2020-02-19 Ambulatory nullFlavo [facility] Family 4 [id number] Memoria 15:30:00 15:30:00 Pre-Reg r Medicine 23 clarence WestfallClayton Hoang 2020-02-19 2020-02-19 Ambulatory nullFlavo [facility] Family 4 [id number] Memoria 15:30:00 15:30:00 Pre-Reg r Medicine 23 clarence Bolton 2020-02-19 2020-02-19 Outpatient ZOYA KENNY [id number] Memoria 10:30:00 10:30:00 Kelvin Bolton 2020-02-19 2020-02-19 Outpatient Brayan [facility] [id number] 10:30:00 10:30:00 Aurelia Green 2020-02-05 2020-02-06 Outpatient nullFlavo [facility] Family 4 [id number] Memoria 14:30:00 04:59:59 r Medicine 22 clarence Bolton 2020-02-05 2020-02-06 Outpatient nullFlavo [facility] Family 4 [id number] Memoria 14:30:00 04:59:59 r Medicine 22 clarence Bolton 2020-02-05 2020-02-05 Outpatient Brayan [facility] [id number] 09:30:00 23:59:59 Aurelia Wyatt Peter 2020-02-05 2020-02-05 Outpatient MHIE MHIE [id number] Memoria 09:30:00 09:30:00 22 clarence Bolton 2019-01-16 2019-01-16 Outpatient [facility] [id number] Common 16:00:00 16:00:00 [facility] 2019-01-15 2019-01-15 Outpatient [facility] [id number] Common 13:36:00 13:36:[address] [facility] [address] [facility] it [address] [facility] 2019-01-14 2019-01-14 Outpatient [facility] 25 [id number] Common 13:30:00 13:30:00 [facility] it [address] [facility] 2018-11-01 2018-11-02 Outpatient nullFlavo [facility] Family 4 [id number] Memoria 14:45:00 05:59:59 r Medicine 21 clarence Gutierrezann 2018-11-01 2018-11-02 Outpatient nullFlavo [facility] Family 4 [id number] Memoria 14:45:00 05:59:59 r Medicine 21 clarence Gutierrezann 2018-11-01 2018-11-01 Outpatient Goss, MG MG [id number] 08:45:00 23:59:59 Ishmael 21 2018-11-01 2018-11-01 Outpatient MHIE REDDIE [id number] Memoria 08:45:00 08:45:00 21 clarence Hoang 2018-06-29 2018-06-30 Outpatient nullFlavo [facility] Family 4 [id number] Memoria 19:00:00 04:59:59 r Medicine 20 clarence Gutierrezann 2018-06-29 2018-06-30 Outpatient nullFlavo [facility] Family 4 [id number] Memoria 19:00:00 04:59:59 r Medicine 20 clarence Gutierrezann 2018-06-29 2018-06-29 Outpatient Goss, MG MG [id number] 14:00:00 23:59:59 Ishmael 20 2018-06-29 2018-06-29 Ambulatory nullFlavo [facility] Family 4 [id number] Memoria 19:00:00 19:00:00 Pre-Reg r Medicine 18 clarence Bolton 2018-06-29 2018-06-29 Ambulatory nullFlavo [facility] Family 4 [id number] Memoria 19:00:00 19:00:00 Pre-Reg r Medicine 18 clarence Bolton 2018-06-29 2018-06-29 Outpatient MHIE MHIE [id number] Memoria 14:00:00 14:00:00 18 clarence Bolton 2018-06-29 2018-06-29 Outpatient MHIE MHIE [id number] Memoria 14:00:00 14:00:00 20 clarence Bolton 2018-06-29 2018-06-29 Outpatient Goss, MHMG MHMG [id number] 14:00:00 14:00:00 Ishmael 18 2018-06-25 2018-06-25 Ambulatory nullFlavo [facility] Family 4 [id number] Memoria 14:30:00 14:30:00 Pre-Reg r Medicine 17 clarence Bolton 2018-06-25 2018-06-25 Ambulatory nullFlavo [facility] Family 4 [id number] Memoria 14:30:00 14:30:00 Pre-Reg r Medicine 17 clarence Bolton 2018-06-25 2018-06-25 Outpatient MHIE MHIE [id number] Memoria 09:30:00 09:30:00 17 clarence Bolton 2018-06-25 2018-06-25 Outpatient VISIT, MG MG [id number] 09:30:00 09:30:[address] 17 2018-06-25 2018-06-25 Outpatient VISIT, MHMG MG [id number] 09:30:00 09:30:00 NURSE STWH 17 2018-06-25 2018-06-25 Outpatient VISIT, MHMG MHMG [id number] 09:30:00 09:30:[address] 17 2018-06-25 2018-06-25 Outpatient VISIT, MHMG MG [id number] 09:30:00 09:30:[address] 17 2018-06-15 2018-06-16 Outpatient nullFlavo [facility] Family 4 [id number] Memoria 20:15:00 04:59:59 r Medicine 19 clarence Bolton 2018-06-15 2018-06-16 Outpatient nullFlavo MG Family 4 [id number] Memoria 20:15:00 04:59:59 r Medicine 19 clarence Bolton 2018-06-15 2018-06-15 Outpatient Goss, MG MG [id number] 15:15:00 23:59:59 Ishmael 19 2018-06-15 2018-06-15 Outpatient MHIE MHIE [id number] Memoria 15:15:00 15:15:00 19 clarence Bolton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
[2022-11-20] MEDS ORDERED: NA CHLORIDE 0.9% 1,000 ML ONE (15:56)
[2022-11-20] MEDS ORDERED: ONDANSETRON 4 MG/2 ML VIAL ONE (15:56)
[2022-11-20] MEDS ORDERED: MORPHINE 4 MG/ML SYR ONE (15:56)
[2022-11-20 16:18] LABS: Urine Blood Negative (Negative); Urine Glucose Negative (Negative); Urine Protein Negative (Negative)
[2022-11-20 16:29] LABS: Absolute Lymphocytes (CBC) 1.4 K/uL (0.7-4.9); Hematocrit 33.6 % (36.0-45.0); Lymphocytes % 19.1 % (15.3-44.8); MCV 91.6 fL (80-100); MPV 7.8 fL (7.6-11.3); RBC Red Blood Cell Count 3.66 M/uL (3.86-4.86)
[2022-11-20 16:42] LABS: Albumin 2.9 g/dL (3.4-5.0); Bilirubin Total 0.2 mg/dL (0.2-1.0); Potassium 3.6 mmol/L (3.5-5.1); Protein, Total 7.2 g/dL (6.4-8.2)
[2022-11-20 17:05] LABS: Transitional Epithelial <5 /HPF (None Seen); Urine Bacteria 20-50 /HPF (<20); Urine Mucus 2+ /HPF (None Seen); Urine RBC <5 /HPF (None Seen)
--- NOTE | 2022-11-20 17:32 | RAD REPORT ---
EXAM DESCRIPTION: US - Abdomen Exam Limited - 11/20/2022 5:14 pm CLINICAL HISTORY: Abdominal pain. COMPARISON: 2016 FINDINGS: The gallbladder wall is not thickened. A gallstone is not seen. The biliary tree is normal caliber. IMPRESSION: Unremarkable gallbladder ultrasound.
--- NOTE | 2022-11-20 17:39 | ER ---
Nurse's Notes [facility] Name: Tammie Rhodes Age: 27 yrs Sex: Female : 1995 Arrival Date: 11/20/2022 Time: 14:45 Bed 10 Private MD: Diagnosis: Mild hyperemesis gravidarum;UTI/ Urinary tract infection, site not specified Presentation: 11/20 15:26 Chief complaint: Patient states: approximately 20 weeks and one day ; RUQ pain vg1 pain an hour after eating and unable to tolerate food or liquid. Coronavirus screen: Vaccine status: Patient reports receiving the 2nd dose of the covid vaccine. Client denies travel out of the [place] in the last 14 days. Ebola Screen: Patient negative for fever greater than or equal to 101.5 degrees Fahrenheit, and additional compatible Ebola Virus Disease symptoms Patient denies exposure to infectious person. Initial Sepsis Screen: Does the patient meet any 2 criteria? HR > 90 bpm. Does the patient have a suspected source of infection? No. Patient's initial sepsis screen is negative. Risk Assessment: Do you want to hurt yourself or someone else? Patient reports no desire to harm self or others. Onset of symptoms was November 18, 2022. 15:26 Method Of Arrival: Ambulatory vg1 15:26 Acuity: EBONI 3 vg1 Triage Assessment: 15:28 General: Appears uncomfortable, Behavior is calm, cooperative. Pain: Complains of pain vg1 in right upper quadrant Pain currently is 8 out of 10 on a pain scale. Pain began 2-3 days ago. GI: Abdomen is round Last BM was November 19, 2022. Reports nausea, vomiting. Historical: - Allergies: 15:28 Aspirin; vg1 15:28 Benadryl; vg1 - Home Meds: 15:28 Zoloft Oral [Active]; vg1 - PMHx: 15:28 Anemia; Anxiety; Migraines; vg1 - PSHx: 15:28 Appendectomy; breast surgery; section; eye surgery; Tonsillectomy; vg1 - Immunization history:: Client reports receiving the 2nd dose of the Covid vaccine. - Social history:: Smoking status: Patient denies any tobacco usage or history of. Screenin:00 [facility] ED Fall Risk Assessment (Adult) History of falling in the last 3 months, jl7 including since admission No falls in past 3 months (0 pts). Abuse screen: Denies threats or abuse. Denies injuries from another. Nutritional screening: No deficits noted. Tuberculosis screening: No symptoms or risk factors identified. Assessment: 16:00 General: Appears in no apparent distress. uncomfortable, Behavior is calm, cooperative, jl7 appropriate for age. Pain: Complains of pain in right upper quadrant Pain currently is 8 out of 10 on a pain scale. Quality of pain is described as stabbing, Pain began 1 day ago. Neuro: Level of Consciousness is awake, alert, obeys commands, Oriented to person, place, time, situation. Cardiovascular: Patient's skin is warm and dry. Respiratory: Airway is patent Respiratory effort is even, unlabored, Respiratory pattern is regular, symmetrical. GI: Abdomen is round Bowel sounds present X 4 quads. Abd is soft Reports nausea, vomiting. Derm: Skin is pink, warm \T\ dry. 17:00 Reassessment: Patient appears in no apparent distress at this time. Patient and/or jl7 family updated on plan of care and expected duration. Pain level reassessed. Patient is alert, oriented x 3, equal unlabored respirations, skin warm/dry/pink. Patient states feeling better. Vital Signs: 15:26 BP 106 / 77; Pulse 98; Resp 16; Temp 98.8(O); Pulse Ox 100% ; Weight 88 kg; Height 5 vg1 ft. 4 in. (162.56 cm); Pain 8/10; 18:11 BP 96 / 55; Pulse 90; Resp 15; Pulse Ox 100% ; jl7 15:26 Body Mass Index 33.30 (88.00 kg, 162.56 cm) vg1 ED Course: 14:45 Patient arrived in ED. ja2 14:48 Laura Allen PA is PHCP. en 14:48 Joel Melgar MD is Attending Physician. en 15:28 Triage completed. vg1 15:28 Arm band placed on. vg1 15:50 Mary Jane Sotomayor, ONUR is Primary Nurse. jl7 16:00 Patient has correct armband on for positive identification. Bed in low position. Call jl7 light in reach. Side rails up X 1. Pulse ox on. NIBP on. 16:21 Initial lab(s) drawn, by me, sent to lab. Urine collected: clean catch specimen, jl7 cloudy. Inserted saline lock: 20 gauge in right antecubital area, using aseptic technique. Blood collected. 18:11 No provider procedures requiring assistance completed. IV discontinued, intact, jl7 bleeding controlled, No redness/swelling at site. Pressure dressing applied. Administered Medications: 16:09 Drug: NS 0.9% 1000 ml Route: IV; Rate: 1 bolus; Site: right antecubital; jl7 16:09 Drug: Zofran (Ondansetron) 4 mg Route: IVP; Site: right antecubital; jl7 16:09 Drug: morphine 4 mg Route: IVP; Infused Over: 4 mins; Site: right antecubital; jl7 Medication: 16:00 VIS not applicable for this client. jl7 Outcome: 17:38 Discharge ordered by . en 18:11 Discharged to home ambulatory, with family. jl7 18:11 Condition: stable 18:11 Discharge instructions given to patient, Instructed on discharge instructions, follow up and referral plans. medication usage, Demonstrated understanding of instructions, follow-up care, medications, Prescriptions given X 2. 18:12 Patient left the ED. jl7 Signatures: Mary Jane Sotomayor RN RN jl7 Alena Stewart RN RN [email or web address] Gemma Morgan Elizabeth, PA PA en Corrections: (The following items were deleted from the chart) 18:11 17:00 BP 96 / 55; Pulse 90bpm; Resp 15bpm; Pulse Ox 100%; jl7 jl7
--- NOTE | 2022-11-20 17:39 | EDPHYS ---
Physician Documentation [facility] Name: Tammie Rhodes Age: 27 yrs Sex: Female : 1995 Arrival Date: 11/20/2022 Time: 14:45 Bed 10 Private MD: ED Physician Joel Melgar HPI: 11/20 15:42 This 27 yrs old Female presents to ER via Ambulatory with complaints of Abdominal Pain, en Nausea/Vomiting, 20 Weeks . 15:42 27-year-old female G4, 20 weeks presents to ED with right upper quadrant en pain radiating to the back that started yesterday after eating pizza. She describes as colicky and intermittent, worse with food. She has nausea with nonbloody nonbilious emesis and is unable to keep anything down. She denies lower abdominal cramping, dysuria, hematuria, vaginal bleeding or leakage of fluids.. Historical: - Allergies: 15:28 Aspirin; vg1 15:28 Benadryl; vg1 - Home Meds: 15:28 Zoloft Oral [Active]; vg1 - PMHx: 15:28 Anemia; Anxiety; Migraines; vg1 - PSHx: 15:28 Appendectomy; breast surgery; section; eye surgery; Tonsillectomy; vg1 - Immunization history:: Client reports receiving the 2nd dose of the Covid vaccine. - Social history:: Smoking status: Patient denies any tobacco usage or history of. ROS: 15:42 Constitutional: Negative for fever, chills, and weight loss. en 15:42 Abdomen/GI: Positive for abdominal pain, Right upper quadrant pain with nausea and vomiting. 15:42 All other systems are negative. Exam: 15:42 Constitutional: Well-hydrated, nontoxic appearing but visibly uncomfortable secondary en to pain Cardiovascular: Regular rate and rhythm with a normal S1 and S2. No gallops, murmurs, or rubs. Normal PMI, no JVD. No pulse deficits. Respiratory: Lungs have equal breath sounds bilaterally, clear to auscultation and percussion. No rales, rhonchi or wheezes noted. No increased work of breathing, no retractions or nasal flaring. Abdomen/GI: Soft, nondistended, mild gravid uterus that is nontender. Right upper quadrant tenderness with a positive Carbajal sign. Normoactive bowel sounds. No CVA Vital Signs: 15:26 BP 106 / 77; Pulse 98; Resp 16; Temp 98.8(O); Pulse Ox 100% ; Weight 88 kg; Height 5 vg1 ft. 4 in. (162.56 cm); Pain 8/10; 18:11 BP 96 / 55; Pulse 90; Resp 15; Pulse Ox 100% ; jl7 15:26 Body Mass Index 33.30 (88.00 kg, 162.56 cm) vg1 MDM: 15:34 Patient medically screened. en 15:42 Differential diagnosis: cholecystitis, Cholelithiasis, gastritis, gastroesophageal en reflux disease, Hepatitis, Irritable bowel syndrome, non-specific abd pain, pancreatitis, Peptic Ulcer Disease, Pyelonephritis, urinary tract infection, Hyperemesis gravidarum. 15:42 Data reviewed: vital signs, nurses notes, lab test result(s). en 16:21 Data reviewed: lab test result(s), urinalysis, bacteruria, + leujs and nitrite. en 17:36 Independent interpretation of the following test(s) in the Emergency Department en Radiology Department Ultrasound: My interpretation is Right upper quadrant ultrasound. No evidence of gallstones. ED course: Reviewed imaging labs with patient. Right upper quadrant ultrasound negative. Good movement per patient and bedside FHTs at 152. Will DC patient home with Zofran for hyperemesis gravidarum and as needed Pepcid. She will also need Keflex for urinary tract infection.. 11/20 15:38 Order name: CBC with Diff en 11/20 15:38 Order name: CMP en 11/20 15:38 Order name: Lipase en 11/20 15:38 Order name: Abdomen Limited US en 11/20 15:38 Order name: IV Saline Lock; Complete Time: 16:09 en 11/20 15:38 Order name: Labs collected and sent; Complete Time: 16:09 en 11/20 15:38 Order name: Urine Dipstick-Ancillary (obtain specimen); Complete Time: 16:20 en 11/20 16:18 Order name: Urine Dipstick-Ancillary; Complete Time: 16:41 EDMS 11/20 16:20 Order name: Urine Microscopic Only en 11/20 16:20 Order name: Urine Culture en 11/20 16:30 Order name: CBC with Automated Diff; Complete Time: 16:41 EDMS 11/20 16:43 Order name: Comprehensive Metabolic Panel; Complete Time: 16:56 EDMS 11/20 16:43 Order name: Lipase; Complete Time: 16:56 EDMS 11/20 17:05 Order name: Urine Microscopic Only; Complete Time: 17:06 EDMS 11/20 17:32 Order name: US; Complete Time: 17:36 EDMS Administered Medications: 16:09 Drug: NS 0.9% 1000 ml Route: IV; Rate: 1 bolus; Site: right antecubital; jl7 16:09 Drug: Zofran (Ondansetron) 4 mg Route: IVP; Site: right antecubital; jl7 16:09 Drug: morphine 4 mg Route: IVP; Infused Over: 4 mins; Site: right antecubital; jl7 Disposition: 18:12 Co-signature as Attending Physician, Joel Melgar MD I agree with the assessment and kdr plan of care. Disposition Summary: 11/20/22 17:38 Discharge Ordered Location: Home en Problem: new en Symptoms: have improved en Condition: Stable en Diagnosis - Mild hyperemesis gravidarum en - UTI/ Urinary tract infection, site not specified en Followup: en - With: Private Physician - When: 2 - 3 days - Reason: Re-evaluation by your physician Discharge Instructions: - Discharge Summary Sheet en - Morning Sickness, [id number] en - Urinary Tract Infection, Adult en Forms: - Medication Reconciliation Form en - Thank You Letter en - Antibiotic Education en - Prescription Opioid Use en Prescriptions: - Cephalexin 500 mg Oral Capsule - take 1 capsule by ORAL route every 6 hours for 10 days; 40 capsule; Refills: 0, en Product Selection Permitted - Zofran 4 mg Oral Tablet - take 1 tablet by ORAL route every 12 hours As needed; 20 tablet; Refills: 0, en Product Selection Permitted Signatures: Dispatcher [employer] Joel Carrasco MD MD kdr Leal, Jahala RN RN jl7 Alena Stewart RN RN vg1 Laura Allen PA PA en
[2022-11-20 18:33] VITALS: TEMP 98.8; O2SAT 100
[2022-11-20 18:38] VITALS: BP 96/55
== END 2022-11-20 18:12 | disposition home or self-care (01) ==
LOC: ER 14:37
DX: O21.0 Mild hyperemesis gravidarum (principal); O23.42 Unspecified infection of urinary tract in pregnancy, second trimester; N39.0 Urinary tract infection, site not specified; O99.342 Other mental disorders complicating pregnancy, second trimester; F41.9 Anxiety disorder, unspecified; Z3A.20 20 weeks gestation of pregnancy; Z88.6 Allergy status to analgesic agent; Z88.8 Allergy status to other drugs, medicaments and biological substances
CPT/HCPCS: 87088; 85025; 87086; 36415; 83690; 80053; 76705; 96375; 96374; 99284; J7030; J2405; 81003; 81015

== ENCOUNTER 2023-03-13 14:36 | Emergency (ER) | payer OTHER ==
--- OUTSIDE RECORDS SUMMARY | 2023-03-13 14:44 | XMS REPORT | Continuity of Care Document ---
:1995 Author Organization [facility] t Address [address] [place] [address] Care Team Providers Name Role Phone Pcp, [...] Clinician Jess Devlin Attending Clinician Doctor Unassigned, [place] Attending Clinician Unavailable CARMEN GARRETT Attending Clinician [...] Number Effective Date Expiration Date Elizabeth GALAVIZ [id number] 2018 00:00:00 [place] [facility] [id number] 2022 00:00:00 Problems Condition Condition Condition Status Onset Resolution Last Treating Co mments Source Name Details Category Date Date Treatment Clinician Date Disease Active 2014-09 [facility] contractio contractio 09-27 it y of ns ns 00:00: [place] [id number] Medical Branch Melanocyti Melanocyt Problem Active 2020-02-21 Memoria c nevus ic nevus 02-24 21:27:44 l (disorder) (disorder) 00:00: He rmann Active 00 02/24/2015 Problem 02/21/2020 Data migrated from [facility] on 03/25/15. Medical Group Patient Patient Problem [...] had blood transfusio n [facility] Low back Low back Problem Active 2020-02-21 Memoria strain strain - 21:27:44 l (disorder) (disorder) 00:00: He rmann Active 00 02/06/2013 Problem 02/21/2020 Data migrated from [facility] on 04/27/15. Medical Group Migraine Migraine Problem Active 2020-02-21 Memoria (disorder) (disorder) 02-06 21:27:44 l Active 00:00: Hoang 02/06/2013 00 Problem 02/21/2020 Data migrated from [facility] on 04/27/15. Medical Group Seizure Seizure Problem Active 2020-02-21 Me moria disorder disorder - 21:27:44 l (disorder) (disorder) 00:00: He rmann Active 00 02/06/2013 Problem 02/21/2020 Data migrated from [facility] on 04/27/15. 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 (disorder) (disorder) Active Problem 02/21/2020 Medical Group Obesity Obesity Problem Active 2020-02-21 Me moria (disorder) (disorder) 21:27:44 l Active [place] Problem 02/21/2020 Medical Group Acute Acute Problem Resolve 2005-2020-02-21 2020-02-21 Memoria [...] Branch Benadryl Adverse Active rash Common Reaction [facility] Aspirin Adverse Active swelling Common Reaction [facility] diphenhy diphenhy Active Memori a drAMINE< drAMINE< l sup>1</s sup>1</s Joseph n up> up> aspirin aspirin Active Moderate Memori a l [place] traZODon traZODon Active Memori a e<sup>2< e<sup>2< l /sup> /sup> Hoang Benadryl Benadryl Active [id number] Mem oria l [place] Tylenol Tylenol Active [id number] Memor ia l [place] Social History Social Habit Start Date Stop Date Quantity Comments Source Exposure to 2022-08-26 2022-09-05 Not sure [facility] SARS-CoV-2 (event) 00:00:00 11:38:00 Medica l Branch Social History 2017-04-11 2017-04-11 [facility] kerry 19:22:36 19:22:36 Sex Assigned At [birth year] [facility] y of [place] 00:00:00 00:00:00 Medical Branch Smoking Status Start Date Stop Date Source Tobacco smoking consumption [facility] Medical unknown Branch Medications Ordered Filled Start Stop Current Ordering Indication Dosage Frequency Signature Comments Components Source Medication Medication Date Date Medication? Clinician (SIG) Name Name predniSONE 2021-09- No [id number] 50mg Take 1 Univers 50 mg 2-20 12-25 tablet by ity of tablet 00:00: 05:59 mouth in [place] 00 :00 the Medical morning Branch for 4 days. predniSONE 2021-09 No 50mg 50 mg, Univ ers (DELTASONE) 2-05 09- Oral, ity of tablet 50 18:00: 17:50 ONCE, 1 [place] mg 00 :00 dose, On Medical Mon Branch 09/05/22 at 1200, MISTY fluticasone Yes [id number] 2{spray Use 2 Univers propionate 1-02 } Sprays in ity of 50 00:00: each [place] mcg/actuati 00 nostril Medic al on nasal daily. Branch spray cetirizine Yes [id number] 10mg Take 1 U nivers 10 mg 1-02 tablet by ity of tablet 00:00: mouth [place] 00 daily. Medical Branch fluticasone Yes [id number] 2{spray Use 2 Univers propionate 1-02 } Sprays in ity of 50 00:00: each [place] mcg/actuati 00 nostril Medic al on nasal daily. Branch spray cetirizine Yes [id number] 10mg Take 1 U nivers 10 mg 1-02 tablet by ity of tablet 00:00: mouth [place] 00 daily. [facility] Branch fluticasone Yes [id number] 2{spray Use 2 Univers propionate 1-02 } Sprays in ity of 50 00:00: each [place] mcg/actuati 00 nostril Medic al on nasal daily. [place] spray cetirizine Yes [id number] 10mg Take 1 U nivers 10 mg 1-02 tablet by ity of tablet 00:00: mouth [place] 00 daily. [facility] Branch ketorolac 2020- No 30mg 30 mg, Unive rs (TORADOL) 01-10- Slow IV ity of injection 00:30: 23:30 Push, [place] 30 mg 00 :00 ONCE, 1 Medical dose, Sat Branch 01/09/21 at 1930, MISTY
[facility] member approving Restricted medication : JESS WALTER [...] dose, 01/09/21 at 1715, MISTY ibuprofen Yes [id number] 600mg Take 1 U nivers 600 mg 4-24 tablet by ity of tablet 00:00: mouth [place] 00 every 6 Medical (six) Branch hours as needed for Pain (scale 4-6). ibuprofen Yes [id number] 600mg Take 1 U nivers 600 mg 4-24 tablet by ity of tablet 00:00: mouth [place] 00 every 6 Medical (six) Branch hours as needed for Pain (scale 4-6). ibuprofen Yes [id number] 600mg Take 1 U nivers 600 mg 4-24 tablet by ity of tablet 00:00: mouth [place] 00 every 6 Medical (six) Branch hours as needed for Pain (scale 4-6). ibuprofen Yes [id number] 600mg Take 1 U nivers 600 mg 4-24 tablet by ity of tablet 00:00: mouth [place] 00 every 6 Medical (six) Branch hours as needed for Pain (scale 4-6). ibuprofen 0 Yes [id number] 600mg Take 1 U nivers 600 mg 4-24 tablet by ity of tablet 00:00: mouth [place] 00 every 6 Medical (six) Branch hours as needed for Pain (scale 4-6). cefdinir 2020-0 2020- No [id number] 300mg Take 1 U nivers 300 mg 4-24 05-02 capsule by ity of capsule 00:00: 04:59 mouth 2 [place] 00 :00 (two) Medical times Branch daily for 7 days. benzonatate Yes [id number] 100mg Take 1 Univers 100 mg 2-04 capsule by ity of capsule 00:00: mouth 3 [place] 00 (three) Medical times Branch daily as needed for Cough. chlorphenir Yes [id number] 4mg Take 1 Univers amine 4 mg 2-04 tablet by ity of tablet 00:00: mouth [place] 00 every 6 Medical (six) Branch hours as needed for Allergies or Runny nose. multivitami 0 Yes [id number] 1{capsu Take 1 Univers n capsule 2-04 le} capsule by ity of 00:00: mouth [place] 00 daily. Medical Branch calcium-mag Yes [id number] Take as Univers nesium-zinc 2-04 directed ity of 333-133-8.3 00:00: for daily [place] mg Tab 00 dose. Medical Branch benzonatate Yes [id number] 100mg Take 1 Univers 100 mg 2-04 capsule by ity of capsule 00:00: mouth 3 [place] 00 (three) Medical times Branch daily as needed for Cough. chlorphenir Yes [id number] 4mg Take 1 Univers amine 4 mg 2-04 tablet by ity of tablet 00:00: mouth [place] 00 every 6 Medical (six) Branch hours as needed for Allergies or Runny nose. multivitami Yes [id number] 1{capsu Take 1 Univers n capsule 2-04 le} capsule by ity of 00:00: mouth [place] 00 daily. Medical Branch calcium-mag Yes [id number] Take as Univers nesium-zinc 2-04 directed ity of 333-133-8.3 00:00: for daily [place] mg Tab 00 dose. Medical Branch benzonatate Yes [id number] 100mg Take 1 Univers 100 mg 2-04 capsule by ity of capsule 00:00: mouth 3 [place] 00 (three) Medical times Branch daily as needed for Cough. chlorphenir Yes [id number] 4mg Take 1 Univers amine 4 mg 2-04 tablet by ity of tablet 00:00: mouth [place] 00 every 6 Medical (six) Branch hours as needed for Allergies or Runny nose. multivitami 0 Yes [id number] 1{capsu Take 1 Univers n capsule 2-04 le} capsule by ity of 00:00: mouth [place] 00 daily. Medical Branch calcium-mag Yes [id number] Take as Univers nesium-zinc 2-04 directed ity of 333-133-8.3 00:00: for daily [place] mg Tab 00 dose. Medical Branch benzonatate Yes [id number] 100mg Take 1 Univers 100 mg 2-04 capsule by ity of capsule 00:00: mouth 3 [place] 00 (three) Medical times Branch daily as needed for Cough. chlorphenir Yes [id number] 4mg Take 1 Univers amine 4 mg 2-04 tablet by ity of tablet 00:00: mouth [place] 00 every 6 Medical (six) Branch hours as needed for Allergies or Runny nose. multivitami Yes [id number] 1{capsu Take 1 Univers n capsule 2-04 le} capsule by ity of 00:00: mouth [place] 00 daily. Medical Branch calcium-mag Yes [id number] Take as Univers nesium-zinc 2-04 directed ity of 333-133-8.3 00:00: for daily [place] mg Tab 00 dose. Medical Branch benzonatate Yes [id number] 100mg Take 1 Univers 100 mg 2-04 capsule by ity of capsule 00:00: mouth 3 [place] 00 (three) Medical times Branch daily as needed for Cough. chlorphenir Yes [id number] 4mg Take 1 Univers amine 4 mg 2-04 tablet by ity of tablet 00:00: mouth [place] 00 every 6 Medical (six) Branch hours as needed for Allergies or Runny nose. multivitami Yes [id number] 1{capsu Take 1 Univers n capsule 2-04 le} capsule by ity of 00:00: mouth [place] 00 daily. Medical Branch calcium-mag Yes [id number] Take as Univers nesium-zinc 2-04 directed ity of 333-133-8.3 00:00: for daily [place] mg Tab 00 dose. Medical Branch benzonatate Yes [id number] 100mg Take 1 Univers 100 mg 2-04 capsule by ity of capsule 00:00: mouth 3 [place] 00 (three) Medical times Branch daily as needed for Cough. chlorphenir Yes [id number] 4mg Take 1 Univers amine 4 mg 2-04 tablet by ity of tablet 00:00: mouth [place] 00 every 6 Medical (six) Branch hours as needed for Allergies or Runny nose. multivitami Yes [id number] 1{capsu Take 1 Univers n capsule 2-04 le} capsule by ity of 00:00: mouth [place] 00 daily. Medical Branch calcium-mag Yes [id number] Take as Univers nesium-zinc 2-04 directed ity of 333-133-8.3 00:00: for daily [place] mg Tab 00 dose. Medical Branch benzonatate Yes [id number] 100mg Take 1 Univers 100 mg 2-04 capsule by ity of capsule 00:00: mouth 3 [place] 00 (three) Medical times Branch daily as needed for Cough. chlorphenir Yes [id number] 4mg Take 1 Univers amine 4 mg 2-04 tablet by ity of tablet 00:00: mouth [place] 00 every 6 Medical (six) Branch hours as needed for Allergies or Runny nose. multivitami Yes [id number] 1{capsu Take 1 Univers n capsule 2-04 le} capsule by ity of 00:00: mouth [place] 00 daily. Medical Branch calcium-mag Yes [id number] Take as Univers nesium-zinc 2-04 directed ity of 333-133-8.3 00:00: for daily [place] mg Tab 00 dose. Medical Branch benzonatate Yes [id number] 100mg Take 1 Univers 100 mg 2-04 capsule by ity of capsule 00:00: mouth 3 [place] 00 (three) Medical times Branch daily as needed for Cough. chlorphenir Yes [id number] 4mg Take 1 Univers amine 4 mg 2-04 tablet by ity of tablet 00:00: mouth [place] 00 every 6 Medical (six) Branch hours as needed for Allergies or Runny nose. multivitami Yes [id number] 1{capsu Take 1 Univers n capsule 2-04 le} capsule by ity of 00:00: mouth [place] 00 daily. Medical Branch calcium-mag Yes [id number] Take as Univers nesium-zinc 2-04 directed ity of 333-133-8.3 00:00: for daily [place] mg Tab 00 dose. Medical Branch iohexol 2019-0 2020- No 110mL 110 mL, Unive rs (OMNIPAQUE 617 06-17 Intravenou it y of 350 22:15: 22:00 s, ONCE, 1 [place] BULK-150 00 :00 dose, Wed Medica l mL) 03/04/20 at [place] injection 1715, 110 mL Routine morpHINE 2020- No 4mg 4 mg, Slow Un kassandra injection 4 03-04 IV Push, ity of mg 21:15: 20:41 ONCE, 1 [place] 00 :00 dose, Wed Medical 03/04/20 at Branch 1615, STAT ondansetron 2020- No 4mg 4 mg, Slow Univers (ZOFRAN 03-04 IV Push, ity of (PF)) 21:15: 20:41 ONCE, 1 [place] injection 4 00 :00 dose, Wed Med ical mg 03/04/20 at Branch 1615, MISTY {2019- Yes See Memoria (Methylpred 5-20 Instructio l nisolone 4 15:28: ns, PO, Herm lynsey MG Oral 00 Take by Tablet mouth as [Medrol]) } directed Pack on label., [Medrol X 6 day, # Dosepak] 21 tab, 0 Refill(s), Pharmacy: [facility] #[id number] naproxen 2020-0 Yes 500 mg = 1 Mem oria 500 mg oral 5-20 tab, PO, l tablet 15:28: BID, with Joseph n 00 food, X 14 day, # 28 tab, 0 Refill(s), Pharmacy: [facility] #[id number] { Yes See Memoria (Methylpred 5-20 Instructio l nisolone 4 15:28: ns, PO, Herm lynsey MG Oral 00 Take by Tablet mouth as [Medrol]) } directed Pack on label., [Medrol X 6 day, # Dosepak] 21 tab, 0 Refill(s), Pharmacy: [facility] #[id number] naproxen 2020-0 Yes 500 mg = 1 Mem oria 500 mg oral 5-20 tab, PO, l tablet 15:28: BID, with Joseph n 00 food, X 14 day, # 28 tab, 0 Refill(s), Pharmacy: [facility] #[id number] { Yes See Memoria (Methylpred 5-20 Instructio l nisolone 4 15:28: ns, PO, Herm lynsey MG Oral 00 Take by Tablet mouth as [Medrol]) } directed Pack on label., [Medrol X 6 day, # Dosepak] 21 tab, 0 Refill(s), Pharmacy: [facility] #[id number] naproxen 2020-0 Yes 500 mg = 1 Mem oria 500 mg oral 5-20 tab, PO, l tablet 15:28: BID, with Joseph n 00 food, X 14 day, # 28 tab, 0 Refill(s), Pharmacy: [facility] #[id number] { Yes See Memoria (Methylpred 5-20 Instructio l nisolone 4 15:28: ns, PO, Herm lynsey MG Oral 00 Take by Tablet mouth as [Medrol]) } directed Pack on label., [Medrol X 6 day, # Dosepak] 21 tab, 0 Refill(s), Pharmacy: [facility] #[id number] naproxen 2020-0 Yes 500 mg = 1 Mem oria 500 mg oral 5-20 tab, PO, l tablet 15:28: BID, with Joseph n 00 food, X 14 day, # 28 tab, 0 Refill(s), Pharmacy: [facility] #[id number] { Yes See Memoria (Methylpred 5-20 Instructio l nisolone 4 15:28: ns, PO, Herm lynsey MG Oral 00 Take by Tablet mouth as [Medrol]) } directed Pack on label., [Medrol X 6 day, # Dosepak] 21 tab, 0 Refill(s), Pharmacy: [facility] #[id number] naproxen 2020-0 Yes 500 mg = 1 Mem oria 500 mg oral 5-20 tab, PO, l tablet 15:28: BID, with Joseph n 00 food, X 14 day, # 28 tab, 0 Refill(s), Pharmacy: [facility] #[id number] Fluticasone Fluticasone Yes Julian 1 spray in Common Propionate Propionate 01-14 Susie each Sp erasto 00:00: nostril - [facility] 00 [facility] RyVent RyVent 2019- No Julian 1 tablet Co mmon 01-1413 Susie on an Spirit 00:00: 00:00 empty - [facility] 00 :[address] [facility] SUMAtriptan 2018-0 Yes 6mg inject 6 Un kassandra 6 mg/0.5 mL 1-31 mg under ity of injection 17:04: [place] 18 once now. Medical Branch CLONAZEPAM Yes Take by [facility] ers ORAL 1-31 mouth. ity of 17:04: [place] [address] Medical Branch SUMAtriptan 2018- Yes 6mg inject 6 Un kassandra 6 mg/0.5 mL 1-31 mg under ity of injection 17:04: the skin [place] 18 once now. Medical Branch CLONAZEPAM 2018- Yes Take by [facility] ers ORAL 1-31 mouth. ity of 17:04: [place] [address] Medical Branch SUMAtriptan 2018- Yes 6mg inject 6 Un kassandra 6 mg/0.5 mL 1-31 mg under ity of injection 17:04: the skin [place] 18 once now. Medical Branch CLONAZEPAM 2018- Yes Take by [facility] ers ORAL 1-31 mouth. ity of 17:04: [place] [address] Medical Branch SUMAtriptan 2018- Yes 6mg inject 6 Un kassandra 6 mg/0.5 mL 1-31 mg under ity of injection 17:04: the skin [place] 18 once now. Medical Branch CLONAZEPAM 2018- Yes Take by [facility] ers ORAL 1-31 mouth. ity of 17:04: [place] [address] Medical Branch SUMAtriptan 2018- Yes 6mg inject 6 Un kassandra 6 mg/0.5 mL 1-31 mg under ity of injection 17:04: the skin [place] 18 once now. Medical Branch CLONAZEPAM 2018- Yes Take by [facility] ers ORAL 1-31 mouth. ity of 17:04: [place] [address] Medical Branch SUMAtriptan 2018- Yes 6mg inject 6 Un kassandra 6 mg/0.5 mL 1-31 mg under ity of injection 17:04: the skin [place] 18 once now. Medical Branch CLONAZEPAM 2018-0 Yes Take by [facility] ers ORAL 1-31 mouth. ity of 17:04: [place] [address] Medical Branch SUMAtriptan 2018- Yes 6mg inject 6 Un kassandra 6 mg/0.5 mL 1-31 mg under ity of injection 17:04: the skin [place] 18 once now. Medical Branch CLONAZEPAM Yes Take by [facility] ers ORAL 1-31 mouth. ity of 17:04: [place] [address] Medical Branch SUMAtriptan Yes 6mg inject 6 Un kassandra 6 mg/0.5 mL 1-31 mg under ity of injection 17:04: the skin [place] 18 once now. Medical Branch CLONAZEPAM Yes Take by [facility] ers ORAL 1-31 mouth. ity of 17:04: [place] [address] Medical Branch SUMAtriptan Yes 6mg inject 6 Un kassandra 6 mg/0.5 mL 1-31 mg under ity of injection 11:04: the skin [place] 18 once now. Medical Branch CLONAZEPAM Yes Take by [facility] ers ORAL 1-31 mouth. ity of 11:04: [place] [address] Medical Branch SUMAtriptan Yes 6mg inject 6 Un kassandra 6 mg/0.5 mL 1-31 mg under ity of injection 11:04: the skin [place] 18 once now. Medical Branch CLONAZEPAM Yes Take by [facility] ers ORAL 1-31 mouth. ity of 11:04: [place] [address] Medical Branch SUMAtriptan Yes 6mg inject 6 Un kassandra 6 mg/0.5 mL 1-31 mg under ity of injection 11:04: the skin [place] 18 once now. Medical Branch CLONAZEPAM Yes Take by [facility] ers ORAL 1-31 mouth. ity of 11:04: [address] { Yes See Memoria (Methylpred 9-28 Instructio l nisolone 4 20:18: ns, PO, Herm lynsey MG Oral 00 Take by Tablet mouth as [Medrol]) } directed Pack on label., [Medrol # 1 Pack, Dosepak] 1 Refill(s), Pharmacy: [facility] { Yes See Memoria (Methylpred 9-28 Instructio l nisolone 4 20:18: ns, PO, Herm lynsey MG Oral 00 Take by Tablet mouth as [Medrol]) } directed Pack on label., [Medrol # 1 Pack, Dosepak] 1 Refill(s), Pharmacy: [facility] 482 { Yes See Memoria (Methylpred 9-28 Instructio l nisolone 4 20:18: ns, PO, Herm lynsey MG Oral 00 Take by Tablet mouth as [Medrol]) } directed Pack on label., [Medrol # 1 Pack, Dosepak] 1 Refill(s), Pharmacy: [facility] 482 { Yes See Memoria (Methylpred 9-28 Instructio l nisolone 4 20:18: ns, PO, Herm lynsey MG Oral 00 Take by Tablet mouth as [Medrol]) } directed Pack on label., [Medrol # 1 Pack, Dosepak] 1 Refill(s), Pharmacy: [facility] 48 { Yes See Memoria (Methylpred 9-28 Instructio l nisolone 4 20:18: ns, PO, Herm lynsey MG Oral 00 Take by Tablet mouth as [Medrol]) } directed Pack on label., [Medrol # 1 Pack, Dosepak] 1 Refill(s), Pharmacy: [facility] lisdexamfet Yes 20 mg = 1 M emoria amine 6-13 cap, PO, l dimesylate 19:46: QAM, # 30 He rmann 20 MG Oral 00 tab, 0 Capsule Refill(s) [Vyvanse] Levonorgest 2018-0 Yes 52 mg = 1 M emoria rel 6-13 ea, l 0.667979 19:46: Intrautera Her watkins MG/HR Drug 00 l, ONCE, # Implant 1 ea, 0 [Mirena] Refill(s) lisdexamfet 2017-0 Yes 20 mg = 1 M emoria amine 6-13 cap, PO, l dimesylate 19:46: QAM, # 30 He rmann 20 MG Oral 00 tab, 0 Capsule Refill(s) [Vyvanse] Levonorgest 2018-0 Yes 52 mg = 1 M emoria rel 6-13 ea, l 0.501524 19:46: Intrautera Her watkins MG/HR Drug 00 l, ONCE, # Implant 1 ea, 0 [Mirena] Refill(s) lisdexamfet 2018-0 Yes 20 mg = 1 M emoria amine 6-13 cap, PO, l dimesylate 19:46: QAM, # 30 He rmann 20 MG Oral 00 tab, 0 Capsule Refill(s) [Vyvanse] Levonorgest 2018 Yes 52 mg = 1 M emoria rel 6-13 ea, l 0.249432 19:46: Intrautera Her watkins MG/HR Drug 00 l, ONCE, # Implant 1 ea, 0 [Mirena] Refill(s) lisdexamfet 2018 Yes 20 mg = 1 M emoria amine 6-13 cap, PO, l dimesylate 19:46: QAM, # 30 He rmann 20 MG Oral 00 tab, 0 Capsule Refill(s) [Vyvanse] Levonorgest 2018 Yes 52 mg = 1 M emoria rel 6-13 ea, l 0.123879 19:46: Intrautera Her watkins MG/HR Drug 00 l, ONCE, # Implant 1 ea, 0 [Mirena] Refill(s) lisdexamfet Yes 20 mg = 1 M emoria amine 6-13 cap, PO, l dimesylate 19:46: QAM, # 30 He rmann 20 MG Oral 00 tab, 0 Capsule Refill(s) [Vyvanse] Levonorgest Yes 52 mg = 1 M emoria rel 6-13 ea, l 0.572610 19:46: Intrautera Her watkins MG/HR Drug 00 l, ONCE, # Implant 1 ea, 0 [Mirena] Refill(s) cephalexin Yes 500 mg = 1 M emoria 500 mg oral 5-09 cap, PO, l capsule 19:25: TID, X 10 Debbie nn 00 day, # 30 cap, 0 Refill(s), Pharmacy: [facility] cephalexin Yes 500 mg = 1 M emoria 500 mg oral 5-09 cap, PO, l capsule 19:25: TID, X 10 Debbie nn 00 day, # 30 cap, 0 Refill(s), Pharmacy: [facility] cephalexin Yes 500 mg = 1 M emoria 500 mg oral 5-09 cap, PO, l capsule 19:25: TID, X 10 Debbie nn 00 day, # 30 cap, 0 Refill(s), Pharmacy: [facility] 482 cephalexin 2018-0 Yes 500 mg = 1 M emoria 500 mg oral 5-09 cap, PO, l capsule 19:25: TID, X 10 Debbie nn 00 day, # 30 cap, 0 Refill(s), Pharmacy: [facility] 48 cephalexin 2018-0 Yes 500 mg = 1 M emoria 500 mg oral 5-09 cap, PO, l capsule 19:25: TID, X 10 Debbie nn 00 day, # 30 cap, 0 Refill(s), Pharmacy: [facility] Ceftriaxone 2018-0 No 1 gm, Memor ia - Route: IM, l 19:24: Drug form: [place] 00 PDR/INJ, ONCE, Dosing Weight 86.818, kg, Start date: 01/24/18 14:24:00 CDT, Stop date: 01/24/18 14:24:00 CDT Ceftriaxone 2018-0 No 1 gm, Memor ia 01-24 Route: IM, l 19:24: Drug form: [place] 00 PDR/INJ, ONCE, Dosing Weight 86.818, kg, Start date: 01/24/18 14:24:00 CDT, Stop date: 01/24/18 14:24:00 CDT Ceftriaxone 2018-0 No 1 gm, Memor ia 01-24 Route: IM, l 19:24: Drug form: [place] 00 PDR/INJ, ONCE, Dosing Weight 86.818, kg, Start date: 01/24/18 14:24:00 CDT, Stop date: 01/24/18 14:24:00 CDT Ceftriaxone 2018-0 No 1 gm, Memor ia - Route: IM, l 19:24: Drug form: [place] 00 PDR/INJ, ONCE, Dosing Weight 86.818, kg, Start date: 01/24/18 14:24:00 CDT, Stop date: 01/24/18 14:24:00 CDT Ceftriaxone 2018-0 No 1 gm, Memor ia - Route: IM, l 19:24: Drug form: [place] PDR/INJ, ONCE, Dosing Weight 86.818, kg, Start date: 01/24/18 14:24:00 CDT, Stop date: 01/24/18 14:24:00 CDT ondansetron 2015-0 No Joesph K 8 mg = 1 [...] 7-15 Rasheed 0.5 mL, l 18:24: Injection, [place] 00 IM, Once PRN for severe nausea, first dose 04/01/15 13:24:00 CDT LR 1,000 mL No Joesph K 1,000 mL, Memoria 7-15 Rasheed IV, 75 l 18:24: mL/hr, [place] 00 start date 04/01/15 13:24:00 CDT Saline Lock No Joesph K 10 mL, Fl moria Flush 7-15 Rasheed Soln, IV l 18:24: Push, As [place] 00 Indicated PRN for flush, first dose [...] 7-15 Rasheed 0.5 mL, l 18:24: Injection, [place] 00 IM, Once PRN for severe nausea, [...] 7-15 Rasheed 0.1 mL, l 18:24: Injection, [place] 00 IV Push, q10min PRN for pain severe (7-10), first dose 04/01/15 13:24:00 CDT promethazin No Joesph K 12.5 mg = Memoria e 7-15 Rasheed 0.5 mL, l 18:24: Injection, [place] 00 IM, Once PRN for severe nausea, first dose 04/01/15 13:24:00 CDT LR 1,000 mL No Joesph K 1,000 mL, Memoria 7-15 Rasheed IV, 75 l 18:24: mL/hr, [place] 00 start date 04/01/15 13:24:00 CDT Saline Lock No Joesph K 10 mL, Me moria Flush 7-15 Rasheed Soln, IV l 18:24: Push, As [place] 00 Indicated PRN for flush, first dose 04/01/15 13:24:00 CDT ondansetron No Joesph K 8 mg = 1 Memoria 7-15 Rasheed tabs, l 18:24: Tab-Dis, [place] 00 Oral, Once PRN for nausea/vom iting, first dose 04/01/15 13:24:00 CDT Dilaudid No Joesph K 0.2 mg = Mem oria 7-15 Rasheed 0.1 mL, l 18:24: Injection, [place] 00 IV Push, q10min PRN for pain severe (7-10), first dose 04/01/15 13:24:00 CDT promethazin No Joesph K 12.5 mg = Memoria e 7-15 Rasheed 0.5 mL, l 18:24: Injection, [place] 00 IM, Once PRN for severe nausea, [...] Rasheed Soln, IV l 18:24: Push, As [place] 00 Indicated PRN for flush, first dose 04/01/15 13:24:00 CDT Misc No Joey 600 mL, Memoria Medication 04-01 Yeh Soln-IV, l 18:19: IV, Once, Hoang 00 first dose 04/01/15 13:19:00 CDT, stop date 04/01/15 13:19:[address] [facility] No Joey 600 mL, Memoria Medication 04-01 Yeh Soln-IV, l 18:19: IV, Once, [place] first dose 04/01/15 13:19:00 CDT, stop date 04/01/15 13:19:[address] [facility] No Joey 600 mL, Memoria Medication 04-01 Yeh Soln-IV, l 18:19: IV, Once, Hoang first dose 04/01/15 13:19:00 CDT, stop date 04/01/15 13:19:[address] [facility] No Joey 600 mL, Memoria Medication 04-01 Yeh Soln-IV, l 18:19: IV, Once, [place] first dose 04/01/15 13:19:00 CDT, stop date 04/01/15 13:19:[address] [facility] No Joey 600 mL, Memoria Medication 04-01 Yeh Soln-IV, l 18:19: IV, Once, [place] first dose 04/01/15 13:19:00 CDT, stop date 04/01/15 13:19:00 CDT propofol No Joey 300 mg = Me moria 7-15 Yeh 30 mL, l 17:57: Emulsion, [place] 00 IV, Once, first dose 04/01/15 12:57:00 [...] Yeh Powder-Inj l Chloride 17:40: , IV, [place] 0.9% 100 mL 00 Once, first dose [...] Yeh Powder-Inj l Chloride 17:40: , IV, [place] 0.9% 100 mL 00 Once, first dose [...] Yeh Powder-Inj l Chloride 17:40: , IV, [place] 0.9% 100 mL 00 Once, first dose 04/01/15 12:40:00 CDT, stop date 04/01/15 12:40:00 CDT fentaNYL No Joey 100 mcg = M emoria 7-15 Yeh 2 mL, l 17:34: Injection, [place] 00 IV, Once, first dose 04/01/15 12:34:00 CDT, stop date 04/01/15 12:34:00 CDT lidocaine No Joey 3 mL, Jose Carlos maury 7-15 Yeh Injection, l 17:34: IV, Once, [place] 00 first dose 04/01/15 12:34:00 CDT, stop date 04/01/15 12:34:00 CDT fentaNYL No Joey 100 mcg = Keyur goria 7-15 Yeh 2 mL, l 17:34: Injection, [place] 00 IV, Once, first dose 04/01/15 12:34:00 CDT, stop date 04/01/15 12:34:00 CDT lidocaine No Joey 3 mL, Jose Carlos maury 7-15 Yeh Injection, l 17:34: IV, Once, [place] 00 first dose 04/01/15 12:34:00 CDT, stop date 04/01/15 12:34:00 CDT fentaNYL No Joey 100 mcg = Keyur goria 7-15 Yeh 2 mL, l 17:34: Injection, [place] 00 IV, Once, first dose 04/01/15 12:34:00 CDT, stop date 04/01/15 12:34:00 CDT lidocaine No Joey 3 mL, Jose Carlos maury 7-15 Yeh Injection, l 17:34: IV, Once, [place] 00 first dose 04/01/15 12:34:00 CDT, stop date 04/01/15 12:34:00 CDT fentaNYL No Joey 100 mcg = Keyur goria 7-15 Yeh 2 mL, l 17:34: Injection, [place] 00 IV, Once, first dose 04/01/15 12:34:00 CDT, stop date 04/01/15 12:34:00 CDT lidocaine No Joey 3 mL, Jose Carlos maury 7-15 Yeh Injection, l 17:34: IV, Once, [place] 00 first dose 04/01/15 12:34:00 CDT, stop date 04/01/15 12:34:00 CDT fentaNYL No Joey 100 mcg = M emoria 7-15 Yhe 2 mL, l 17:34: Injection, [place] 00 IV, Once, first dose 04/01/15 12:34:00 CDT, stop date 04/01/15 12:34:00 CDT lidocaine 2014-0 No Joey 3 mL, Jose Carlos maury -15 Yeh Injection, l 17:34: IV, Once, [place] 00 first dose 04/01/15 12:34:00 CDT, stop date 04/01/15 12:34:00 CDT ceFAZolin 2014-0 No Rohith 1 gm, IV Me moria 7-15 Hillery Piggyback, l 16:00: Once, [place] 00 infuse over 30 minutes, first dose 04/01/15 11:00:00 CDT, stop date 04/01/15 11:00:00 CDT ceFAZolin 2014-0 No Rohith 1 gm, IV Me moria 7-15 Hillery Piggyback, l 16:00: Once, [place] 00 infuse over 30 minutes, first dose [...] moria 7-15 Hillery Piggyback, l 16:00: Once, [place] 00 infuse over 30 minutes, first dose 04/01/15 11:00:00 CDT, stop date 04/01/15 11:00:00 CDT Lidocaine 2014-0 No Joesph K 0.2 mL, Mem oria 2% 0.2 mL 04-01 Rasheed Injection, l IV Start 15:19: Subcutaneo Her watkins [[facility]] 00 us, Once PRN for other (see comment), first dose 04/01/15 10:19:00 CDT LR 1,000 mL No Joesph K 1,000 mL, Memoria 7-15 Rasheed IV, 30 l 15:19: mL/hr, start date 04/01/15 10:19:00 CDT Lidocaine No Joesph K 0.2 mL, Mem oria 2% 0.2 mL 7-15 Rasheed Injection, l IV Start 15:19: Subcutaneo [facility] [[facility]] us, Once PRN for other (see comment), first dose 04/01/15 10:19:00 CDT LR 1,000 mL No Joesph K 1,000 mL, Memoria 7-15 Rasheed IV, 30 l 15:19: mL/hr, start date 04/01/15 10:19:00 CDT Lidocaine No Joesph K 0.2 mL, Mem oria 2% 0.2 mL 7-15 Rasheed Injection, l IV Start 15:19: Subcutaneo [facility] [[facility]] us, Once PRN for other (see comment), first dose 04/01/15 10:19:00 CDT LR 1,000 mL No Joesph K 1,000 mL, Memoria 7-15 Rasheed IV, 30 l 15:19: mL/hr, start date 04/01/15 10:19:00 CDT Lidocaine No Joesph K 0.2 mL, Mem oria 2% 0.2 mL 7-15 Rasheed Injection, l IV Start 15:19: Subcutaneo [facility] [[facility]] us, Once PRN for other (see comment), first dose 04/01/15 10:19:00 CDT LR 1,000 mL No Joesph K 1,000 mL, Memoria 7-15 Rasheed IV, 30 l 15:19: mL/hr, start date 04/01/15 10:19:00 CDT Lidocaine No Joesph K 0.2 mL, Mem oria 2% 0.2 mL 7-15 Rasheed Injection, l IV Start 15:19: Subcutaneo [facility] [[facility]] 00 us, Once PRN for other (see comment), first dose 04/01/15 10:19:00 CDT LR 1,000 mL No Joesph K 1,000 mL, Memoria 7-15 Rasheed IV, 30 l 15:19: mL/hr, Hoang start date 04/01/15 10:19:00 CDT Yes Memor ia vitamins 6-22 vitamins, l 15:44: 0 [place] 00 Refill(s), supplement Yes Memor ia vitamins 6-22 vitamins, l 15:44: 0 [place] 00 Refill(s), supplement Yes Memor ia vitamins 6-22 vitamins, l 15:44: 0 [place] 00 Refill(s), supplement Yes Memor ia vitamins 6-22 vitamins, l 15:44: 0 [place] 00 Refill(s), supplement Yes Memor ia vitamins 6-22 vitamins, l 15:44: 0 [place]ang Refill(s), supplement Topiramate Topiramate Yes Julian 1 tablet [facility] Sumatriptan Sumatriptan Yes Julian (Prior Common Succinate Succinate Susie Auth: Rx [facility] Ref#:[id number] - [facility] [id number]) [facility] Immunizations Ordered Immunization Filled Immunization Date Status Commen ts Source Name Name TB PPD TB PPD 2019-01-14 Completed [facility] - 00:00:00 [facility] influenza virus 2018-06-29 Completed [facility] vaccine, inactivated 19:59:00 Herm lynsey influenza virus 2018-06-29 Completed [facility] vaccine, inactivated 19:59:00 Herm lynsey influenza virus 2018-06-29 Completed [facility] vaccine, inactivated 19:59:00 Herm lynsey influenza virus 2018-06-29 Completed [facility] vaccine, inactivated 19:59:00 Herm lynsey influenza virus 2018-06-29 Completed [facility] vaccine, inactivated 19:59:00 Herm lynsey hepatitis B adult 2018-05-25 Completed Memoria l vaccine 20:29:00 [place] hepatitis B adult 2018-05-25 Completed Memoria l vaccine 20:29:00 [place] hepatitis B adult 2018-05-25 Completed Memoria l vaccine 20:29:00 [place] hepatitis B adult 2018-05-25 Completed Memoria l vaccine 20:29:00 [place] hepatitis B adult 2018-05-25 Completed Memoria l vaccine 20:29:00 [place] hepatitis B adult 2017-11-29 Completed Memoria l vaccine 15:19:00 [place] hepatitis B adult 2017-11-29 Completed Memoria l vaccine 15:19:00 [place] hepatitis B adult 2017-11-29 Completed Memoria l vaccine 15:19:00 [place] hepatitis B adult 2017-11-29 Completed Memoria l vaccine 15:19:00 [place] hepatitis B adult 2017-11-29 Completed Memoria l vaccine 15:19:00 [place] hepatitis B adult 2017-11-01 Completed Memoria l vaccine 16:26:00 [place] hepatitis B adult 2017-11-01 Completed Memoria l vaccine 16:26:00 [place] hepatitis B adult 2017-11-01 Completed Memoria l vaccine 16:26:00 [place] hepatitis B adult 2017-11-01 Completed Memoria l vaccine 16:26:00 [place] hepatitis B adult 2017-11-01 Completed Memoria l vaccine 16:26:00 [place] diphtheria/pertussis 2017-10-19 Completed Jose Carlos rial , [...] 2022-09-05 113 mm[Hg] University of pressure 17:19:00 [facility] Diastolic blood 2022-09-05 63 mm[Hg] University o f pressure 17:19:00 [facility] Heart rate 2022-09-05 93 /min University 17:19:00 [facility] Body temperature 2022-09-05 36.5 Jennifer University 17:19:00 [facility] Respiratory rate 2022-09-05 20 /min [facility] 17:19:00 [facility] Body weight 2022-09-05 89.359 kg University of 17:19:00 [facility] BMI 2022-09-05 33.81 kg/m2 University of 17:19:00 [facility] Oxygen saturation 2022-09-05 100 /min University of in Arterial blood 17:19:00 [facility] real by Pulse oximetry Branch Systolic blood 2021-09-19 103 mm[Hg] University of pressure 18:36:00 [facility] Diastolic blood 2021-09-19 71 mm[Hg] University o f pressure 18:36:00 [facility] Heart rate 2021-09-19 116 /min University of 18:36:00 [facility] Body temperature 2021-09-19 37.22 Jennifer University of 18:36:00 [facility] Respiratory rate 2021-09-19 20 /min University of 18:36:00 [facility] Body height 2021-09-19 162.6 cm University of 18:36:00 [facility] Body weight 2021-09-19 97.07 kg University of 18:36:00 [facility] BMI 2021-09-19 36.73 kg/m2 University of 18:36:00 [facility] Oxygen saturation 2021-09-19 99 /min University of in Arterial blood 18:36:00 [facility] by Pulse oximetry Branch Systolic blood 2021-04-19 111 mm[Hg] University of pressure 16:33:00 [facility] Diastolic blood 2021-04-19 65 mm[Hg] University o f pressure 16:33:00 [facility] Heart rate 2021-04-19 61 /min University of 16:33:00 [facility] Respiratory rate 2021-04-19 18 /min University of 16:33:00 [facility] Oxygen saturation 2021-04-19 100 /min University of in Arterial blood 16:33:00 [facility] by Pulse oximetry Branch Body temperature 2021-04-19 36.89 Jennifer University of 13:31:00 [facility] Body weight 2021-04-19 81.647 kg University of 13:31:00 [facility] BMI 2021-04-19 30.90 kg/m2 University of 13:31:00 [facility] Systolic blood 2021-01-10 107 mm[Hg] University of pressure 01:18:00 [facility] Diastolic blood 2021-01-10 65 mm[Hg] University o f pressure 01:18:00 [facility] Heart rate 2021-01-10 61 /min University of :18:00 [facility] Respiratory rate 2021-01-10 14 /min University of :18:00 [facility] Oxygen saturation 2021-01-10 100 /min University of in Arterial blood 01:18:00 [facility] by Pulse oximetry [facility] Body temperature 2021-01-09 37.33 Jennifer University of :: [facility] Body weight 2021-01-09 81.647 kg University of 22:04: [facility] BMI 2021-01-09 30.90 kg/m2 University of 22:04:00 [facility] Systolic blood 2021-01-10 107 mm[Hg] University of pressure :18:00 [facility] Diastolic blood 2021-01-10 65 mm[Hg] University o f pressure :18:00 [facility] Heart rate 2021-01-10 61 /min University of :18:00 [facility] Respiratory rate 2021-01-10 14 /min University of :18:00 [facility] Oxygen saturation 2021-01-10 100 /min University of in Arterial blood :18:00 [facility] real by Pulse oximetry Branch Body temperature 2021-01-09 37.33 Jennifer University of ::00 [facility] Body weight 2021-01-09 81.647 kg University of :: [facility] BMI 2021-01-09 30.90 kg/m2 University of 22::00 [facility] BMI 2020-10-22 34.16 kg/m2 University of 14:16:00 [facility] Oxygen saturation 2020-10-22 97 /min University of in Arterial blood 14:16:00 [facility] real by Pulse oximetry Branch Systolic blood 2020-10-22 147 mm[Hg] University of pressure 14:16:00 [facility] Diastolic blood 2020-10-22 92 mm[Hg] University o f pressure 14:16:00 [facility] Heart rate 2020-10-22 85 /min University of 14:16:00 [facility] Body temperature 2020-10-22 36.89 Jennifer University of 14:16:00 [facility] Respiratory rate 2020-10-22 18 /min University of 14:16:00 [facility] Body weight 2020-10-22 90.266 kg Simultaneous University of 14:16:00 filing. User may [place] [facility] not have seen Branch previous data. BMI 2020-10-22 34.16 kg/m2 University of 14:16:00 [facility] Oxygen saturation 2020-10-22 97 /min University of in Arterial blood 14:16:00 [facility] real by Pulse oximetry Branch Systolic blood 2020-10-22 147 mm[Hg] University of pressure 14:16:00 [facility] Diastolic blood 2020-10-22 92 mm[Hg] University o f pressure 14:16:00 [facility] Heart rate 2020-10-22 85 /min University of 14:16:00 [facility] Body temperature 2020-10-22 36.89 Jennifer University of 14:16:00 [facility] Respiratory rate 2020-10-22 18 /min University of 14:16:00 [facility] Body weight 2020-10-22 90.266 kg Simultaneous University of 14:16:00 filing. User may [place] [facility] not have seen Branch previous data. Systolic blood 2020-03-04 114 mm[Hg] University of pressure 23:10:48 [facility] Diastolic blood 2020-03-04 75 mm[Hg] University o f pressure 23:10:48 [facility] Heart rate 2020-03-04 56 /min University of 23:10:48 [facility] Respiratory rate 2020-03-04 15 /min University of 23:10:48 [facility] Oxygen saturation 2020-03-04 97 /min University of in Arterial blood 23:10:48 [facility] by Pulse oximetry [place] Body temperature 2020-03-04 36 Jennifer University of 19:45:00 [facility] Body height 2020-03-04 162.6 cm University of 19:45:00 [facility] Body weight 2020-03-04 90.266 kg University of 19:45:00 [facility] BMI 2020-03-04 34.16 kg/m2 University of 19:45:00 [facility] Systolic blood 2020-03-04 114 mm[Hg] University of pressure 23:10:48 [facility] Diastolic blood 2020-03-04 75 mm[Hg] University o f pressure 23:10:48 [facility] Heart rate 2020-03-04 56 /min University of 23:10:48 [facility] Respiratory rate 2020-03-04 15 /min University 23:10:48 [facility] Oxygen saturation 2020-03-04 97 /min [facility] in Arterial blood 23:10:48 [facility] by Pulse oximetry [place] Body temperature 2020-03-04 36 Jennifer University 19:45:00 [facility] Body height 2020-03-04 162.6 cm University 19:45:00 [facility] Body weight 2020-03-04 90.266 kg University 19:45:00 [facility] BMI 2020-03-04 34.16 kg/m2 University 19:45:00 [facility] Systolic (mm Hg) 2020-02-05 [facility] rmann 14:40:00 Diastolic (mm Hg) 2020-02-05 [facility] ermann 14:40:00 Heart Rate 2020-02-05 [facility] 14:40:00 Weight 2018-06-29 [facility] n 20:03:00 Systolic (mm Hg) 2018-06-29 [facility] rmann 20:03:00 Diastolic (mm Hg) 2018-06-29 [facility] ermann 20:03:00 Temperature Oral 2018-06-29 97.6 F [facility] rmann (F) 20:03:00 Heart Rate 2018-06-29 [facility] n 20:03:00 BMI Calculated 2018-06-15 [facility] lynsey 20:08:00 Height 2018-06-15 162.56 cm [facility] n 20:08:00 Weight 2018-06-15 [facility] n 20:08:00 Systolic (mm Hg) 2018-06-15 [facility] rmann 20:08:00 Diastolic (mm Hg) 2018-06-15 [facility] H ermann 20:08:00 Temperature Oral 2018-06-15 98.3 F [facility] rmann (F) 20:08:00 Heart Rate 2018-06-15 [facility] Joseph n 20:08:00 Weight 2018-05-25 [facility] n 20:27:00 Temperature Oral 2018-05-25 98.5 F [facility] rmann (F) 20:27:00 Heart Rate 2018-05-25 [facility] [...] 19:18:00 Temperature Oral 2017-10-18 97.8 F [facility] Mick rmann (F) 19:18:00 Systolic (mm Hg) 2017-10-18 [...] lynsey 18:20:00 Systolic (mm Hg) 2015-04-01 [facility] Mick rmann 18:10:00 Temperature Oral 2015-04-01 36.7 Jennifer Brandt Barton rmann (F) 18:10:00 Weight 2015-04-01 [facility] n 15:27:00 Temperature Oral 2015-04-01 36.5 Jennifer Brandt Barton rmann (F) 15:27:00 Height 2015-04-01 162.56 cm [facility] Joseph n 15:27:00 Weight 2015-03-09 [facility] 15:41:00 Height 2015-03-09 162.56 cm Brandt Gutierrezan n 15:41:00 Procedures Procedure Date / Time Performing Clinician Source Performed NOTICE OF PRIVACY 2022-09-05 17:12:22 Doctor Unassigned, [facility] PRACTICES [place] [facility] [place] CONSENT/REFUSAL FOR 2022-09-05 17:11:19 Doctor Unassigned, [facility] DIAGNOSIS AND TREATMENT [place] [facility] [place] HB ABO GROUPING 2021-04-19 15:58:00 [facility] URINALYSIS 2021-04-19 14:40:00 [facility] COMP. METABOLIC PANEL 2021-04-19 14:33:00 [facility] ([id number]) Medical [place] TOTAL BETA HCG ASSAY 2021-04-19 14:33:00 Jayesh Anaya [facility] [place] [facility] US FIRST 2021-04-19 14:20:42 [facility] TRIME[facility] LESS THAN 14 Medical [place] WEEKS WITH TRANSVAGINAL CBC WITH DIFF 2021-04-19 13:47:00 Jayesh Anaya o [facility] CONSENT/REFUSAL FOR 2021-04-19 13:24:26 Doctor Carolina Mckeon [facility] DIAGNOSIS AND TREATMENT [place] [facility] US OVARY TORSION 2021-01-10 00:44:27 Jess Walter [facility] URINALYSIS 2021-01-09 22:19:00 Jess Walter [facility] TEST, SERUM 2021-01-09 22:17:00 [facility] 2021-01-09 22:16:00 Jess Walter [facility] LIPASE 2021-01-09 22:15:00 Jess Walter [facility] COMP. METABOLIC PANEL 2021-01-09 22:15:00 Jess Walter [facility] ([id number]) [facility] TOTAL BETA HCG ASSAY 2021-01-09 22:15:00 Jess Walter [facility] CBC WITH DIFF 2021-01-09 22:15:00 Jess Walter [facility] CONSENT/REFUSAL FOR 2021-01-09 21:58:20 Carolina Khan [facility] RAPID STREP SCREEN FOR 2020-10-22 14:47:00 Jayesh Anaya [facility] GROUP A [facility] NOTICE OF PRIVACY 2020-10-22 14:07:25 Doctor Linda [facility] PRACTICES [place] [facility] [place] CONSENT/REFUSAL FOR 2020-10-22 14:07:14 Doctor Carolina Mckeon [facility] DIAGNOSIS AND TREATMENT [place] [facility] [place] CT ABDOMEN PELVIS W 2020-03-04 22:09:00 Marguerite Sousa [facility] CONTRAST [facility] US GALL BLADDER 2020-03-04 20:31:43 Marguerite Sousa [facility] POCT TEST 2020-03-04 20:13:00 Marguerite Sousa [facility] LIPASE 2020-03-04 20:12:00 Marguerite Sousa [facility] MAGNESIUM 2020-03-04 20:12:00 Mraguerite Sousa [facility] COMP. METABOLIC PANEL 2020-03-04 20:12:00 Marguerite Sousa [facility] ([id number]) Medical Branch CBC WITH DIFFERENTIAL 2020-03-04 20:12:00 Marguerite Sousa [facility] URINALYSIS 2020-03-04 20:12:00 Marguerite Sousa [facility] COVID-19 (ID NOW RAPID 2020-03-04 20:12:00 Marguerite Sousa [facility] TESTING) Medical Branch CONSENT/REFUSAL FOR 2020-03-04 19:28:19 Doctor Unassigned, [facility] DIAGNOSIS AND TREATMENT [place] [facility] [place] EXCISION LIPOMA BACK 5CM 2015-04-01 17:50:00 Rohith Salmeron Mem OR DWAYNE [id number] (Other)<sup>1</sup> section 2013-09-18 00:00:00 [facility] Mick rmann 2012-09-18 00:00:00 [facility] watkins section<sup>1</sup> Appendectomy 2005-09-18 00:00:00 [facility] Her watkins left wrist surgery 2002-09-18 00:00:00 [facility] Hoang Complex reconstruction [facility] Hoang operations on wrist and hand(excluding arthroplasty) Tonsillectomy [facility] Start End Encounter Admission Attending Care Care Encounter Source Date/Time Date/Time Type Type Clinicians Facility Department ID 2021-07-19 Emergency [facility] [id number] [facility] 2021-07-18 Emergency [facility] [id number] Univers 15:04:[facility] 2021-07-17 Emergency [facility] [id number] Univers 21:44:31 ity [facility] 2020-02-10 Inpatient Chrystal [facility] [id number] [facility] 07:00:00 [facility] 2022-09-05 2022-09-05 Emergency X TIARA [facility] ERT [id number] Univers 11:20:00 12:16:00 DELMI itsilvestre [facility] 2022-09-05 2022-09-05 [facility] [id number] Univers 11:20:00 12:16:00 Delmi FISHMAN [id number] ity of [id number] [id number] [address] 2021-10-12 2021-10-12 Outpatient COH COH PIJFIFK ZHY COH 00:00:00 00:00:00 -[id number] 2021-09-20 2021-09-20 Letter VICKIE Moreno [id number] Univers 00:00:00 00:00:00 (Out) Deepti RUFFIN [id number] it y of [facility] [id number] [place] as [id number] [address] 2021-09-19 2021-09-19 Urgent Fide Mayer [facility] [id number] Univers 13:20:00 13:20:00 [facility] [id number] ity of [place] L[place] [id number] [place] as BRITTANIE?BLEA [id number] [address] MEDICAL OFFICE BUILDING 2021-09-19 2021-09-19 Outpatient Madhavi HARVEY [facility] [id number] Univers 13:20:00 13:01:06 MARIA DEL [facility] 2021-04-19 2021-04-19 Emergency [facility] [id number] Univers 08:32:00 11:35:00 Jayesh Fishman [id number] i ty [id number] [id number] [address] 2021-01-09 2021-01-09 Emergency Ibunle, [facility] [id number] [facility] 17:06:00 20:20:00 Jess Baca Marisabel [id number] ity of [place] [id number] [facility] [id number] [address] 2021-01-09 2021-01-09 Emergency Ibunle, [facility] [id number] 17:06:00 20:20:00 Yumikodana Keven Marisabel [id number] [place] [id number] [place] [id number] [facility] 2021-01-09 2021-01-09 Orders Doctor JOHNSTON [id number] Univers 00:00:00 00:00:00 Only Unassigned, AUGUSTIN [id number] ity of [place] [facility] [id number] [facility] [id number] [address] 2021-01-09 2021-01-09 Orders Doctor JOHNSTON [id number] 00:00:00 00:00:00 Only Unassigned, [place] [id number] [place] [facility] [id number] [facility] 2020-10-22 2020-10-22 Emergency Anaya, [facility] [id number] [facility] 08:26:00 10:18:00 Jayesh Fishman [id number] i ty of [place] [id number] [facility] [id number] [address] 2020-10-22 2020-10-22 Emergency Anaya, [facility] [id number] 08:26:00 10:18:00 Jayesh Fishman 350.1.13.10 [place] 4.2.7.2.686 [place] [phone] [facility] 2020-10-22 2020-10-22 Letter VICKIE Moreno 1.2.840.114 [id number] Univers 00:00:00 00:00:00 (Out) Deepti RUFFIN 350.1.13.10 it y of HOSPITAL 4.2.7.2.686 [place] as [phone] [facility] 019 [place] 2020-10-22 2020-10-22 Orders Doctor VICKIE 1.2.840.114 [id number] Univers 00:00:00 00:00:00 Only Unassigned, AUGUSTIN 350.1.13.10 ity of [place] [facility] 4.2.7.2.686 [place] as [id number] [facility] 009 [place] 2020-10-22 2020-10-22 Orders Doctor VICKIE 1.2.840.114 [id number] 00:00:00 00:00:00 Only Unassigned, [place]UGUSTIN 350.1.13.10 [place] [facility] 4.2.7.2.686 [id number] [facility] 2020-10-22 2020-10-22 Letter VICKIE Moreno 1.2.840.114 [id number] 00:00:00 00:00:00 (Out) Deepti RUFFIN 350.1.13.10 HOSPITAL 4.2.7.2.686 [id number] 019 2020-08-01 2020-08-01 Outpatient R TAMI [facility] [id number] Univers 10:00:00 10:00:00 CAABRAHAMGUSTAVO ity [facility] 2020-03-04 2020-03-04 Emergency X Marguerite SOUSA [facility] ERT [id number] Univers 14:38:35 18:18:00 ity [facility] 2020-03-04 2020-03-04 Emergency Jose [facility] 1.2.840.114 [id number] Univers 14:38:35 18:18:00 Brigitte Fishman 350.1.13.10 i ty of [place] 4.2.7.2.686 [place] [phone] [facility] 084 [place] 2020-03-04 2020-03-04 Emergency Jose K [facility] 1.2.840.114 [id number] 14:38:35 18:18:00 Brigitte Fishman 350.1.13.10 [place] 4.2.7.2.686 [place] [phone] 084 2020-03-04 2020-03-04 Orders Doctor VICKIE 1.2.840.114 [id number] [facility] 00:00:00 00:00:00 Only Unassigned, AUGUSTIN 350.1.13.10 ity of [place] [facility] 4.2.7.2.686 [facility] as [phone] [facility] 009 [place] 2020-03-04 2020-03-04 Orders Doctor VICKIE 1.2.840.114 [id number] 00:00:00 00:00:00 Only Unassigned, [place]IN 350.1.13.10 [place] [facility] 4.2.7.2.686 [id number] 009 2020-02-19 2020-02-19 Ambulatory nullFlavo [facility] 4 [id number] Memoria 15:30:00 15:30:00 Pre-Reg r Medicine 23 clarence Bolton 2020-02-19 2020-02-19 Ambulatory nullFlavo MG Family 4 [id number] Memoria 15:30:00 15:30:00 Pre-Reg r Medicine 23 clarence Bolton 2020-02-19 2020-02-19 Outpatient MHIE MHIE [id number] Memoria 10:30:00 10:30:00 23 clarence Bolton 2020-02-19 2020-02-19 Outpatient Schmidt, MG MG [id number] 10:30:00 10:30:00 Aurelia Green 2020-02-05 2020-02-06 Outpatient nullFlavo MG Family 4 [id number] Memoria 14:30:00 04:59:59 r Medicine 22 clarence Bolton 2020-02-05 2020-02-06 Outpatient nullFlavo MG Family 4 [id number] Memoria 14:30:00 04:59:59 r Medicine 22 clarence Bolton 2020-02-05 2020-02-05 Outpatient Schmidt, MG MG [id number] 09:30:00 23:59:59 Aurelia Green 2020-02-05 2020-02-05 Outpatient MHIE MHIE [id number] Memoria 09:30:00 09:30:00 22 clarence Bolton 2019-01-16 2019-01-16 Outpatient [facility] [id number] Common 16:00:00 16:00:00 t [facility] [address] [facility] 2019-01-15 2019-01-15 Outpatient [facility] [id number] Common 13:36:00 13:36:00 t [facility] [address] [facility] 2019-01-14 2019-01-14 Outpatient Brazzina [facility] [id number] Common 13:30:00 13:30:00 t [facility] it [address] [facility] 2018-11-01 2018-11-02 Outpatient nullFlavo [facility] 4 [id number] Memoria 14:45:00 05:59:59 r Medicine 21 clarence Bolton 2018-11-01 2018-11-02 Outpatient nullFlavo MG Family 4 [id number] Memoria 14:45:00 05:59:59 r Medicine 21 clarence Bolton 2018-11-01 2018-11-01 Outpatient Goss, MG [facility] [id number] 08:45:00 23:59:59 Ishmael 21 2018-11-01 2018-11-01 Outpatient MHIE IE [id number] Memoria 08:45:00 08:45:00 21 clarence Bolton 2018-06-29 2018-06-30 Outpatient nullFlavo MG Family 4 [id number] Memoria 19:00:00 04:59:59 r Medicine 20 clarence Bolton 2018-06-29 2018-06-30 Outpatient nullFlavo MG Family 4 [id number] Memoria 19:00:00 04:59:59 r Medicine 20 clarence Bolton 2018-06-29 2018-06-29 Outpatient Goss, MG [facility] [id number] 14:00:00 23:59:59 Ishmael 20 2018-06-29 2018-06-29 Ambulatory nullFlavo [facility] Family 4 [id number] Memoria 19:00:00 19:00:00 Pre-Reg r Medicine 18 clarence Bolton 2018-06-29 2018-06-29 Ambulatory nullFlavo MG Family 4 [id number] Memoria 19:00:00 19:00:00 Pre-Reg r Medicine 18 clarence Bolton 2018-06-29 2018-06-29 Outpatient MHIE MHIE [id number] Memoria 14:00:00 14:00:00 20 clarence Bolton 2018-06-29 2018-06-29 Outpatient MHIE MHIE [id number] Memoria 14:00:00 14:00:00 18 clarence Bolton 2018-06-29 2018-06-29 Outpatient Goss, MHMG MG [id number] 14:00:00 14:00:00 Ishmael 18 2018-06-25 2018-06-25 Ambulatory nullFlavo [facility] 4 [id number] Memoria 14:30:00 14:30:00 Pre-Reg r Medicine 17 clarence Bolton 2018-06-25 2018-06-25 Ambulatory nullFlavo [facility] 4 [id number] Memoria 14:30:00 14:30:00 Pre-Reg r Medicine 17 clarence Bolton 2018-06-25 2018-06-25 Outpatient MHIE MHIE [id number] Memoria 09:30:00 09:30:00 17 clarence Bolton 2018-06-25 2018-06-25 Outpatient VISIT, [facility] MG [id number] 09:30:00 09:30:[address] 17 2018-06-25 2018-06-25 Outpatient VISIT, [facility] MG [id number] 09:30:00 09:30:00 NURSE STWH 17 2018-06-25 2018-06-25 Outpatient VISIT, MH[facility] MG [id number] 09:30:00 09:30:00 NURSE STWH 17 2018-06-25 2018-06-25 Outpatient VISIT, [facility] MG [id number] 09:30:00 09:30:[address] 17 2018-06-15 2018-06-16 Outpatient nullFlavo [facility] 4 [id number] Memoria 20:15:00 04:59:59 r Medicine 19 clarence Bolton 2018-06-15 2018-06-16 Outpatient nullFlavo [facility] 4 [id number] Memoria 20:15:00 04:59:59 r Medicine 19 clarence Bolton 2018-06-15 2018-06-15 Outpatient Goss, MG MG [id number] 15:15:00 23:59:59 Ishmael 19 2018-06-15 2018-06-15 Outpatient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
--- NOTE | 2023-03-13 15:03 | ER ---
Nurse's Notes [facility] Name: Tammie Rhodes Age: 27 yrs Sex: Female : 1995 Arrival Date: 03/13/2023 Time: 14:36 Bed 5 Private MD: Diagnosis: Disruption of external operation (surgical) wound, not elsewhere classified, initial encounter Presentation: 03/13 15:01 Chief complaint: Patient states: approx 3 weeks ago, states that she has had ph increased physical activity at home and noticed part of her incision , denies fever or chills. Coronavirus screen: Vaccine status: Patient reports receiving the 2nd dose of the covid vaccine. Ebola Screen: No symptoms or risks identified at this time. Initial Sepsis Screen: Does the patient meet any 2 criteria? No. Patient's initial sepsis screen is negative. Does the patient have a suspected source of infection? No. Patient's initial sepsis screen is negative. Risk Assessment: Do you want to hurt yourself or someone else? Patient reports no desire to harm self or others. Onset of symptoms was March 13, 2023. 15:01 Method Of Arrival: Ambulatory ph 15:01 Acuity: EBONI 4 ph Triage Assessment: 15:04 General: Appears in no apparent distress. Behavior is calm, cooperative, appropriate ph for age, Denies fever, feeling ill. Pain: Complains of pain in left lower quadrant. Neuro: Level of Consciousness is awake, alert, obeys commands, Oriented to person, place, time, situation. Cardiovascular: Capillary refill < 3 seconds in bilateral fingers Patient's skin is warm and dry. Respiratory: Airway is patent Respiratory effort is even, unlabored. GI: c section incision to lower abdomen, small amount of separation noted to L side of incision, no drainage, no redness or swelling to area. Historical: - Allergies: 15:02 Aspirin; ph 15:02 Benadryl; ph - PMHx: 15:02 Anemia; Anxiety; Migraines; ph - PSHx: 15:02 Appendectomy; breast surgery; section; eye surgery; Tonsillectomy; ph - Immunization history:: Adult Immunizations up to date. - Social history:: Smoking status: Patient denies any tobacco usage or history of. Screenin:03 [facility] ED Fall Risk Assessment (Adult) History of falling in the last 3 months, ph including since admission No falls in past 3 months (0 pts) Confusion or Disorientation No (0 pts) Intoxicated or Sedated No (0 pts) Impaired Gait No (0 pts) Mobility Assist Device Used No (0 pt) Altered Elimination No (0 pt) Score/Fall Risk Level 0 - 2 = Low Risk Oriented to surroundings, Maintained a safe environment, Hourly rounding (assess needs \T\ fall precautionary measures) done. Abuse screen: Denies threats or abuse. Denies injuries from another. Nutritional screening: No deficits noted. Tuberculosis screening: No symptoms or risk factors identified. Assessment: 15:18 General: SEE TRIAGE ASSESSMENT. ph Vital Signs: 15:01 BP 101 / 81; Pulse 68; Resp 18; Temp 97.9; Pulse Ox 100% on R/A; Weight 88.45 kg; ph Height 5 ft. 4 in. ; 15:01 Body Mass Index 33.47 (88.45 kg, 162.56 cm) ph ED Course: 14:39 Patient arrived in ED. rg4 14:41 Bharathi Haque MD is Attending Physician. bs3 15:00 No Arnold RN is Primary Nurse. ph 15:02 Triage completed. ph 15:02 Arm band placed on Patient placed in an exam room. ph 15:03 Patient has correct armband on for positive identification. Bed in low position. Call ph light in reach. Side rails up X 1. 15:03 No provider procedures requiring assistance completed. Patient did not have IV access ph during this emergency room visit. Administered Medications: No medications were administered Medication: 15:03 VIS not applicable for this client. ph Outcome: 15:02 Discharge ordered by . bs3 15:19 Discharged to home ambulatory. ph 15:19 Condition: good 15:19 Discharge instructions given to patient, Instructed on discharge instructions, follow up and referral plans. Demonstrated understanding of instructions, follow-up care. 15:19 Patient left the ED. ph Signatures: No Arnold RN RN Magnolia Stewart rg4 Bharathi Haque MD MD bs3
--- NOTE | 2023-03-13 15:03 | EDPHYS ---
Physician Documentation [facility] Name: Tammie Rhodes Age: 27 yrs Sex: Female : 1995 Arrival Date: 03/13/2023 Time: 14:36 Bed 5 Private MD: ED Physician Bharathi Haque HPI: 03/13 14:58 This 27 yrs old Female presents to ER via Unassigned with complaints of bs3 Incision Problem. 14:58 19-year-old female history of 4 C-sections presents with a small amount of drainage and bs3 separation from the left side of her incision she denies associated pain denies fevers chills or anything else bothering her she denies any purulent discharge she notes that she has been doing more activity than she likely should and yesterday she coughed and it seemed to open up a little bit. Historical: - Allergies: 15:02 Aspirin; ph 15:02 Benadryl; ph - PMHx: 15:02 Anemia; Anxiety; Migraines; ph - PSHx: 15:02 Appendectomy; breast surgery; section; eye surgery; Tonsillectomy; ph - Immunization history:: Adult Immunizations up to date. - Social history:: Smoking status: Patient denies any tobacco usage or history of. ROS: 14:58 Constitutional: Negative for fever, chills bs3 14:58 All other systems are negative. Exam: 14:58 Constitutional: This is a well developed, well nourished patient who is awake, alert, bs3 and in no acute distress. Head/Face: Normocephalic, atraumatic. Eyes: Pupils equal round and reactive to light, extra-ocular motions intact. Lids and lashes normal. ENT: mmm, no posterior phyarngeal erythema Neck: Trachea midline, no thyromegaly, no neck stiffness Chest/axilla: Normal chest wall appearance and motion. Nontender with no deformity. No lesions are appreciated. Cardiovascular: Regular rate and rhythm with a normal S1 and S2. symmetric pulses in upper extremities Abdomen/GI: Soft, no focal tenderness she has a tiny bit of dehiscence on the left side of her Pfannenstiel incision there is no significant drainage no significant tenderness Vital Signs: 15:01 BP 101 / 81; Pulse 68; Resp 18; Temp 97.9; Pulse Ox 100% on R/A; Weight 88.45 kg; ph Height 5 ft. 4 in. ; 15:01 Body Mass Index 33.47 (88.45 kg, 162.56 cm) ph MDM: 14:41 Patient medically screened. bs3 14:58 Data reviewed: vital signs, nurses notes. ED course: Patient with small wound bs3 dehiscence advised to decrease activity use abdominal binder advised to follow-up with her OB return for fever chills increased pain or any other concerning symptoms. Administered Medications: No medications were administered Disposition Summary: 03/13/23 15:02 Discharge Ordered Location: Home bs3 Problem: new bs3 Symptoms: have improved bs3 Condition: Stable bs3 Diagnosis - Disruption of external operation (surgical) wound, not elsewhere classified, bs3 initial encounter Followup: bs3 - With: Private Physician - When: 5 - 6 days - Reason: Re-evaluation by your physician Forms: - Medication Reconciliation Form bs3 - Thank You Letter bs3 - Antibiotic Education bs3 - Prescription Opioid Use bs3 - [email or web address] bs3 Signatures: No Arnold, RN RN ph Bharathi Haque MD MD bs3
[2023-03-13 15:26] VITALS: BP 101/81; TEMP 97.9; O2SAT 100
== END 2023-03-13 15:19 | disposition home or self-care (01) ==
LOC: ER 14:36
DX: T81.31XA Disruption of external operation (surgical) wound, not elsewhere classified, initial encounter (principal); Z88.6 Allergy status to analgesic agent; Z88.8 Allergy status to other drugs, medicaments and biological substances